=== PATIENT | male | born 1950 | race Caucasian/White ===

== ENCOUNTER 2016-11-20 18:33 | Inpatient (IN) ==
[2016-11-20] MEDS ORDERED: MORPHINE 2 MG/ML SYRINGE IVP STA (18:47)
[2016-11-20] MEDS ORDERED: SOLU-MEDROL 125 MG IVP STA (18:47)
[2016-11-20] MEDS ORDERED: ZOFRAN 4 MG/2 ML IVP STA (18:47)
[2016-11-20] MEDS ORDERED: DUONEB NEB STA (18:47)
[2016-11-20 19:01] LABS: BASOPHILS # (AUTO) 0.1 K/uL (0-0.2); BASOPHILS % (AUTO) 0.8 % (0.0-3.0); EOSINOPHILS # (AUTO) 0.1 K/ul (0.0-0.7); HEMATOCRIT 39.7 % (42.0-52.0); IMMATURE GRANULOCYTE % (AUTO) 0.4 % (0.0-5.0); LYMPHOCYTES # (AUTO) 0.8 K/uL (0.60-3.4); LYMPHOCYTES % (AUTO) 11.3 (10.0-50.0); MEAN CORPUSCULAR HEMOGLOBIN 29.2 pg (27.0-31.0); MEAN CORPUSCULAR HGB CONC 35.3 (31.8-35.4); MEAN CORPUSCULAR VOLUME 82.9 fl (80.0-94.0); MONOCYTES # (AUTO) 0.7 K/uL (0.4-2.0); NEUTROPHILS # (AUTO) 5.7 K/ul (2.0-6.9); NEUTROPHILS % (AUTO) 77.5; PLATELET COUNT 236 10^3/uL (140-440); RED BLOOD COUNT 4.79 10^6/ul (4.70-6.10); WHITE BLOOD COUNT 7.35 K/ul (4.2-10.2)
--- NOTE | 2016-11-20 19:22 | CT ---
Exam: CT of the chest without contrast History: Shortness of breath Technique: [address] of the chest without intravascular contrast FINDINGS: The lung windows show mild emphysematous change. No infiltrative opacities, suspicious no dules or masses. No pleural fluid or pneumothorax. Atherosclerotic calcification of the aorta with out aneurysm. No pathologic lymph node enlargement mediastinum. Prior median sternotomy. No acute abnormalities of the bony thorax or chest wall soft tissues. No acute findings of the upper abdome n. Impression: 1. Mild emphysematous change 2. No acute findings of the chest
[2016-11-20 19:28] LABS: ALANINE AMINOTRANSFERASE 21 U/L (12-78); ALBUMIN 3.3 g/dL (3.4-5.0); ALBUMIN/GLOBULIN RATIO 0.94; ALKALINE PHOSPHATASE 71 U/L (56-119); ANION GAP 15.9; ASPARTATE AMINO TRANSFERASE 25 U/L (15-37); BILIRUBIN,TOTAL 0.55 mg/dL (0.00-1.20); BLOOD UREA NITROGEN 12 mg/dL (7-18); BUN/CREATININE RATIO 11.11; CALCIUM 9.4 mg/dL (8.2-10.2); CARBON DIOXIDE 24 mmol/L (23-31); CHLORIDE 99 mmol/L (98-107); CREATINE KINASE 113 U/L; CREATININE 1.08 mg/dL (0.60-1.10); GLUCOSE 106 mg/dL (82-115); POTASSIUM 3.9 mmol/L (3.5-5.1); SODIUM 135 mmol/L (136-145); TOTAL PROTEIN 6.8 g/dL (5.8-8.1)
[2016-11-20 19:49] LABS: ABG PH 7.415 (7.35-7.45)
[2016-11-20 19:50] LABS: ABG BASE EXCESS 1 (-2.0-2.0); ABG HCO3 25.4 (22.0-26.0); ABG PCO2 39.6 mmHg (35-45); ABG TCO2 27 (22.0-28.0)
--- NOTE | 2016-11-20 19:57 | ED.PDOC ---
General ED Provider: Dr. MADAY DONG-ER Chief Complaint: Shortness of Air Stated Complaint: im coughing and congested and wheezing--i went back to smoking Time Seen by Physician: 19:00 Mode of Arrival: Walk-In Information Source: Patient Exam Limitations: No limitations Primary Care Provider: ANAHI BALLESTEROS Nursing and Triage Documentation Reviewed and Agree: Yes Respiratory Complaint Exam - Respiratory Complaint/Exam Onset/Duration: 3 days Symptoms Are: Still present Timing: Intermittent Initial Severity: Mild Current Severity: Moderate Location: Chest Character: Reports: Productive cough Aggravating: Reports: URI Alleviating: Reports: Bronchodilators Associated Signs and Symptoms: Reports: Dyspnea, Wheezing, URI. Denies: Rapid breathing, Fever, Chills, Chest pain, Pleuritic chest pain, Hemoptysis, Dizziness, Calf pain, Calf swelling, Edema, Nasal congestion, Hoarseness, Sinus discomfort, Vomiting, Sore throat, Weight loss, Decreased oral intake, Increased thirst, Increased appetite, Increased urination Related History: Reports: Similar episode History of Healthcare-Acquired Pneumonia: No Pulmonary Embolism Risk Factors: Smoking Cardiac Risk Factors: Reports: Smoking Pseudomonas Risk Factors: Reports: Chronic Lung Disease Tuberculosis Risk Factors: Reports: Smoking Status Asthmaticus Risk Factors: Reports: None Home Oxygen Use: No Recent Stress Test: No Recent Echo/LV Function: No Current Antibiotic Use: No Current Asthma Medication Use: No Respiratory Distress: None Inadequate Respiratory Effort: No Dysphagia Present: No Stridor Present: No JVD Present: No Accessory Muscle Use: Yes Retractions: Intercostal Diminished Breath Sounds: No Prolonged Respiration: Expiratory phase Sinus Tenderness: None Grunting Respirations: No Kussmaul Respirations: No Differential Diagnoses: COPD Exacerbation Non-Traumatic Chest Pain Syncope: EKG Performed Review of Systems - Review Of Systems Constitutional: Reports: No symptoms Eyes: Reports: No symptoms Ears, Nose, Mouth, Throat: Reports: No symptoms Respiratory: Reports: Cough, Short of air, Wheezing Cardiac: Reports: No symptoms GI: Reports: No symptoms : Reports: No symptoms Musculoskeletal: Reports: No symptoms Skin: Reports: No symptoms Neurological: Reports: No symptoms Endocrine: Reports: No symptoms Hematologic/Lymphatic: Reports: No symptoms All Other Systems: Reviewed and Negative Past Medical History - Past Medical History Previously Healthy: No Endocrine: Reports: None, Dyslipidemia Cardiovascular: Reports: CAD, Hypertension, A-Fib Respiratory: Reports: COPD Hematological: Reports: None Gastrointestinal: Reports: None, GI Bleed (DR oHu NOTES PATINET RECENTLY DISCHARGED FRO M RASTAFARI POST SHRAVAN BARKER TEAR) Genitourinary: Reports: None Neuro/Psych: Reports: None, Anxiety, Depression Musculoskeletal: Reports: Back Pain Cancer: Reports: None Other Pertinent Past Medical History: ABDOMEN SURGERY as an infanth - Surgical History General Surgical History: Reports: Appendectomy, Cholecystectomy, CABG (TWICE), Orthopedic (CABG X 2, BACK SURGERY, SHOULDER, NECK DISC REPLACEMENT, ), Back Surgery ( SPINE SURGERY), Hernia Repair (WITH MESH- CURRENTLY HAS TENDER AREA LEFT EPIGASTRIUM WHICH INTERMITTENTLY HAS LARGE PAINFUL LUMP) - Family History Family History: Reports: Unknown - Social History Smoking Status: Current every day smoker, Former smoker, Light tobacco smoker Hx Substance Use: No Alcohol Screening: Occasionally Lives: With family - Immunizations Tetanus Shot up to Date: Yes Physical Exam - Physical Exam Appearance: Well-appearing, No pain distress, Well-nourished Eyes: INDER, EOMI, Conjunctiva clear ENT: Ears normal, Nose normal, Oropharynx normal Neck: Supple Respiratory: Rhonchi, Wheezes Cardiovascular: RRR GI/: Soft Musculoskeletal: Normal strength, ROM intact, No edema, No calf tenderness Skin: Warm, Dry, Normal color Neurological: Sensation intact, Motor intact, Reflexes intact, Cranial nerves intact, Alert, Oriented Psychiatric: Affect appropriate, Mood appropriate Interpretation - Radiology Interpretation Radiology Interpretation By: Radiologist Radiology Results: Negative Exam Interpreted: CT Scan - EKG Interpretation Time of EKG #1: 19:57 Rate: Normal Rhythm: Sinus Ectopy: None [place]: NL ST Segment: Normal Interpretation: 0 Re-Evaluation - Re-Evaluation Time of Re-Evaluation: 19:57 Status: Improved Vital Signs Stable: Yes Pain Level: 1 Appearance: NAD Lungs: Clear Skin: Warm and Dry Neuro: Alert and Oriented X3 CV: RRR Physician Notification - Case Discussed Physician Notified: dr [email or web address] Time of Notification: 19:57 Critical Care Note - Critical Care Note Total Time (mins): 0 Course - Course Hematology/Chemistry: 11/20/16 18:55 11/20/16 18:55 Orders, Labs, Meds: Lab Review 11/20/16 11/20/16 18:47 18:55 WBC 7.35 RBC 4.79 Hgb 14.0 Hct 39.7 L MCV 82.9 MCH 29.2 MCHC 35.3 RDW Coeff of Tobin 12.8 Plt Count 236 Immature Gran % (Auto) 0.4 Neut % (Auto) 77.5 Lymph % (Auto) 11.3 [place] % (Auto) 9.0 Eos % (Auto) 1.0 Baso % (Auto) 0.8 Immature Gran # (Auto) 0.0 Neut # 5.7 Lymph # 0.8 [place] # 0.7 Eos # 0.1 Baso # 0.1 D-Dimer (Manual) 878.21 Puncture Site Rb O2 Saturation 91.0 L ABG pH 7.415 ABG pCO2 39.6 ABG pO2 59.0 L* ABG HCO3 25.4 ABG Total CO2 27 ABG Base Excess 1 Dariel Test + FiO2 % 21.0 Sodium 135 L Potassium 3.9 Chloride 99 Carbon Dioxide 24 Anion Gap 15.9 BUN 12 Creatinine 1.08 Estimated GFR (MDRD) 69.00 BUN/Creatinine Ratio 11.11 Glucose 106 Calcium 9.4 Total Bilirubin 0.55 AST 25 ALT 21 Alkaline Phosphatase 71 Total Creatine Kinase 113 Troponin I < 0.0100 B-Natriuretic Peptide 62 Total Protein 6.8 Albumin 3.3 L Globulin 3.5 Albumin/Globulin Ratio 0.94 Orders Category Date Time Status ABG DRAW REQUEST Stat CARDIO 11/20/16 18:49 Completed EKG-(ED ONLY) Stat CARDIO 11/20/16 18:50 Completed NEBULIZER TREATMENT Stat CARDIO 11/20/16 18:49 Completed ED IV/MEDIPORT/POWERPORT .ONCE EMERGENCY 11/20/16 18:47 Active ABG Stat LAB 11/20/16 18:47 Completed B-TYPE NATRIURETIC PEPTIDE Stat LAB 11/20/16 18:55 Completed CBC W/ AUTO DIFF Stat LAB 11/20/16 18:55 Completed COMPREHENSIVE METABOLIC PANEL Stat LAB 11/20/16 18:55 Completed CREATINE KINASE Stat LAB 11/20/16 18:55 Completed D-DIMER Stat LAB 11/20/16 18:55 Completed TROPONIN I Stat LAB 11/20/16 18:55 Completed 0.9 % Sodium Chloride [Saline Flush] MEDS 11/20/16 18:47 Ordered 1 syr IVF PRN PRN Ipratropium/Albuterol Neb [Duoneb] MEDS 11/20/16 18:47 Discontinued 1 vial NEB ONCE STA Methylprednisolone Sod Succ/Pf [Solu-Medrol 125 mg] MEDS 11/20/16 18:47 Discontinued 80 mg IVP ONCE STA Morphine Sulfate [Morphine 2 mg/ml Syringe] MEDS 11/20/16 18:47 Discontinued 2 mg IVP ONCE STA Ondansetron HCl/Pf [Zofran 4 mg/2 ml] MEDS 11/20/16 18:47 Discontinued 4 mg IVP ONCE STA CT CHEST W/O CONTRAST Stat RADS 11/20/16 18:47 Completed Medications Generic Name Dose Route Start Last Admin Trade Name Freq PRN Reason Stop Dose Admin Sodium Chloride 1 syr 11/20/16 18:47 Saline Flush IVF PRN PRN To flush IV Discontinued Medications Generic Name Dose Route Start Last Admin Trade Name Freq PRN Reason Stop Dose Admin Albuterol/Ipratropium 1 vial 11/20/16 18:47 Duoneb NEB 11/20/16 18:48 ONCE STA Methylprednisolone Sodium Succinate 80 mg 11/20/16 18:47 11/20/16 19:22 Solu-Medrol 125 Mg IVP 11/20/16 18:48 80 mg ONCE STA Administration Morphine Sulfate 2 mg 11/20/16 18:47 11/20/16 19:22 Morphine 2 Mg/Ml Syringe IVP 11/20/16 18:48 2 mg ONCE STA Administration Ondansetron HCl 4 mg 11/20/16 18:47 11/20/16 19:22 Zofran 4 Mg/2 Ml IVP 11/20/16 18:48 4 mg ONCE STA Administration Vital Signs: Temp Pulse Resp BP Pulse Ox 11/20/16 18:33 97.5 F L 117 H 22 153/90 H 94 L Departure - Departure Time of Disposition: 19:58 Disposition: ADMITTED INPATIENT Discharge Problem: COPD exacerbation Acute respiratory failure Qualifiers: Respiratory failure complication: hypoxia Qualifier Code: (J96.01) Acute respiratory failure with hypoxia Instructions: COPD (Chronic Obstructive Pulmonary Disease) (ED) Condition: Good Pt referred to PMD for follow-up: Yes Allergies/Adverse Reactions: Allergies buspirone HCl [From BuSpar] Adverse Reaction (Verified 11/20/16 18:39) codeine Adverse Reaction (Verified 11/20/16 18:39) lorazepam [From Ativan] Adverse Reaction (Verified 11/20/16 18:39) meperidine HCl [From Demerol] Adverse Reaction (Verified 11/20/16 18:39) promethazine HCl [From Phenergan] Adverse Reaction (Verified 11/20/16 18:39) tiotropium bromide [From Spiriva with HandiHaler] Adverse Reaction (Verified 10/07 18:39) Home Medications: Ambulatory Orders Atorvastatin Calcium [Lipitor] 40 mg PO BEDTIME 01/20/13 Isosorbide Mononitrate [Imdur] 30 mg PO DAILY 01/20/13 Aspirin [Aspirin Chewable] 81 mg PO 2100 01/28/13 Duloxetine HCl [Cymbalta] 30 mg PO DAILY 01/28/13 Metoprolol Succinate [Toprol Xl] 50 mg PO DAILY 01/28/13 Pantoprazole Sodium [Protonix] 40 mg PO QDAC 01/28/13 Alprazolam [Xanax] 1 mg PO BEDTIME 09/22/14 Clopidogrel Bisulfate [Plavix] 75 mg PO DAILY 09/22/14 Diltiazem HCl [Cardizem] 60 mg PO Q12HR #60 tablet 09/23/14 Oxycodone HCl/Acetaminophen [Percocet 7.5-325 mg Tablet] 1 each PO QID PRN 30 Days 03/18/15 Albuterol Sulfate [Proair Hfa] 2 puff IH Q6H PRN #1 inh 06/30/15 Cephalexin [Keflex] 500 mg PO Q12HR 5 Days 05/08/16 Prednisone 10 mg PO BIDWM 5 Days 05/08/16 Disposition Discussed With: Patient
[2016-11-20] MEDS ORDERED: ZOFRAN 4 MG/2 ML IVP PRN (20:03)
[2016-11-20] MEDS ORDERED: PERCOCET 7.5-325 PO PRN (20:04)
[2016-11-20] MEDS: SODIUM CHLORIDE 1,000 ML IV SCH (20:38)
[2016-11-20] MEDS ORDERED: CARDIZEM ONE (21:21)
[2016-11-20] MEDS: LIPITOR PO SCH (21:26)
[2016-11-20] MEDS: ASPIRIN CHEWABLE PO SCH (21:26)
[2016-11-20] MEDS: XANAX PO SCH (21:26)
[2016-11-20] MEDS: CARDIZEM PO SCH (21:27)
[2016-11-20] MEDS: MORPHINE 2 MG/ML SYRINGE IVP PRN (21:28)
[2016-11-20] MEDS: ALBUTEROL 0.083% NEB NEB SCH (22:02)
[2016-11-21] MEDS: SOLU-MEDROL 40 MG IVP SCH ×5 (00:20→23:23)
[2016-11-21] MEDS: ALBUTEROL 0.083% NEB NEB SCH ×6 (01:40→21:38)
[2016-11-21] MEDS: MORPHINE 2 MG/ML SYRINGE IVP PRN ×2 (03:31→09:19)
[2016-11-21] MEDS: PROTONIX PO SCH (05:47)
[2016-11-21 05:51] LABS: HEMATOCRIT 40.4 % (42.0-52.0); HEMOGLOBIN 14.1 g/dl (14.0-18.0); IMMATURE GRANULOCYTE % (AUTO) 0.5 % (0.0-5.0); LYMPHOCYTES # (AUTO) 0.4 K/uL (0.60-3.4); LYMPHOCYTES % (AUTO) 9.7 (10.0-50.0); MEAN CORPUSCULAR HEMOGLOBIN 29.1 pg (27.0-31.0); MEAN CORPUSCULAR HGB CONC 34.9 (31.8-35.4); MEAN CORPUSCULAR VOLUME 83.3 fl (80.0-94.0); MONOCYTES % (AUTO) 0.8 (0-10); NEUTROPHILS # (AUTO) 3.5 K/ul (2.0-6.9); PLATELET COUNT 236 10^3/uL (140-440); RED BLOOD COUNT 4.85 10^6/ul (4.70-6.10); WHITE BLOOD COUNT 3.93 K/ul (4.2-10.2)
[2016-11-21 06:09] LABS: ALBUMIN 3.1 g/dL (3.4-5.0); ALBUMIN/GLOBULIN RATIO 0.91; ANION GAP 13.6; BILIRUBIN,TOTAL 0.55 mg/dL (0.00-1.20); BUN/CREATININE RATIO 13.33; CALCIUM 9.2 mg/dL (8.2-10.2); CREATININE 1.05 mg/dL (0.60-1.10); POTASSIUM 4.6 mmol/L (3.5-5.1); TOTAL PROTEIN 6.5 g/dL (5.8-8.1)
[2016-11-21] MEDS: ROCEPHIN 1 GM in SODIUM CHLORIDE 50 ML IV SCH (08:01)
[2016-11-21] MEDS: TOPROL XL PO SCH (08:01)
[2016-11-21] MEDS: PERCOCET 7.5-325 PO PRN ×4 (08:02→23:23)
[2016-11-21] MEDS: CYMBALTA PO SCH (08:02)
[2016-11-21] MEDS: IMDUR PO SCH (08:02)
[2016-11-21] MEDS: PLAVIX PO SCH (08:02)
[2016-11-21] MEDS: CARDIZEM PO SCH ×2 (08:02→20:22)
[2016-11-21] MEDS: LOVENOX SUBCUT SCH (08:03)
[2016-11-21] MEDS ORDERED: TOPROL XL PO SCH (09:00)
[2016-11-21] MEDS: ZITHROMAX 500 MG in SODIUM CHLORIDE 250 ML IV SCH (09:20)
[2016-11-21] MEDS: TESSALON PERLES PO SCH ×3 (09:20→20:21)
--- NOTE | 2016-11-21 10:15 | PCM.PROG ---
Attending Provider: ATTENDING PROVIDER: Dr. ANAHI CHUNG - SEEN BY DR. PARSONS DATE OF SERVICE: 11/21/16 SUBJECTIVE: This 66 year old WHITE/ M was hospitalized 11/20/16. The patient states he is feeling better. He continues to have a cough that is productive, thick yellow sputum. He states his chest, both sides hurts when he coughs. REVIEW OF SYSTEMS: CONSTITUTIONAL: No fever, no chills. ENDOCRINE: No weight loss or weight gain. HEENT: No sinus drainage, no sore throat. CVS: No angina symptoms. No CHF symptoms. No palpitations. No atypical chest pain for CAD. No shortness of breath. No PND, no orthopnea. RESPIRATORY: Cough and congestion. No hemoptysis. GI: No melena. No abdominal pain. No nausea, no vomiting. : No hematuria. No polyuria. SKIN: No rash. No wounds. MUSCULOSKELETAL: Complains of pain across his chest when coughing. GORE CUTTER: No blackout, no dizziness. No headache. No double vision. PSYCHIATRIC: Not anxious; no depression. No suicidal thoughts. No homicidal thoughts. PHYSICAL EXAMINATION: GENERAL: Lying in bed in no distress. VITAL SIGNS: Temperature 97.9 F, Pulse 79, Respiratory Rate 18, BP 123/66, Pulse Ox 98% HEENT: Normocephalic, atraumatic. Mucosa is dry, pallor positive. NECK: No JVP, no carotid bruit. No lymphadenopathy. CARDIAC: S1, S2, no S3. No murmur, gallop or regurgitation. LUNGS: Clear to auscultation. ABDOMEN: Soft, non-tender. Bowel sounds active. No rigidity, guarding or CVA tenderness. EXTREMITIES: No clubbing, cyanosis or edema. NEUROLOGIC: Awake, alert and oriented x3. LYMPHATIC: No palpable lymph nodes SKIN: Not dry. Intact. MUSCULOSKELETAL: No joint swelling. LAB REVIEW: 11/21/16 05:15 11/21/16 05:15 11/21/16 05:15: WBC 3.93 L, RBC 4.85, Hgb 14.1, Hct 40.4 L, MCV 83.3, MCH 29.1, MCHC 34.9, RDW Coeff of Tobin 13.1, Plt Count 236, Immature Gran % (Auto) 0.5, Neut % (Auto) 89.0, Lymph % (Auto) 9.7 L, [place] % (Auto) 0.8, Eos % (Auto) 0.0, Baso % (Auto) 0.0, Immature Gran # (Auto) 0.0, Neut # 3.5, Lymph # 0.4 L, [place] # 0.0 L, Eos # 0.0, Baso # 0.0, Sodium 136, Potassium 4.6, Chloride 102, Carbon Dioxide 25, Anion Gap 13.6, BUN 14, Creatinine 1.05, Estimated GFR (MDRD) 71.00 , BUN/Creatinine Ratio 13.33, Glucose 166 H D, Calcium 9.2, Total Bilirubin 0.55 , AST 20, ALT 19, Alkaline Phosphatase 69, Total Protein 6.5, Albumin 3.1 L, Globulin 3.4, Albumin/Globulin Ratio 0.91 ASSESSMENT: 1. COPD exacerbation secondary to bronchitis 2. Coronary artery disease 3. CABG 4. Hypertension 5. Dyslipidemia 6. History of prostate cancer 7. Continued nicotine use PLAN: 1. Continue Rocephin and Azithromycin 2. Continue Albuterol nebs 3. Out of bed to chair 4. Activity as tolerated 5. Counseling for smoking done Plan and coordination of the patient's care discussed in the presence of Retaining Room Cutter and nurse. CONDITION: Stable SCRIBED BY: Che WILBURNist scribed while in presence of service performed by Dr. Parsons on 11/21/16 ([id number])
--- NOTE | 2016-11-21 10:20 | PN ---
DATE OF SERVICE: 11/20/16 ADMIT NOTE SUBJECTIVE: Tyree Soler was in the emergency room with cough, congestion, pleuritic type of pain with shortness of breath with 7 days duration. The patient was seen and examined the in the emergency room by ER attending Dr. Johns and called me for patient to be hospitalized as patient has pO2 of less than 60 with normal pCO2 and normal pH. The patient has history fo smoking and severe chronic lung disease. The patient also has history of coronary artery disease with coronary bypass surgery, hypertension and dyslipidemia. The patient's cardiovascular status is stable. REVIEW OF SYSTEMS: CONSTITUTIONAL: No night sweats. No fatigue, malaise, lethargy. No fever or chills. HEENT: Eyes: No visual changes. No eye pain. No eye discharge. ENT: No runny nose. No epistaxis. No sinus pain. No sore throat. No odynophagia. No congestion. RESPIRATORY: No cough, no congestion. No hemoptysis. CARDIOVASCULAR: No angina symptoms. No CHF symptoms. No atypical chest pain for CAD. No palpitations. No shortness of breath. GASTROINTESTINAL: No abdominal pain. No nausea or vomiting. No diarrhea or constipation. No hematemesis. No hematochezia. GENITOURINARY: No urgency. No frequency. No dysuria. No hematuria. No obstructive symptoms. No discharge. No pain. No significant abnormal bleeding. MUSCULOSKELETAL: No musculoskeletal pain; no joint swelling. NEUROLOGICAL: No headache. No neck pain. No syncope. No seizures. No dizziness. PSYCHIATRIC: Not anxious. No depression. No suicidal thoughts. No homicidal thoughts. SKIN: No rash. No lesions. No wounds. ENDOCRINE: No unexplained weight loss. No weight gain. HEMATOLOGIC/LYMPHATIC: No anemia. No purpura. No petechiae. No prolonged or excessive bleeding. No palpable lymph nodes. PHYSICAL EXAMINATION: GENERAL: The patient is oriented to time, place and person. VITAL SIGNS: Blood pressure 153/90, temperature 97.5, pulse 117, respiratory rate 22 and pulse ox 94%. HEENT: Head normocephalic, atraumatic. Eyes: Extraocular muscles are intact. Pupils are equal, round and reactive to light and accommodation. Ears: No lesions. Nose appeared normal. Throat: No exudate or erythema. NECK: Supple. No JVD, no carotid bruit. No lymphadenopathy or thyromegaly. LUNGS: Decreased breath sounds bilaterally. Clear to auscultation. Percussion note normal. Chest symmetrical. HEART: S1, S2, no S3. No murmurs. No cyanosis or clubbing. No ascites. Pulses: Dorsalis pedis and posterior tibial pulses +1 to +2 both sides. ABDOMEN: Soft. Nontender. Bowel sounds active. No CVA tenderness. No mass felt. EXTREMITIES: No edema. Full range of motion of all extremities, equal. NEUROLOGIC: No focal deficit. Cranial nerves II through XII are grossly intact. No headache, no double vision or headache. SKIN: Not dry. Intact. Turgor - normal. LYMPHATIC: No palpable lymph nodes/no lymphedema. MUSCULOSKELETAL: Normal joints with no swelling. Muscle tone is normal. ASSESSMENT: 1. Acute bronchitis/Pneumonitis 2. Severe chronic lung disease PLAN: 1. Hospitalize with IV antibiotics Rocephin and Zithromax 2. IV Steroids 3. NEBS treatment 4. Oxygen supplements 5. Telemetry 6. Cardiac Markers CONDITION: Stable. TIME SPENT: More than 30 minutes. Plan and coordination of the patient's care discussed in the presence of nurse. VERN
[2016-11-21] MEDS ORDERED: TORADOL IVP PRN (14:47)
[2016-11-21] MEDS ORDERED: TORADOL ONE (14:53)
[2016-11-21] MEDS: XANAX PO SCH (20:21)
[2016-11-21] MEDS: ASPIRIN CHEWABLE PO SCH (20:21)
[2016-11-21] MEDS: LIPITOR PO SCH (20:22)
[2016-11-21] MEDS: SODIUM CHLORIDE 1,000 ML IV SCH (21:49)
[2016-11-22] MEDS: ALBUTEROL 0.083% NEB NEB SCH ×6 (01:16→21:03)
[2016-11-22 04:33] LABS: BASOPHILS % (AUTO) 0.1 % (0.0-3.0); HEMATOCRIT 37.5 % (42.0-52.0); IMMATURE GRANULOCYTE % (AUTO) 0.5 % (0.0-5.0); LYMPHOCYTES # (AUTO) 0.5 K/uL (0.60-3.4); LYMPHOCYTES % (AUTO) 3.4 (10.0-50.0); MEAN CORPUSCULAR HEMOGLOBIN 29.5 pg (27.0-31.0); MEAN CORPUSCULAR HGB CONC 34.7 (31.8-35.4); MEAN CORPUSCULAR VOLUME 85.2 fl (80.0-94.0); MONOCYTES # (AUTO) 0.4 K/uL (0.4-2.0); MONOCYTES % (AUTO) 3.1 (0-10); NEUTROPHILS # (AUTO) 12.9 K/ul (2.0-6.9); NEUTROPHILS % (AUTO) 92.9; PLATELET COUNT 211 10^3/uL (140-440); WHITE BLOOD COUNT 13.86 K/ul (4.2-10.2)
[2016-11-22 04:56] LABS: ALBUMIN 2.9 g/dL (3.4-5.0); ALBUMIN/GLOBULIN RATIO 0.97; ANION GAP 12.7; BILIRUBIN,TOTAL 0.28 mg/dL (0.00-1.20); CALCIUM 8.9 mg/dL (8.2-10.2); CREATININE 1.12 mg/dL (0.60-1.10); POTASSIUM 4.7 mmol/L (3.5-5.1); TOTAL PROTEIN 5.9 g/dL (5.8-8.1)
[2016-11-22] MEDS: SOLU-MEDROL 40 MG IVP SCH ×4 (05:49→23:33)
[2016-11-22] MEDS: PROTONIX PO SCH (05:50)
[2016-11-22] MEDS: PERCOCET 7.5-325 PO PRN ×4 (05:50→23:33)
[2016-11-22] MEDS: CYMBALTA PO SCH (09:05)
[2016-11-22] MEDS: TESSALON PERLES PO SCH ×3 (09:05→20:39)
[2016-11-22] MEDS: IMDUR PO SCH (09:05)
[2016-11-22] MEDS: TOPROL XL PO SCH (09:05)
[2016-11-22] MEDS: LOVENOX SUBCUT SCH (09:05)
[2016-11-22] MEDS: ROCEPHIN 1 GM in SODIUM CHLORIDE 50 ML IV SCH (09:06)
[2016-11-22] MEDS: CARDIZEM PO SCH ×2 (09:06→20:39)
[2016-11-22] MEDS: PLAVIX PO SCH (09:06)
[2016-11-22 09:31] LABS: ABG BASE EXCESS -4 (-2.0-2.0); ABG HCO3 22.3 (22.0-26.0); ABG PCO2 41.9 mmHg (35-45); ABG PH 7.334 (7.35-7.45); ABG TCO2 24 (22.0-28.0)
--- NOTE | 2016-11-22 09:32 | PCM.PROG ---
Attending Provider: ATTENDING PROVIDER: Dr. ANAHI CHUNG - Seen by Dr. Parsons DATE OF SERVICE: 11/22/16 SUBJECTIVE: This 66 year old WHITE/ M was hospitalized 11/20/16. The patient complains this morning of left-sided abdominal pain, which he states he has had for some time, approximately 2 months. He states when he bends over "it pops out " and he has to put it back. He is concerned that he has a hernia. The patient has had multiple surgeries on the belly. Chest pain/soreness is not as bad today. REVIEW OF SYSTEMS: CONSTITUTIONAL: No fever, no chills. ENDOCRINE: No weight loss or weight gain. HEENT: No sinus drainage, no sore throat. CVS: No angina symptoms. No CHF symptoms. No palpitations. No atypical chest pain for CAD. No shortness of breath. RESPIRATORY: No cough, no hemoptysis. GI: No melena. Abdominal pain. No nausea, no vomiting. : No hematuria. No polyuria. SKIN: No rash. No wounds. MUSCULOSKELETAL: No pain. POWER PLANT INSTALLER: No blackout, no dizziness. No headache. No double vision. PSYCHIATRIC: Not anxious; no depression. No suicidal thoughts. No homicidal thoughts. PHYSICAL EXAMINATION: GENERAL: Lying in bed in no distress. VITAL SIGNS: Temperature 97.2 F, Pulse 74, Respiratory Rate 18, BP 151/84, Pulse Ox 95% HEENT: Normocephalic, atraumatic. Mucosa is dry, pallor positive. NECK: No JVP, no carotid bruit. No lymphadenopathy. CARDIAC: S1, S2, no S3. No murmur, gallop or regurgitation. LUNGS: Clear to auscultation. ABDOMEN: Soft, abdominal pain with left upper quadrant tenderness. No rigidity or guarding. I feel no palpable hernia or weakness in the anterior abdominal wall. The patient complans of tenderness there. Bowel sounds active. No rigidity, guarding or CVA tenderness. EXTREMITIES: No clubbing, cyanosis or edema. NEUROLOGIC: Awake, alert and oriented x3. LYMPHATIC: No palpable lymph nodes SKIN: Not dry. Intact. MUSCULOSKELETAL: No joint swelling. LAB REVIEW: 11/22/16 04:31 11/22/16 04:31 11/22/16 04:31: WBC 13.86 H D, RBC 4.40 L, Hgb 13.0 L, Hct 37.5 L, MCV 85.2, MCH 29.5, MCHC 34.7, RDW Coeff of Tobin 13.2, Plt Count 211, Immature Gran % (Auto ) 0.5, Neut % (Auto) 92.9, Lymph % (Auto) 3.4 L, [place] % (Auto) 3.1, Eos % (Auto ) 0.0, Baso % (Auto) 0.1, Immature Gran # (Auto) 0.1, Neut # 12.9 H, Lymph # 0.5 L, [place] # 0.4, Eos # 0.0, Baso # 0.0, Sodium 135 L, Potassium 4.7, Chloride 104, Carbon Dioxide 23, Anion Gap 12.7, BUN 28 H, Creatinine 1.12 H, Estimated GFR (MDRD) 66.00, BUN/Creatinine Ratio 25.00, Glucose 136 H, Calcium 8.9, Total Bilirubin 0.28, AST 14 L, ALT 17, Alkaline Phosphatase 61, Total Protein 5.9, Albumin 2.9 L, Globulin 3.0, Albumin/Globulin Ratio 0.97 ASSESSMENT: 1. Abdominal pain rule out ventral hernia 2. COPD exacerbation secondary to bronchitis 3. Coronary artery disease 4. CABG 5. Hypertension 6. Dyslipidemia 7. History of prostate cancer 8. Continued nicotine use PLAN: 1. CT scan of the abdomen and pelvis w/o contrast 2. Continue Rocephin 3. Continue Solu-Medrol 4. Out of bed to chair, activity as tolerated 5. ABG on room air Plan and coordination of the patient's care discussed in the presence of Raker Buffing Wheel and nurse. CONDITION: Stable SCRIBED BY: ROSI PLASENCIA Excel Specialist scribed while in presence of service performed by Dr. Parsons on 11/22/16 ([id number])
--- NOTE | 2016-11-22 09:38 | CT ---
EXAM: CT ABDOMEN AND PELVIS HISTORY: Upper abdominal pain, left side mainly TECHNIQUE: CT abdomen and pelvis without intravenous contrast. Images were reconstructed using 3 m m section thickness. Reformations were prepared. COMPARISON: 02/26/2016 FINDINGS: Diagnostic limitations exist without including contrast enhanced images. No obvious focal hepatic or splenic lesions. Gallbladder is absent. Pancreas and adrenal glands are within normal limits. Ki dneys and ureters are unremarkable. Moderate aortic atherosclerosis with no aneurysmal caliber. The stomach is mildly distended with food product. Bowel gas pattern is unremarkable. The patient is post appendectomy. Mild prostate enlargement. Urinary bladder is unremarkable. There is no asc ites or inflammatory infiltration of the abdominal fat. Mildly prominent fatty left inguinal canal. There is a small focus of sclerosis of the upper right femoral head which may represent early avascular necrosis or general arthritic change. Mild linear scarring in the posterior right lung base. No pneumoperitoneum. IMPRESSION: 1. Stomach is mildly distended with food product. Consider gastroparesis, ileus, gastritis or conc eivably one of the causes of partial outlet obstruction. General bowel gas pattern is normal. Ther e is no ascites, free air or inflammatory infiltration of the abdominal fat. 2. Moderate atherosclerotic disease. 3. Mild prostate enlargement. 4. There is a small focus of sclerosis of the upper right femoral head which may represent early av ascular necrosis or general arthritic change.
[2016-11-22] MEDS: ZITHROMAX 500 MG in SODIUM CHLORIDE 250 ML IV SCH (10:42)
--- NOTE | 2016-11-22 11:13 | HP ---
DATE OF SERVICE: 11/20/[address] Toscano REASON FOR HOSPITALIZATION: Shortness of breath HISTORY OF PRESENT ILLNESS: The patient is a 66 year old male with the multiple medical problems came to the emergency room with cough, congestion, getting yellow/green phlegm and gradually getting shortness of breath and hurting on the both sides of the ribs. As he was feeling more worse came to the emergency room and was seen by Dr. Johns in the emergency room. Initially evaluation showed the D-dimer 878, ABG showed the pH 7.41, pCO2 39.6 and pO2 59. First set of cardiac enzymes are negative. BNP is negative. CT of the chest was done which showed mild emphysematous changes and no acute findings. Just after giving the breathing treatments and the steroids that patient was still short of breath. At that time the patient was admitted to the hospital with COPD exacerbation, hypoxemia and shortness of breath. REVIEW OF SYSTEMS: CONSTITUTIONAL: No night sweats. Weakness and tiredness. No fever or chills. HEENT: Eyes: No visual changes. No eye pain. No eye discharge. ENT: No runny nose. No epistaxis. No sinus pain. No sore throat. No odynophagia. No ear pain. No congestion. RESPIRATORY: Cough and congestion. No hemoptysis. CARDIOVASCULAR: No angina symptoms. No CHF symptoms. No atypical chest pain for CAD. No palpitations. Shortness of breath. GASTROINTESTINAL: No abdominal pain. No nausea or vomiting. No diarrhea or constipation. No hematemesis. No hematochezia. GENITOURINARY: No urgency. No frequency. No dysuria. No hematuria. No obstructive symptoms. No discharge. No pain. No significant abnormal bleeding. MUSCULOSKELETAL: No musculoskeletal pain. No joint swelling. No arthritis. NEUROLOGICAL: No headache. No neck pain. No syncope. No seizures. No dizziness. PSYCHIATRIC: Not anxious. No depression. No suicidal thoughts. No homicidal thoughts. SKIN: No rash. No lesions. No wounds. ENDOCRINE: No unexplained weight loss. No weight gain. HEMATOLOGIC/LYMPHATIC: No anemia. No purpura. No petechiae. No prolonged or excessive bleeding. No palpable lymph nodes. PERSONAL/FAMILY/SOCIAL HISTORY: Smoking, quit three months ago. Independent of ADL's. The family history is significant for the Lung cancer and thyroid problems. PAST MEDICAL/SURGICAL PROBLEMS: CAD, status post bypass surgery x2 2004 and 2014 COPD Hiatal hernia Appendectomy Cholecystectomy Bladder Cancer Osteoarthritis Depression Anxiety Nicotine Use Bypass surgery two times Back surgery x2 Rotator cuff surgery Carpal tunnel surgery Distant bowel surgery Hernia repair MEDICATIONS: Lipitor Imdur Aspirin Cymbalta Toprol Protonix Plavix Xanax Cardizem Percocet ProAir Keflex Prednisone ALLERGIES: Buspirone Codeine Lorazepam Meperidine PHYSICAL EXAMINATION: VITAL SIGNS: Blood pressure 153/90, respiratory rate 22, heart rate 117 and temperature 97.5 and saturation is 94%. HEENT: Head normocephalic, atraumatic. Eyes: Extraocular muscles are intact. Pupils are equal, round and reactive to light and accommodation. Ears: No lesions. Nose appeared normal. Throat: No exudate or erythema. Mucosa dry. NECK: Supple. No JVD, no carotid bruit. No lymphadenopathy or thyromegaly. LUNGS: Decreased with basilar crackles and expiratory wheeze present. Percussion note normal. Chest symmetrical. HEART: S1, S2, no S3. No murmurs. No cyanosis or clubbing. No ascites. Pulses: Dorsalis pedis and posterior tibial pulses +1 to +2 both sides. Sinus tachycardia ABDOMEN: Soft. Nontender. Bowel sounds active. No CVA tenderness. No mass felt. EXTREMITIES: No edema. Full range of motion of all extremities, equal. NEUROLOGIC: No focal deficit. Cranial nerves II through XII are grossly intact. No headache, no double vision or headache. SKIN: Not dry. Intact. Turgor - normal. LYMPHATIC: No palpable lymph nodes/no lymphedema. MUSCULOSKELETAL: Normal joints with no swelling. Muscle tone is normal. LABS: Sodium 135, potassium 3.9, chloride 99, bicarb 24, BUN 12, creatinine 1.08, WBC 7.35, hgb 14.0, hct 39.7, plt count 236, d-dimer 878. ABG pH 7.415, pCO2 39.6 and pO2 59.0. ASSESSMENT: 1. COPD exacerbation secondary to the bronchitis 2. Hypoxemia secondary to the COPD exacerbation and bronchitis 3. History of coronary artery disease 4. Bypass surgery 5. Hypertension 6. Dyslipidemia 7. Bladder Cancer 8. Anxiety 9. Depression PLAN: 1. Admit patient to the regular floor 2. CBC and CMP today and daily 3. Cardiac enzymes and troponin 4. Solu-Medrol 5. Antibiotic Rocephin 6. Lovenox for the DVT prophylaxis 7. Albuterol breathing treatments 8. Daily I&O's 9. Morphine PRN for the pain Will follow the patient in daily rounds. TIME SPENT: More than 55 minutes. MTDD
[2016-11-22] MEDS: ASPIRIN CHEWABLE PO SCH (20:39)
[2016-11-22] MEDS: XANAX PO SCH (20:39)
[2016-11-22] MEDS: LIPITOR PO SCH (20:39)
[2016-11-23] MEDS: ALBUTEROL 0.083% NEB NEB SCH ×4 (01:25→14:08)
[2016-11-23] MEDS: SODIUM CHLORIDE 1,000 ML IV SCH (02:40)
[2016-11-23 04:19] LABS: BASOPHILS % (AUTO) 0.1 % (0.0-3.0); HEMOGLOBIN 12.3 g/dl (14.0-18.0); IMMATURE GRANULOCYTE % (AUTO) 0.9 % (0.0-5.0); LYMPHOCYTES # (AUTO) 0.3 K/uL (0.60-3.4); LYMPHOCYTES % (AUTO) 2.7 (10.0-50.0); MEAN CORPUSCULAR HEMOGLOBIN 29.6 pg (27.0-31.0); MEAN CORPUSCULAR HGB CONC 34.2 (31.8-35.4); MEAN CORPUSCULAR VOLUME 86.5 fl (80.0-94.0); MONOCYTES # (AUTO) 0.4 K/uL (0.4-2.0); NEUTROPHILS # (AUTO) 11.7 K/ul (2.0-6.9); NEUTROPHILS % (AUTO) 93.3; PLATELET COUNT 193 10^3/uL (140-440); RED BLOOD COUNT 4.16 10^6/ul (4.70-6.10); WHITE BLOOD COUNT 12.49 K/ul (4.2-10.2)
[2016-11-23 04:40] LABS: ALBUMIN 2.8 g/dL (3.4-5.0); ALBUMIN/GLOBULIN RATIO 0.88; ANION GAP 10.2; BILIRUBIN,TOTAL 0.2 mg/dL (0.00-1.20); BUN/CREATININE RATIO 29.21; CALCIUM 8.4 mg/dL (8.2-10.2); CREATININE 0.89 mg/dL (0.60-1.10); POTASSIUM 4.2 mmol/L (3.5-5.1)
[2016-11-23] MEDS: PROTONIX PO SCH (05:43)
[2016-11-23] MEDS: SOLU-MEDROL 40 MG IVP SCH ×2 (05:43→12:09)
[2016-11-23] MEDS: PERCOCET 7.5-325 PO PRN ×2 (05:43→11:43)
[2016-11-23] MEDS: CYMBALTA PO SCH (08:54)
[2016-11-23] MEDS: TOPROL XL PO SCH (08:54)
[2016-11-23] MEDS: PLAVIX PO SCH (08:55)
[2016-11-23] MEDS: CARDIZEM PO SCH (08:55)
[2016-11-23] MEDS: LOVENOX SUBCUT SCH (08:56)
[2016-11-23] MEDS ORDERED: ROCEPHIN 1 GM in SODIUM CHLORIDE 100 ML IV SCH (09:00)
[2016-11-23] MEDS: TESSALON PERLES PO SCH (09:06)
[2016-11-23] MEDS: IMDUR PO SCH (09:12)
--- NOTE | 2016-11-23 09:35 | PCM.PROG ---
Attending Provider: ATTENDING PROVIDER: Dr. ANAHI CHUNG - seen by Dr. Parsons DATE OF SERVICE: 11/23/16 SUBJECTIVE: This 66 year old WHITE/ M was hospitalized 11/20/16. The patient states he feels better. He states he walked 5 to 6 times yesterday without any problems. He continues to complain of left-sided upper abdominal pain. CT scan of the abdomen and pelvis done yesterday revealed some gastritis. Breathing is better; sats 95% without oxygen. Advised endoscopy as an outpatient. Diet discussed. REVIEW OF SYSTEMS: CONSTITUTIONAL: No fever, no chills. ENDOCRINE: No weight loss or weight gain. HEENT: No sinus drainage, no sore throat. CVS: No angina symptoms. No CHF symptoms. No palpitations. No atypical chest pain for CAD. No shortness of breath. RESPIRATORY: No cough, no hemoptysis. GI: No melena. Left upper abdominal pain. No nausea, no vomiting. : No hematuria. No polyuria. SKIN: No rash. No wounds. MUSCULOSKELETAL: No pain. MORPHOLOGY TEACHER: No blackout, no dizziness. No headache. No double vision. PSYCHIATRIC: Not anxious; no depression. No suicidal thoughts. No homicidal thoughts. PHYSICAL EXAMINATION: GENERAL: Lying in bed in no distress. VITAL SIGNS: Temperature 97.2 F, Pulse 76, Respiratory Rate 18, BP 158/83, Pulse Ox 94% HEENT: Normocephalic, atraumatic. Mucosa is dry, pallor positive. NECK: No JVP, no carotid bruit. No lymphadenopathy. CARDIAC: S1, S2, no S3. No murmur, gallop or regurgitation. LUNGS: Decreased breath sounds. Clear to auscultation. ABDOMEN: Mild tenderness of the abdomen, left upper side. No rigidity, guarding or CVA tenderness. EXTREMITIES: No clubbing, cyanosis or edema. NEUROLOGIC: Awake, alert and oriented x3. LYMPHATIC: No palpable lymph nodes SKIN: Not dry. Intact. MUSCULOSKELETAL: No joint swelling. LAB REVIEW: 11/23/16 04:00 11/23/16 04:00 11/23/16 04:00: WBC 12.49 H, RBC 4.16 L, Hgb 12.3 L, Hct 36.0 L, MCV 86.5, MCH 29.6, MCHC 34.2, RDW Coeff of Tobin 13.4, Plt Count 193, Immature Gran % (Auto) 0.9, Neut % (Auto) 93.3, Lymph % (Auto) 2.7 L, [place] % (Auto) 3.0, Eos % (Auto) 0.0, Baso % (Auto) 0.1, Immature Gran # (Auto) 0.1, Neut # 11.7 H, Lymph # 0.3 L , [place] # 0.4, Eos # 0.0, Baso # 0.0, Sodium 139, Potassium 4.2, Chloride 107, Carbon Dioxide 26, Anion Gap 10.2, BUN 26 H, Creatinine 0.89, Estimated GFR ( MDRD) 86.00, BUN/Creatinine Ratio 29.21, Glucose 145 H, Calcium 8.4, Total Bilirubin 0.20, AST 14 L, ALT 17, Alkaline Phosphatase 55 L, Total Protein 6.0, Albumin 2.8 L, Globulin 3.2, Albumin/Globulin Ratio 0.88 11/22/16 09:25: Puncture Site R rad, O2 Saturation 92.0 L, ABG pH 7.334 L, ABG pCO2 41.9, ABG pO2 68.0 L, ABG HCO3 22.3, ABG Total CO2 24, ABG Base Excess -4 L , Dariel Test +, FiO2 % 21.0 ASSESSMENT: 1. Abdominal pain, possible gastritis per CT scan 2. COPD exacerbation secondary to bronchitis 3. Coronary artery disease 4. CABG 5. Hypertension 6. Dyslipidemia 7. History of prostate cancer 8. Continued nicotine use PLAN: 1. Possible discharge this afternoon 2. Advised soft diet for a couple of days with small frequent meals. Advised no greasy or fried foods. 3. Increase Protonix to 40 mg twice a day 4. Add Carafate one a.c. and h.s. 5 Endoscopy as an outpatient 6. Prescriptions for Prednisone and Keflex Plan and coordination of the patient's care discussed in the presence of Python Engineer and nurse. CONDITION: Stable SCRIBED BY: ROSI PLASENCIA Surfboard Designer scribed while in presence of service performed by Dr. Parsons on 11/23/16 ([id number])
[2016-11-23] MEDS: ZITHROMAX 500 MG in SODIUM CHLORIDE 250 ML IV SCH (09:58)
[2016-11-23 11:05] VITALS: BP 158/80; TEMP 97
--- NOTE | 2016-11-25 08:59 | CM.DICTOOL ---
ADMISSION: 11/20/16 19:57 DISCHARGE: November 23, 2016 DATE OF SERVICE: 11/23/16 FINAL DIAGNOSIS Acute respiratory failure COPD Exacerbation Hypertension Dyslipidemia CAD Bladder Cancer Anxiety Depression Osteoarthritis CABG, 2004, 2013 Bladder Stent Appendectomy Cholecystectomy LAST VITALS Temp Pulse Resp BP Pulse Ox 97 F L 82 20 158/80 H 94 L 11/23/16 10:00 11/23/16 10:00 11/23/16 10:00 11/23/16 10:00 11/23/16 05:41 ACTIVE HOME MEDICATIONS Albuterol Sulfate (Albuterol 0.083% Neb) 1 vial NEB RTQ4H [facility] Last Admin: 11/23/16 10:04 Dose: 1 vial Alprazolam (Xanax) 1 mg PO BEDTIME [facility] Last Admin: 11/22/16 20:39 Dose: 1 mg Aspirin (Aspirin Chewable) 81 mg PO 2100 [facility] Last Admin: 11/22/16 20:39 Dose: 81 mg Atorvastatin Calcium (Lipitor) 40 mg PO BEDTIME [facility] Last Admin: 11/22/16 20:39 Dose: 40 mg Clopidogrel Bisulfate (Plavix) 75 mg PO DAILY [facility] Last Admin: 11/23/16 08:55 Dose: 75 mg Diltiazem HCl (Cardizem) 60 mg PO Q12HR [facility] Last Admin: 11/23/16 08:55 Dose: 60 mg Duloxetine HCl (Cymbalta) 30 mg PO DAILY [facility] Last Admin: 11/23/16 08:54 Dose: 30 mg Isosorbide Mononitrate (Imdur) 30 mg PO DAILY [facility] Last Admin: 11/23/16 09:12 Dose: 30 mg Metoprolol Succinate (Toprol Xl) 50 mg PO DAILY [facility] Last Admin: 11/23/16 08:54 Dose: 50 mg Oxycodone/Acetaminophen (Percocet 7.5-325) 1 tab PO Q6H PRN PRN Reason: MODERATE PAIN Last Admin: 11/23/16 11:43 Dose: 1 tab Pantoprazole Sodium (Protonix) 40 mg PO QDAC [facility] Last Admin: 11/23/16 05:43 Dose: 40 mg ( increase BID) ALLERGIES buspirone HCl [From BuSpar] Adverse Reaction (Verified 11/20/16 18:39) codeine Adverse Reaction (Verified 11/20/16 18:39) lorazepam [From Ativan] Adverse Reaction (Verified 11/20/16 18:39) meperidine HCl [From Demerol] Adverse Reaction (Verified 11/20/16 18:39) promethazine HCl [From Phenergan] Adverse Reaction (Verified 11/20/16 18:39) tiotropium bromide [From Spiriva with HandiHaler] Adverse Reaction (Verified 10/07 18:39) NEW PRESCRIPTIONS: Carafate 1 gram AC and HS Keflex 500 mg BID for 5 days Prednisone 10 mg BID for 7 days Protonix 40 mg BID SMOKING: Advised to Stop Smoking (resume approx. 2 weeks ago) DISEASE SPECIFIC EDUCATION: Smoking COPD Diet Prescriptions Appointments Steroid use LAB REVIEW: 11/23/16 04:00 11/23/16 04:00 11/23/16 04:00: WBC 12.49 H, RBC 4.16 L, Hgb 12.3 L, Hct 36.0 L, MCV 86.5, MCH 29.6, MCHC 34.2, RDW Coeff of Tobin 13.4, Plt Count 193, Immature Gran % (Auto) 0.9, Neut % (Auto) 93.3, Lymph % (Auto) 2.7 L, [place] % (Auto) 3.0, Eos % (Auto) 0.0, Baso % (Auto) 0.1, Immature Gran # (Auto) 0.1, Neut # 11.7 H, Lymph # 0.3 L , [place] # 0.4, Eos # 0.0, Baso # 0.0, Sodium 139, Potassium 4.2, Chloride 107, Carbon Dioxide 26, Anion Gap 10.2, BUN 26 H, Creatinine 0.89, Estimated GFR ( MDRD) 86.00, BUN/Creatinine Ratio 29.21, Glucose 145 H, Calcium 8.4, Total Bilirubin 0.20, AST 14 L, ALT 17, Alkaline Phosphatase 55 L, Total Protein 6.0, Albumin 2.8 L, Globulin 3.2, Albumin/Globulin Ratio 0.88 PLAN: Discharge home Diet: Soft diet, 6 small meals recommended. Avoid spicy foods Activity: Gradually resume as tolerated No medication changes Keep scheduled appointment with Dr. Keller, urology Appointments: Dr. Toscano on November 29 at 10:[address] Soler, GI on December 15 at 2 pm Mr. Soler is alert and oriented x 3. He is self care and ambulatory without use of assistive device or oxygen. He is tolerating regular foods without complaints of nausea, abdominal pain or diarrhea. Meal intakes 75-100%. The skin is in good condition and free of open areas or rashes. Vishal Parsons MD
--- NOTE | 2016-11-29 14:36 | DS ---
DATE OF SERVICE: 11/23/16 - DISCHARGED BY DR. VILLAFANA FINAL DIAGNOSIS: 1. ACUTE RESPIRATORY FAILURE 2. COPD EXACERBATION 3. HYPERTENSION 4. DYSLIPIDEMIA 5. CAD 6. BLADDER CANCER 7. ANXIETY 8. DEPRESSION 9. OSTEOARTHRITIS 10. CABG, 2004, 2013 11. BLADDER STENT 12. APPENDECTOMY 13. CHOLECYSTECTOMY DISCHARGE INSTRUCTIONS: Followup appointment: Keep scheduled appointment with Dr. Keller, Urology. Appointments with Dr. Toscano on 11/29/16 at 10:45 a.m.; Dr. Soler, GI 12/15/16 at 2 p.m. MEDICATIONS AT DISCHARGE: Atorvastatin 40 mg p.o. bedtime Imdur 30 mg p.o. daily Aspirin 81 mg p.o. Cymbalta 30 mg p.o. daily Toprol XL 50 mg p.o. daily Plavix 75 mg p.o. daily Xanax 1 mg p.o. bedtime Cardizem 60 mg p.o. q.12hr Oxycodone/Acetaminophen (Percocet 7.5-325 mg) one tablet each p.o. q.i.d. p.r.n. ProAir HFA two puff IH q.6h p.r.n. NEW PRESCRIPTIONS: Carafate 1 gm a.c. and h.s. Keflex 500 mg b.i.d. for 5 days Prednisone 10 mg b.i.d. for 7 days Protonix 40 mg b.i.d. DIET INSTRUCTIONS: Soft diet, 6 small meals recommended. Avoid spicy foods. ACTIVITY: Gradually resume as tolerated SMOKING: Advised to stop smoking (resume approximately 2 weeks ago) DISEASE SPECIFIC EDUCATION: Smoking Anemia COPD Diet Prescriptions Appointments Steroid use HOSPITAL COURSE: This is a 66-year-old male with multiple medical problems came to the emergency room with shortness of breath, cough and congestion. D. dimer was 878. White count was normal. Blood gases showed pH 7.415, pc02 39.6, p02 59. CT of the chest done in the emergency room showed mild emphysematous changes. No acute findings. At that time, the patient was admitted with COPD exacerbation, bronchitis and hypoxemia. He was started on Rocephin, Duonebs and breathing treatments. Gradually he started feeling better. He then started complaining of abdominal pain and says that he feels like his anterior part of the belly is weaker, which did show acute gastroparesis, ileus or gastritis type of picture. At that time, GI consultation with Dr. Soler was made. Protonix was given. Gradually the patient was up and about walking. At that time, the patient was discharged home. He was able to tolerate diet and able to eat well. He did not have any complications during the hospital stay. TIME SPENT: More than 45 minutes. VERN
== END 2016-11-23 16:00 | disposition home or self-care (01) | DRG 189 ==
LOC: ED 18:33 → MEDSURG B 19:57
PROVIDERS: ADMIT Emergency Medicine; ATTEND Emergency Medicine
DX: J96.01 Acute respiratory failure with hypoxia (principal); J44.0 Chronic obstructive pulmonary disease with (acute) lower respiratory infection; J44.1 Chronic obstructive pulmonary disease with (acute) exacerbation; R06.02 Shortness of breath; J20.9 Acute bronchitis, unspecified; I10 Essential (primary) hypertension; I25.10 Atherosclerotic heart disease of native coronary artery without angina pectoris; E78.5 Hyperlipidemia, unspecified; F41.8 Other specified anxiety disorders; M19.90 Unspecified osteoarthritis, unspecified site; K29.70 Gastritis, unspecified, without bleeding; R10.12 Left upper quadrant pain; F17.200 Nicotine dependence, unspecified, uncomplicated; Z79.01 Long term (current) use of anticoagulants; Z79.899 Other long term (current) drug therapy; Z95.1 Presence of aortocoronary bypass graft
CPT/HCPCS: 36415; 80053; 82550; 82803; 83880; 84484; 85025; 85379; 93005; 93010; 94640; 96374; 96375; 97802; 99284

== ENCOUNTER 2016-12-14 13:13 | Emergency (ER) ==
[2016-12-14 13:21] VITALS: BP 145/97; TEMP 98.9; BMI 21.2
--- NOTE | 2016-12-14 13:55 | DI ---
EXAM: Two views of the chest. History: Short of breath Comparison: Chest radiograph 05/05/2016, chest CT 11/20/2016 Findings: Heart size is normal. Sternotomy wires. Atherosclerotic vascular calcifications. No de finite acute infiltrates. No appreciable pleural fluid and no pneumothorax. No acute osseous abnor malities. Emphysema. Stable prominent contour of the ascending aorta. Impression: No acute cardiopulmonary process. No change compared the prior study.
--- NOTE | 2016-12-14 14:08 | CT ---
EXAM: CT of the abdomen pelvis without contrast History: Abdominal pain. Comparison: CT abdomen pelvis 11/22/2016 Technique: Multiplanar CT images through the abdomen pelvis were obtained without the administratio n of IV contrast Findings: Lung bases are free of consolidation. No acute osseous abnormalities. Stable small focus of sclerosis within the right femoral head. Cholecystectomy clips. Prominent gastric folds. Nondilated fluid filled loops of small bowel. No specific evidence for bowel obstruction. The appendix is not seen. Atherosclerotic vascular calcif ications. No peripancreatic inflammation. Adrenal glands are unremarkable. No free air. No ascit es. No renal stones and no hydronephrosis. Mild diffuse bladder wall thickening. Prominent prostate. No perirectal inflammation. Impression: 1. Probable mild gastroenteritis. No evidence for bowel obstruction. 2. Mild diffuse bladder wall thickening could be due to cystitis or bladder outlet obstruction from a prominent prostate.
[2016-12-14 14:40] LABS: ABG BASE EXCESS 1 (-2.0-2.0); ABG HCO3 24.1 (22.0-26.0); ABG PCO2 32.2 mmHg (35-45); ABG PH 7.482 (7.35-7.45); ABG TCO2 25 (22.0-28.0)
--- NOTE | 2016-12-14 15:02 | ED.PDOC ---
General ED Provider: Dr. UNRULY RIVERA Chief Complaint: Shortness of Air Stated Complaint: ABDOMINAL PAIN / SHORT OF AIR Time Seen by Physician: 13:20 (SEEN WITH NURSING STAFF ) Mode of Arrival: Walk-In Information Source: Patient Exam Limitations: No limitations Primary Care Provider: ANAHI CHUNG Nursing and Triage Documentation Reviewed and Agree: Yes GI Complaint Exam - Abdominal Pain Complaint/Exam Onset: Gradual Duration: 1 DAY Symptoms Are: Resolved Timing: Intermittent Initial Severity: Moderate Current Severity: Mild Location of Pain: LUQ Character: Reports: Aching Aggravating: Reports: None Alleviating: Reports: None Associated Signs and Symptoms: Reports: Cough. Denies: Diaphoresis, Fever, Chest pain, Dizziness, Back pain, Constipation, Blood in stool, Dysuria, Urinary frequency, Decreased urine output, Decreased appetite, Discharge, Nausea , Vomiting, Diarrhea, Decreased activity Cardiac Risk Factors: Reports: Hypertension Testicular Torsion Risk Factors: Reports: None Surgical Obstruction Risk Factors: Reports: None Related Surgical History: Reports: None Abdominal Findings: Present: None Differential Diagnoses: Appendicitis, Bowel Obstruction, Constipation, Diverticulitis, Gastroenteritis, Irritable Bowel Syndrome, Pneumonia, Ureteral Stone, PUD Quality Indicators for AMI: EKG in 10min. Quality Indicators for Cardiac Chest Pain: EKG in 10min. Quality Indicator For Non-Traumatic Chest Pain/Syncope: EKG Performed Review of Systems - Review Of Systems Constitutional: Reports: No symptoms Eyes: Reports: No symptoms Ears, Nose, Mouth, Throat: Reports: No symptoms Respiratory: Reports: Cough, Short of air Cardiac: Reports: No symptoms GI: Reports: Abdominal pain : Reports: No symptoms Musculoskeletal: Reports: No symptoms Skin: Reports: No symptoms Neurological: Reports: No symptoms Endocrine: Reports: No symptoms Hematologic/Lymphatic: Reports: No symptoms All Other Systems: Reviewed and Negative Past Medical History - Past Medical History Previously Healthy: No Endocrine: Reports: None, Dyslipidemia Cardiovascular: Reports: CAD, Hypertension, A-Fib Respiratory: Reports: COPD Hematological: Reports: None Gastrointestinal: Reports: None, GI Bleed (DR Hou NOTES PATINET RECENTLY DISCHARGED [facility] TEAR) Genitourinary: Reports: None Neuro/Psych: Reports: None, Anxiety, Depression Musculoskeletal: Reports: Back Pain Cancer: Reports: None Other Pertinent Past Medical History: ABDOMEN SURGERY as an infanth - Surgical History General Surgical History: Reports: Appendectomy, Cholecystectomy, CABG (TWICE), Orthopedic (CABG X 2, BACK SURGERY, SHOULDER, NECK DISC REPLACEMENT, ), Back Surgery ( SPINE SURGERY), Hernia Repair (WITH MESH- CURRENTLY HAS TENDER AREA LEFT EPIGASTRIUM WHICH INTERMITTENTLY HAS LARGE PAINFUL LUMP) - Family History Family History: Reports: Unknown - Social History Smoking Status: Current every day smoker, Light tobacco smoker Hx Substance Use: Yes (Marijuana.cocaine in 80's) Alcohol Screening: Occasionally Physical Exam - Physical Exam Appearance: Well-appearing, No pain distress, Well-nourished Eyes: INDER, EOMI, Conjunctiva clear ENT: Ears normal, Nose normal, Oropharynx normal Respiratory: Airway patent, Breath sounds clear, Breath sounds equal, Respirations nonlabored Cardiovascular: RRR, Pulses normal, No rub, No murmur GI/: Soft, Nontender, No masses, Bowel sounds normal, No Organomegaly Musculoskeletal: Normal strength, ROM intact, No edema, No calf tenderness Skin: Warm, Dry, Normal color Neurological: Sensation intact, Motor intact, Reflexes intact, Cranial nerves intact, Alert, Oriented Psychiatric: Affect appropriate, Mood appropriate Interpretation - Radiology Interpretation Radiology Interpretation By: Radiologist Radiology Results: No acute changes Exam Interpreted: CXR, CT Scan - [place] Remover Rate: Tachy Rhythm: Sinus - EKG Interpretation Rate: Tachy Rhythm: Sinus Ectopy: None [place]: [place] ST Segment: Normal Critical Care Note - Critical Care Note Total Time (mins): 0 Course - Course Orders, Labs, Meds: Lab Review 12/14/16 14:35 Puncture Site R rad O2 Saturation 96.0 ABG pH 7.482 H ABG pCO2 32.2 L ABG pO2 72.0 L ABG HCO3 24.1 ABG Total CO2 25 ABG Base Excess 1 Dariel Test + FiO2 % 21.0 Orders Category Date Time Status ABG DRAW REQUEST Stat CARDIO 12/14/16 14:14 Completed EKG-(ED ONLY) Stat CARDIO 12/14/16 14:14 Completed ABG Stat LAB 12/14/16 14:35 Completed B-TYPE NATRIURETIC PEPTIDE Stat LAB 12/14/16 13:35 Ordered CBC W/ AUTO DIFF Stat LAB 12/14/16 13:34 Ordered COMPREHENSIVE METABOLIC PANEL Stat LAB 12/14/16 13:34 Ordered CREATINE KINASE Stat LAB 12/14/16 13:34 Ordered TROPONIN I Stat LAB 12/14/16 13:34 Ordered CHEST, 2 VIEWS PA & LAT Stat RADS 12/14/16 13:[address] ABDOMEN/PELVIS WO CONTRAST Stat RADS 12/14/16 13:35 Completed Vital Signs: Temp Pulse Resp BP Pulse Ox 12/14/16 13:13 98.9 F 118 H 20 145/97 H 93 L Departure - Departure Time of Disposition: 15:02 (ROBONEYDA AT BEDSIDE ) Disposition: AMA Discharge Problem: Abdominal pain Qualifiers: Abdominal location: left upper quadrant Qualifier Code: (R10.12) Left upper quadrant pain Instructions: Abdominal Pain (ED) Condition: Good Pt referred to PMD for follow-up: No Additional Instructions: Please call your Family Physician as soon as possible to schedule a follow-up appointment. Allergies/Adverse Reactions: Allergies buspirone HCl [From BuSpar] Adverse Reaction (Verified 12/14/16 13:23) codeine Adverse Reaction (Verified 12/14/16 13:23) lorazepam [From Ativan] Adverse Reaction (Verified 12/14/16 13:23) meperidine HCl [From Demerol] Adverse Reaction (Verified 12/14/16 13:23) promethazine HCl [From Phenergan] Adverse Reaction (Verified 12/14/16 13:23) tiotropium bromide [From Spiriva with HandiHaler] Adverse Reaction (Verified 13:23) Home Medications: Ambulatory Orders Atorvastatin Calcium [Lipitor] 40 mg PO BEDTIME 01/20/13 Isosorbide Mononitrate [Imdur] 30 mg PO DAILY 01/20/13 Aspirin [Aspirin Chewable] 81 mg PO 2100 01/28/13 Duloxetine HCl [Cymbalta] 30 mg PO DAILY 01/28/13 Metoprolol Succinate [Toprol Xl] 50 mg PO DAILY 01/28/13 Alprazolam [Xanax] 1 mg PO BEDTIME 09/22/14 Clopidogrel Bisulfate [Plavix] 75 mg PO DAILY 09/22/14 Diltiazem HCl [Cardizem] 60 mg PO Q12HR #60 tablet 09/23/14 Oxycodone HCl/Acetaminophen [Percocet 7.5-325 mg Tablet] 1 each PO QID PRN 30 Days 03/18/15 Albuterol Sulfate [Proair Hfa] 2 puff IH Q6H PRN #1 inh 06/30/15 Cephalexin [Keflex] 500 mg PO Q12HR #10 capsule 11/23/16 Pantoprazole Sodium [Protonix] 40 mg PO BID #60 tablet. 11/23/16 Prednisone 10 mg PO BIDWM #14 tablet 11/23/16 Sucralfate [Carafate] 1 gm PO ACHS #120 tablet 11/23/16 Disposition Discussed With: Patient
== END 2016-12-14 15:00 | disposition left against medical advice (07) ==
LOC: ED 13:13
DX: R10.12 Left upper quadrant pain (principal); R06.02 Shortness of breath; R05 Cough; I10 Essential (primary) hypertension; E78.5 Hyperlipidemia, unspecified; I25.810 Atherosclerosis of coronary artery bypass graft(s) without angina pectoris; J44.9 Chronic obstructive pulmonary disease, unspecified; F17.210 Nicotine dependence, cigarettes, uncomplicated; Z79.899 Other long term (current) drug therapy
CPT/HCPCS: 82803; 93005; 93010; 99284

== ENCOUNTER 2017-05-23 15:36 | Inpatient (IN) ==
--- NOTE | 2017-05-23 18:08 | ED.PDOC ---
General Stated Complaint: Severe cough productive of foul-tasting yellow sputum x 4 days. Pain in left upper abdomen and especially in left lower anterior chest. Chest hurts worse with deep breath, cough, or palpation. Moderately SOB, diaphoretic at times, nauseated, vomited x4, no fever or chills, mild weakness. Time Seen by Physician: 18:08 Mode of Arrival: Walk-In Information Source: Patient Exam Limitations: No limitations Nursing and Triage Documentation Reviewed and Agree: Yes <YELENA TRUJILLO - Last Filed: 05/23/17 19:03> <MADAY RANGEL - Last Filed: 05/23/17 20:09> ED Provider: Dr. MADAY RANGEL Chief Complaint: Shortness of Air Primary Care Provider: ANAHI BALLESTEROS Respiratory Complaint Exam - Respiratory Complaint/Exam Onset/Duration: 4 days Symptoms Are: Still present Timing: Constant Initial Severity: Mild Current Severity: Moderate Location: Chest Character: Reports: Productive cough Aggravating: Reports: Exertion Alleviating: Reports: Bronchodilators (briefly eases cough and SOB) Associated Signs and Symptoms: Reports: Dyspnea, Wheezing, Vomiting Related History: Reports: Similar episode (COPD exacerbations) History of Healthcare-Acquired Pneumonia: No Related Surgical History: Reports: None Pulmonary Embolism Risk Factors: Smoking Cardiac Risk Factors: Reports: CAD, Smoking, Elevated lipids, Hypertension Pseudomonas Risk Factors: Reports: Chronic Lung Disease Tuberculosis Risk Factors: Reports: Smoking Status Asthmaticus Risk Factors: Reports: Smoke exposure Home Oxygen Use: No Recent Stress Test: No Recent Echo/LV Function: No Current Antibiotic Use: No Current Asthma Medication Use: Yes (MDIs and nebulized meds) Respiratory Distress: Mild Inadequate Respiratory Effort: No Dysphagia Present: No Stridor Present: No JVD Present: No Accessory Muscle Use: No Retractions: Not Present Diminished Breath Sounds: No Sinus Tenderness: None Grunting Respirations: No Kussmaul Respirations: No Differential Diagnoses: Chest Wall Pain (rib fracture), COPD Exacerbation, Pneumonia, Pneumothorax, Bronchitis, Lower Resp. Infection Quality Indicators For Pneumonia: SpO2 assessed, Vital signs, Mental status assessed Non-Traumatic Chest Pain Syncope: EKG Performed <YELENA TRUJILLO - Last Filed: 05/23/17 19:03> Review of Systems - Review Of Systems Constitutional: Reports: Malaise, Weakness Eyes: Reports: No symptoms Ears, Nose, Mouth, Throat: Reports: No symptoms Respiratory: Reports: Cough, Short of air Cardiac: Reports: Chest pain (left lower chest wall pain, exac'd by palpation, deep breath or cough) GI: Reports: Abdominal pain : Reports: No symptoms Musculoskeletal: Reports: Muscle pain (left lower chest wall pain) Skin: Reports: No symptoms Neurological: Reports: No symptoms All Other Systems: Reviewed and Negative <YELENA TRUJILLO - Last Filed: 05/23/17 19:03> Past Medical History - Past Medical History Previously Healthy: No Endocrine: Reports: None, Dyslipidemia Cardiovascular: Reports: CAD, Hypertension, A-Fib Respiratory: Reports: COPD Hematological: Reports: None Gastrointestinal: Reports: None, GI Bleed (DR Hou NOTES PATINET RECENTLY DISCHARGED FRO M TEM[facility] POST SHRAVAN BARKER TEAR) Genitourinary: Reports: None Neuro/Psych: Reports: None, Anxiety, Depression Musculoskeletal: Reports: Back Pain Cancer: Reports: None Other Pertinent Past Medical History: ABDOMEN SURGERY as an infant - Surgical History General Surgical History: Reports: Appendectomy, Cholecystectomy, CABG (TWICE), Orthopedic (CABG X 2, BACK SURGERY, SHOULDER, NECK DISC REPLACEMENT, ), Back Surgery ( SPINE SURGERY), Hernia Repair (WITH MESH- CURRENTLY HAS TENDER AREA LEFT EPIGASTRIUM WHICH INTERMITTENTLY HAS LARGE PAINFUL LUMP) - Family History Family History: Reports: Unknown - Social History Smoking Status: Current some day smoker Hx Substance Use: Yes (Marijuana.cocaine in 80's) Alcohol Screening: Occasionally Lives: Alone - Immunizations Tetanus Shot up to Date: No Influenza Vaccine within 12 Months: No Pneumococcal Vaccine up to Date: No <YELENA TRUJILLO - Last Filed: 05/23/17 19:03> Physical Exam - Physical Exam Appearance: Ill-appearing, Well-nourished Ill-appearing: Moderate Pain Distress: Moderate Eyes: INDER, EOMI, Conjunctiva clear ENT: Nose normal, Oropharynx normal, TMs Occluded (TMs wood and dull) Respiratory: Airway patent, Breath sounds equal, Rhonchi (scattered in AF) Cardiovascular: RRR, Pulses normal, No rub, No murmur GI/: Soft, No masses, Bowel sounds normal, No Organomegaly, Tender ( epigastric tenderness LUQ and LLQ tenderness) Musculoskeletal: Normal strength, ROM intact, No edema, No calf tenderness Skin: Warm Neurological: Sensation intact, Motor intact, Reflexes intact, Cranial nerves intact, Alert, Oriented Psychiatric: Affect appropriate, Mood appropriate <YELENA TRUJILLO - Last Filed: 05/23/17 19:03> Interpretation - Radiology Interpretation Radiology Interpretation By: ED Physician Radiology Results: Negative Exam Interpreted: Other Xray Comments: left ribs: no fracture evident Radiology Interpretation By: ED Physician Radiology Results: No acute changes Exam Interpreted: CXR Xray Comments: Emphysema, nothing acute - EKG Interpretation Time of EKG #1: 18:33 Rate: Normal Rhythm: Sinus Ectopy: None Galliano: NL ST Segment: Normal Interpretation: WNL <YELENA TRUJILLO - Last Filed: 05/23/17 19:03> Physician Notification - Case Discussed Endorsed To/Discussed With: Dr. Johns Time of Discussion: 18:57 <YELENA TRUJILLO - Last Filed: 05/23/17 19:03> - Case Discussed Physician Notified: dr [email or web address] Time of Notification: 20:08 <MADAY RANGEL - Last Filed: 05/23/17 20:09> Critical Care Note - Critical Care Note Total Time (mins): 0 <YELENA TRUJILLO - Last Filed: 05/23/17 19:03> Course - Course Hematology/Chemistry: 05/23/17 18:30 <YELENA TRUJILLO - Last Filed: 05/23/17 19:03> - Course Hematology/Chemistry: 05/23/17 18:30 05/23/17 18:30 <MADAY RANGEL - Last Filed: 05/23/17 20:09> - Course Orders, Labs, Meds: Lab Review 05/23/17 05/23/17 05/23/17 18:30 18:30 18:51 WBC 9.50 RBC 5.11 Hgb 15.5 Hct 43.2 MCV 84.5 MCH 30.3 MCHC 35.9 H RDW Coeff of Tobin 12.0 Plt Count 248 Immature Gran % (Auto) 0.3 Neut % (Auto) 63.4 Lymph % (Auto) 17.2 [place] % (Auto) 10.3 H Eos % (Auto) 7.7 H Baso % (Auto) 1.1 Immature Gran # (Auto) 0.0 Neut # 6.0 Lymph # 1.6 [place] # 1.0 Eos # 0.7 Baso # 0.1 Puncture Site Lb O2 Saturation 92.0 L ABG pH 7.347 L ABG pCO2 50.0 H ABG pO2 68.0 L ABG HCO3 27.4 H ABG Total CO2 29 H ABG Base Excess 2 Dariel Test + FiO2 % 21.0 Sodium 134 L Potassium 4.1 Chloride 96 L Carbon Dioxide 25 Anion Gap 17.1 BUN 9 Creatinine 0.98 Estimated GFR (MDRD) 77.00 BUN/Creatinine Ratio 9.18 Glucose 82 Calcium 9.9 Total Bilirubin 0.85 AST 34 ALT 28 Alkaline Phosphatase 81 Total Creatine Kinase 125 CK-MB (CK-2) 4.0 H CK-MB (CK-2) % 3.14177 Troponin I 0.0110 Total Protein 7.7 Albumin 3.5 Globulin 4.2 Albumin/Globulin Ratio 0.83 Orders Category Date Time Status ABG DRAW REQUEST Stat CARDIO 05/23/17 18:51 Ordered EKG-(ED ONLY) Stat CARDIO 05/23/17 18:21 Completed NEBULIZER TREATMENT Stat CARDIO 05/23/17 18:59 Ordered ED APPLY O2 .ONCE EMERGENCY 05/23/17 18:21 Active ED SVP [employer] APPLIED .ONCE EMERGENCY 05/23/17 18:21 Active ABG Stat LAB 05/23/17 18:51 Completed CBC W/ AUTO DIFF Stat LAB 05/23/17 18:30 Completed COMPREHENSIVE METABOLIC PANEL Stat LAB 05/23/17 18:30 Completed CREATINE KINASE Stat LAB 05/23/17 18:30 Completed TROPONIN I Stat LAB 05/23/17 18:30 Completed Ipratropium/Albuterol Neb [Duoneb] MEDS 05/23/17 18:59 Discontinued 1 vial NEB ONCE STA Morphine Sulfate [Morphine 2 mg/ml Syringe] MEDS 05/23/17 18:28 Discontinued 2 mg IVP ONCE STA Ondansetron HCl/Pf [Zofran 4 mg/2 ml] MEDS 05/23/17 18:29 Discontinued 4 mg IVP ONCE STA CHEST, 2 VIEWS PA & LAT Stat RADS 05/23/17 18:23 Taken RIBS, UNILATERAL LEFT Stat RADS 05/23/17 18:22 Taken Medications Discontinued Medications Generic Name Dose Route Start Last Admin Trade Name Freq PRN Reason Stop Dose Admin Albuterol/Ipratropium 1 vial 05/23/17 18:59 Duoneb NEB 05/23/17 19:00 ONCE STA Morphine Sulfate 2 mg 05/23/17 18:28 05/23/17 18:50 Morphine 2 Mg/Ml Syringe IVP 05/23/17 18:29 2 mg ONCE STA Administration Ondansetron HCl 4 mg 05/23/17 18:29 05/23/17 18:50 Zofran 4 Mg/2 Ml IVP 05/23/17 18:30 4 mg ONCE STA Administration Vital Signs: Temp Pulse Resp BP Pulse Ox 05/23/17 15:37 96.5 F L 92 H 20 88/51 L 95 Departure <YELENA TRUJILLO - Last Filed: 05/23/17 19:03> - Departure Time of Disposition: 20:08 Pt referred to PMD for follow-up: Yes Transfer Form Completed: No Disposition Discussed With: Patient <FRANCISCAGEOVANNYMADAY - Last Filed: 05/23/17 20:09> - Departure Disposition: ADMITTED INPATIENT Discharge Problem: COPD exacerbation Condition: Stable Allergies/Adverse Reactions: Allergies buspirone HCl [From BuSpar] Adverse Reaction (Verified 05/23/17 15:41) codeine Adverse Reaction (Verified 05/23/17 15:41) lorazepam [From Ativan] Adverse Reaction (Verified 05/23/17 15:41) meperidine HCl [From Demerol] Adverse Reaction (Verified 05/23/17 15:41) promethazine HCl [From Phenergan] Adverse Reaction (Verified 05/23/17 15:41) tiotropium bromide [From Spiriva with HandiHaler] Adverse Reaction (Verified 11/04 15:41) Home Medications: Ambulatory Orders Atorvastatin Calcium [Lipitor] 40 mg PO BEDTIME 01/20/13 Isosorbide Mononitrate [Imdur] 30 mg PO DAILY 01/20/13 Aspirin [Aspirin Chewable] 81 mg PO 2100 01/28/13 Duloxetine HCl [Cymbalta] 30 mg PO DAILY 01/28/13 Metoprolol Succinate [Toprol Xl] 50 mg PO DAILY 01/28/13 Alprazolam [Xanax] 1 mg PO BEDTIME 09/22/14 Clopidogrel Bisulfate [Plavix] 75 mg PO DAILY 09/22/14 Diltiazem HCl [Cardizem] 60 mg PO Q12HR #60 tablet 09/23/14 Oxycodone HCl/Acetaminophen [Percocet 7.5-325 mg Tablet] 1 each PO QID PRN 30 Days tablet 03/18/15 Albuterol Sulfate [Proair Hfa] 2 puff IH Q6H PRN #1 inh 06/30/15 Pantoprazole Sodium [Protonix] 40 mg PO BID #60 tablet. 11/23/16 Sucralfate [Carafate] 1 gm PO ACHS #120 tablet 11/23/16
[2017-05-23] MEDS ORDERED: MORPHINE 2 MG/ML SYRINGE IVP STA (18:28)
[2017-05-23] MEDS ORDERED: ZOFRAN 4 MG/2 ML IVP STA (18:29)
[2017-05-23 18:40] LABS: BASOPHILS # (AUTO) 0.1 K/uL (0-0.2); BASOPHILS % (AUTO) 1.1 % (0.0-3.0); EOSINOPHILS # (AUTO) 0.7 K/ul (0.0-0.7); EOSINOPHILS % (AUTO) 7.7 % (0.0-7.0); HEMATOCRIT 43.2 % (42.0-52.0); HEMOGLOBIN 15.5 g/dl (14.0-18.0); IMMATURE GRANULOCYTE % (AUTO) 0.3 % (0.0-5.0); LYMPHOCYTES # (AUTO) 1.6 K/uL (0.60-3.4); LYMPHOCYTES % (AUTO) 17.2 (10.0-50.0); MEAN CORPUSCULAR HEMOGLOBIN 30.3 pg (27.0-31.0); MEAN CORPUSCULAR HGB CONC 35.9 (31.8-35.4); MEAN CORPUSCULAR VOLUME 84.5 fl (80.0-94.0); MONOCYTES % (AUTO) 10.3 (0-10); NEUTROPHILS % (AUTO) 63.4; PLATELET COUNT 248 10^3/uL (140-440); RED BLOOD COUNT 5.11 10^6/ul (4.70-6.10)
[2017-05-23] MEDS ORDERED: DUONEB NEB STA (18:59)
[2017-05-23 19:15] LABS: ALBUMIN 3.5 g/dL (3.4-5.0); ALBUMIN/GLOBULIN RATIO 0.83; ANION GAP 17.1; BILIRUBIN,TOTAL 0.85 mg/dL (0.00-1.20); BUN/CREATININE RATIO 9.18; CALCIUM 9.9 mg/dL (8.2-10.2); CREATININE 0.98 mg/dL (0.60-1.10); POTASSIUM 4.1 mmol/L (3.5-5.1); TOTAL PROTEIN 7.7 g/dL (5.8-8.1); TROPONIN I 0.011 ng/ml (0.0000-0.4000)
[2017-05-23 19:52] LABS: ABG BASE EXCESS 2 (-2.0-2.0); ABG HCO3 27.4 (22.0-26.0); ABG PH 7.347 (7.35-7.45); ABG TCO2 29 (22.0-28.0)
[2017-05-23] MEDS ORDERED: PERCOCET 7.5-325 PO PRN (20:13)
[2017-05-23] MEDS ORDERED: DILAUDID 1 MG/ML SYRINGE IVP PRN (20:15)
[2017-05-23] MEDS ORDERED: ZOFRAN 4 MG/2 ML IVP PRN (20:15)
[2017-05-23] MEDS ORDERED: CARAFATE PO SCH (21:00)
[2017-05-23] MEDS ORDERED: PROTONIX PO SCH (21:00)
[2017-05-23] MEDS ORDERED: ASPIRIN CHEWABLE PO SCH (21:00)
[2017-05-23 21:57] VITALS: BMI 22.0
[2017-05-23] MEDS: SODIUM CHLORIDE 1,000 ML IV SCH (22:00)
[2017-05-23] MEDS ORDERED: ASPIRIN EC ONE (22:20)
[2017-05-23] MEDS ORDERED: CARDIZEM ONE (22:21)
[2017-05-23] MEDS: LIPITOR PO SCH (22:43)
[2017-05-23] MEDS: PYRIDIUM PO SCH (22:43)
[2017-05-23] MEDS: XANAX PO SCH (22:43)
[2017-05-23] MEDS: PERCOCET 7.5-325 PO PRN (22:44)
[2017-05-23] MEDS: CARDIZEM PO SCH (22:46)
[2017-05-23] MEDS: ALBUTEROL 0.042% NEB NEB SCH (22:55)
[2017-05-24] MEDS ORDERED: DILAUDID 2 MG/ML SYRINGE ONE ×2 (01:30→05:00)
[2017-05-24] MEDS: SOLU-MEDROL 40 MG IVP SCH ×4 (02:57→21:17)
[2017-05-24] MEDS ORDERED: CARAFATE ONE (04:12)
[2017-05-24] MEDS: ALBUTEROL 0.042% NEB NEB SCH ×4 (05:06→23:19)
[2017-05-24 05:12] LABS: BASOPHILS # (AUTO) 0.1 K/uL (0-0.2); BASOPHILS % (AUTO) 1.7 % (0.0-3.0); EOSINOPHILS # (AUTO) 0.6 K/ul (0.0-0.7); EOSINOPHILS % (AUTO) 10.1 % (0.0-7.0); HEMATOCRIT 39.9 % (42.0-52.0); HEMOGLOBIN 14.3 g/dl (14.0-18.0); IMMATURE GRANULOCYTE % (AUTO) 0.3 % (0.0-5.0); LYMPHOCYTES # (AUTO) 1.5 K/uL (0.60-3.4); LYMPHOCYTES % (AUTO) 24.8 (10.0-50.0); MEAN CORPUSCULAR HEMOGLOBIN 30.2 pg (27.0-31.0); MEAN CORPUSCULAR HGB CONC 35.8 (31.8-35.4); MEAN CORPUSCULAR VOLUME 84.4 fl (80.0-94.0); MONOCYTES # (AUTO) 0.8 K/uL (0.4-2.0); MONOCYTES % (AUTO) 13.6 (0-10); NEUTROPHILS % (AUTO) 49.5; PLATELET COUNT 240 10^3/uL (140-440); RED BLOOD COUNT 4.73 10^6/ul (4.70-6.10); WHITE BLOOD COUNT 6.04 K/ul (4.2-10.2)
[2017-05-24 05:37] LABS: ALBUMIN/GLOBULIN RATIO 0.83; BILIRUBIN,TOTAL 0.75 mg/dL (0.00-1.20); BUN/CREATININE RATIO 9.9; CALCIUM 9.3 mg/dL (8.2-10.2); CREATININE 1.01 mg/dL (0.60-1.10); TOTAL PROTEIN 6.6 g/dL (5.8-8.1)
--- NOTE | 2017-05-24 07:32 | DI ---
EXAM: LEFT RIBS HISTORY: Chest wall pain, cough FINDINGS: Left ribs three-view. No displaced rib fracture is identified. No bony destruction, pneum othorax or soft tissue finding. IMPRESSION: No displaced rib fracture seen.
--- NOTE | 2017-05-24 07:32 | DI ---
EXAM: CHEST FRONTAL AND LATERAL VIEWS HISTORY: Shortness of breath, left chest wall pain, cough. COMPARISON: 01/03/2017 FINDINGS: Heart size is normal. Sternotomy wires are present. There is mild to moderate aortic ath erosclerosis. Lungs are hyperinflated. No acute infiltrates are seen. No vascular congestion. Ther e is no consolidation, visible pleural fluid or pneumothorax. Bones reveal no acute fracture. IMPRESSION: A component chronic obstructive pulmonary disease may be present, correlate clinically. No acute cardiopulmonary process.
[2017-05-24] MEDS: TOPROL XL PO SCH (09:34)
[2017-05-24] MEDS: CARDIZEM PO SCH ×2 (09:34→21:06)
[2017-05-24] MEDS: PYRIDIUM PO SCH ×3 (09:35→21:06)
[2017-05-24] MEDS: PROTONIX PO SCH ×2 (09:35→17:46)
[2017-05-24] MEDS: ASPIRIN CHEWABLE PO SCH (09:35)
[2017-05-24] MEDS: IMDUR PO SCH (09:35)
[2017-05-24] MEDS: TUSSIONEX PO SCH ×2 (09:35→21:07)
[2017-05-24] MEDS: PLAVIX PO SCH (09:35)
[2017-05-24] MEDS: CYMBALTA PO SCH (09:35)
[2017-05-24] MEDS: ROCEPHIN 1 GM in SODIUM CHLORIDE 50 ML IV SCH (09:36)
[2017-05-24] MEDS: LOVENOX SUBCUT SCH (09:36)
[2017-05-24] MEDS: TORADOL IVP SCH ×3 (09:37→21:32)
--- NOTE | 2017-05-24 10:04 | HP ---
DATE OF SERVICE: 05/24/17 HISTORY OF PRESENT ILLNESS: This 67 year old WHITE/ M was hospitalized 05/23/17. The patient was hospitalized with respiratory distress and COPD. The patient has cough and congestion with pleuritic type of pain of 2 to 3 days duration. The patient's cough is productive of yellowish-brownish phlegm. PAST MEDICAL/SURGICAL HISTORY: 1. Hypertension 2. Dyslipidemia 3. Hyperglycemia 4. Bladder cancer, follows with Dr. Keller 5. COPD 6. Osteoarthritis 7. Colon polyps - [facility] 03/22/16 - Dr. Becker 8. Back surgery 9. Hernia surgery 10. Rotator cuff 11. Carpal tunnel 12. Prostate 13. Urinary stent placed one week ago 14. CABG REVIEW OF SYSTEMS: CONSTITUTIONAL: No night sweats. No fatigue, malaise, lethargy. No fever or chills. HEENT: Eyes: No visual changes. No eye pain. No eye discharge. ENT: No runny nose. No epistaxis. No sinus pain. No sore throat. No odynophagia. No ear pain. No congestion. RESPIRATORY: Cough and congestion. No hemoptysis. No shortness of breath. CARDIOVASCULAR: No angina symptoms. No CHF symptoms. Pleuritic chest pain. No atypical chest pain for CAD. No palpitations. No orthopnea. GASTROINTESTINAL: Poor appetite. No abdominal pain. No nausea or vomiting. No diarrhea or constipation. No hematemesis. No hematochezia. GENITOURINARY: No urgency. No frequency. No dysuria. No hematuria. No obstructive symptoms. No discharge. No pain. No significant abnormal bleeding. MUSCULOSKELETAL: No musculoskeletal pain. No joint swelling. No arthritis. NEUROLOGICAL: No headache. No neck pain. No syncope. No seizures. No dizziness. PSYCHIATRIC: Not anxious. No depression. No suicidal thoughts. No homicidal thoughts. SKIN: No rash. No lesions. No wounds. ENDOCRINE: No unexplained weight loss. No weight gain. HEMATOLOGIC/LYMPHATIC: No anemia. No purpura. No petechiae. No prolonged or excessive bleeding. No palpable lymph nodes. PERSONAL/FAMILY/SOCIAL HISTORY: The patient is . He is a smoker. No substance abuse. Occasional alcohol use. The patient is disabled from back problems. Family History: Heart problems. MEDICATIONS: (HOME) 1. Atorvastatin (Lipitor) 40 mg p.o. bedtime 2. Isosorbide Mononitrate (Imdur) 30 mg p.o. daily 3. Aspirin 81 mg p.o. 2100 4. Duloxetine (Cymbalta) 30 mg p.o. daily 5. Metoprolol Succinate (Toprol XL) 50 mg p.o. daily 6. Clopidogrel (Plavix) 75 mg p.o. daily 7. Alprazolam (Xanax) 1 mg p.o. bedtime 8. Diltiazem (Cardizem) 60 mg p.o. q.12hr 9. Oxycodone HCI/Acetaminophen (Percocet 7.5-325 mg) one each p.o. q.i.d. p.r.n. 10. Albuterol (ProAir Hfa) 200 puff/8.5 gm INH, 2 puff IH q.6h p.r.n. 11. Pantoprazole (Protonix) 40 mg p.o. b.i.d. 12. Ipratropium/Albuterol 20-100 mcg IH q.6hr p.r.n. 13. Phenazopyridine 100 mg p.o. t.i.d. ALLERGIES: BUSPIRONE, PROMETHAZINE, MEPERIDINE, TIOTROPIUM BROMIDE, LORAZEPAM, CODEINE PHYSICAL EXAMINATION: GENERAL: The patient is sitting in bed in no distress. VITAL SIGNS: Temperature 98.0 F, Pulse 60, respiratory Rate 20, BP 134/73, Pulse ox 94%. HEENT: Head normocephalic, atraumatic. Eyes: Extraocular muscles are intact. Pupils are equal, round and reactive to light and accommodation. Ears: No lesions. Nose appeared normal. Throat: No exudate or erythema. NECK: Supple. No JVD, no carotid bruit. No lymphadenopathy or thyromegaly. LUNGS: Decreased breath sounds with wheeze. Percussion note normal. Chest symmetrical. HEART: S1, S2, no S3. No murmurs. No cyanosis or clubbing. Pulses: Dorsalis pedis and posterior tibial pulses +1 to +2 both sides. ABDOMEN: Soft. Nontender. Bowel sounds active. No CVA tenderness. No mass felt. No ascites. EXTREMITIES: No edema. Full range of motion of all extremities, equal. NEUROLOGIC: No focal deficit. Cranial nerves II through XII are grossly intact. No headache, no double vision or headache. SKIN: Not dry. Intact. Turgor - normal. LYMPHATIC: No palpable lymph nodes/no lymphedema. MUSCULOSKELETAL: Normal joints with no swelling. Muscle tone is normal. LABS: 05/24/17 05:09: Sodium 137, Potassium 4.0, Chloride 100, Carbon Dioxide 27, Anion Gap 14.0, BUN 10, Creatinine 1.01, Estimated GFR (MDRD) 74.00, BUN/ Creatinine Ratio 9.90, Glucose 86, Calcium 9.3, Total Bilirubin 0.75, AST 25, ALT 24, Alkaline Phosphatase 71, Total Protein 6.6, Albumin 3.0 L, Globulin 3.6 , Albumin/Globulin Ratio 0.83 05/24/17 05:09: WBC 6.04, RBC 4.73, Hgb 14.3, Hct 39.9 L, MCV 84.4, MCH 30.2, MCHC 35.8 H, RDW Coeff of Tobin 11.9, Plt Count 240, Immature Gran % (Auto) 0.3, Neut % (Auto) 49.5, Lymph % (Auto) 24.8, [place] % (Auto) 13.6 H, Eos % (Auto) 10.1 H, Baso % (Auto) 1.7, Immature Gran # (Auto) 0.0, Neut # 3.0, Lymph # 1.5, [place] # 0.8, Eos # 0.6, Baso # 0.1 ASSESSMENT: 1. ACUTE PNEUMONITIS/BRONCHITIS 2. GASTRITIS WITH VOMITING 3. SEVERE CHRONIC LUNG DISEASE 4. BYPASS SURGERY 5. DYSLIPIDEMIA 6. HYPERTENSION 7. DEHYDRATION PLAN: 1. Continue Protonix 40 mg b.i.d. 2. IV antibiotics 3. IV steroids 4. Nebs treatment 5. Tussionex one teaspoon b.i.d. 6. Routine telemetry orders 7. Toradol 30 mg IV q.8hr blanca CONDITION: STABLE TIME SPENT: More than 70 minutes. SCRIBED BY: ROSI PLASENCIA, Organ Tuner Electronic scribed while in presence of service performed by Dr. ANAHI CHUNG on 05/24/17 ([id number]) [facility]
[2017-05-24] MEDS: DILAUDID 2 MG/ML SYRINGE IVP PRN ×3 (10:36→20:28)
[2017-05-24] MEDS: PERCOCET 7.5-325 PO PRN (17:47)
[2017-05-24] MEDS: SODIUM CHLORIDE 1,000 ML IV SCH (21:05)
[2017-05-24] MEDS: LIPITOR PO SCH (21:06)
[2017-05-24] MEDS: XANAX PO SCH (21:07)
[2017-05-25] MEDS: DILAUDID 2 MG/ML SYRINGE IVP PRN ×3 (02:14→14:12)
[2017-05-25 05:14] LABS: BASOPHILS % (AUTO) 0.1 % (0.0-3.0); HEMATOCRIT 37.3 % (42.0-52.0); HEMOGLOBIN 13.3 g/dl (14.0-18.0); IMMATURE GRANULOCYTE % (AUTO) 0.5 % (0.0-5.0); LYMPHOCYTES # (AUTO) 0.5 K/uL (0.60-3.4); LYMPHOCYTES % (AUTO) 5.2 (10.0-50.0); MEAN CORPUSCULAR HGB CONC 35.7 (31.8-35.4); MEAN CORPUSCULAR VOLUME 84.2 fl (80.0-94.0); MONOCYTES # (AUTO) 0.4 K/uL (0.4-2.0); MONOCYTES % (AUTO) 4.1 (0-10); NEUTROPHILS # (AUTO) 8.3 K/ul (2.0-6.9); NEUTROPHILS % (AUTO) 90.1; PLATELET COUNT 215 10^3/uL (140-440); RED BLOOD COUNT 4.43 10^6/ul (4.70-6.10); WHITE BLOOD COUNT 9.18 K/ul (4.2-10.2)
[2017-05-25] MEDS: ALBUTEROL 0.042% NEB NEB SCH ×2 (05:41→11:01)
[2017-05-25 05:45] LABS: ALBUMIN 2.8 g/dL (3.4-5.0); ALBUMIN/GLOBULIN RATIO 0.88; ANION GAP 10.3; BILIRUBIN,TOTAL 0.44 mg/dL (0.00-1.20); BUN/CREATININE RATIO 20.61; CALCIUM 9.1 mg/dL (8.2-10.2); CREATININE 0.97 mg/dL (0.60-1.10); POTASSIUM 4.3 mmol/L (3.5-5.1)
[2017-05-25] MEDS: PROTONIX PO SCH (05:49)
[2017-05-25] MEDS: SOLU-MEDROL 40 MG IVP SCH ×2 (05:49→14:18)
[2017-05-25] MEDS: TORADOL IVP SCH ×2 (05:49→14:18)
[2017-05-25] MEDS: TUSSIONEX PO SCH (08:28)
[2017-05-25] MEDS: ROCEPHIN 1 GM in SODIUM CHLORIDE 50 ML IV SCH (08:28)
[2017-05-25] MEDS: LOVENOX SUBCUT SCH (08:29)
[2017-05-25] MEDS: PYRIDIUM PO SCH ×2 (08:29→15:30)
[2017-05-25] MEDS: ASPIRIN CHEWABLE PO SCH (08:29)
[2017-05-25] MEDS: IMDUR PO SCH (08:29)
[2017-05-25] MEDS: PLAVIX PO SCH (08:30)
[2017-05-25] MEDS: CARDIZEM PO SCH (08:30)
[2017-05-25] MEDS: CYMBALTA PO SCH (08:30)
[2017-05-25] MEDS: TOPROL XL PO SCH (08:30)
[2017-05-25] MEDS: PERCOCET 7.5-325 PO PRN (10:53)
[2017-05-25 15:02] VITALS: BP 152/77; TEMP 97.5
--- NOTE | 2017-06-01 13:58 | PN ---
DATE OF SERVICE: 05/24/17 SUBJECTIVE: 67 year old white male hospitalized with COPD and acute bronchitis. The patient' s condition has improved. The patient has been steroids, antibiotics and NEBS treatment. The patient smokes at times and was strongly advised to quit smoking. Counseling for smoking done. REVIEW OF SYSTEMS: CONSTITUTIONAL: No night sweats. No fatigue, malaise, lethargy. No fever or chills. HEENT: Eyes: No visual changes. No eye pain. No eye discharge. ENT: No runny nose. No epistaxis. No sinus pain. No sore throat. No odynophagia. No congestion. RESPIRATORY: No cough, no congestion. No hemoptysis. No shortness of breath. CARDIOVASCULAR: No angina symptoms. No CHF symptoms. No atypical chest pain for CAD. No palpitations. No orthopnea. GASTROINTESTINAL: No abdominal pain. No nausea or vomiting. No diarrhea or constipation. No hematemesis. No hematochezia. GENITOURINARY: No urgency. No frequency. No dysuria. No hematuria. No obstructive symptoms. No discharge. No pain. No significant abnormal bleeding. MUSCULOSKELETAL: No musculoskeletal pain; no joint swelling. NEUROLOGICAL: No headache. No neck pain. No syncope. No seizures. No dizziness. PSYCHIATRIC: Not anxious. No depression. No suicidal thoughts. No homicidal thoughts. SKIN: No rash. No lesions. No wounds. ENDOCRINE: No unexplained weight loss. No weight gain. HEMATOLOGIC/LYMPHATIC: No anemia. No purpura. No petechiae. No prolonged or excessive bleeding. No palpable lymph nodes. PHYSICAL EXAMINATION: GENERAL: The patient is oriented to time, place and person. HEENT: Head normocephalic, atraumatic. Eyes: Extraocular muscles are intact. Pupils are equal, round and reactive to light and accommodation. Ears: No lesions. Nose appeared normal. Throat: No exudate or erythema. NECK: Supple. No JVD, no carotid bruit. No lymphadenopathy or thyromegaly. LUNGS: Decreased breath sounds but clear to auscultation. Percussion note normal. Chest symmetrical. HEART: S1, S2, no S3. No murmurs. No cyanosis or clubbing. No ascites. Pulses: Dorsalis pedis and posterior tibial pulses +1 to +2 both sides. ABDOMEN: Soft. Nontender. Bowel sounds active. No CVA tenderness. No mass felt. EXTREMITIES: No edema. Full range of motion of all extremities, equal. NEUROLOGIC: No focal deficit. Cranial nerves II through XII are grossly intact. No headache, no double vision or headache. SKIN: Not dry. Intact. Turgor - normal. LYMPHATIC: No palpable lymph nodes/no lymphedema. MUSCULOSKELETAL: Normal joints with no swelling. Muscle tone is normal. ASSESSMENT: 1. Acute bronchitis seems to be resolving 2. Coronary artery disease with coronary bypass surgery, stable PLAN: 1. Counseling for smoking done 2. Continue steroids, NEBS treatments and Antibiotics CONDITION: Stable TIME SPENT: More than 30 minutes. Plan and coordination of the patient's care discussed in the presence of nurse. VERN
--- NOTE | 2017-06-01 14:01 | PN ---
DATE OF SERVICE: 05/25/17 SUBJECTIVE: 67 year old white male hospitalized with acute bronchitis and pneumonitis. His condition seems to be improving. He still cough with congestion with mild wheeze. PHYSICAL EXAMINATION: HEENT: Head normocephalic, atraumatic. Eyes: Extraocular muscles are intact. Pupils are equal, round and reactive to light and accommodation. Ears: No lesions. Nose appeared normal. Throat: No exudate or erythema. NECK: Supple. No JVP, no carotid bruit. No lymphadenopathy or thyromegaly. LUNGS: Decreased breath sounds but clear with mild wheeze expiratory. Percussion note normal. Chest symmetrical. HEART: S1, S2, no S3. No murmurs. No cyanosis or clubbing. No ascites. Pulses: Dorsalis pedis and posterior tibial pulses +1 to +2 both sides. ABDOMEN: Soft. Nontender. Bowel sounds active. No CVA tenderness. No mass felt. EXTREMITIES: No edema. Full range of motion of all extremities, equal. NEUROLOGIC: No focal deficit. Cranial nerves II through XII are grossly intact. No headache, no double vision or headache. SKIN: Not dry. Intact. Turgor - normal. LYMPHATIC: No palpable lymph nodes/no lymphedema. MUSCULOSKELETAL: Normal joints with no swelling. Muscle tone is normal. LABS: Hgb 13.3, hct 37, WBC 9,100 normal differential, creatinine 0.9, BUN 20, potassium 4.3 ASSESSMENT: 1. Acute bronchitis/pneumonitis, resolving The patient's brother is in the hospital and he is worried about it and he wants to go home. Strongly advised the patient to stay in the hospital. CONDITION: Stable and improving. TIME SPENT: More than 30 minutes. Plan and coordination of the patient's care discussed in the presence of nurse. VERN
--- NOTE | 2017-06-01 14:24 | AMA ---
DATE OF SERVICE: 05/25/17 FINAL DIAGNOSIS: 1. Acute bronchitis 2. Sever chronic lung disease 3. Smoking 4. Coronary bypass surgery 5. Hypertension 6. Dyslipidemia DISCHARGE INSTRUCTIONS: The patient will be called in prescription for antibiotics steroids. Strongly advised to continue NEBS treatments. The sign out AMA because his brother is sick and he is in the hospital in critical condition according to him. HOSPITAL COURSE: 67 year old white male hospitalized with acute bronchitis/pneumonitis. The patient was treated in the hospital with Rocephin and Azithromycin. His condition improved. NEBS treatment were given along with Solu-Medrol. The patient was strongly advised to stay in the hospital but he signed out Against Medical Advise. VERN
--- NOTE | 2017-06-01 14:25 | PN ---
05/23/17: Level 5 05/24/17: Intermediate 05/25/17: D as in discharge extensive MTDD
== END 2017-05-25 15:47 | disposition left against medical advice (07) | DRG 202 ==
LOC: ED 15:36 → MEDSURG A 20:51
PROVIDERS: ADMIT Internal Medicine; ATTEND Internal Medicine
DX: J20.9 Acute bronchitis, unspecified (principal); J44.1 Chronic obstructive pulmonary disease with (acute) exacerbation; J44.0 Chronic obstructive pulmonary disease with (acute) lower respiratory infection; I25.10 Atherosclerotic heart disease of native coronary artery without angina pectoris; R10.12 Left upper quadrant pain; R07.89 Other chest pain; R10.816 Epigastric abdominal tenderness; R06.02 Shortness of breath; I48.91 Unspecified atrial fibrillation; I10 Essential (primary) hypertension; E78.5 Hyperlipidemia, unspecified; F17.200 Nicotine dependence, unspecified, uncomplicated; R61 Generalized hyperhidrosis; R11.2 Nausea with vomiting, unspecified; Z79.02 Long term (current) use of antithrombotics/antiplatelets; Z79.899 Other long term (current) drug therapy; Z95.1 Presence of aortocoronary bypass graft
CPT/HCPCS: 36415; 80053; 82550; 82553; 82803; 84484; 85025; 93005; 93010; 94640; 96374; 96375; 99284

== ENCOUNTER 2017-07-10 16:45 | Inpatient (IN) ==
[2017-07-10 16:45] VITALS: BMI 22.0
--- NOTE | 2017-07-10 17:27 | ED.PDOC ---
General ED Provider: Dr. STEVE KHAN Chief Complaint: Shortness of Air Stated Complaint: Cough, congestion, short of air Time Seen by Physician: 17:24 Mode of Arrival: Walk-In Information Source: Patient Exam Limitations: No limitations Primary Care Provider: ANAHI CHUNG Nursing and Triage Documentation Reviewed and Agree: Yes Respiratory Complaint Exam - Respiratory Complaint/Exam Onset/Duration: 2 weeks; worsening; SOA with minimal exertion Symptoms Are: Worse (Last several days) Timing: Constant Initial Severity: Moderate Current Severity: Severe Location: Chest Character: Reports: Non-productive cough Aggravating: Reports: Deep breaths, Recumbent position Alleviating: Reports: None Associated Signs and Symptoms: Reports: Rapid breathing, Dyspnea, Chills, Chest pain (Left lower ribs with cough), Wheezing (COPD history) Related History: Reports: Similar episode (COPD; occ exaceerbations) History of Healthcare-Acquired Pneumonia: Admit w/in last 30 days (per patient hx) Related Surgical History: Reports: None Cardiac Risk Factors: Reports: CAD, Smoking, CHF Review of Systems - Review Of Systems Constitutional: Reports: Malaise Respiratory: Reports: Cough, Orthopnea, Short of air, Wheezing Cardiac: Reports: Chest pain (Lower left rib cage) GI: Reports: No symptoms Skin: Reports: No symptoms All Other Systems: Reviewed and Negative Past Medical History - Past Medical History Previously Healthy: No Endocrine: Reports: None, Dyslipidemia Cardiovascular: Reports: CAD, Hypertension, A-Fib Respiratory: Reports: COPD Hematological: Reports: None Gastrointestinal: Reports: None, GI Bleed (DR Hou NOTES PATINET 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 BARKER TEAR) Genitourinary: Reports: None Neuro/Psych: Reports: None, Anxiety, Depression Musculoskeletal: Reports: Back Pain Cancer: Reports: None Other Pertinent Past Medical History: ABDOMEN SURGERY as an - Surgical History General Surgical History: Reports: Appendectomy, Cholecystectomy, CABG (TWICE), Orthopedic (CABG X 2, BACK SURGERY, SHOULDER, NECK DISC REPLACEMENT, ), Back Surgery ( SPINE SURGERY), Hernia Repair (WITH MESH- CURRENTLY HAS TENDER AREA LEFT EPIGASTRIUM WHICH INTERMITTENTLY HAS LARGE PAINFUL LUMP) - Family History Family History: Reports: Unknown - Social History Smoking Status: Former smoker Hx Substance Use: Yes (Marijuana.cocaine in 80's) Alcohol Screening: Occasionally - Immunizations Influenza Vaccine within 12 Months: No Pneumococcal Vaccine up to Date: No Physical Exam - Physical Exam Appearance: Ill-appearing Ill-appearing: Moderate Pain Distress: Moderate (With paroxysmal coughing) Eyes: INDER, EOMI, Conjunctiva clear ENT: Ears normal, Oropharynx normal Neck: Supple Respiratory: Rhonchi, Wheezes Cardiovascular: Tachycardia GI/: Soft, Nontender Musculoskeletal: Normal strength, ROM intact, No edema Skin: Warm, Dry, Pale Neurological: Sensation intact, Motor intact, Reflexes intact, Alert, Oriented Psychiatric: Affect appropriate, Mood appropriate, Anxious Interpretation - Radiology Interpretation Radiology Interpretation By: ED Physician Exam Interpreted: Portable CXR Xray Comments: Possible patchy infiltrate R ML - EKG Interpretation Time of EKG #1: 17:56 Rate: Tachy Rhythm: Sinus Ectopy: None Form[place]: NL ST Segment: Normal Interpretation: No acute changes Critical Care Note - Critical Care Note Total Time (mins): 40 Course - Course Hematology/Chemistry: 07/10/17 17:45 07/10/17 17:45 Orders, Labs, Meds: Lab Review 07/10/17 07/10/17 07/10/17 17:33 17:45 17:45 WBC 9.10 RBC 4.67 L Hgb 14.0 Hct 39.0 L MCV 83.5 MCH 30.0 MCHC 35.9 H RDW Coeff of Tobin 13.7 Plt Count 239 Immature Gran % (Auto) 0.4 Neut % (Auto) 69.8 Lymph % (Auto) 15.9 [place] % (Auto) 9.3 Eos % (Auto) 3.6 Baso % (Auto) 1.0 Immature Gran # (Auto) 0.0 Neut # 6.3 Lymph # 1.5 [place] # 0.9 Eos # 0.3 Baso # 0.1 Puncture Site Rbrach O2 Saturation 93.0 L ABG pH 7.388 ABG pCO2 41.3 ABG pO2 69.0 L ABG HCO3 24.9 ABG Total CO2 26 ABG Base Excess 0 FiO2 % 21.0 Sodium 137 Potassium 3.9 Chloride 97 L Carbon Dioxide 25 Anion Gap 18.9 BUN 14 Creatinine 1.65 H Estimated GFR (MDRD) 42.00 BUN/Creatinine Ratio 8.48 Glucose 81 L Lactic Acid Calcium 9.7 Total Bilirubin 0.33 AST 26 ALT 19 Alkaline Phosphatase 73 Troponin I B-Natriuretic Peptide Total Protein 6.7 Albumin 3.1 L Globulin 3.6 Albumin/Globulin Ratio 0.86 07/10/17 07/10/17 07/10/17 17:45 17:45 17:45 WBC RBC Hgb Hct MCV MCH MCHC RDW Coeff of Tobin Plt Count Immature Gran % (Auto) Neut % (Auto) Lymph % (Auto) [place] % (Auto) Eos % (Auto) Baso % (Auto) Immature Gran # (Auto) Neut # Lymph # [place] # Eos # Baso # Puncture Site O2 Saturation ABG pH ABG pCO2 ABG pO2 ABG HCO3 ABG Total CO2 ABG Base Excess FiO2 % Sodium Potassium Chloride Carbon Dioxide Anion Gap BUN Creatinine Estimated GFR (MDRD) BUN/Creatinine Ratio Glucose Lactic Acid 41.6 H Calcium Total Bilirubin AST ALT Alkaline Phosphatase Troponin I < 0.0100 B-Natriuretic Peptide 47 Total Protein Albumin Globulin Albumin/Globulin Ratio Orders Category Date Time Status ADMIT PATIENT INPATIENT .TO [facility] (MONITORED BED) ADMISSION 07/10/17 18: 38 Active ABG DRAW REQUEST Stat CARDIO 07/10/17 17:33 Completed EKG-(ED ONLY) Stat CARDIO 07/10/17 17:32 Completed EKG-(IP & OP ONLY) DAILY CARDIO 07/11/17 06:00 Ordered EKG-(IP & OP ONLY) DAILY CARDIO 07/12/17 06:00 Ordered NEBULIZER TREATMENT Routine CARDIO 07/10/17 18:45 Active NEBULIZER TREATMENT Stat CARDIO 07/10/17 17:34 Completed OXYGEN Routine CARDIO 07/10/17 18:40 Active ACTIVITY .Complete BR CARE 07/10/17 18:38 Active INTAKE & OUTPUT Q8HR CARE 07/10/17 18:38 Active IV ACCESS ONCE CARE 07/10/17 17:28 Active TELEMETRY MONITORING TELE CARE 07/10/17 18:39 Active VITAL SIGNS Q8HR CARE 07/10/17 18:38 Active REGULAR DIET DIETARY 07/10/17 Breakfast Ordered ED APPLY O2 .ONCE EMERGENCY 07/10/17 17:28 Active ED AUTOMOTIVE CONSULTANT APPLIED .ONCE EMERGENCY 07/10/17 17:28 Active ED VITAL SIGNS Q1HR EMERGENCY 07/10/17 17:28 Active ABG Stat LAB 07/10/17 17:33 Completed BLOOD CULTURE Stat LAB 07/10/17 17:28 Received BNP [B-TYPE NATRIURETIC PEPTIDE] Stat LAB 07/10/17 17:45 Completed CBC W/ AUTO DIFF DAILY@0600 LAB 07/11/17 06:00 Ordered CBC W/ AUTO DIFF DAILY@0600 LAB 07/12/17 06:00 Ordered CBC W/ AUTO DIFF Stat LAB 07/10/17 17:45 Completed COMPREHENSIVE METABOLIC PANEL DAILY@0600 LAB 07/11/17 06:00 Ordered COMPREHENSIVE METABOLIC PANEL DAILY@0600 LAB 07/12/17 06:00 Ordered COMPREHENSIVE METABOLIC PANEL Stat LAB 07/10/17 17:45 Completed LACTIC ACID Stat LAB 07/10/17 17:45 Completed PROCALCITONIN Stat LAB 07/10/17 17:45 Received TROPONIN I Q8H LAB 07/11/17 00:45 Ordered TROPONIN I Q8H LAB 07/11/17 08:45 Ordered TROPONIN I Stat LAB 07/10/17 17:45 Completed Alprazolam [Xanax] MEDS 07/10/17 19:00 Ordered 1 mg PO BEDTIME Aspirin [Aspirin Chewable] MEDS 07/10/17 21:00 Ordered 81 mg PO 2100 Atorvastatin Calcium [Lipitor] MEDS 07/10/17 21:00 Ordered 40 mg PO BEDTIME Azithromycin Inj [Zithromax] 500 mg MEDS 07/10/17 19:00 Ordered 0.9 % Sodium Chloride [Sodium Chloride] 250 ml IV DAILY Ceftriaxone Sodium [Rocephin] 1 gm MEDS 07/10/17 19:00 Ordered 0.9 % Sodium Chloride [Sodium Chloride] 50 ml IV DAILY Clopidogrel Bisulfate [Plavix] MEDS 07/11/17 09:00 Ordered 75 mg PO DAILY Dexamethasone 4 mg/ml Inj [Decadron 4 mg/ml Sdv] MEDS 07/10/17 17:43 Discontinued 12 mg .ROUTE .STK-MED ONE Dexamethasone 4 mg/ml Inj [Decadron 4 mg/ml Sdv] 10 mg MEDS 07/10/17 17:34 Discontinued 0.9 % Sodium Chloride [Sodium Chloride] 50 ml IV ONCE Diltiazem HCl [Cardizem] MEDS 07/10/17 21:00 Ordered 60 mg PO Q12HR Duloxetine HCl [Cymbalta] MEDS 07/11/17 09:00 Ordered 30 mg PO DAILY Ipratropium/Albuterol Neb [Duoneb] MEDS 07/10/17 17:33 Discontinued 1 vial NEB ONCE STA Ipratropium/Albuterol Neb [Duoneb] MEDS 07/11/17 00:00 Ordered 1 vial NEB RTQ6H Isosorbide Mononitrate [Imdur] MEDS 07/11/17 09:00 Ordered 30 mg PO DAILY Metoprolol Succinate [Toprol Xl] MEDS 07/11/17 09:00 Ordered 50 mg PO DAILY Oxycodone-Acetaminophe 7.5-325 [Percocet 7.5-325] MEDS 07/10/17 18:46 Ordered DOSE tab PO QID PRN Pantoprazole Sodium [Protonix] MEDS 07/10/17 21:00 Ordered 40 mg PO BID Sodium Chloride 0.9% [Sodium Chloride] 1,000 ml MEDS 07/10/17 17:30 Active IV 75 mls/hr RESUSCITATION STATUS Routine OTHERS 07/10/17 18:38 Ordered CHEST, 1V AP ONLY Stat RADS 07/10/17 17:28 Taken Medications Generic Name Dose Route Start Last Admin Trade Name Freq PRN Reason Stop Dose Admin Albuterol/Ipratropium 1 vial 07/11/17 00:00 Duoneb NEB RTQ6H JONATAN Alprazolam 1 mg 07/10/17 19:00 Xanax PO BEDTIME [facility] Aspirin 81 mg 07/10/17 21:00 Aspirin Chewable PO 2100 [facility] Atorvastatin Calcium 40 mg 07/10/17 21:00 Lipitor PO BEDTIME [facility] Clopidogrel Bisulfate 75 mg 07/11/17 09:00 Plavix PO DAILY [facility] Diltiazem HCl 60 mg 07/10/17 21:00 Cardizem PO Q12HR [facility] Duloxetine HCl 30 mg 07/11/17 09:00 Cymbalta PO DAILY [facility] Sodium Chloride 1,000 mls @ 75 mls/hr 07/10/17 17:30 07/10/17 18:00 Sodium Chloride IV 07/11/17 06:49 75 mls/hr .[id number] STA Administration Azithromycin 500 mg/ Sodium 250 mls @ 125 mls/hr 07/10/17 19:00 Chloride IV DAILY [facility] Ceftriaxone Sodium 1 gm/ 50 mls @ 75 mls/hr 07/10/17 19:00 Sodium Chloride IV DAILY [facility] Isosorbide Mononitrate 30 mg 07/11/17 09:00 Imdur PO DAILY [facility] Metoprolol Succinate 50 mg 07/11/17 09:00 Toprol Xl PO DAILY JONATAN Oxycodone/Acetaminophen tab 07/10/17 18:46 Percocet 7.5-325 PO QID PRN MODERATE PAIN Pantoprazole Sodium 40 mg 07/10/17 21:00 Protonix PO BID JONATAN Discontinued Medications Generic Name Dose Route Start Last Admin Trade Name Freq PRN Reason Stop Dose Admin Albuterol/Ipratropium 1 vial 07/10/17 17:33 07/10/17 17:52 Duoneb NEB 07/10/17 17:34 1 vial ONCE STA Administration Dexamethasone Sodium Phosphate 52.5 mls @ 75 mls/hr 07/10/17 17:34 07/10/17 18:00 10 mg/ Sodium Chloride IV 07/10/17 18:15 75 mls/hr ONCE STA Administration Vital Signs: Temp Pulse Resp BP Pulse Ox 07/10/17 16:45 96.5 F L 128 H 24 122/74 95 Departure - Departure Time of Disposition: 18:54 Disposition: ADMITTED INPATIENT Discharge Problem: COPD exacerbation Condition: Stable Pt referred to PMD for follow-up: Yes Allergies/Adverse Reactions: Allergies buspirone HCl [From BuSpar] Adverse Reaction (Verified 07/10/17 16:49) codeine Adverse Reaction (Verified 07/10/17 16:49) lorazepam [From Ativan] Adverse Reaction (Verified 07/10/17 16:49) meperidine HCl [From Demerol] Adverse Reaction (Verified 07/10/17 16:49) promethazine HCl [From Phenergan] Adverse Reaction (Verified 07/10/17 16:49) tiotropium bromide [From Spiriva with HandiHaler] Adverse Reaction (Verified 16:49) Home Medications: Ambulatory Orders Atorvastatin Calcium [Lipitor] 40 mg PO BEDTIME 01/20/13 Isosorbide Mononitrate [Imdur] 30 mg PO DAILY 01/20/13 Aspirin [Aspirin Chewable] 81 mg PO 2100 01/28/13 Duloxetine HCl [Cymbalta] 30 mg PO DAILY 01/28/13 Metoprolol Succinate [Toprol Xl] 50 mg PO DAILY 01/28/13 Alprazolam [Xanax] 1 mg PO BEDTIME 02/02/15 Clopidogrel Bisulfate [Plavix] 75 mg PO DAILY 09/22/14 Diltiazem HCl [Cardizem] 60 mg PO Q12HR #60 tablet 09/23/14 Oxycodone HCl/Acetaminophen [Percocet 7.5-325 mg Tablet] 1 each PO QID PRN 30 Days tablet 03/18/15 Albuterol Sulfate [Proair Hfa] 2 puff IH Q6H PRN #1 inh 06/30/15 Pantoprazole Sodium [Protonix] 40 mg PO BID #60 tablet. 11/23/16 Ipratropium/Albuterol Sulfate [Combivent Respimat Inhal [place]] 20 - 100 mcg IH Q6HR PRN 05/23/17
[2017-07-10] MEDS ORDERED: SODIUM CHLORIDE 1,000 ML IV STA (17:30)
[2017-07-10] MEDS ORDERED: DUONEB NEB STA (17:33)
[2017-07-10] MEDS ORDERED: DECADRON 4 MG/ML SDV 10 MG in SODIUM CHLORIDE 50 ML IV STA (17:34)
[2017-07-10] MEDS ORDERED: DECADRON 4 MG/ML SDV ONE (17:43)
[2017-07-10 17:51] LABS: BASOPHILS # (AUTO) 0.1 K/uL (0-0.2); EOSINOPHILS # (AUTO) 0.3 K/ul (0.0-0.7); EOSINOPHILS % (AUTO) 3.6 % (0.0-7.0); IMMATURE GRANULOCYTE % (AUTO) 0.4 % (0.0-5.0); LYMPHOCYTES # (AUTO) 1.5 K/uL (0.60-3.4); LYMPHOCYTES % (AUTO) 15.9 (10.0-50.0); MEAN CORPUSCULAR HGB CONC 35.9 (31.8-35.4); MEAN CORPUSCULAR VOLUME 83.5 fl (80.0-94.0); MONOCYTES # (AUTO) 0.9 K/uL (0.4-2.0); MONOCYTES % (AUTO) 9.3 (0-10); NEUTROPHILS # (AUTO) 6.3 K/ul (2.0-6.9); NEUTROPHILS % (AUTO) 69.8; PLATELET COUNT 239 10^3/uL (140-440); RED BLOOD COUNT 4.67 10^6/ul (4.70-6.10)
[2017-07-10 17:55] LABS: ABG BASE EXCESS 0 (-2.0-2.0); ABG HCO3 24.9 (22.0-26.0); ABG PCO2 41.3 mmHg (35-45); ABG PH 7.388 (7.35-7.45); ABG TCO2 26 (22.0-28.0)
[2017-07-10 18:10] LABS: ALBUMIN 3.1 g/dL (3.4-5.0); ALBUMIN/GLOBULIN RATIO 0.86; ANION GAP 18.9; BILIRUBIN,TOTAL 0.33 mg/dL (0.00-1.20); BUN/CREATININE RATIO 8.48; CALCIUM 9.7 mg/dL (8.2-10.2); CREATININE 1.65 mg/dL (0.60-1.10); POTASSIUM 3.9 mmol/L (3.5-5.1); TOTAL PROTEIN 6.7 g/dL (5.8-8.1)
[2017-07-10] MEDS ORDERED: PERCOCET 7.5-325 PO PRN (18:46)
[2017-07-10] MEDS ORDERED: ROCEPHIN 1 GM in SODIUM CHLORIDE 50 ML IV SCH (19:00)
[2017-07-10] MEDS ORDERED: ZITHROMAX 500 MG in SODIUM CHLORIDE 250 ML IV SCH (19:00)
[2017-07-10] MEDS ORDERED: SOLU-MEDROL 125 MG IVP STA (20:20)
[2017-07-10] MEDS ORDERED: ROCEPHIN ONE (20:53)
[2017-07-10] MEDS ORDERED: CARDIZEM ONE (20:54)
[2017-07-10] MEDS ORDERED: SOLU-MEDROL 125 MG IVP SCH (21:00)
[2017-07-10] MEDS ORDERED: PROTONIX PO SCH (21:00)
[2017-07-10] MEDS: LIPITOR PO SCH (21:09)
[2017-07-10] MEDS ORDERED: SODIUM CHLORIDE 50 ML IV ONE (21:09)
[2017-07-10] MEDS: XANAX PO SCH ×2 (21:09→21:11)
[2017-07-10] MEDS: ASPIRIN CHEWABLE PO SCH (21:09)
[2017-07-10] MEDS: CARDIZEM PO SCH (21:11)
[2017-07-10] MEDS: SOLU-CORTEF 250 MG IVP SCH (21:12)
[2017-07-10] MEDS: TORADOL IVP PRN (21:13)
[2017-07-10] MEDS: XOPENEX 1.25 MG NEB SCH (23:25)
[2017-07-10] MEDS ORDERED: XOPENEX 1.25 MG NEB ONE (23:25)
[2017-07-11] MEDS ORDERED: DUONEB NEB SCH
[2017-07-11] MEDS ORDERED: PERCOCET 7.5-325 ONE (01:19)
[2017-07-11 01:37] LABS: BASOPHILS # (AUTO) 0.1 K/uL (0-0.2); BASOPHILS % (AUTO) 1.6 % (0.0-3.0); EOSINOPHILS % (AUTO) 0.2 % (0.0-7.0); HEMATOCRIT 37.7 % (42.0-52.0); HEMOGLOBIN 13.3 g/dl (14.0-18.0); IMMATURE GRANULOCYTE % (AUTO) 1.2 % (0.0-5.0); LYMPHOCYTES # (AUTO) 0.3 K/uL (0.60-3.4); LYMPHOCYTES % (AUTO) 6.1 (10.0-50.0); MEAN CORPUSCULAR HEMOGLOBIN 30.1 pg (27.0-31.0); MEAN CORPUSCULAR HGB CONC 35.3 (31.8-35.4); MEAN CORPUSCULAR VOLUME 85.3 fl (80.0-94.0); MONOCYTES # (AUTO) 0.1 K/uL (0.4-2.0); MONOCYTES % (AUTO) 1.2 (0-10); NEUTROPHILS # (AUTO) 4.5 K/ul (2.0-6.9); NEUTROPHILS % (AUTO) 89.7; PLATELET COUNT 212 10^3/uL (140-440); RED BLOOD COUNT 4.42 10^6/ul (4.70-6.10); WHITE BLOOD COUNT 5.05 K/ul (4.2-10.2)
[2017-07-11 01:40] LABS: ALBUMIN 2.8 g/dL (3.4-5.0); ALBUMIN/GLOBULIN RATIO 0.88; ANION GAP 12.7; BILIRUBIN,TOTAL 0.43 mg/dL (0.00-1.20); BUN/CREATININE RATIO 14.18; CALCIUM 8.9 mg/dL (8.2-10.2); CREATININE 1.48 mg/dL (0.60-1.10); POTASSIUM 4.7 mmol/L (3.5-5.1)
[2017-07-11] MEDS: PULMICORT 0.5 MG/2 ML NEB SCH ×2 (05:20→16:50)
[2017-07-11] MEDS: XOPENEX 1.25 MG NEB SCH ×4 (05:20→23:10)
[2017-07-11] MEDS: SOLU-CORTEF 250 MG IVP SCH ×3 (05:39→21:29)
[2017-07-11] MEDS: TORADOL IVP PRN ×2 (06:05→20:24)
--- NOTE | 2017-07-11 07:37 | DI ---
EXAM: Chest one view, frontal view only. HISTORY: Cough. COMPARISON: 05/23/2017. FINDINGS: Post CABG changes noted. Aortic atherosclerotic calcifications are present. The heart si ze is normal. There is no pulmonary vascular congestion. The lungs are clear. No pleural effusion or pneumothorax is seen. No acute osseous abnormality is identified. Since the prior study, there h as been no significant interval change. IMPRESSION: No acute cardiopulmonary process.
[2017-07-11] MEDS: TOPROL XL PO SCH (09:05)
[2017-07-11] MEDS: CARDIZEM PO SCH ×2 (09:05→21:29)
[2017-07-11] MEDS: CYMBALTA PO SCH (09:06)
[2017-07-11] MEDS: PLAVIX PO SCH (09:06)
[2017-07-11] MEDS: IMDUR PO SCH (09:06)
[2017-07-11] MEDS: PERCOCET 7.5-325 PO PRN ×2 (09:18→17:19)
[2017-07-11] MEDS: TUSSIONEX PO SCH ×2 (10:24→21:29)
[2017-07-11] MEDS: ZITHROMAX PO SCH (10:24)
[2017-07-11] MEDS: PROTONIX PO SCH (17:17)
[2017-07-11] MEDS ORDERED: ZITHROMAX 500 MG in SODIUM CHLORIDE 250 ML IV SCH (21:00)
[2017-07-11] MEDS: ROCEPHIN 1 GM in SODIUM CHLORIDE 50 ML IV SCH (21:28)
[2017-07-11] MEDS: ASPIRIN CHEWABLE PO SCH (21:29)
[2017-07-11] MEDS: LIPITOR PO SCH (21:29)
[2017-07-11] MEDS: XANAX PO SCH (21:29)
[2017-07-12] MEDS: PERCOCET 7.5-325 PO PRN ×3 (04:02→20:46)
[2017-07-12 05:15] LABS: BASOPHILS % (AUTO) 0.1 % (0.0-3.0); HEMATOCRIT 36.7 % (42.0-52.0); HEMOGLOBIN 12.8 g/dl (14.0-18.0); IMMATURE GRANULOCYTE % (AUTO) 0.5 % (0.0-5.0); LYMPHOCYTES # (AUTO) 0.7 K/uL (0.60-3.4); LYMPHOCYTES % (AUTO) 4.3 (10.0-50.0); MEAN CORPUSCULAR HEMOGLOBIN 29.9 pg (27.0-31.0); MEAN CORPUSCULAR HGB CONC 34.9 (31.8-35.4); MEAN CORPUSCULAR VOLUME 85.7 fl (80.0-94.0); MONOCYTES % (AUTO) 6.7 (0-10); NEUTROPHILS # (AUTO) 13.5 K/ul (2.0-6.9); NEUTROPHILS % (AUTO) 88.4; PLATELET COUNT 219 10^3/uL (140-440); RED BLOOD COUNT 4.28 10^6/ul (4.70-6.10); WHITE BLOOD COUNT 15.26 K/ul (4.2-10.2)
[2017-07-12] MEDS: PULMICORT 0.5 MG/2 ML NEB SCH ×2 (05:31→17:23)
[2017-07-12] MEDS: XOPENEX 1.25 MG NEB SCH ×4 (05:31→22:45)
[2017-07-12] MEDS: SOLU-CORTEF 250 MG IVP SCH ×3 (05:39→21:09)
[2017-07-12] MEDS: PROTONIX PO SCH ×2 (05:40→16:52)
[2017-07-12 05:42] LABS: ALBUMIN 2.7 g/dL (3.4-5.0); ALBUMIN/GLOBULIN RATIO 0.93; ANION GAP 11.7; BILIRUBIN,TOTAL 0.21 mg/dL (0.00-1.20); BUN/CREATININE RATIO 22.03; CALCIUM 8.8 mg/dL (8.2-10.2); CREATININE 1.18 mg/dL (0.60-1.10); POTASSIUM 4.7 mmol/L (3.5-5.1); TOTAL PROTEIN 5.6 g/dL (5.8-8.1)
[2017-07-12] MEDS: TOPROL XL PO SCH (08:53)
[2017-07-12] MEDS: IMDUR PO SCH (08:53)
[2017-07-12] MEDS: CYMBALTA PO SCH (08:53)
[2017-07-12] MEDS: PLAVIX PO SCH (08:53)
[2017-07-12] MEDS: CARDIZEM PO SCH ×2 (08:53→20:50)
[2017-07-12] MEDS: ZITHROMAX PO SCH (08:53)
[2017-07-12] MEDS: TORADOL IVP PRN ×2 (08:54→16:54)
[2017-07-12] MEDS: TUSSIONEX PO SCH ×2 (08:54→20:47)
--- NOTE | 2017-07-12 10:38 | PN ---
DATE OF SERVICE: 07/11/17 SUBJECTIVE: 67 year old white male hospitalized with acute bronchitis/pneumonitis. The patient was short of breath on minimal exertion. This morning Mr. Soler is feeling a lot better but still has cough and congestion and he gets short of breath going to the bathroom. He is doing on his own. His cardiovascular status is stable wit no symptoms of CHF or CAD. REVIEW OF SYSTEMS: CONSTITUTIONAL: No night sweats. No fatigue, malaise, lethargy. No fever or chills. Weakness. HEENT: Eyes: No visual changes. No eye pain. No eye discharge. ENT: No runny nose. No epistaxis. No sinus pain. No sore throat. No odynophagia. No congestion. RESPIRATORY: Cough and congestion. No hemoptysis. No shortness of breath. CARDIOVASCULAR: No angina symptoms. No CHF symptoms. No atypical chest pain for CAD. No palpitations. No orthopnea. No PND. GASTROINTESTINAL: No abdominal pain. No nausea or vomiting. No diarrhea or constipation. No hematemesis. No hematochezia. GENITOURINARY: No urgency. No frequency. No dysuria. No hematuria. No obstructive symptoms. No discharge. No pain. No significant abnormal bleeding. MUSCULOSKELETAL: No musculoskeletal pain; no joint swelling. NEUROLOGICAL: No headache. No neck pain. No syncope. No seizures. No dizziness. PSYCHIATRIC: Not anxious. No depression. No suicidal thoughts. No homicidal thoughts. SKIN: No rash. No lesions. No wounds. ENDOCRINE: No unexplained weight loss. No weight gain. HEMATOLOGIC/LYMPHATIC: No anemia. No purpura. No petechiae. No prolonged or excessive bleeding. No palpable lymph nodes. PHYSICAL EXAMINATION: GENERAL: The patient is oriented to time, place and person. VITAL SIGNS: Temperature 98, pulse 80, respiratory rate 15, blood pressure 130/ 70. HEENT: Head normocephalic, atraumatic. Eyes: Extraocular muscles are intact. Pupils are equal, round and reactive to light and accommodation. Ears: No lesions. Nose appeared normal. Throat: No exudate or erythema. NECK: Supple. No JVD, no carotid bruit. No lymphadenopathy or thyromegaly. LUNGS: Decreased breath sounds with mild wheeze. Clear to auscultation. Percussion note normal. Chest symmetrical. HEART: S1, S2, no S3. No murmurs. No cyanosis or clubbing. No ascites. Pulses: Dorsalis pedis and posterior tibial pulses +1 to +2 both sides. ABDOMEN: Soft. Nontender. Bowel sounds active. No CVA tenderness. No mass felt. EXTREMITIES: No edema. Full range of motion of all extremities, equal. NEUROLOGIC: No focal deficit. Cranial nerves II through XII are grossly intact. No headache, no double vision or headache. SKIN: Not dry. Intact. Turgor - normal. LYMPHATIC: No palpable lymph nodes/no lymphedema. MUSCULOSKELETAL: Normal joints with no swelling. Muscle tone is normal. ASSESSMENT: 1. Acute bronchitis/pneumonitis, seems to be resolving with steroids, antibiotics and NEBS treatment. 2. Cardiovascular status is stable with no evidence of CHF or Coronary insufficiency. PLAN: 1. Breathing exercises discussed 2. Telemetry shows sinus rhythm, no arrhythmias 3. EKG sinus rhythm with no acute changes. 4. Advised to walk in the hallway. 5. Will be put on Tussionex twice a day for cough which is nonproductive. CONDITION: Stable TIME SPENT: More than 30 minutes. Plan and coordination of the patient's care discussed in the presence of nurse. VERN
--- NOTE | 2017-07-12 10:58 | PCM.PROG ---
Attending Provider: ATTENDING PROVIDER: Dr. ANAHI CHUNG DATE OF SERVICE: 07/12/17 SUBJECTIVE: This 67 year old WHITE/ M was hospitalized 07/10/17. The patient is up and about doing well, coughing less. He has less wheezing but still complains of pleuritic type of pain. The patient wants more pain medicine. Toradol will be given along with Percocet. Pleuritic pain still exists. REVIEW OF SYSTEMS: CONSTITUTIONAL: No night sweats. No fatigue, malaise, lethargy. No fever or chills. HEENT: Eyes: No visual changes. No eye pain. No eye discharge. ENT: No runny nose. No epistaxis. No sinus pain. No odynophagia. No congestion. RESPIRATORY: No cough, no congestion. No hemoptysis. No shortness of breath. CARDIOVASCULAR: No angina symptoms. No CHF symptoms. No atypical chest pain for CAD. Pleuritic type chest pain. No palpitations. No orthopnea.. GASTROINTESTINAL: No abdominal pain. No nausea or vomiting. No diarrhea or constipation. No hematemesis. No hematochezia. GENITOURINARY: No urgency. No frequency. No dysuria. No hematuria. No obstructive symptoms. No discharge. No pain. No significant abnormal bleeding. MUSCULOSKELETAL: No musculoskeletal pain; no joint swelling. NEUROLOGICAL: Awake, alert, oriented to time, place and person. No headache. No neck pain. No syncope. No seizures. No dizziness. PSYCHIATRIC: Not anxious. No depression. No suicidal thoughts. No homicidal thoughts. SKIN: No rash. No lesions. No wounds. ENDOCRINE: No unexplained weight loss. No weight gain. HEMATOLOGIC/LYMPHATIC: No anemia. No purpura. No petechiae. No prolonged or excessive bleeding. No palpable lymph nodes. PHYSICAL EXAMINATION: GENERAL: The patient is awake, alert and oriented, lying in bed in no distress. VITAL SIGNS: Temperature 98.0 F, Pulse 78, Respiratory Rate 20, BP 129/77, Pulse Ox 98% HEENT: Head normocephalic, atraumatic. Eyes: Extraocular muscles are intact. Pupils are equal, round and reactive to light and accommodation. Ears: No lesions. Nose appeared normal. Throat: No exudate or erythema. NECK: Supple. No JVD, no carotid bruit. No lymphadenopathy or thyromegaly. LUNGS: Clear to auscultation. Percussion note normal. Chest symmetrical. HEART: S1, S2, no S3. No murmurs. No cyanosis or clubbing. No ascites. Pulses: Dorsalis pedis and posterior tibial pulses +1 to +2 both sides. ABDOMEN: Soft. Non-tender. Bowel sounds active. No CVA tenderness. No mass felt. EXTREMITIES: No edema. Full range of motion of all extremities, equal. NEUROLOGIC: No focal deficit. Cranial nerves II through XII are grossly intact. No headache, no double vision or headache. SKIN: Not dry. Intact. Turgor-normal. LYMPHATIC: No palpable lymph nodes/no lymphedema. MUSCULOSKELETAL: Normal joints with no swelling. Muscle tone is normal. LAB REVIEW: 07/12/17 04:40 07/12/17 04:40 07/12/17 04:40: Sodium 138, Potassium 4.7, Chloride 108 H, Carbon Dioxide 23, Anion Gap 11.7, BUN 26 H, Creatinine 1.18 H, Estimated GFR (MDRD) 62.00, BUN/ Creatinine Ratio 22.03, Glucose 127 H, Calcium 8.8, Total Bilirubin 0.21, AST 13 L, ALT 13, Alkaline Phosphatase 52 L, Total Protein 5.6 L, Albumin 2.7 L, Globulin 2.9, Albumin/Globulin Ratio 0.93 07/12/17 04:40: WBC 15.26 H D, RBC 4.28 L, Hgb 12.8 L, Hct 36.7 L, MCV 85.7, MCH 29.9, MCHC 34.9, RDW Coeff of Tobin 13.8, Plt Count 219, Immature Gran % (Auto ) 0.5, Neut % (Auto) 88.4, Lymph % (Auto) 4.3 L, [place] % (Auto) 6.7, Eos % (Auto ) 0.0, Baso % (Auto) 0.1, Immature Gran # (Auto) 0.1, Neut # 13.5 H, Lymph # 0.7 , [place] # 1.0, Eos # 0.0, Baso # 0.0 07/11/17 08:20: Troponin I < 0.0100 ASSESSMENT: 1. ACUTE BRONCHITIS/PNEUMONITIS SEEMS TO BE RESOLVING WITH STEROIDS, ANTIBIOTICS AND NEBS TREATMENT. 2. CARDIOVASCULAR STATUS IS STABLE WITH NO EVIDENCE OF CHF OR CORONARY INSUFFICIENCY. PLAN: 1. The patient wants to walk and be up and about. 2. Continue nebs, steroids and antibiotics. Plan and coordination of the patient's care discussed in the presence of Photographer Motion Picture and nurse. CONDITION: STABLE SCRIBED BY: ROSI PLASENCIA Lead Web Application Developer scribed while in presence of service performed by Dr. ANAHI CHUNG on 07/12/17 ([id number])
[2017-07-12] MEDS ORDERED: ZOFRAN 4 MG/2 ML IVP PRN (13:41)
--- NOTE | 2017-07-12 14:17 | HP ---
DATE OF SERVICE: 07/11/17 HISTORY OF PRESENT ILLNESS: This is a 67-year-old white male who presented to the emergency room complaining of increasing shortness of breath, cough and congestion. He has a long history of severe COPD. He is a smoker. He was examined in the ER and then subsequently admitted. PAST MEDICAL HISTORY: Hypertension Dyslipidemia Hyperglycemia History of bladder cancer - he sees Dr. Keller COPD, severe Osteoarthritis Colon polyps - sees Dr. Becker in [place] Back surgery Hernia surgery Rotator cuff Carpal tunnel Prostate Urinary stent CABG PAST SURGICAL HISTORY: Back surgery Hernia repair with mesh Polypectomy 03/2016 CABG times two Status post cholecystectomy Status post appendectomy REVIEW OF SYSTEMS: CONSTITUTIONAL: No night sweats. Positive for fatigue. No fever or chills. HEENT: Eyes: No visual changes. No eye pain. No eye drainage or redness. ENT: No nasal congestion. No epistaxis. No sinus pain. No sore throat. No odynophagia. No ear pain. No congestion. RESPIRATORY: Positive for cough, shortness of breath and wheezing. No hemoptysis. No shortness of breath. CARDIOVASCULAR: No angina symptoms. No CHF symptoms. No atypical chest pain for CAD. No palpitations. No orthopnea. GASTROINTESTINAL: No abdominal pain. No nausea or vomiting. No diarrhea or constipation. No hematemesis. No hematochezia. GENITOURINARY: No urgency. No frequency. No dysuria. No hematuria. No obstructive symptoms. No discharge. No pain. No significant abnormal bleeding. MUSCULOSKELETAL: No joint swelling or redness. Positive for osteoarthritis. NEUROLOGICAL: No headache. No neck pain. No syncope. No seizures. No dizziness. PSYCHIATRIC: The patient is anxious; however not confused or dizzy. No depression. No suicidal thoughts. No homicidal thoughts. SKIN: No rash. Intact. ENDOCRINE: No unexplained weight loss. No weight gain. HEMATOLOGIC/LYMPHATIC: No anemia. No purpura. No petechiae. No prolonged or excessive bleeding. No palpable lymph nodes. PERSONAL/FAMILY/SOCIAL HISTORY: The patient is a smoker. He admits to occasional alcohol use. He lives at home alone. He does not work. MEDICATIONS: Lipitor 40 mg p.o. bedtime Imdur 30 mg p.o. daily Aspirin 81 mg p.o. 2100 Cymbalta 30 mg p.o. daily Toprol XL 50 mg p.o. daily Plavix 75 mg p.o. daily Xanax 1 mg p.o. bedtime Cardizem 60 mg p.o. q.12hr Oxycodone HCI/Acetaminophen (Percocet 7.5-325 mg tablet) one each p.o. q.i.d. p.r.n. 30 days Albuterol (ProAir Hfa) two puff IH q.6h p.r.n.) Protonix 40 mg p.o. b.i.d. Ipratropium/Albuterol (Combivent Respimat Inhal [place]) one spray Aero 20-100 mcg IH q.6h p.r.n. ALLERGIES: BUSPIRONE, PROMETHAZINE, MEPERIDINE, TIOTROPIUM BROMIDE, CODEINE PHYSICAL EXAMINATION: HEENT: Head normocephalic, atraumatic. Eyes: Extraocular muscles are intact. Pupils are equal, round and reactive to light and accommodation. Ears: No lesions. Nose appeared normal. Throat: No exudate or erythema. NECK: Supple. No JVD, no carotid bruit. No lymphadenopathy or thyromegaly. LUNGS: Severely diminished breath sounds bilaterally with bilateral expiratory wheezes. Percussion note normal. Chest symmetrical. HEART: Regular rate and rhythm. Mild tachyardia. No murmurs, clicks or rubs. S1 , S2, no S3. No cyanosis or clubbing. No ascites. Pulses: Dorsalis pedis and posterior tibial pulses +1 to +2 both sides. ABDOMEN: Soft. Nontender. Bowel sounds active times four quadrants. No CVA tenderness. No mass felt. EXTREMITIES: No clubbing, no cyanosis. No redness, no edema. No calf tenderness. Full range of motion of all extremities, equal. NEUROLOGIC: The patient is alert and oriented times three. No focal deficit. Cranial nerves II through XII are grossly intact. No headache, no double vision or headache. SKIN: [place], warm and dry. Intact. Turgor - normal. LYMPHATIC: No palpable lymph nodes/no lymphedema. MUSCULOSKELETAL: Normal joints with no swelling. Muscle tone is normal. LABS: Hemoglobin 14.0, hematocrit 30.9, platelets 239, white count 9.1. Sodium 137, potassium 3.9, chloride 97. BUN 14, creatinine 1.65, glucose 81. ABGs 02 sat 93 % on room air, pH 7.388, pc02 41.3, p02 69, bicarb 24.9, total c02 26, base excess of 0. Total bili 0.33, AST 26, ALT 19, alkaline phosphatase 73. BNP 47. Chest x-ray showed questionable infiltrate. ASSESSMENT: 1. ACUTE COPD EXACERBATION 2. PNEUMONITIS 3. SHORTNESS OF BREATH 4. CORONARY ARTERY DISEASE 5. SEVERE COPD PLAN: 1. Admit to the floor. 2. CBC, CMP daily. 3. Solu-Cortef 125 mg q.8hr. 4. Rocephin 1 gm IV daily. 5. Zithromax 500 mg IV daily for the next three days. 6. Duonebs q.6hr scheduled. 7. Blood cultures times two. 8. Routine telemetry orders. 9. Will follow with Mr. Soler closely. TIME SPENT: More than 70 minutes. [facility]
--- NOTE | 2017-07-12 15:37 | PN ---
DATE OF SERVICE: 07/10/17 SUBJECTIVE: The patient was hospitalized through the emergency room as he complains of cough and congestion of nearly 3-4 days duration. The patient is coughing up yellow sputum. The chest x-ray in the emergency room showed possible infiltrate. The patient's blood gasses were practically normal with oxygen saturation more than 90%. The patient was extremely short of breath walking from waiting area to the emergency room. PHYSICAL EXAMINATION: HEENT: Head normocephalic, atraumatic. Eyes: Extraocular muscles are intact. Pupils are equal, round and reactive to light and accommodation. Ears: No lesions. Nose appeared normal. Throat: No exudate or erythema. NECK: Supple. No JVD, no carotid bruit. No lymphadenopathy or thyromegaly. LUNGS: Decreased breath sounds with mild wheeze. Clear to auscultation. Percussion note normal. Chest symmetrical. HEART: S1, S2, no S3. No murmurs. No cyanosis or clubbing. No ascites. Pulses: Dorsalis pedis and posterior tibial pulses +1 to +2 both sides. ABDOMEN: Soft. Nontender. Bowel sounds active. No CVA tenderness. No mass felt. EXTREMITIES: No edema. Full range of motion of all extremities, equal. NEUROLOGIC: No focal deficit. Cranial nerves II through XII are grossly intact. No headache, no double vision or headache. SKIN: Not dry. Intact. Turgor - normal. LYMPHATIC: No palpable lymph nodes/no lymphedema. MUSCULOSKELETAL: Normal joints with no swelling. Muscle tone is normal. ASSESSMENT: 1. Acute bronchitis with severe chronic lung disease 2. Coronary artery bypass surgery 3. History of congestive heart failure PLAN: 1. IV Rocephin and Zithromax 2. IV Decadron given in the Emergency Room 3. NEBS treatment four times a day 4. Xopenex 5. IV fluids 6. Watch for fluid overload CONDITION: Stable TIME SPENT: More than 30 minutes. Plan and coordination of the patient's care discussed in the presence of nurse. VERN
[2017-07-12] MEDS: ROCEPHIN 1 GM in SODIUM CHLORIDE 50 ML IV SCH (20:03)
[2017-07-12] MEDS: ASPIRIN CHEWABLE PO SCH (20:45)
[2017-07-12] MEDS: XANAX PO SCH (20:45)
[2017-07-12] MEDS: LIPITOR PO SCH (20:46)
[2017-07-13] MEDS: TORADOL IVP PRN ×3 (01:39→17:33)
[2017-07-13] MEDS: PERCOCET 7.5-325 PO PRN ×3 (04:00→20:09)
[2017-07-13] MEDS: XOPENEX 1.25 MG NEB SCH ×4 (05:18→23:15)
[2017-07-13] MEDS: PULMICORT 0.5 MG/2 ML NEB SCH ×2 (05:18→17:40)
[2017-07-13] MEDS: SOLU-CORTEF 250 MG IVP SCH ×3 (05:40→20:09)
[2017-07-13] MEDS: PROTONIX PO SCH ×2 (05:41→16:38)
[2017-07-13] MEDS: CARDIZEM PO SCH ×2 (09:56→20:09)
[2017-07-13] MEDS: PLAVIX PO SCH (09:56)
[2017-07-13] MEDS: IMDUR PO SCH (09:56)
[2017-07-13] MEDS: CYMBALTA PO SCH (09:56)
[2017-07-13] MEDS: TOPROL XL PO SCH (09:57)
[2017-07-13] MEDS: TUSSIONEX PO SCH ×2 (10:09→20:09)
[2017-07-13 11:10] LABS: BASOPHILS % (AUTO) 0.1 % (0.0-3.0); HEMATOCRIT 34.5 % (42.0-52.0); HEMOGLOBIN 12.1 g/dl (14.0-18.0); IMMATURE GRANULOCYTE % (AUTO) 0.7 % (0.0-5.0); LYMPHOCYTES # (AUTO) 0.5 K/uL (0.60-3.4); LYMPHOCYTES % (AUTO) 3.6 (10.0-50.0); MEAN CORPUSCULAR HEMOGLOBIN 30.1 pg (27.0-31.0); MEAN CORPUSCULAR HGB CONC 35.1 (31.8-35.4); MEAN CORPUSCULAR VOLUME 85.8 fl (80.0-94.0); MONOCYTES # (AUTO) 0.9 K/uL (0.4-2.0); MONOCYTES % (AUTO) 6.8 (0-10); NEUTROPHILS # (AUTO) 11.9 K/ul (2.0-6.9); NEUTROPHILS % (AUTO) 88.8; PLATELET COUNT 201 10^3/uL (140-440); RED BLOOD COUNT 4.02 10^6/ul (4.70-6.10); WHITE BLOOD COUNT 13.38 K/ul (4.2-10.2)
[2017-07-13 11:29] LABS: ALBUMIN 2.6 g/dL (3.4-5.0); ALBUMIN/GLOBULIN RATIO 0.9; ANION GAP 11.2; BILIRUBIN,TOTAL 0.27 mg/dL (0.00-1.20); BUN/CREATININE RATIO 24.03; CALCIUM 8.6 mg/dL (8.2-10.2); CREATININE 1.04 mg/dL (0.60-1.10); POTASSIUM 4.2 mmol/L (3.5-5.1); TOTAL PROTEIN 5.5 g/dL (5.8-8.1)
[2017-07-13] MEDS: ROCEPHIN 1 GM in SODIUM CHLORIDE 50 ML IV SCH (20:09)
[2017-07-13] MEDS: LIPITOR PO SCH (20:10)
[2017-07-13] MEDS: XANAX PO SCH (20:10)
[2017-07-13] MEDS: ASPIRIN CHEWABLE PO SCH (20:10)
[2017-07-14] MEDS: TORADOL IVP PRN ×3 (01:05→21:03)
[2017-07-14] MEDS: PERCOCET 7.5-325 PO PRN ×3 (04:21→16:49)
[2017-07-14] MEDS: XOPENEX 1.25 MG NEB SCH ×4 (05:12→23:19)
[2017-07-14] MEDS: PULMICORT 0.5 MG/2 ML NEB SCH ×2 (05:12→16:50)
[2017-07-14] MEDS: PROTONIX PO SCH ×2 (05:32→16:49)
[2017-07-14] MEDS: SOLU-CORTEF 250 MG IVP SCH ×3 (06:30→21:04)
[2017-07-14] MEDS: TOPROL XL PO SCH (08:37)
[2017-07-14] MEDS: IMDUR PO SCH (08:37)
[2017-07-14] MEDS: CYMBALTA PO SCH (08:37)
[2017-07-14] MEDS: PLAVIX PO SCH (08:37)
[2017-07-14] MEDS: CARDIZEM PO SCH ×2 (08:37→21:03)
[2017-07-14] MEDS: TUSSIONEX PO SCH ×2 (08:37→21:02)
[2017-07-14] MEDS: XANAX PO SCH (21:02)
[2017-07-14] MEDS: ASPIRIN CHEWABLE PO SCH (21:03)
[2017-07-14] MEDS: ROCEPHIN 1 GM in SODIUM CHLORIDE 50 ML IV SCH (21:03)
[2017-07-14] MEDS: LIPITOR PO SCH (21:03)
[2017-07-15] MEDS: PERCOCET 7.5-325 PO PRN ×3 (00:28→15:21)
[2017-07-15 05:07] LABS: BASOPHILS % (AUTO) 0.2 % (0.0-3.0); HEMATOCRIT 35.5 % (42.0-52.0); HEMOGLOBIN 12.5 g/dl (14.0-18.0); LYMPHOCYTES # (AUTO) 0.6 K/uL (0.60-3.4); LYMPHOCYTES % (AUTO) 5.3 (10.0-50.0); MEAN CORPUSCULAR HEMOGLOBIN 29.7 pg (27.0-31.0); MEAN CORPUSCULAR HGB CONC 35.2 (31.8-35.4); MEAN CORPUSCULAR VOLUME 84.3 fl (80.0-94.0); MONOCYTES # (AUTO) 0.5 K/uL (0.4-2.0); MONOCYTES % (AUTO) 4.5 (0-10); NEUTROPHILS # (AUTO) 9.3 K/ul (2.0-6.9); PLATELET COUNT 224 10^3/uL (140-440); RED BLOOD COUNT 4.21 10^6/ul (4.70-6.10); WHITE BLOOD COUNT 10.39 K/ul (4.2-10.2)
[2017-07-15 05:32] LABS: ALBUMIN 2.6 g/dL (3.4-5.0); ALBUMIN/GLOBULIN RATIO 0.9; ANION GAP 14.2; BILIRUBIN,TOTAL 0.28 mg/dL (0.00-1.20); BUN/CREATININE RATIO 19.23; CALCIUM 8.3 mg/dL (8.2-10.2); CREATININE 1.04 mg/dL (0.60-1.10); POTASSIUM 3.2 mmol/L (3.5-5.1); TOTAL PROTEIN 5.5 g/dL (5.8-8.1)
[2017-07-15] MEDS: PULMICORT 0.5 MG/2 ML NEB SCH ×2 (05:33→16:45)
[2017-07-15] MEDS: XOPENEX 1.25 MG NEB SCH ×4 (05:33→23:06)
[2017-07-15] MEDS: SOLU-CORTEF 250 MG IVP SCH ×3 (05:59→20:42)
[2017-07-15] MEDS: PROTONIX PO SCH ×2 (05:59→16:15)
[2017-07-15] MEDS: TORADOL IVP PRN ×3 (05:59→22:14)
[2017-07-15] MEDS: TOPROL XL PO SCH (08:06)
[2017-07-15] MEDS: TUSSIONEX PO SCH ×2 (08:06→20:43)
[2017-07-15] MEDS: CARDIZEM PO SCH ×2 (08:06→20:43)
[2017-07-15] MEDS: PLAVIX PO SCH (08:06)
[2017-07-15] MEDS: IMDUR PO SCH (08:06)
[2017-07-15] MEDS: CYMBALTA PO SCH (08:06)
[2017-07-15] MEDS: COZAAR PO SCH (08:08)
[2017-07-15] MEDS: OMNICEF PO SCH (20:42)
[2017-07-15] MEDS: ASPIRIN CHEWABLE PO SCH (20:42)
[2017-07-15] MEDS: XANAX PO SCH (20:43)
[2017-07-15] MEDS: LIPITOR PO SCH (20:43)
[2017-07-16] MEDS: PERCOCET 7.5-325 PO PRN ×3 (01:52→17:40)
[2017-07-16] MEDS: PULMICORT 0.5 MG/2 ML NEB SCH ×2 (05:35→20:59)
[2017-07-16] MEDS: XOPENEX 1.25 MG NEB SCH ×3 (05:35→20:59)
[2017-07-16] MEDS: PROTONIX PO SCH ×2 (05:56→17:40)
[2017-07-16] MEDS: TORADOL IVP PRN ×3 (05:56→22:20)
[2017-07-16] MEDS: SOLU-CORTEF 250 MG IVP SCH ×3 (05:57→21:28)
[2017-07-16 06:19] LABS: BASOPHILS % (AUTO) 0.2 % (0.0-3.0); HEMATOCRIT 37.9 % (42.0-52.0); HEMOGLOBIN 13.7 g/dl (14.0-18.0); IMMATURE GRANULOCYTE % (AUTO) 0.9 % (0.0-5.0); LYMPHOCYTES % (AUTO) 7.7 (10.0-50.0); MEAN CORPUSCULAR HEMOGLOBIN 29.9 pg (27.0-31.0); MEAN CORPUSCULAR HGB CONC 36.1 (31.8-35.4); MEAN CORPUSCULAR VOLUME 82.8 fl (80.0-94.0); MONOCYTES # (AUTO) 1.1 K/uL (0.4-2.0); MONOCYTES % (AUTO) 8.5 (0-10); NEUTROPHILS # (AUTO) 10.8 K/ul (2.0-6.9); NEUTROPHILS % (AUTO) 82.7; PLATELET COUNT 253 10^3/uL (140-440); RED BLOOD COUNT 4.58 10^6/ul (4.70-6.10); WHITE BLOOD COUNT 13.07 K/ul (4.2-10.2)
[2017-07-16 06:39] LABS: ALBUMIN 2.6 g/dL (3.4-5.0); ALBUMIN/GLOBULIN RATIO 0.9; ANION GAP 14.7; BILIRUBIN,TOTAL 0.41 mg/dL (0.00-1.20); CALCIUM 8.9 mg/dL (8.2-10.2); CREATININE 0.88 mg/dL (0.60-1.10); TOTAL PROTEIN 5.5 g/dL (5.8-8.1)
[2017-07-16 06:43] LABS: POTASSIUM 2.7 mmol/L (3.5-5.1)
[2017-07-16] MEDS ORDERED: K-DUR PO STA (07:04)
[2017-07-16] MEDS ORDERED: K-DUR PO SCH (08:00)
[2017-07-16] MEDS: OMNICEF PO SCH ×2 (08:47→20:46)
[2017-07-16] MEDS: TOPROL XL PO SCH (08:48)
[2017-07-16] MEDS: CARDIZEM PO SCH ×2 (08:49→20:47)
[2017-07-16] MEDS: PLAVIX PO SCH (08:49)
[2017-07-16] MEDS: CYMBALTA PO SCH (08:49)
[2017-07-16] MEDS: TUSSIONEX PO SCH ×2 (08:49→20:48)
[2017-07-16] MEDS: IMDUR PO SCH (08:49)
[2017-07-16] MEDS: COZAAR PO SCH (08:49)
[2017-07-16] MEDS: K-DUR PO SCH ×3 (10:55→17:40)
[2017-07-16] MEDS: ASPIRIN CHEWABLE PO SCH (20:47)
[2017-07-16] MEDS: XANAX PO SCH (20:47)
[2017-07-16] MEDS: LIPITOR PO SCH (20:47)
[2017-07-17] MEDS: PERCOCET 7.5-325 PO PRN ×2 (02:41→10:18)
[2017-07-17] MEDS: SOLU-CORTEF 250 MG IVP SCH (04:51)
[2017-07-17] MEDS: PULMICORT 0.5 MG/2 ML NEB SCH (05:25)
[2017-07-17] MEDS: XOPENEX 1.25 MG NEB SCH (05:25)
[2017-07-17] MEDS: TORADOL IVP PRN (05:52)
[2017-07-17] MEDS: PROTONIX PO SCH (05:53)
[2017-07-17 05:56] VITALS: BP 176/87; TEMP 97.8
[2017-07-17 06:32] LABS: ALBUMIN 2.6 g/dL (3.4-5.0); ALBUMIN/GLOBULIN RATIO 0.84; ANION GAP 13.6; BILIRUBIN,TOTAL 0.45 mg/dL (0.00-1.20); BUN/CREATININE RATIO 24.71; CALCIUM 8.6 mg/dL (8.2-10.2); CREATININE 0.89 mg/dL (0.60-1.10); POTASSIUM 3.6 mmol/L (3.5-5.1); TOTAL PROTEIN 5.7 g/dL (5.8-8.1)
[2017-07-17 06:37] LABS: BASOPHILS % (AUTO) 0.1 % (0.0-3.0); HEMATOCRIT 41.9 % (42.0-52.0); HEMOGLOBIN 15.1 g/dl (14.0-18.0); LYMPHOCYTES # (AUTO) 0.9 K/uL (0.60-3.4); MEAN CORPUSCULAR HEMOGLOBIN 30.1 pg (27.0-31.0); MEAN CORPUSCULAR VOLUME 83.6 fl (80.0-94.0); MONOCYTES # (AUTO) 1.5 K/uL (0.4-2.0); NEUTROPHILS % (AUTO) 85.9; PLATELET COUNT 299 10^3/uL (140-440); RED BLOOD COUNT 5.01 10^6/ul (4.70-6.10); WHITE BLOOD COUNT 18.64 K/ul (4.2-10.2)
[2017-07-17] MEDS ORDERED: K-DUR PO SCH (08:00)
[2017-07-17] MEDS: CARDIZEM PO SCH (08:20)
[2017-07-17] MEDS: COZAAR PO SCH (08:20)
[2017-07-17] MEDS: IMDUR PO SCH (08:20)
[2017-07-17] MEDS: OMNICEF PO SCH (08:20)
[2017-07-17] MEDS: TUSSIONEX PO SCH (08:20)
[2017-07-17] MEDS: CYMBALTA PO SCH (08:20)
[2017-07-17] MEDS: TOPROL XL PO SCH (08:20)
[2017-07-17] MEDS: PLAVIX PO SCH (08:20)
--- NOTE | 2017-07-17 09:46 | CM.DICTOOL ---
ADMISSION: 07/10/17 18:51 DISCHARGE: July 17, 2017 DATE OF SERVICE: 07/17/17 FINAL DIAGNOSIS COPD exacerbation Pneumonitis Hypertension Severe COPD Hypokalemia, resolved Dyslipidemia Osteoarthritis CAD CABG, 2004 and 2013 Hyperglycemia Bladder Cancer, Dr. Keller Colon Polyps Urinary Stent Cholecystectomy Appendectomy Hernia Repair Lumbar Surgery LAST VITALS Temp Pulse Resp BP Pulse Ox 97.8 F 64 16 176/87 H 98 07/17/17 05:54 07/17/17 05:54 07/17/17 05:54 07/17/17 05:54 07/17/17 05:54 ACTIVE HOME MEDICATIONS Alprazolam (Xanax) 1 mg PO BEDTIME [facility] Last Admin: 07/16/17 20:47 Dose: 1 mg Aspirin (Aspirin Chewable) 81 mg PO 2100 [facility] Last Admin: 07/16/17 20:47 Dose: 81 mg Atorvastatin Calcium (Lipitor) 40 mg PO BEDTIME [facility] Last Admin: 07/16/17 20:47 Dose: 40 mg Clopidogrel Bisulfate (Plavix) 75 mg PO DAILY [facility] Last Admin: 07/17/17 08:20 Dose: 75 mg Diltiazem HCl (Cardizem) 60 mg PO Q12HR [facility] Last Admin: 07/17/17 08:20 Dose: 60 mg Duloxetine HCl (Cymbalta) 30 mg PO DAILY [facility] Last Admin: 07/17/17 08:20 Dose: 30 mg Isosorbide Mononitrate (Imdur) 30 mg PO DAILY [facility] Last Admin: 07/17/17 08:20 Dose: 30 mg Metoprolol Succinate (Toprol Xl) 50 mg PO DAILYWM [facility] Last Admin: 07/17/17 08:20 Dose: 50 mg Oxycodone/Acetaminophen (Percocet 7.5-325) 1 tab PO QID PRN PRN Reason: MODERATE PAIN Last Admin: 07/17/17 02:41 Dose: 1 tab Pantoprazole Sodium (Protonix) 40 mg PO BIDAC [facility] Last Admin: 07/17/17 05:53 Dose: 40 mg Albuterol Sulfate (ProAir Hfa) 2 puff IH q 6 H prn shortness of air Last Admin: Ipratropium/Albuterol Sufate (Combivent Respimat Inhal) every 6 hours prn shortness of air/wheezing Last Admin: Albuterol Nebs three times a day: Last Admin: ALLERGIES buspirone HCl [From BuSpar] Adverse Reaction (Verified 07/10/17 16:49) codeine Adverse Reaction (Verified 07/10/17 16:49) lorazepam [From Ativan] Adverse Reaction (Verified 07/10/17 16:49) meperidine HCl [From Demerol] Adverse Reaction (Verified 07/10/17 16:49) promethazine HCl [From Phenergan] Adverse Reaction (Verified 07/10/17 16:49) tiotropium bromide [From Spiriva with HandiHaler] Adverse Reaction (Verified 16:49) NEW PRESCRIPTIONS: K-Tab 20 meq Daily for 10 days Cozaar 100 mg Daily Omnicef 300 mg BID for 5 days Prednisone 10 mg Daily for 7 days SMOKING: No Smoking (stopped per patient) DISEASE SPECIFIC EDUCATION: COPD Medications Steroids with side effects of GI upset, bone demineralization Outpatient testing LAB REVIEW: 07/17/17 06:00 07/17/17 06:00 07/17/17 06:00: Sodium 141, Potassium 3.6, Chloride 102, Carbon Dioxide 29, Anion Gap 13.6, BUN 22 H, Creatinine 0.89, Estimated GFR (MDRD) 86.00, BUN/ Creatinine Ratio 24.71, Glucose 114, Calcium 8.6, Total Bilirubin 0.45, AST 40 H , ALT 65, Alkaline Phosphatase 57, Total Protein 5.7 L, Albumin 2.6 L, Globulin 3.1, Albumin/Globulin Ratio 0.84 07/17/17 06:00: WBC 18.64 H D, RBC 5.01, Hgb 15.1, Hct 41.9 L, MCV 83.6, MCH 30.1, MCHC 36.0 H, RDW Coeff of Tobin 13.2, Plt Count 299, Immature Gran % (Auto) 1.0, Neut % (Auto) 85.9, Lymph % (Auto) 5.0 L, Walsh % (Auto) 8.0, Eos % (Auto) 0.0, Baso % (Auto) 0.1, Immature Gran # (Auto) 0.2, Neut # 16.0 H, Lymph # 0.9, Walsh # 1.5, Eos # 0.0, Baso # 0.0 PLAN: Discharge home Diet: Heart Healthy Activity: Gradually resume as tolerated Continue all home medications as listed on nursing discharge information sheet Continue Nebulizer treatments at home three times daily Outpatient testing is scheduled for July 18 at 6:30 am at [facility]. You are scheduled for a Pulmonary Function Test and an Echocardiogram An appointment is scheduled with Dr. Toscano/Stefani Wood APRN on July 28 at 11:15 am. Mr. Soler is alert and oriented x 3. He is ambulatory without use of an assistive device and is independent with Activities of Daily Living. He denies shortness of breath or cough today. No abdominal pain, nausea or loose stools are reported by the patient. Appetite is good with 100% meal intakes noted. He has been afebrile during his hospital stay. Skin is intact and free of decubitus ulcers, rashes or irritation. Joni Toscano MD Stefani Wood APRN
--- NOTE | 2017-07-18 15:08 | PN ---
DATE OF SERVICE: 07/13/17 SUBJECTIVE: The patient examined while lying in bed. States shortness of breath has improved. He still has a productive cough. He has been walking around eating 50 to 75% of his meals, has been afebrile. REVIEW OF SYSTEMS: CONSTITUTIONAL: No night sweats. No fatigue, malaise, lethargy. No fever or chills. HEENT: Eyes: No visual changes. No eye pain. No eye discharge. ENT: No runny nose. No epistaxis. No sinus pain. No sore throat. No odynophagia. No congestion. RESPIRATORY: Positive for cough and congestion. No hemoptysis. Positive for shortness of breath - improving. CARDIOVASCULAR: No angina symptoms. No CHF symptoms. No atypical chest pain for CAD. No palpitations. No orthopnea. GASTROINTESTINAL: No abdominal pain. No nausea or vomiting. No diarrhea or constipation. No hematemesis. No hematochezia. GENITOURINARY: No urgency. No frequency. No dysuria. No hematuria. No obstructive symptoms. No discharge. No pain. No significant abnormal bleeding. MUSCULOSKELETAL: Osteoarthritis pain. NEUROLOGICAL: No headache. No neck pain. No syncope. No seizures. No dizziness. PSYCHIATRIC: Not anxious. No depression. No suicidal thoughts. No homicidal thoughts. SKIN: No rash. No lesions. No wounds. ENDOCRINE: No unexplained weight loss. No weight gain. HEMATOLOGIC/LYMPHATIC: No anemia. No purpura. No petechiae. No prolonged or excessive bleeding. No palpable lymph nodes. PHYSICAL EXAMINATION: HEENT: Head normocephalic, atraumatic. Eyes: Extraocular muscles are intact. Pupils are equal, round and reactive to light and accommodation. Ears: No lesions. Nose appeared normal. Throat: No exudate or erythema. NECK: Supple. No JVD, no carotid bruit. No lymphadenopathy or thyromegaly. LUNGS: Severely diminished breath sounds bilaterally with bilateral rhonchi. Percussion note normal. Chest symmetrical. HEART: S1, S2, no S3. No murmurs. No cyanosis or clubbing. No ascites. Pulses: Dorsalis pedis and posterior tibial pulses +1 to +2 both sides. ABDOMEN: Soft. Nontender. Bowel sounds active. No CVA tenderness. No mass felt. EXTREMITIES: No edema. Full range of motion of all extremities, equal. NEUROLOGIC: No focal deficit. Cranial nerves II through XII are grossly intact. No headache, no double vision or headache. SKIN: Not dry. Intact. Turgor - normal. LYMPHATIC: No palpable lymph nodes/no lymphedema. MUSCULOSKELETAL: Normal joints with no swelling. Muscle tone is normal. ASSESSMENT: 1. ACUTE COPD EXACERBATION 2. ACUTE BRONCHITIS/SHORTNESS OF BREATH IMPROVING 3. CHRONIC KIDNEY DISEASE 4. GENERALIZED OSTEOARTHRITIS 5. DEGENERATIVE JOINT DISEASE OF THE SPINE PLAN: 1. The patient will continue with IV steroids and antibiotics. He is receiving Toradol and Percocet for pain control. 2. He has stopped smoking two weeks ago per patient. 3. Continue with neb treatments q.6hr along with Rocephin daily. TIME SPENT: More than 30 minutes. Plan and coordination of the patient's care discussed in the presence of nurse. VERN
--- NOTE | 2017-07-19 10:52 | PN ---
DATE OF SERVICE: 07/15/17 SUBJECTIVE: 67 year old white male hospitalized with acute bronchitis and COPD. The patient' s condition has improved. He is up and about short of breath on minimal exertion. Pleuritic pain in under control. He is feeling better and hypokalemic today. Blood pressure is still high. REVIEW OF SYSTEMS: CONSTITUTIONAL: No night sweats. No fatigue, malaise, lethargy. No fever or chills. HEENT: Eyes: No visual changes. No eye pain. No eye discharge. ENT: No runny nose. No epistaxis. No sinus pain. No sore throat. No odynophagia. No congestion. RESPIRATORY: No cough, no congestion. No hemoptysis. No shortness of breath. CARDIOVASCULAR: No angina symptoms. No CHF symptoms. No atypical chest pain for CAD. No palpitations. No orthopnea. GASTROINTESTINAL: No abdominal pain. No nausea or vomiting. No diarrhea or constipation. No hematemesis. No hematochezia. GENITOURINARY: No urgency. No frequency. No dysuria. No hematuria. No obstructive symptoms. No discharge. No pain. No significant abnormal bleeding. MUSCULOSKELETAL: No musculoskeletal pain; no joint swelling. NEUROLOGICAL: No headache. No neck pain. No syncope. No seizures. No dizziness. PSYCHIATRIC: Not anxious. No depression. No suicidal thoughts. No homicidal thoughts. SKIN: No rash. No lesions. No wounds. ENDOCRINE: No unexplained weight loss. No weight gain. HEMATOLOGIC/LYMPHATIC: No anemia. No purpura. No petechiae. No prolonged or excessive bleeding. No palpable lymph nodes. PHYSICAL EXAMINATION: GENERAL: The patient is oriented to time, place and person. VITAL SIGNS: Temperature 98, pulse 68, respiratory rate 18, blood pressure 175/ 92 and pulse ox 94%. HEENT: Head normocephalic, atraumatic. Eyes: Extraocular muscles are intact. Pupils are equal, round and reactive to light and accommodation. Ears: No lesions. Nose appeared normal. Throat: No exudate or erythema. NECK: Supple. No JVD, no carotid bruit. No lymphadenopathy or thyromegaly. LUNGS: Decreased breath sounds but clear to auscultation. Percussion note normal. Chest symmetrical. HEART: S1, S2, no S3. No murmurs. No cyanosis or clubbing. No ascites. Pulses: Dorsalis pedis and posterior tibial pulses +1 to +2 both sides. ABDOMEN: Soft. Nontender. Bowel sounds active. No CVA tenderness. No mass felt. EXTREMITIES: No edema. Full range of motion of all extremities, equal. NEUROLOGIC: No focal deficit. Cranial nerves II through XII are grossly intact. No headache, no double vision or headache. SKIN: Not dry. Intact. Turgor - normal. LYMPHATIC: No palpable lymph nodes/no lymphedema. MUSCULOSKELETAL: Normal joints with no swelling. Muscle tone is normal. PLAN: 1. The patient was given Cozaar 100mg PO daily yesterday and this morning on top of his Metoprolol and Diltazem 2. Advised pulmonary rehab CONDITION: Stable TIME SPENT: More than 30 minutes. ADDENDUM: The patient had potassium of 3.2 and he was given K-Tab 20meq twice a day. The patient is feeling a lot better. He is up and about mildly short of breath not like what he was, no wheezing noted without stethoscope. With stethoscope the wheezing is practically gone. Condition is stable. Explained about steroids and side effects like avascular necrosis of the femur, cataract, osteoporosis all discussed. Bone density test advised which he declined. He says that is for the women. Plan and coordination of the patient's care discussed in the presence of nurse. VERN
--- NOTE | 2017-07-19 13:50 | PN ---
DATE OF SERVICE: 07/16/17 SUBJECTIVE: 67 year old white male hospitalized with severe COPD, acute bronchitis. He was extremely short of breath on minimal exertion which has subsided. Bronchitis has resolved and he is feeling better. His new problem is severe hypokalemia, 2.7 yesterday. He was given a couple of doses of Potassium and still the Potassium went down. The patient will be given 20meq Potassium four times a day today and tomorrow. Monitor CBC and CMP. REVIEW OF SYSTEMS: CONSTITUTIONAL: No night sweats. No fatigue, malaise, lethargy. No fever or chills. HEENT: Eyes: No visual changes. No eye pain. No eye discharge. ENT: No runny nose. No epistaxis. No sinus pain. No sore throat. No odynophagia. No congestion. RESPIRATORY: Mild cough, Congestion. No hemoptysis. Mild shortness of breath. CARDIOVASCULAR: No angina symptoms. No CHF symptoms. No atypical chest pain for CAD. No palpitations. No orthopnea. GASTROINTESTINAL: No abdominal pain. No nausea or vomiting. No diarrhea or constipation. No hematemesis. No hematochezia. GENITOURINARY: No urgency. No frequency. No dysuria. No hematuria. No obstructive symptoms. No discharge. No pain. No significant abnormal bleeding. MUSCULOSKELETAL: No musculoskeletal pain; no joint swelling. NEUROLOGICAL: No headache. No neck pain. No syncope. No seizures. No dizziness. PSYCHIATRIC: Not anxious. No depression. No suicidal thoughts. No homicidal thoughts. SKIN: No rash. No lesions. No wounds. ENDOCRINE: No unexplained weight loss. No weight gain. HEMATOLOGIC/LYMPHATIC: No anemia. No purpura. No petechiae. No prolonged or excessive bleeding. No palpable lymph nodes. PHYSICAL EXAMINATION: VITAL SIGNS: Temperature 98, pulse 57, respiratory rate 18, blood pressure 150/ 74 and pulse ox 96%. HEENT: Head normocephalic, atraumatic. Eyes: Extraocular muscles are intact. Pupils are equal, round and reactive to light and accommodation. Ears: No lesions. Nose appeared normal. Throat: No exudate or erythema. NECK: Supple. No JVP, no carotid bruit. No lymphadenopathy or thyromegaly. LUNGS: Decreased breath sounds but clear to auscultation. Percussion note normal. Chest symmetrical. HEART: S1, S2, no S3. No murmurs. No cyanosis or clubbing. No ascites. Pulses: Dorsalis pedis and posterior tibial pulses +1 to +2 both sides. ABDOMEN: Soft. Nontender. Bowel sounds active. No CVA tenderness. No mass felt. EXTREMITIES: No edema. Full range of motion of all extremities, equal. NEUROLOGIC: No focal deficit. Cranial nerves II through XII are grossly intact. No headache, no double vision or headache. SKIN: Not dry. Intact. Turgor - normal. LYMPHATIC: No palpable lymph nodes/no lymphedema. MUSCULOSKELETAL: Normal joints with no swelling. Muscle tone is normal. ASSESSMENT: 1. Acute bronchitis/pneumonitis resolved 2. Chronic lung disease 3. Coronary bypass surgery 4. Hypertension 5. Hypokalemia PLAN: 1. The patient has been given Cozaar to bring his blood pressure down. 2. Give Potassium supplements 80meq daily 3. Recheck CBC and CMP tomorrow TIME SPENT: More than 30 minutes. Plan and coordination of the patient's care discussed in the presence of nurse. VERN
--- NOTE | 2017-07-19 14:28 | DS ---
DATE OF SERVICE: 07/17/17 FINAL DIAGNOSIS: 1. COPD exacerbation 2. Pneumonitis 3. Hypertension 4. Severe COPD 5. Hypokalemia, resolved 6. Dyslipidemia 7. Osteoarthritis 8. CAD 9. CABG, 2004 and 2013 10.Hyperglycemia 11.Bladder Cancer, Dr. Keller 12.Colon Polyps 13.Urinary stent 14.Cholecystectomy 15.Appendectomy 16.Hernia repair 17.Lumbar surgery LAST VITALS: Temperature 97.8, pulse 64, respiratory rate 16, blood pressure 176/87 and pulse ox 98%. DISCHARGE INSTRUCTIONS: Discharge home. Continue all medications as listed on nursing discharge information sheet. Continue Nebulizer treatments at home three times daily. Outpatient testing is scheduled for July 18 at 6:30am at [facility] scheduled for Pulmonary Function Test and an echocardiogram. An appointment is scheduled with Dr. Toscano/Stefani Wood APRN on July 28 at 11:15am. MEDICATIONS AT DISCHARGE: Xanax 1mg PO bedtime Aspirin 81mg PO 2100 Lipitor 40mg PO bedtime Plavix 75mg PO daily Cardizem 60mg PO Q 12 hours Cymbalta 30mg PO daily Imdur 30mg Po daily Toprol XL 50mg Po daily Percocet 7.5-325 PO four times a day PRN Protonix 40mg PO twice a day ProAir two puff IH Q 6 hours PRN Combivent Respimat every 6 hours PRN shortness of air/wheezing Albuterol NEBS three times a day ALLERGIES: Buspirone Codeine Lorazepam Meperidine Promethazine Tiotropium NEW PRESCRIPTIONS: K-Tab 20meq daily for 10 day Cozaar 100mg PO daily Omnicef 300mg twice a day for 5 days Prednisone 10mg PO for 7 days DIET INSTRUCTIONS: Heart Healthy ACTIVITY: Gradually resume as tolerated SMOKING: N/A DISEASE SPECIFIC EDUCATION: COPD Medications Steroids with side effects of GI upset, bone demineralization Outpatient testing HOSPITAL COURSE: The patient was hospitalized with acute bronchitis. He was treated with Rocephin , steroids and NEBS treatment. It took the patient 4-5 days before getting stabilized. He was extremely short of breath on minimal exertion with wheezing but that practically subsided. At the time of discharge he was up and about with lungs practically clear. Cardiovascular status is stable. The patient has hypokalemia with potassium of 2.7 which was corrected with potassium supplement. Condition at the time of discharge is stable. The patient is advised to join pulmonary rehab which he is going to think about it. He is also to undergo echo and PFT as an outpatient. TIME SPENT: More than 60 minutes. VERN
--- NOTE | 2017-07-19 14:29 | PN ---
07/10/17: Level 07/11/17: Intermediate 07/12/17: Intermediate 07/13/17: Intermediate 07/14/17: Intermediate 07/15/17: Intermediate 07/16/17: Intermediate 07/17/17: D as in discharge MTDD
--- NOTE | 2017-07-20 11:21 | PN ---
DATE OF SERVICE: 07/14/17 SUBJECTIVE: 67 year old white male hospitalized with acute bronchitis and COPD. The patient' s condition has improved. He is up and about still short of breath. REVIEW OF SYSTEMS: CONSTITUTIONAL: No night sweats. Fatigue. No fever or chills. HEENT: Eyes: No visual changes. No eye pain. No eye discharge. ENT: No runny nose. No epistaxis. No sinus pain. No sore throat. No odynophagia. No congestion. RESPIRATORY: Cough and congestion. No hemoptysis. Shortness of breath. CARDIOVASCULAR: No angina symptoms. No CHF symptoms. No atypical chest pain for CAD. No palpitations. No orthopnea. Pleuritic pain, requires pain medications. GASTROINTESTINAL: No abdominal pain. No nausea or vomiting. No diarrhea or constipation. No hematemesis. No hematochezia. GENITOURINARY: No urgency. No frequency. No dysuria. No hematuria. No obstructive symptoms. No discharge. No pain. No significant abnormal bleeding. MUSCULOSKELETAL: No musculoskeletal pain; no joint swelling. Severe back muscle spasm requiring also pain medicine NEUROLOGICAL: No headache. No neck pain. No syncope. No seizures. No dizziness. PSYCHIATRIC: Not anxious. No depression. No suicidal thoughts. No homicidal thoughts. SKIN: No rash. No lesions. No wounds. ENDOCRINE: No unexplained weight loss. No weight gain. HEMATOLOGIC/LYMPHATIC: No anemia. No purpura. No petechiae. No prolonged or excessive bleeding. No palpable lymph nodes. PHYSICAL EXAMINATION: GENERAL: The patient is oriented to time, place and person. VITAL SIGNS: Temperature 97.8, pulse 63, respiratory rate 18, blood pressure 190/90 and pulse ox 94%. HEENT: Head normocephalic, atraumatic. Eyes: Extraocular muscles are intact. Pupils are equal, round and reactive to light and accommodation. Ears: No lesions. Nose appeared normal. Throat: No exudate or erythema. NECK: Supple. No JVD, no carotid bruit. No lymphadenopathy or thyromegaly. LUNGS: Decreased breath sounds but clear to auscultation. Percussion note normal. Chest symmetrical. HEART: S1, S2, no S3. No murmurs. No cyanosis or clubbing. No ascites. Pulses: Dorsalis pedis and posterior tibial pulses +1 to +2 both sides. ABDOMEN: Soft. Nontender. Bowel sounds active. No CVA tenderness. No mass felt. EXTREMITIES: No edema. Full range of motion of all extremities, equal. NEUROLOGIC: No focal deficit. Cranial nerves II through XII are grossly intact. No headache, no double vision or headache. SKIN: Not dry. Intact. Turgor - normal. LYMPHATIC: No palpable lymph nodes/no lymphedema. MUSCULOSKELETAL: Normal joints with no swelling. Muscle tone is normal. ASSESSMENT: 1. Acute bronchitis/pneumonitis 2. COPD 3. Coronary artery bypass surgery PLAN: 1. Continue NEBS, steroids and antibiotics 2. Encouraged to be up and about 3. Pulmonary rehab discussed with him . TIME SPENT: More than 30 minutes. Plan and coordination of the patient's care discussed in the presence of nurse. VERN
== END 2017-07-17 10:22 | disposition home or self-care (01) | DRG 190 ==
LOC: ED 16:45 → MEDSURG A 18:51
PROVIDERS: ADMIT Internal Medicine; ATTEND Internal Medicine
DX: J44.1 Chronic obstructive pulmonary disease with (acute) exacerbation (principal); J18.9 Pneumonia, unspecified organism; J20.9 Acute bronchitis, unspecified; J44.0 Chronic obstructive pulmonary disease with (acute) lower respiratory infection; R06.02 Shortness of breath; R07.89 Other chest pain; I10 Essential (primary) hypertension; I12.9 Hypertensive chronic kidney disease with stage 1 through stage 4 chronic kidney disease, or unspecified chronic kidney disease; N18.9 Chronic kidney disease, unspecified; I25.10 Atherosclerotic heart disease of native coronary artery without angina pectoris; R73.9 Hyperglycemia, unspecified; E87.6 Hypokalemia; E78.5 Hyperlipidemia, unspecified; M19.90 Unspecified osteoarthritis, unspecified site; M47.9 Spondylosis, unspecified; R05 Cough; Z95.1 Presence of aortocoronary bypass graft; F17.200 Nicotine dependence, unspecified, uncomplicated; Z79.02 Long term (current) use of antithrombotics/antiplatelets; Z79.899 Other long term (current) drug therapy
CPT/HCPCS: 36415; 80053; 82803; 83605; 83880; 84145; 84484; 85025; 87040; 93005; 93010; 94640; 96365; 99284

== ENCOUNTER 2017-07-18 06:32 | Outpatient (CLI) ==
[2013-01-31 11:57] VITALS: TEMP 98.8
--- NOTE | 2017-07-19 12:57 | ECHO2D ---
Date of Exam: 07/18/17 Ordering Physician: ANAHI CHUNG Room #: OP Reason for Echo: HYPERTENSION, CHEST PAIN, CABG X2 M-Mode Normal Adult Results LV Dimensions Normal Adult Results AoV Opening excursions >1.6 >1.6 LVEDD-base- 3.5-5.8 3.5 Ao root dimensions 2.0-3.7 3.5 LVESD-base- 3.1-4.6 L. Atrium dimensions 1.9-3.8 3.9 Post. Wall thickness 0.8-1.1 1.2 IV septum (thickness) 0.7-1.2 1.2 Post. Wall excursion 0.72-1.3 NORMAL Septal motion 0.4 Systolic motion R. Ventricular cavity 1.5-2.0 NORMAL LVEF 60% 52% Paradoxical septal wall motion NORMAL 2-D : HYPOKINETIC SEPTUM--NORMAL VALVES--NO EFFUSION, NO THROMBUS, NORMAL LEFT VENTRICLE SIZE AND LEFT ATRIAL SIZE (SUB COSTAL APPROACH/ COPD SEVERE) M-MODE: MV: NORMAL AV: NORMAL TV: NORMAL PV: CHAMBER SIZE: NORMAL WALL MOTION: HYPOKINETIC SEPTUM PERICARDIUM: NORMAL INTERPRETATION: 1. BORDERLINE LEFT VENTRICULAR HYPERTROPHY 2. HYPOKINETIC SEPTUM 3. LEFT VENTRICULAR EJECTION FRACTION 52% 4. NORMAL VALVES MTDD
== END 2017-07-18 06:33 | disposition home or self-care (01) ==
LOC: CAR 06:32
PROVIDERS: ATTEND Internal Medicine
DX: R06.02 Shortness of breath (principal); I10 Essential (primary) hypertension; Z95.1 Presence of aortocoronary bypass graft

== ENCOUNTER 2017-07-26 22:35 | Emergency (ER) ==
[2017-07-26 22:36] VITALS: BMI 22.0
[2017-07-26] MEDS ORDERED: ZOFRAN 4 MG/2 ML IM STA (22:48)
[2017-07-26] MEDS ORDERED: DILAUDID 2 MG/ML SYRINGE IM STA (22:48)
--- NOTE | 2017-07-26 23:36 | ED.PDOC ---
General ED Provider: Dr. VIKTORIA VILLAFANA Chief Complaint: Bite Stated Complaint: Patient dog bite his Index finger, Laceration to finger, able to bend the finger. Time Seen by Physician: 23:34 Mode of Arrival: Walk-In Information Source: Patient Primary Care Provider: ANAHI CHUNG Nursing and Triage Documentation Reviewed and Agree: Yes Skin Complaint Exam - Laceration/Upper Ext. Complaint/Exam Location of Injury: Right (Index finger) Mechanism of Injury: Laceration Symptoms Are: Still present Initial Severity: Moderate Current Severity: Moderate Aggravating: Movement Alleviating: Compression Associated Signs and Symptoms: Reports: Numbness (tip of the finger/) Differential Diagnoses: Bite Injury, Laceration Review of Systems - Review Of Systems Constitutional: Reports: No symptoms Eyes: Reports: No symptoms Ears, Nose, Mouth, Throat: Reports: No symptoms Respiratory: Reports: No symptoms Cardiac: Reports: No symptoms GI: Reports: No symptoms : Reports: No symptoms Musculoskeletal: Reports: No symptoms Skin: Reports: No symptoms Neurological: Reports: No symptoms Endocrine: Reports: No symptoms Hematologic/Lymphatic: Reports: No symptoms All Other Systems: Reviewed and Negative Past Medical History - Past Medical History Previously Healthy: No Endocrine: Reports: None, Dyslipidemia Cardiovascular: Reports: CAD, Hypertension, A-Fib Respiratory: Reports: COPD Hematological: Reports: None Gastrointestinal: Reports: None, GI Bleed (DR Villafana NOTES PATINET RECENTLY DISCHARGED FRO M JAIN POST SHRAVAN BARKER TEAR) Genitourinary: Reports: None Neuro/Psych: Reports: None, Anxiety, Depression Musculoskeletal: Reports: Back Pain Cancer: Reports: None, Other Other Pertinent Past Medical History: ABDOMEN SURGERY as an - Surgical History General Surgical History: Reports: Appendectomy, Cholecystectomy, CABG (TWICE), Orthopedic (CABG X 2, BACK SURGERY, SHOULDER, NECK DISC REPLACEMENT, ), Back Surgery ( SPINE SURGERY), Hernia Repair (WITH MESH- CURRENTLY HAS TENDER AREA LEFT EPIGASTRIUM WHICH INTERMITTENTLY HAS LARGE PAINFUL LUMP) - Family History Family History: Reports: Unknown - Social History Smoking Status: Former smoker Hx Substance Use: Yes (Marijuana.cocaine in 80's) Alcohol Screening: Occasionally - Immunizations Tetanus Shot up to Date: No Influenza Vaccine within 12 Months: No Pneumococcal Vaccine up to Date: No Physical Exam - Physical Exam Appearance: Ill-appearing Eyes: INDER, EOMI, Conjunctiva clear ENT: Ears normal, Nose normal, Oropharynx normal Respiratory: Airway patent, Breath sounds clear, Breath sounds equal, Respirations nonlabored Cardiovascular: RRR, Pulses normal, No rub, No murmur GI/: Soft, Nontender, No masses, Bowel sounds normal, No Organomegaly Musculoskeletal: Normal strength, ROM intact, No edema, No calf tenderness Skin: Warm (rt Index finger 1.5 cm laceration,gushing blood, can flex finger. numbeness at the tip), Dry, Normal color Neurological: Sensation intact, Motor intact, Reflexes intact, Cranial nerves intact, Alert, Oriented Psychiatric: Affect appropriate, Mood appropriate Critical Care Note - Critical Care Note Total Time (mins): 30 Course - Course Orders, Labs, Meds: Orders Category Date Time Status Hydromorphone HCl/Pf [Dilaudid 2 mg/ml Syringe] MEDS 07/26/17 22:48 Discontinued 2 mg IM ONCE STA Ondansetron HCl/Pf [Zofran 4 mg/2 ml] MEDS 07/26/17 22:48 Discontinued 4 mg IM ONCE STA FINGER(S) RIGHT MIN 2V Stat RADS 07/26/17 22:48 Taken Medications Discontinued Medications Generic Name Dose Route Start Last Admin Trade Name Freq PRN Reason Stop Dose Admin Hydromorphone HCl 2 mg 07/26/17 22:48 07/26/17 23:00 Dilaudid 2 Mg/Ml Syringe IM 07/26/17 22:49 2 mg ONCE STA Administration Ondansetron HCl 4 mg 07/26/17 22:48 07/26/17 23:13 Zofran 4 Mg/2 Ml IM 07/26/17 22:49 4 mg ONCE STA Administration Vital Signs: Temp Pulse Resp BP Pulse Ox 07/26/17 22:36 96.8 F L 68 20 114/72 94 L Departure - Departure Time of Disposition: 00:14 Disposition: TSF OTHER Discharge Problem: Finger laceration Qualifiers: Encounter type: initial encounter Finger: index finger Damage to nail status: without damage Foreign body presence: without foreign body Laterality: right Qualified Code(s): S61.210A - Laceration without foreign body of right index finger without damage to nail, initial encounter Instructions: Finger Laceration (ED) Condition: Good Pt referred to PMD for follow-up: Yes Additional Instructions: Talked to Dr Daugherty, agreed to see patient now for the Repair. Allergies/Adverse Reactions: Allergies buspirone HCl [From BuSpar] Adverse Reaction (Verified 07/26/17 22:43) codeine Adverse Reaction (Verified 07/26/17 22:43) lorazepam [From Ativan] Adverse Reaction (Verified 07/26/17 22:43) meperidine HCl [From Demerol] Adverse Reaction (Verified 07/26/17 22:43) promethazine HCl [From Phenergan] Adverse Reaction (Verified 07/26/17 22:43) tiotropium bromide [From Spiriva with HandiHaler] Adverse Reaction (Verified 02/04 22:43) Home Medications: Ambulatory Orders Atorvastatin Calcium [Lipitor] 40 mg PO BEDTIME 01/20/13 Isosorbide Mononitrate [Imdur] 30 mg PO DAILY 01/20/13 Aspirin [Aspirin Chewable] 81 mg PO 2100 01/28/13 Duloxetine HCl [Cymbalta] 30 mg PO DAILY 01/28/13 Metoprolol Succinate [Toprol Xl] 50 mg PO DAILY 01/28/13 Alprazolam [Xanax] 1 mg PO BEDTIME 09/22/14 Clopidogrel Bisulfate [Plavix] 75 mg PO DAILY 09/22/14 Diltiazem HCl [Cardizem] 60 mg PO Q12HR #60 tablet 09/23/14 Oxycodone HCl/Acetaminophen [Percocet 7.5-325 mg Tablet] 1 each PO QID PRN 30 Days tablet 03/18/15 Albuterol Sulfate [Proair Hfa] 2 puff IH Q6H PRN #1 inh 06/30/15 Pantoprazole Sodium [Protonix] 40 mg PO BID #60 tablet. 11/23/16 Ipratropium/Albuterol Sulfate [Combivent Respimat Inhal [place]] 20 - 100 mcg IH Q6HR PRN 05/23/17 Cefdinir [Omnicef] 300 mg PO Q12HR #10 capsule 07/17/17 Losartan Potassium 100 mg PO DAILY #30 tablet 07/17/17 Potassium Chloride [K-Tab ER] 20 meq PO DAILY #10 tablet.er 07/17/17 Prednisone 10 mg PO DAILYWM #7 tablet 07/17/17 Transfer Form Completed: Yes Disposition Discussed With: Patient
--- NOTE | 2017-07-27 00:44 | DI ---
EXAM: Right finger, three views, 07/26/2017 HISTORY: Dog bite. Laceration COMPARISON: None. FINDINGS / IMPRESSION: The visualized osseous structures appear intact. Anatomic alignment appears within normal limits. There is no evidence of fracture or dislocation. Superficial soft tissue injury. No acute osseous abnormality.
[2017-07-27 01:52] VITALS: BP 112/74; TEMP 96.9
== END 2017-07-27 00:30 | disposition short-term general hospital (02) ==
LOC: ED 22:35
DX: S61.210A Laceration without foreign body of right index finger without damage to nail, initial encounter (principal); W54.0XXA Bitten by dog, initial encounter
CPT/HCPCS: 96372; 99285

== ENCOUNTER 2017-11-29 20:25 | Inpatient (IN) ==
[2017-11-29] MEDS ORDERED: ALBUTEROL 0.083% NEB NEB STA (20:28)
[2017-11-29] MEDS ORDERED: SOLU-MEDROL 125 MG IVP STA (20:29)
[2017-11-29] MEDS ORDERED: XOPENEX 1.25 MG NEB STA (20:29)
--- NOTE | 2017-11-29 20:41 | ED.PDOC ---
General ED Provider: Dr. MADAY DONG-ER Chief Complaint: Shortness of Air Stated Complaint: im coughing and sob(found the patient leaning on blding outside the ed) Time Seen by Physician: 20:30 Mode of Arrival: Wheelchair Information Source: Patient Exam Limitations: No limitations Primary Care Provider: ANAHI BALLESTEROS Nursing and Triage Documentation Reviewed and Agree: Yes Reviewed sepsis parameters & appropriate labs ordered?: Yes System Inflammatory Response Syndrome: Not Applicable Sepsis Protocol: For patient's 13 years and over: Temp is 96.8 and below OR 101 and greater Pulse >90 BPM Resp >20/minute Acutely Altered Mental Status Are patient's symptoms suggestive of a new infection, such as: -Pneumonia -Skin, Soft Tissue -Endocarditis -UTI -Bone, Joint Infection -Implantable Device -Acute Abdominal Infection -Wound Infection -Meningitis -Blood Stream Catheter Infection -Unknown Respiratory Complaint Exam - Respiratory Complaint/Exam Onset/Duration: 24hrs Symptoms Are: Still present Timing: Constant Initial Severity: Mild Current Severity: Mild Character: Reports: Non-productive cough Aggravating: Reports: URI Alleviating: Reports: Bronchodilators Associated Signs and Symptoms: Reports: Dyspnea, Pleuritic chest pain, Wheezing , URI. Denies: Rapid breathing, Fever, Chills, Chest pain, Hemoptysis, Dizziness, Calf pain, Calf swelling, Edema, Hoarseness, Sinus discomfort, Vomiting, Weight loss, Increased thirst, Increased appetite Related History: Reports: Similar episode History of Healthcare-Acquired Pneumonia: No Cardiac Risk Factors: Reports: CAD, Elevated lipids, Diabetes, Hypertension Pseudomonas Risk Factors: Reports: Chronic Lung Disease Status Asthmaticus Risk Factors: Reports: None Home Oxygen Use: No Recent Stress Test: No Recent Echo/LV Function: No Current Antibiotic Use: No Current Asthma Medication Use: Yes Respiratory Distress: Mild Inadequate Respiratory Effort: No Dysphagia Present: No Stridor Present: No JVD Present: No Accessory Muscle Use: No Retractions: Not Present Diminished Breath Sounds: No Prolonged Respiration: Expiratory phase Sinus Tenderness: None Grunting Respirations: No Kussmaul Respirations: No Differential Diagnoses: CHF, Pulmonary Edema, COPD Exacerbation, Unstable Angina , Pneumonia Non-Traumatic Chest Pain Syncope: EKG Performed Review of Systems - Review Of Systems Constitutional: Reports: No symptoms Eyes: Reports: No symptoms Ears, Nose, Mouth, Throat: Reports: No symptoms Respiratory: Reports: Cough, Short of air, Wheezing Cardiac: Reports: Chest pain GI: Reports: No symptoms : Reports: No symptoms Musculoskeletal: Reports: No symptoms Skin: Reports: No symptoms Neurological: Reports: No symptoms Endocrine: Reports: No symptoms Hematologic/Lymphatic: Reports: No symptoms All Other Systems: Reviewed and Negative Past Medical History - Past Medical History Previously Healthy: No Endocrine: Reports: None, Dyslipidemia Cardiovascular: Reports: CAD, Hypertension, A-Fib Respiratory: Reports: COPD Hematological: Reports: None Gastrointestinal: Reports: None, GI Bleed (DR Hou NOTES PATINET RECENTLY DISCHARGED FRO M UATSDIN POST SHRAVAN BARKER TEAR) Genitourinary: Reports: None Neuro/Psych: Reports: None, Anxiety, Depression Musculoskeletal: Reports: Back Pain Cancer: Reports: None, Other Other Pertinent Past Medical History: ABDOMEN SURGERY as an - Surgical History General Surgical History: Reports: Appendectomy, Cholecystectomy, CABG (TWICE), Orthopedic (CABG X 2, BACK SURGERY, SHOULDER, NECK DISC REPLACEMENT, ), Back Surgery ( SPINE SURGERY), Hernia Repair (WITH MESH- CURRENTLY HAS TENDER AREA LEFT EPIGASTRIUM WHICH INTERMITTENTLY HAS LARGE PAINFUL LUMP) - Family History Family History: Reports: Unknown - Social History Smoking Status: Former smoker Hx Substance Use: No Alcohol Screening: None Lives: With family - Immunizations Tetanus Shot up to Date: Yes Influenza Vaccine within 12 Months: No Pneumococcal Vaccine up to Date: No Physical Exam - Physical Exam Appearance: Well-appearing, No pain distress, Well-nourished Pain Distress: Moderate Eyes: INDER, EOMI, Conjunctiva clear ENT: Ears normal, Nose normal, Oropharynx normal Neck: Supple Respiratory: Airway patent, Breath sounds diminished, Wheezes Cardiovascular: Tachycardia GI/: Soft, Nontender, No masses, Bowel sounds normal, No Organomegaly Musculoskeletal: Normal strength, ROM intact, No edema, No calf tenderness Skin: Warm, Dry, Normal color Neurological: Sensation intact, Motor intact, Reflexes intact, Cranial nerves intact, Alert, Oriented Psychiatric: Affect appropriate, Mood appropriate, Anxious Interpretation - Radiology Interpretation Radiology Interpretation By: ED Physician Radiology Results: Negative Exam Interpreted: Portable CXR - EKG Interpretation Time of EKG #1: 20:42 Rate: Tachy Rhythm: Sinus Ectopy: None [place]: NL ST Segment: Normal Interpretation: nsr Re-Evaluation - Re-Evaluation Time of Re-Evaluation: 21:56 Status: Improved Vital Signs Stable: Yes Pain Level: 2 Appearance: NAD Lungs: Clear Skin: Warm and Dry Neuro: Alert and Oriented X3 CV: RRR Physician Notification - Case Discussed Physician Notified: dr [email or web address] Time of Notification: 21:57 Critical Care Note - Critical Care Note Total Time (mins): 0 Course - Course Hematology/Chemistry: 11/29/17 20:30 11/29/17 20:30 Orders, Labs, Meds: Lab Review 11/29/17 11/29/17 11/29/17 20:26 20:30 20:30 WBC 7.76 RBC 4.05 L Hgb 11.6 L Hct 33.3 L MCV 82.2 MCH 28.6 MCHC 34.8 RDW Coeff of Tobin 14.0 Plt Count 218 Immature Gran % (Auto) 0.3 Neut % (Auto) 47.0 Lymph % (Auto) 33.1 Mercer % (Auto) 11.3 H Eos % (Auto) 7.1 H Baso % (Auto) 1.2 Immature Gran # (Auto) 0.0 Neut # (Auto) 3.7 Lymph # (Auto) 2.6 Mercer # (Auto) 0.9 Eos # (Auto) 0.6 Baso # (Auto) 0.1 Puncture Site Lrad O2 Saturation 96.0 ABG pH 7.394 ABG pCO2 35.6 ABG pO2 84.0 L ABG HCO3 21.7 L ABG Total CO2 23 ABG Base Excess -3 L Dariel Test + FiO2 % 21.0 Sodium 133 L Potassium 4.1 Chloride 96 L Carbon Dioxide 23 Anion Gap 18.1 BUN 13 Creatinine 1.17 H Estimated GFR (MDRD) 63.00 BUN/Creatinine Ratio 11.11 Glucose 74 L Lactic Acid Calcium 8.7 Total Bilirubin 0.4 AST 28 ALT 23 Alkaline Phosphatase 67 Total Creatine Kinase CK-MB (CK-2) CK-MB (CK-2) % Troponin I B-Natriuretic Peptide Total Protein 6.7 Albumin 3.0 L Globulin 3.7 Albumin/Globulin Ratio 0.81 Procalcitonin 11/29/17 11/29/17 11/29/17 20:30 20:30 20:30 WBC RBC Hgb Hct MCV MCH MCHC RDW Coeff of Tobin Plt Count Immature Gran % (Auto) Neut % (Auto) Lymph % (Auto) Mercer % (Auto) Eos % (Auto) Baso % (Auto) Immature Gran # (Auto) Neut # (Auto) Lymph # (Auto) Mercer # (Auto) Eos # (Auto) Baso # (Auto) Puncture Site O2 Saturation ABG pH ABG pCO2 ABG pO2 ABG HCO3 ABG Total CO2 ABG Base Excess Dariel Test FiO2 % Sodium Potassium Chloride Carbon Dioxide Anion Gap BUN Creatinine Estimated GFR (MDRD) BUN/Creatinine Ratio Glucose Lactic Acid 26.7 H Calcium Total Bilirubin AST ALT Alkaline Phosphatase Total Creatine Kinase 131 CK-MB (CK-2) 5.9 H* CK-MB (CK-2) % 4.15157 Troponin I 0.0180 B-Natriuretic Peptide 51 Total Protein Albumin Globulin Albumin/Globulin Ratio Procalcitonin 11/29/17 20:30 WBC RBC Hgb Hct MCV MCH MCHC RDW Coeff of Tobin Plt Count Immature Gran % (Auto) Neut % (Auto) Lymph % (Auto) Mercer % (Auto) Eos % (Auto) Baso % (Auto) Immature Gran # (Auto) Neut # (Auto) Lymph # (Auto) Mercer # (Auto) Eos # (Auto) Baso # (Auto) Puncture Site O2 Saturation ABG pH ABG pCO2 ABG pO2 ABG HCO3 ABG Total CO2 ABG Base Excess Dariel Test FiO2 % Sodium Potassium Chloride Carbon Dioxide Anion Gap BUN Creatinine Estimated GFR (MDRD) BUN/Creatinine Ratio Glucose Lactic Acid Calcium Total Bilirubin AST ALT Alkaline Phosphatase Total Creatine Kinase CK-MB (CK-2) CK-MB (CK-2) % Troponin I B-Natriuretic Peptide Total Protein Albumin Globulin Albumin/Globulin Ratio Procalcitonin < 0.05 Orders Category Date Time Status ABG DRAW REQUEST Stat CARDIO 11/29/17 20:26 Completed EKG-(ED ONLY) Stat CARDIO 11/29/17 20:26 Completed NEBULIZER TREATMENT Stat CARDIO 11/29/17 20:29 Completed Ornamental Ironworking Supervisor [ED SUPERVISOR MOLD YARD APPLIED] .ONCE EMERGENCY 11/29/17 20:27 Active IV [ED IV/MEDIPORT/POWERPORT] .ONCE EMERGENCY 11/29/17 20:27 Active ABG Stat LAB 11/29/17 20:26 Completed BLOOD CULTURE (ED ONLY) Stat LAB 11/29/17 20:30 Received BNP [B-TYPE NATRIURETIC PEPTIDE] Stat LAB 11/29/17 20:30 Completed CBC W/ AUTO DIFF Stat LAB 11/29/17 20:30 Completed COMPREHENSIVE METABOLIC PANEL Stat LAB 11/29/17 20:30 Completed CREATINE KINASE Stat LAB 11/29/17 20:30 Completed LACTIC ACID Stat LAB 11/29/17 20:30 Completed PROCALCITONIN Stat LAB 11/29/17 20:30 Completed TROPONIN I Stat LAB 11/29/17 20:30 Completed 0.9 % Sodium Chloride [Saline Flush] MEDS 11/29/17 20:27 Ordered 1 syr IVF PRN PRN Albuterol Sulfate 0.083% Neb [Albuterol 0.083% Neb] MEDS 11/29/17 20:28 Discontinued 1 vial NEB ONCE STA Aspirin [Aspirin EC] MEDS 11/29/17 20:44 Discontinued 325 mg PO ONCE STA Hydromorphone HCl [Dilaudid 1 mg/ml Syringe] MEDS 11/29/17 21:54 Discontinued 0.5 mg IVP ONCE STA Levalbuterol HCl [Xopenex 1.25 mg] MEDS 11/29/17 20:29 Discontinued 1 vial NEB ONCE STA Methylprednisolone Sod Succ/Pf [Solu-Medrol 125 mg] MEDS 11/29/17 20:29 Discontinued 125 mg IVP ONCE STA Morphine Sulfate [Morphine 2 mg/ml Syringe] MEDS 11/29/17 20:43 Discontinued 2 mg IVP Q4H PRN Ondansetron HCl/Pf [Zofran 4 mg/2 ml] MEDS 11/29/17 20:43 Discontinued 4 mg IVP ONCE STA CXR [CHEST, 1V AP ONLY] Stat RADS 11/29/17 20:27 Completed Medications Generic Name Dose Route Start Last Admin Trade Name Freq PRN Reason Stop Dose Admin Sodium Chloride 1 syr 11/29/17 20:27 11/29/17 20:37 Saline Flush IVF 1 syr PRN PRN Administration To flush IV Discontinued Medications Generic Name Dose Route Start Last Admin Trade Name Freq PRN Reason Stop Dose Admin Albuterol Sulfate 1 vial 11/29/17 20:28 11/29/17 21:04 Albuterol 0.083% Neb NEB 11/29/17 20:29 1 vial ONCE STA Administration Aspirin 325 mg 11/29/17 20:44 11/29/17 20:50 Aspirin Ec PO 11/29/17 20:45 325 mg ONCE STA Administration Hydromorphone HCl 0.5 mg 11/29/17 21:54 Dilaudid 1 Mg/Ml Syringe IVP 11/29/17 21:55 ONCE STA Levalbuterol HCl 1 vial 11/29/17 20:29 11/29/17 20:45 Xopenex 1.25 Mg NEB 11/29/17 20:30 1 vial ONCE STA Administration Methylprednisolone Sodium Succinate 125 mg 11/29/17 20:29 11/29/17 20:37 Solu-Medrol 125 Mg IVP 11/29/17 20:30 125 mg ONCE STA Administration Morphine Sulfate 2 mg 11/29/17 20:43 11/29/17 20:49 Morphine 2 Mg/Ml Syringe IVP 2 mg Q4H PRN Administration Chest Pain Ondansetron HCl 4 mg 11/29/17 20:43 11/29/17 20:50 Zofran 4 Mg/2 Ml IVP 11/29/17 20:44 4 mg ONCE STA Administration Vital Signs: Temp Pulse Resp BP Pulse Ox 11/29/17 21:41 94 L 11/29/17 21:38 97.1 F L 84 22 125/70 90 L 11/29/17 20:50 84 27 H 121/76 100 11/29/17 20:26 97 F L 100 H 26 H 123/72 97 Departure - Departure Time of Disposition: 21:57 Disposition: HOME SELF-CARE Discharge Problem: COPD exacerbation Instructions: COPD (Chronic Obstructive Pulmonary Disease) (ED) Condition: Fair Pt referred to PMD for follow-up: Yes IPMP verified?: No Allergies/Adverse Reactions: Allergies buspirone HCl [From BuSpar] Adverse Reaction (Verified 11/29/17 20:41) codeine Adverse Reaction (Verified 11/29/17 20:41) lorazepam [From Ativan] Adverse Reaction (Verified 11/29/17 20:41) meperidine HCl [From Demerol] Adverse Reaction (Verified 11/29/17 20:41) promethazine HCl [From Phenergan] Adverse Reaction (Verified 11/29/17 20:41) tiotropium bromide [From Spiriva with HandiHaler] Adverse Reaction (Verified 07/08 20:41) Home Medications: Ambulatory Orders Atorvastatin Calcium [Lipitor] 40 mg PO BEDTIME 01/20/13 Isosorbide Mononitrate [Imdur] 30 mg PO DAILY 01/20/13 Aspirin [Aspirin Chewable] 81 mg PO BEDTIME 01/28/13 Duloxetine HCl [Cymbalta] 30 mg PO DAILY 01/28/13 Metoprolol Succinate [Toprol Xl] 50 mg PO DAILY 01/28/13 Alprazolam [Xanax] 1 mg PO BEDTIME 09/22/14 Clopidogrel Bisulfate [Plavix] 75 mg PO DAILY 09/22/14 Diltiazem HCl [Cardizem] 60 mg PO Q12HR #60 tablet 09/23/14 Oxycodone HCl/Acetaminophen [Percocet 7.5-325 mg Tablet] 1 each PO QID PRN 30 Days tablet 03/18/15 Albuterol Sulfate [Proair Hfa] 2 puff IH Q6H PRN #1 inh 06/30/15 Pantoprazole Sodium [Protonix] 40 mg PO BID #60 tablet. 11/23/16 Ipratropium/Albuterol Sulfate [Combivent Respimat Inhal [place]] 20 - 100 mcg IH Q6HR PRN 05/23/17 Losartan Potassium 100 mg PO DAILY #30 tablet 07/17/17 Potassium Chloride [K-Tab ER] 20 meq PO DAILY #10 tablet.er 07/17/17 Prednisone 10 mg PO DAILYWM #7 tablet 07/17/17 Disposition Discussed With: Patient
[2017-11-29] MEDS ORDERED: MORPHINE 2 MG/ML SYRINGE IVP PRN (20:43)
[2017-11-29] MEDS ORDERED: ZOFRAN 4 MG/2 ML IVP STA (20:43)
[2017-11-29] MEDS ORDERED: ASPIRIN EC PO STA (20:44)
[2017-11-29] MEDS ORDERED: MORPHINE 2 MG/ML SYRINGE ONE (20:47)
--- NOTE | 2017-11-29 20:49 | DI ---
EXAM: Single chest. HISTORY: Dyspnea. Cough. COMPARISON: 07/10/2017 FINDINGS: A single portable AP view of the chest. The patient's chin is over the lung apices bilaterally. The re are postoperative changes from prior CABG. LUNGS: The lung volumes are normal. There is no lobar consolidation or effusion. The pulmonary inte rstitium is normal. There are no suspicious nodules. MEDIASTINUM: The heart size and pulmonary vasculature are within normal limits. The aorta is tortu ous and calcified. OSSEOUS STRUCTURES: The osseous structures show mild degenerative changes consistent with age. The so ft tissues are unremarkable. IMPRESSION: No acute pulmonary disease.
[2017-11-29] MEDS ORDERED: DILAUDID 1 MG/ML SYRINGE IVP STA (21:54)
[2017-11-29] MEDS ORDERED: ZOFRAN 4 MG/2 ML IVP PRN (22:05)
[2017-11-29] MEDS ORDERED: COMBIVENT RESPIMAT INHAL SPRAY IH PRN (22:06)
[2017-11-29] MEDS ORDERED: NITROSTAT SL PRN (22:06)
[2017-11-29] MEDS ORDERED: ROCEPHIN ONE (22:20)
[2017-11-29] MEDS: XOPENEX 1.25 MG NEB SCH (22:39)
[2017-11-29] MEDS ORDERED: SODIUM CHLORIDE 50 ML IV ONE (22:49)
[2017-11-29] MEDS ORDERED: PROTONIX PO SCH (22:55)
[2017-11-29] MEDS ORDERED: CARDIZEM ONE (22:57)
[2017-11-29] MEDS: XANAX PO SCH (22:59)
[2017-11-29] MEDS ORDERED: ROCEPHIN 1 GM in SODIUM CHLORIDE 50 ML IV SCH (23:00)
[2017-11-29] MEDS: CARDIZEM PO SCH (23:00)
[2017-11-29] MEDS: LIPITOR PO SCH (23:00)
[2017-11-30] MEDS: DILAUDID 1 MG/ML SYRINGE IVP PRN ×2 (00:14→04:15)
[2017-11-30] MEDS: XOPENEX 1.25 MG NEB SCH ×3 (04:40→17:02)
[2017-11-30] MEDS ORDERED: SOLU-MEDROL 40 MG IVP SCH (05:00)
[2017-11-30] MEDS ORDERED: DILAUDID 2 MG/ML SYRINGE IVP PRN (07:30)
[2017-11-30] MEDS: DILAUDID 2 MG/ML SYRINGE IVP PRN ×5 (08:38→23:59)
[2017-11-30] MEDS ORDERED: TUSSIONEX PO PRN (09:00)
[2017-11-30] MEDS ORDERED: POTASSIUM CHLORIDE 20 MEQ PO SCH (09:00)
[2017-11-30] MEDS ORDERED: PROTONIX PO SCH (09:00)
[2017-11-30] MEDS ORDERED: CARDIZEM PO SCH (09:00)
[2017-11-30] MEDS ORDERED: ALBUTEROL 0.042% NEB NEB SCH (09:00)
[2017-11-30] MEDS: LOVENOX SUBCUT SCH (10:00)
[2017-11-30] MEDS: TOPROL XL PO SCH (10:01)
[2017-11-30] MEDS: PLAVIX PO SCH (10:01)
[2017-11-30] MEDS: CYMBALTA PO SCH (10:02)
[2017-11-30] MEDS: COZAAR PO SCH (10:02)
[2017-11-30] MEDS: IMDUR PO SCH (10:02)
[2017-11-30] MEDS: PROTONIX PO SCH ×2 (10:02→16:37)
[2017-11-30] MEDS: CARDIZEM PO SCH ×2 (10:03→21:53)
[2017-11-30] MEDS: K-DUR PO SCH (10:03)
[2017-11-30] MEDS: SOLU-MEDROL 125 MG IVP SCH ×3 (10:07→22:25)
--- NOTE | 2017-11-30 15:39 | HP ---
DATE OF SERVICE: 11/30/17 REASON FOR HOSPITALIZATION/HISTORY OF PRESENT ILLNESS: This is a 67 year old white male who presented to the emergency room with coughing and shortness of breath. He was found to be leaning on the building outside the emergency room. He has a long history of COPD and smoking. PAST MEDICAL HISTORY: Dyslipidemia Coronary artery disease Hypertension Atrial fibrillation COPD History of GI bleed Anxiety Depression Back pain PAST SURGICAL HISTORY: Appendectomy Cholecystectomy CABG x2 Back surgery Shoulder surgery Hernia repair REVIEW OF SYSTEMS: CONSTITUTIONAL: No night sweats. No fatigue, malaise, lethargy. No fever or chills. HEENT: Eyes: No visual changes. No eye pain. No eye discharge. ENT: No runny nose. No epistaxis. No sinus pain. No sore throat. No odynophagia. No ear pain. No congestion. RESPIRATORY: Cough, no congestion. No hemoptysis. Shortness of breath. Pain with coughing. CARDIOVASCULAR: No angina symptoms. No CHF symptoms. No atypical chest pain for CAD. No palpitations. No orthopnea. GASTROINTESTINAL: No abdominal pain. No nausea or vomiting. No diarrhea or constipation. No hematemesis. No hematochezia. GENITOURINARY: No urgency. No frequency. No dysuria. No hematuria. No obstructive symptoms. No discharge. No pain. No significant abnormal bleeding. MUSCULOSKELETAL: No musculoskeletal pain. No joint swelling. No arthritis. NEUROLOGICAL: No headache. No neck pain. No syncope. No seizures. No dizziness. PSYCHIATRIC: Not anxious. No depression. No suicidal thoughts. No homicidal thoughts. SKIN: No rash. No lesions. No wounds. ENDOCRINE: No unexplained weight loss. No weight gain. HEMATOLOGIC/LYMPHATIC: No anemia. No purpura. No petechiae. No prolonged or excessive bleeding. No palpable lymph nodes. PERSONAL/FAMILY/SOCIAL HISTORY: The patient reports that he has quit smoking. He is a former smoker and he lives with family. No alcohol or illicit drug use. MEDICATIONS: Lipitor 20mg PO bedtime Imdur 30mg Po daily Cymbalta 30mg Po daily Toprol XL 50mg PO daily Plavix 75mg Po daily Xanax 1mg PO bedtime Cardizem 60mg PO Q 12 hours Percocet 7.5-325 PO four times a day PRN ProAir two puff IG Q 6 hours PRN Protonix 40mg PO twice a day Combivent 20-100mcg IH Q 6 hours PRN Losartan 100mg PO daily K-Tab 20meq PO daily Prednisone 10mg PO daily Nitroglycerin 0.4mg SL as directed PRN ALLERGIES: Buspirone Codeine Lorazepam Meperidine Promethazine Tiotropium PHYSICAL EXAMINATION: GENERAL: The patient is alert and oriented times three. VITAL SIGNS: Temperature 97.7, heart rate 86, respiratory 14, blood pressure 139/72 and pulse ox 97%. HEENT: Head normocephalic, atraumatic. Eyes: Extraocular muscles are intact. Pupils are equal, round and reactive to light and accommodation. Ears: No lesions. Nose appeared normal. Throat: No exudate or erythema. NECK: Supple. No JVD, no carotid bruit. No lymphadenopathy or thyromegaly. Palpable epigastric tenderness. LUNGS: Severe diminished breath sounds bilaterally with bilateral rhonchi and faint expiratory wheeze. Percussion note normal. Chest symmetrical. HEART: S1, S2, no S3. No murmurs. No cyanosis or clubbing. No ascites. Pulses: Dorsalis pedis and posterior tibial pulses +1 to +2 both sides. ABDOMEN: Soft. Nontender. Bowel sounds active. No CVA tenderness. No mass felt. EXTREMITIES: No edema. Full range of motion of all extremities, equal. NEUROLOGIC: No focal deficit. Cranial nerves II through XII are grossly intact. No headache, no double vision or headache. SKIN: Not dry. Intact. Turgor - normal. LYMPHATIC: No palpable lymph nodes/no lymphedema. MUSCULOSKELETAL: Normal joints with no swelling. Muscle tone is normal. LABS: ABG's on room air pH 7.394, pCo2 35.6, pO2 84, base excess of -3, bicarb 21.7, TCO2 23, O2 96%. sodium 133, potassium 4.1, BUN 13, creatinine 1.17, glucose 74 , GFR 63, AST 28, ALT 23,. total protein 6.7, Albumin 3.0. BNP 51, WBC 7.76, hgb 11.6, hct 33.3, plt count 218. Chest x-ray reveals changes associated with COPD, no pneumonia. ASSESSMENT: 1. Acute bronchitis 2. COPD Exacerbation 3. Pleuritic type chest pain PLAN: 1. This patient is admitted to special care 2. CBC and CMP daily 3. Routine telemetry orders 4. Increase Solu-Medrol to 125mg Q 8 hours 5. Xopenex NEBS treatment Q 6 hours scheduled 6. Pulmicort NEBS treatment twice a day 7. Rocephin1 gram IV daily 8. Continue home medication 9. Oxygen at 1-2 liters PRN as needed 10.Regular diet 11.Start on Protonix 40mg twice a day Will follow closely. TIME SPENT: More than 70 minutes. MTDD
[2017-11-30] MEDS: PULMICORT 0.5 MG/2 ML NEB SCH (17:02)
[2017-11-30] MEDS: PERCOCET 7.5-325 PO PRN (19:35)
[2017-11-30] MEDS ORDERED: LIPITOR PO SCH (21:00)
[2017-11-30] MEDS ORDERED: XANAX PO SCH (21:00)
[2017-11-30] MEDS: LIPITOR PO SCH (21:52)
[2017-11-30] MEDS: ROCEPHIN 1 GM in SODIUM CHLORIDE 50 ML IV SCH (21:52)
[2017-11-30] MEDS: XANAX PO SCH (21:53)
[2017-11-30] MEDS: ASPIRIN CHEWABLE PO SCH (21:53)
[2017-12-01] MEDS: XOPENEX 1.25 MG NEB SCH ×4 (00:38→16:55)
[2017-12-01] MEDS: DILAUDID 2 MG/ML SYRINGE IVP PRN ×2 (03:01→08:45)
[2017-12-01] MEDS: PULMICORT 0.5 MG/2 ML NEB SCH ×2 (04:35→16:55)
[2017-12-01] MEDS: PROTONIX PO SCH ×2 (05:31→17:23)
[2017-12-01] MEDS: SOLU-MEDROL 125 MG IVP SCH ×3 (05:31→21:52)
[2017-12-01] MEDS: PERCOCET 7.5-325 PO PRN ×4 (05:42→21:51)
--- NOTE | 2017-12-01 09:15 | PN ---
DATE OF SERVICE: 11/30/17 SUBJECTIVE: The patient was hospitalized with acute bronchitis, exacerbation of COPD, chest pain. The patient's chest pain seems to be noncardiac. Cardiac markers negative. EKG sinus rhythm unchanged. Acute bronchitis symptoms are much better. Wheezing audible without stethoscope has subsided. The patient was seen and examined with the nurse practitioner. The patient will be treated with steroids, antibiotics, nebs. Condition is stable. TIME SPENT: More than 30 minutes. Plan and coordination of the patient's care discussed in the presence of nurse. VERN
[2017-12-01] MEDS: CYMBALTA PO SCH (09:56)
[2017-12-01] MEDS: IMDUR PO SCH (09:56)
[2017-12-01] MEDS: CARDIZEM PO SCH ×2 (09:56→21:52)
[2017-12-01] MEDS: PLAVIX PO SCH (09:56)
[2017-12-01] MEDS: COZAAR PO SCH (09:56)
[2017-12-01] MEDS: K-DUR PO SCH (09:57)
[2017-12-01] MEDS: TOPROL XL PO SCH (09:57)
[2017-12-01] MEDS: LOVENOX SUBCUT SCH (09:58)
--- NOTE | 2017-12-01 10:39 | CT ---
EXAM: CT abdomen pelvis without contrast HISTORY: Abdominal pain with left upper quadrant pain when coughing. Patient with previous hernia [facility] Report, NG tube, cholecystectomy and a appendectomy. COMPARISON: CT abdomen pelvis 12/14/2016 and multiple priors TECHNIQUE: Serial axial images of the abdomen pelvis were performed from the lung bases through the inferior pelvis without contrast. These were viewed in multiple planes. FINDINGS: Lung bases demonstrate mild airway thickening. Evaluation is limited due to lack of contrast. The liver is unremarkable. Gallbladder has been rese cted. The adrenal glands are unremarkable. The kidneys are unremarkable. The spleen is unremarkabl e. The pancreas is unremarkable. The stomach is distended. There is a small fat-containing ventral hernia on axial image 35 with defect measuring 0.4 cm. The s mall bowel in the abdomen pelvis is unremarkable. The colon is unremarkable. There has been a append ectomy. Urinary bladder is distended. The prostate is unremarkable. There is no free air, free flui d or lymphadenopathy. There is mild atherosclerotic disease. The osseous structures demonstrate deg enerative disease of the spine. IMPRESSION: 1. No acute intra-abdominal or pelvic process to account for patient's symptoms. 2. Small fat-containing ventral abdominal hernia. 3. Prior cholecystectomy and appendectomy.
--- NOTE | 2017-12-01 12:35 | PN ---
DATE OF SERVICE: 12/01/17 SUBJECTIVE: The patient was seen with the Nurse Practitioner. The 67 year old was hospitalized with chest pain noncardiac type localized with acute exacerbation of COPD with phasing. PHYSICAL EXAMINATION: GENERAL: The patient is oriented to time, place and person. VITALS: Blood pressure 127/69, pulse ox 98% with 2 liters, pulse 74. HEENT: Head normocephalic, atraumatic. Eyes: Extraocular muscles are intact. Pupils are equal, round and reactive to light and accommodation. Ears: No lesions. Nose appeared normal. Throat: No exudate or erythema. NECK: Supple. No JVD, no carotid bruit. No lymphadenopathy or thyromegaly. LUNGS: Decreased breath sounds but no wheezing. Clear to auscultation. Percussion note normal. Chest symmetrical. HEART: S1, S2, no S3. No murmurs. No cyanosis or clubbing. No ascites. Pulses: Dorsalis pedis and posterior tibial pulses +1 to +2 both sides. Localized chest pain seems to be a lot better. Cardiovascular status stable with no evidence of CHF or WI. ABDOMEN: Soft. Nontender. Bowel sounds active. No CVA tenderness. No mass felt. EXTREMITIES: No edema. Full range of motion of all extremities, equal. NEUROLOGIC: No focal deficit. Cranial nerves II through XII are grossly intact. No headache, no double vision or headache. SKIN: Not dry. Intact. Turgor - normal. LYMPHATIC: No palpable lymph nodes/no lymphedema. MUSCULOSKELETAL: Normal joints with no swelling. Muscle tone is normal. PLAN: 1. Dilaudid will be discontinued 2. He will be put on Toradol CONDITION: Stable The patient was seen and examined with the Nurse Practitioner. TIME SPENT: More than 30 minutes. Plan and coordination of the patient's care discussed in the presence of nurse. VERN
--- NOTE | 2017-12-01 13:24 | PCM.PROG ---
Attending Provider: ATTENDING PROVIDER: Dr. ANAHI CHUNG This patient is seen with Stefani Wood, Nurse Practitioner. DATE OF SERVICE: 11/30/17 SUBJECTIVE: This 67 year old WHITE/ M was hospitalized 11/29/17. The patient is lying in bed, alert. He is complaining of atypical type chest pain, worsening pain associated with coughing, movement and deep breathing. He is a jail smoker. REVIEW OF SYSTEMS: CONSTITUTIONAL: No night sweats. No fatigue, malaise, lethargy. No fever or chills. HEENT: Eyes: No visual changes. No eye pain. No eye discharge. ENT: No runny nose. No epistaxis. No sinus pain. No odynophagia. No congestion. RESPIRATORY: Cough. No congestion. No hemoptysis. Mild shortness of breath. CARDIOVASCULAR: No angina symptoms. No CHF symptoms. Pleuritic pain. No atypical chest pain for CAD. No palpitations. No orthopnea.. GASTROINTESTINAL: No abdominal pain. No nausea or vomiting. No diarrhea or constipation. No hematemesis. No hematochezia. GENITOURINARY: No urgency. No frequency. No dysuria. No hematuria. No obstructive symptoms. No discharge. No pain. No significant abnormal bleeding. MUSCULOSKELETAL: No musculoskeletal pain; no joint swelling. NEUROLOGICAL: Awake, alert, oriented to time, place and person. No headache. No neck pain. No syncope. No seizures. No dizziness. PSYCHIATRIC: Anxiety. No depression. No suicidal thoughts. No homicidal thoughts. SKIN: No rash. No lesions. No wounds. ENDOCRINE: No unexplained weight loss. No weight gain. HEMATOLOGIC/LYMPHATIC: No anemia. No purpura. No petechiae. No prolonged or excessive bleeding. No palpable lymph nodes. PHYSICAL EXAMINATION: GENERAL: The patient is awake, alert and oriented, lying in bed in no distress. VITAL SIGNS: Temperature 97.7 F, Pulse 87, Respiratory Rate 14, BP 139/72, Pulse Ox 97% HEENT: Head normocephalic, atraumatic. Eyes: Extraocular muscles are intact. Pupils are equal, round and reactive to light and accommodation. Ears: No lesions. Nose appeared normal. Throat: No exudate or erythema. NECK: Supple. No JVD, no carotid bruit. No lymphadenopathy or thyromegaly. LUNGS: Diminished breath sounds bilaterally with bilateral rhonchi. Clear to auscultation. Percussion note normal. Chest symmetrical. HEART: S1, S2, no S3. No murmurs. No cyanosis or clubbing. No ascites. Pulses: Dorsalis pedis and posterior tibial pulses +1 to +2 both sides. ABDOMEN: Soft. Non-tender. Bowel sounds active. No CVA tenderness. No mass felt. EXTREMITIES: No edema. Full range of motion of all extremities, equal. NEUROLOGIC: No focal deficit. Cranial nerves II through XII are grossly intact. No headache, no double vision or headache. SKIN: Not dry. Intact. Turgor-normal. LYMPHATIC: No palpable lymph nodes/no lymphedema. MUSCULOSKELETAL: Normal joints with no swelling. Muscle tone is normal. LAB REVIEW: 11/30/17 04:30 11/30/17 04:30 11/30/17 04:30: Sodium 136, Potassium 4.8, Chloride 100, Carbon Dioxide 24, Anion Gap 16.8, BUN 20 H, Creatinine 1.19 H, Estimated GFR (MDRD) 61.00, BUN/ Creatinine Ratio 16.80, Glucose 150 H D, Calcium 9.1, Troponin I 0.0310 11/30/17 04:30: WBC 3.24 L, RBC 4.08 L, Hgb 11.5 L, Hct 33.2 L, MCV 81.4, MCH 28.2, MCHC 34.6, RDW Coeff of Tobin 13.8, Plt Count 204, Immature Gran % (Auto) 0.0, Neut % (Auto) 91.1, Lymph % (Auto) 8.0 L, [place] % (Auto) 0.6, Eos % (Auto) 0.0, Baso % (Auto) 0.3, Immature Gran # (Auto) 0.0, Neut # (Auto) 3.0, Lymph # ( Auto) 0.3 L, [place] # (Auto) 0.0 L, Eos # (Auto) 0.0, Baso # (Auto) 0.0 ASSESSMENT: 1. ACUTE BRONCHITIS 2. COPD EXACERBATION 3. PLEURITIC CHEST PAIN PLAN: 1. Hold Combivent 2. D/C Albuterol nebs 3. Pulmicort nebs b.i.d. 4. Solu-Medrol 125 mg q.8 5. Tussionex one teaspoon b.i.d. p.rlety Plan and coordination of the patient's care discussed in the presence of Pbx Installer and nurse. CONDITION: Stable SCRIBED BY: ROSI PLASENCIA Director Of Student Services scribed while in presence of service performed by Dr. Chung/Stefani Wood APRN on 11/30/17 ([id number])
--- NOTE | 2017-12-01 13:28 | PCM.PROG ---
Attending Provider: ATTENDING PROVIDER: Dr. ANAHI CHUNG This patient is seen with Stefani Wood, Nurse Practitioner. DATE OF SERVICE: 12/01/17 SUBJECTIVE: This 67 year old WHITE/ M was hospitalized 11/29/17. The patient is lying in bed, alert. Complaining of abdominal pain in epigastric area as usual. He has been eating 100% of his meals. Cough improved through the night. REVIEW OF SYSTEMS: CONSTITUTIONAL: No night sweats. No fatigue, malaise, lethargy. No fever or chills. HEENT: Eyes: No visual changes. No eye pain. No eye discharge. ENT: No runny nose. No epistaxis. No sinus pain. No odynophagia. No congestion. RESPIRATORY: Cough. No congestion. No hemoptysis. No shortness of breath. CARDIOVASCULAR: No angina symptoms. No CHF symptoms. No atypical chest pain for CAD. No palpitations. No orthopnea.. GASTROINTESTINAL: Abdominal pain in the epigastric area. No nausea or vomiting. No diarrhea or constipation. No hematemesis. No hematochezia. GENITOURINARY: No urgency. No frequency. No dysuria. No hematuria. No obstructive symptoms. No discharge. No pain. No significant abnormal bleeding. MUSCULOSKELETAL: No musculoskeletal pain; no joint swelling. NEUROLOGICAL: Awake, alert, oriented to time, place and person. No headache. No neck pain. No syncope. No seizures. No dizziness. PSYCHIATRIC: Not anxious. No depression. No suicidal thoughts. No homicidal thoughts. SKIN: No rash. No lesions. No wounds. ENDOCRINE: No unexplained weight loss. No weight gain. HEMATOLOGIC/LYMPHATIC: No anemia. No purpura. No petechiae. No prolonged or excessive bleeding. No palpable lymph nodes. PHYSICAL EXAMINATION: GENERAL: The patient is awake, alert and oriented, lying in bed in no distress. VITAL SIGNS: Temperature 98.7 F, Pulse 74, Respiratory Rate 24, BP 127/69, Pulse Ox 98% HEENT: Head normocephalic, atraumatic. Eyes: Extraocular muscles are intact. Pupils are equal, round and reactive to light and accommodation. Ears: No lesions. Nose appeared normal. Throat: No exudate or erythema. NECK: Supple. No JVD, no carotid bruit. No lymphadenopathy or thyromegaly. LUNGS: Diminished breath sounds bilaterally. Clear to auscultation. Percussion note normal. Chest symmetrical. HEART: S1, S2, no S3. No murmurs. No cyanosis or clubbing. No ascites. Pulses: Dorsalis pedis and posterior tibial pulses +1 to +2 both sides. ABDOMEN: Soft. Epigastric tenderness. Bowel sounds active. No CVA tenderness. No mass felt. EXTREMITIES: No edema. Full range of motion of all extremities, equal. NEUROLOGIC: No focal deficit. Cranial nerves II through XII are grossly intact. No headache, no double vision or headache. SKIN: Not dry. Intact. Turgor-normal. LYMPHATIC: No palpable lymph nodes/no lymphedema. MUSCULOSKELETAL: Normal joints with no swelling. Muscle tone is normal. LAB REVIEW: 11/30/17 04:30 11/30/17 04:30 12/01/17 05:30: Troponin I 0.0190 ASSESSMENT: 1. ACUTE BRONCHITIS 2. COPD EXACERBATION 3. PLEURITIC CHEST PAIN, IMPROVING 4. EPIGASTRIC PAIN AND POSSIBLE DISTENTION PLAN: 1. CT abdomen and pelvis without contrast. 2. D/C Dilaudid. 3. Toradol 30 mg IV q.8hr Plan and coordination of the patient's care discussed in the presence of Superintendent Meters and nurse. CONDITION: Stable SCRIBED BY: Rosita WILBURN scribed while in presence of service performed by Dr. Chung/Stefani Wood APRN on 12/01/17 ([id number])
[2017-12-01] MEDS: TORADOL IVP SCH ×2 (14:27→21:52)
[2017-12-01] MEDS ORDERED: MYLANTA SUSP PO SCH (21:00)
[2017-12-01] MEDS: ASPIRIN CHEWABLE PO SCH (21:51)
[2017-12-01] MEDS: XANAX PO SCH (21:51)
[2017-12-01] MEDS: ROCEPHIN 1 GM in SODIUM CHLORIDE 50 ML IV SCH (21:51)
[2017-12-01] MEDS: LIPITOR PO SCH (21:52)
[2017-12-01] MEDS ORDERED: MYLANTA SUSP PO PRN (22:02)
[2017-12-02] MEDS: XOPENEX 1.25 MG NEB SCH ×5 (00:01→23:27)
[2017-12-02] MEDS: PERCOCET 7.5-325 PO PRN ×3 (05:04→23:45)
[2017-12-02] MEDS: SOLU-MEDROL 125 MG IVP SCH ×3 (05:04→20:09)
[2017-12-02] MEDS: TORADOL IVP SCH ×3 (05:05→20:10)
[2017-12-02] MEDS: PULMICORT 0.5 MG/2 ML NEB SCH ×2 (05:35→16:56)
[2017-12-02] MEDS: PROTONIX PO SCH ×2 (05:49→16:46)
[2017-12-02] MEDS: TOPROL XL PO SCH (08:42)
[2017-12-02] MEDS: PLAVIX PO SCH (08:43)
[2017-12-02] MEDS: CYMBALTA PO SCH (08:43)
[2017-12-02] MEDS: CARDIZEM PO SCH ×2 (08:43→20:12)
[2017-12-02] MEDS: K-DUR PO SCH (08:43)
[2017-12-02] MEDS: LOVENOX SUBCUT SCH (08:43)
[2017-12-02] MEDS: COZAAR PO SCH (08:43)
[2017-12-02] MEDS: IMDUR PO SCH (08:43)
[2017-12-02] MEDS ORDERED: DILAUDID 2 MG/ML SYRINGE ONE (13:44)
[2017-12-02] MEDS: KEFLEX PO SCH ×2 (13:47→20:11)
[2017-12-02] MEDS: LIPITOR PO SCH (20:11)
[2017-12-02] MEDS: XANAX PO SCH (20:11)
[2017-12-02] MEDS: ASPIRIN CHEWABLE PO SCH (20:12)
[2017-12-03] MEDS: KEFLEX PO SCH (04:23)
[2017-12-03] MEDS: TORADOL IVP SCH (04:23)
[2017-12-03] MEDS: SOLU-MEDROL 125 MG IVP SCH (04:23)
[2017-12-03] MEDS: XOPENEX 1.25 MG NEB SCH ×2 (05:17→11:10)
[2017-12-03] MEDS: PULMICORT 0.5 MG/2 ML NEB SCH (05:17)
[2017-12-03] MEDS: PROTONIX PO SCH (06:08)
[2017-12-03] MEDS: PERCOCET 7.5-325 PO PRN (08:59)
[2017-12-03] MEDS: COZAAR PO SCH (09:00)
[2017-12-03] MEDS: IMDUR PO SCH (09:00)
[2017-12-03] MEDS: TOPROL XL PO SCH (09:00)
[2017-12-03] MEDS: PLAVIX PO SCH (09:00)
[2017-12-03] MEDS: CARDIZEM PO SCH (09:00)
[2017-12-03] MEDS: K-DUR PO SCH (09:01)
[2017-12-03] MEDS: LOVENOX SUBCUT SCH (09:01)
[2017-12-03] MEDS: CYMBALTA PO SCH (09:01)
[2017-12-03] MEDS ORDERED: DILAUDID 1 MG/ML SYRINGE IVP STA (09:25)
[2017-12-03 09:34] VITALS: BP 154/81; TEMP 97.5
[2017-12-03] MEDS ORDERED: DILAUDID 2 MG/ML SDV IVP STA (10:01)
[2017-12-03] MEDS ORDERED: DILAUDID 2 MG/ML SYRINGE ONE (10:04)
[2017-12-03] MEDS: DILAUDID 2 MG/ML SYRINGE IVP STA ×2 (10:22→10:43)
[2017-12-03] MEDS: DILAUDID 2 MG/ML SYRINGE IM STA ×2 (10:39→10:42)
--- NOTE | 2017-12-04 09:43 | ECHO2D ---
Date of Exam: 12/03/17 Ordering Physician: DR. ANAHI CHUNG Room #: SCU 1 Reason for Echo: COPD, CABG M-Mode Normal Adult Results LV Dimensions Normal Adult Results AoV Opening excursions >1.6 >1.6 LVEDD-base- 3.5-5.8 4.5 Ao root dimensions 2.0-3.7 3.3 LVESD-base- 3.1-4.6 L. Atrium dimensions 1.9-3.8 3.8 Post. Wall thickness 0.8-1.1 1.2 IV septum (thickness) 0.7-1.2 1.2 Post. Wall excursion 0.72-1.3 NORMAL Septal motion 0.6 Systolic motion R. Ventricular cavity 1.5-2.0 NORMAL LVEF 60% 47% Paradoxical septal wall motion NORMAL 2-D : 2-D M Mode Echocardiogram was performed using apical four chamber and left parasternal long and short axis views. Mitral, tricuspid and aortic valves appear to be normal. Contractility of the left ventricle seems to be normal, so is the cavity size. Left atrial cavity size and aortic root appear to be normal. There is no pericardial effusion. There is no thrombus noted in the left ventricular or left aortic cavity. No mitral valve prolapse noted. Hypokinetic septum. M-MODE: MV: NORMAL AV: NORMAL TV: NORMAL PV: CHAMBER SIZE: NORMAL WALL MOTION: HYPOKINETIC SEPTUM PERICARDIUM: NORMAL INTERPRETATION: 1. BORDERLINE LEFT VENTRICULAR HYPERTROPHY 2. HYPOKINETIC SEPTUM (MILD) WITH LEFT VENTRICULAR EJECTION FRACTION 47% 3. NORMAL VALVES MTDD
--- NOTE | 2017-12-04 13:38 | PN ---
DATE OF SERVICE: 12/02/17 SUBJECTIVE: 67 year white male hospitalized with acute bronchitis and acute respiratory distress. The patient is doing much better. His precordial pain and left upper quadrant is much better. He wants Dilaudid all the time for this pain. REVIEW OF SYSTEMS: CONSTITUTIONAL: No night sweats. No fatigue, malaise, lethargy. No fever or chills. HEENT: Eyes: No visual changes. No eye pain. No eye discharge. ENT: No runny nose. No epistaxis. No sinus pain. No sore throat. No odynophagia. No congestion. RESPIRATORY: No cough, no congestion. No hemoptysis. No shortness of breath. CARDIOVASCULAR: No angina symptoms. No CHF symptoms. No atypical chest pain for CAD. No palpitations. No orthopnea. GASTROINTESTINAL: No abdominal pain. No nausea or vomiting. No diarrhea or constipation. No hematemesis. No hematochezia. GENITOURINARY: No urgency. No frequency. No dysuria. No hematuria. No obstructive symptoms. No discharge. No pain. No significant abnormal bleeding. MUSCULOSKELETAL: No musculoskeletal pain; no joint swelling. NEUROLOGICAL: No headache. No neck pain. No syncope. No seizures. No dizziness. PSYCHIATRIC: Not anxious. No depression. No suicidal thoughts. No homicidal thoughts. SKIN: No rash. No lesions. No wounds. ENDOCRINE: No unexplained weight loss. No weight gain. HEMATOLOGIC/LYMPHATIC: No anemia. No purpura. No petechiae. No prolonged or excessive bleeding. No palpable lymph nodes. PHYSICAL EXAMINATION: GENERAL: The patient is oriented to time, place and person. VITAL SIGNS: Temperature 98, pulse 70, respiratory rate 15, blood pressure 130/ 70. HEENT: Head normocephalic, atraumatic. Eyes: Extraocular muscles are intact. Pupils are equal, round and reactive to light and accommodation. Ears: No lesions. Nose appeared normal. Throat: No exudate or erythema. NECK: Supple. No JVD, no carotid bruit. No lymphadenopathy or thyromegaly. LUNGS: Clear to auscultation. Percussion note normal. Chest symmetrical. HEART: S1, S2, no S3. No murmurs. No cyanosis or clubbing. No ascites. Pulses: Dorsalis pedis and posterior tibial pulses +1 to +2 both sides. ABDOMEN: Soft. Nontender. Bowel sounds active. No CVA tenderness. No mass felt. EXTREMITIES: No edema. Full range of motion of all extremities, equal. NEUROLOGIC: No focal deficit. Cranial nerves II through XII are grossly intact. No headache, no double vision or headache. SKIN: Not dry. Intact. Turgor - normal. LYMPHATIC: No palpable lymph nodes/no lymphedema. MUSCULOSKELETAL: Normal joints with no swelling. Muscle tone is normal. ASSESSMENT: 1. Acute exacerbation of COPD under control with good air entry on both lungs 2. Cardiovascular status is stable with no evidence of acute PA or ischemia. The patient's telemetry shows sinus rhythm. PLAN: 1. Continue Toradol IV 30mg Q 8 hours 2. Will Dilaudid will be given one shot 3. Continue the rest of the medication with antibiotics and steroids. CONDITION: Improving. TIME SPENT: More than 30 minutes. Plan and coordination of the patient's care discussed in the presence of nurse. VERN
--- NOTE | 2017-12-04 13:50 | PN ---
DATE OF SERVICE: 12/03/17 SUBJECTIVE: 67 year old white male hospitalized with acute bronchitis, COPD exacerbation and chest pain which was more like a pleuritic pain chest wall surface pain more like musculoskeletal. The patient's condition improved. He says that Dilaudid helps the pain quite a lot. The patient is on Toradol, steroids and Narcotics. Narcotic side effects and addiction discussed with the patient and not to mix with alcohol or any over the counter medication, he knows that. The patient says that his quality of life is much better with Narcotic and it helps him a lot to carry out daily function. No history of auto accident. The patient' s condition otherwise is stable. he is going to be discharged home. REVIEW OF SYSTEMS: CONSTITUTIONAL: No night sweats. No fatigue, malaise, lethargy. No fever or chills. HEENT: Eyes: No visual changes. No eye pain. No eye discharge. ENT: No runny nose. No epistaxis. No sinus pain. No sore throat. No odynophagia. No congestion. RESPIRATORY: No cough, no congestion. No hemoptysis. No shortness of breath. CARDIOVASCULAR: No angina symptoms. No CHF symptoms. No atypical chest pain for CAD. No palpitations. No orthopnea. GASTROINTESTINAL: No abdominal pain. No nausea or vomiting. No diarrhea or constipation. No hematemesis. No hematochezia. GENITOURINARY: No urgency. No frequency. No dysuria. No hematuria. No obstructive symptoms. No discharge. No pain. No significant abnormal bleeding. MUSCULOSKELETAL: No musculoskeletal pain; no joint swelling. NEUROLOGICAL: No headache. No neck pain. No syncope. No seizures. No dizziness. PSYCHIATRIC: Not anxious. No depression. No suicidal thoughts. No homicidal thoughts. SKIN: No rash. No lesions. No wounds. ENDOCRINE: No unexplained weight loss. No weight gain. HEMATOLOGIC/LYMPHATIC: No anemia. No purpura. No petechiae. No prolonged or excessive bleeding. No palpable lymph nodes. PHYSICAL EXAMINATION: HEENT: Head normocephalic, atraumatic. Eyes: Extraocular muscles are intact. Pupils are equal, round and reactive to light and accommodation. Ears: No lesions. Nose appeared normal. Throat: No exudate or erythema. NECK: Supple. No JVD, no carotid bruit. No lymphadenopathy or thyromegaly. LUNGS: Clear to auscultation. Percussion note normal. Chest symmetrical. HEART: S1, S2, no S3. No murmurs. No cyanosis or clubbing. No ascites. Pulses: Dorsalis pedis and posterior tibial pulses +1 to +2 both sides. ABDOMEN: Soft. Nontender. Bowel sounds active. No CVA tenderness. No mass felt. EXTREMITIES: No edema. Full range of motion of all extremities, equal. NEUROLOGIC: No focal deficit. Cranial nerves II through XII are grossly intact. No headache, no double vision or headache. SKIN: Not dry. Intact. Turgor - normal. LYMPHATIC: No palpable lymph nodes/no lymphedema. MUSCULOSKELETAL: Normal joints with no swelling. Muscle tone is normal. LABS: Hgb 11, hct 32, WBC 23,000 the patient's WBC count is high because of steroids. He always has this leukocytosis with steroids, creatinine 1.2, BUN 46. ASSESSMENT: 1. Acute bronchitis 2. COPD exacerbation 3. Chest pain PLAN: 1. He will be discharged on Keflex and Prednisone. 2. He will be followed as an outpatient on Monday Morning and followup 3. Advised to rest otherwise CONDITION: Stable. TIME SPENT: More than 30 minutes. Plan and coordination of the patient's care discussed in the presence of nurse. VERN
--- NOTE | 2017-12-04 14:03 | DS ---
DATE OF SERVICE: 12/03/17 FINAL DIAGNOSIS: 1. Acute bronchitis 2. COPD severe 3. History of smoking, still smoking 4. History of CHF 5. Coronary artery bypass surgery 6. Anemia 7. Chronic kidney disease 8. Hyperglycemia with steroids 9. Leukocytosis with steroids. 10.Dyslipidemia 11.Hypertension DISCHARGE INSTRUCTIONS: Discharge home. Continue the same medications as he has. Followup Monday otherwise advised to rest. MEDICATIONS AT DISCHARGE: Lipitor 40mg PO bedtime Imdur 30mg PO daily Aspirin 81mg PO bedtime Cymbalta 30mg PO daily Toprol XL 50mg Po daily Plavix 75mg PO daily Xanax 1mg PO bedtime Cardizem 60mg PO Q 12 hours Percocet 7.5-325 PO four times a day PRN ProAir two pudds IG Q 6 hours PRN Protonix 40mg PO twice a day Combivent 20-100mcg IH Q 6 hours PRN Losartan 100mg PO daily Potassium Chloride 20meq PO daily Nitroglycerin 0.4mg SL as directed PRN NEW PRESCRIPTIONS: Keflex 500mg three times a day for 5 days Prednisone 10mg twice a day for 5 days DIET INSTRUCTIONS: Cardiac diet ACTIVITY: Plenty of rest SMOKING: No smoking DISEASE SPECIFIC EDUCATION: Advised to not use Narcotic with alcohol or over the counter. Side effects discussed Addiction discussed. HOSPITAL COURSE: 67 year old white male hospitalized with acute bronchitis, COPD exacerbation. The patient was treated with NEBS, steroids and antibiotics. The patient's condition improved remarkably as far as COPD exacerbation was concerned. His chest pain was noncardiac. Cardiac markers and EKG was unchanged. His echocardiogram done on the final day showed hypokinetic septum with borderline LVH. The patient's valvular structures are normal. He was advised to join pulmonary rehab or cardiac rehab. Breathing exercises discussed with the patient and he was advised to continue NEBS treatment at home as usual. CONDITION: Stable TIME SPENT: More than 60 minutes. MTDD
--- NOTE | 2017-12-04 14:04 | PN ---
11/29/17: Level 5 11/30/17: Intermediate 12/01/17: Intermediate 12/02/17: Intermediate 12/03/17: D as in discharge MTDD
== END 2017-12-03 12:36 | disposition home or self-care (01) | DRG 202 ==
LOC: ED 20:25 → SCU 22:01
PROVIDERS: ADMIT Internal Medicine; ATTEND Internal Medicine
DX: J20.9 Acute bronchitis, unspecified (principal); J44.1 Chronic obstructive pulmonary disease with (acute) exacerbation; J44.0 Chronic obstructive pulmonary disease with (acute) lower respiratory infection; R06.02 Shortness of breath; R07.81 Pleurodynia; I10 Essential (primary) hypertension; I50.9 Heart failure, unspecified; I12.9 Hypertensive chronic kidney disease with stage 1 through stage 4 chronic kidney disease, or unspecified chronic kidney disease; N18.9 Chronic kidney disease, unspecified; R10.13 Epigastric pain; R10.12 Left upper quadrant pain; I51.89 Other ill-defined heart diseases; R00.0 Tachycardia, unspecified; D64.9 Anemia, unspecified; E78.5 Hyperlipidemia, unspecified; F17.210 Nicotine dependence, cigarettes, uncomplicated; Z95.1 Presence of aortocoronary bypass graft; Z79.899 Other long term (current) drug therapy
CPT/HCPCS: 36415; 80048; 80053; 82550; 82553; 82803; 83605; 83880; 84145; 84484; 85025; 87040; 93005; 93010; 94640; 96374; 96375; 99285

== ENCOUNTER 2017-12-07 14:15 | Inpatient (IN) ==
[2017-12-07] MEDS ORDERED: SODIUM CHLORIDE 1,000 ML IV STA (14:44)
--- NOTE | 2017-12-07 14:44 | ED.PDOC ---
General ED Provider: Dr. MADAY MANE Chief Complaint: Dizziness Stated Complaint: Has been experiencing progressively worsening weakness for past several days. Has had copious diarrhea this week afte discharge from hospital last weekend. Became so weak and dizzy called for assitance/ Paramedics found the patient hypotensive at 88/ and IV Fluid bolus administered. Upon arrival her BP 120/ Time Seen by Physician: 14:40 Mode of Arrival: Walk-In Information Source: Patient Exam Limitations: No limitations Primary Care Provider: ANAHI TOSCANO Nursing and Triage Documentation Reviewed and Agree: Yes Reviewed sepsis parameters & appropriate labs ordered?: Yes System Inflammatory Response Syndrome: Not Applicable Sepsis Protocol: For patient's 13 years and over: Temp is 96.8 and below OR 101 and greater Pulse >90 BPM Resp >20/minute Acutely Altered Mental Status Are patient's symptoms suggestive of a new infection, such as: -Pneumonia -Skin, Soft Tissue -Endocarditis -UTI -Bone, Joint Infection -Implantable Device -Acute Abdominal Infection -Wound Infection -Meningitis -Blood Stream Catheter Infection -Unknown System Inflammatory Response Syndrome: Not Applicable GI Complaint Exam - Vomiting/Diarrhea Complaint/Exam Onset/Duration: 4 days Symptoms Are: Still present Episodes of Diarrhea Over Last 24 Hours: 6 Initial Severity: Severe Current Severity: Moderate Character of Diarrhea: Reports: Watery, Malodorous Aggravating: Reports: Food, Liquids Alleviating: Reports: None Associated Signs and Symptoms: Reports: Dizziness, Light-headedness Related History: Reports: Recent antibiotics Surgical Obstruction Risk Factors: Reports: None, Colicky abdominal pain Related Surgical History: Reports: None Abdominal Findings: Present: Abdominal distention, Rebound tenderness, Peritoneal signs Kussmaul Respirations Present: No Differential Diagnoses: Bowel Obstruction, Viral Gastroenteritis, Bacterial Gastroenteritis Review of Systems - Review Of Systems Constitutional: Reports: No symptoms, Loss of appetite Eyes: Reports: No symptoms Ears, Nose, Mouth, Throat: Reports: No symptoms Respiratory: Reports: No symptoms, Orthopnea, Short of air Cardiac: Reports: No symptoms GI: Reports: No symptoms, Abdomen distended, Abdominal pain, Diarrhea, Poor appetite, Poor fluid intake : Reports: No symptoms Musculoskeletal: Reports: No symptoms Skin: Reports: No symptoms Neurological: Reports: No symptoms Endocrine: Reports: No symptoms Hematologic/Lymphatic: Reports: No symptoms All Other Systems: Reviewed and Negative Past Medical History - Past Medical History Previously Healthy: No Endocrine: Reports: None, Dyslipidemia Cardiovascular: Reports: CAD, Hypertension, A-Fib Respiratory: Reports: COPD Hematological: Reports: None Gastrointestinal: Reports: None, GI Bleed (DR Hou NOTES PATINET RECENTLY DISCHARGED FRO M HOLINESS POST SHRAVAN BARKER TEAR) Genitourinary: Reports: None Neuro/Psych: Reports: None, Anxiety, Depression Musculoskeletal: Reports: Back Pain Cancer: Reports: None, Other Other Pertinent Past Medical History: ABDOMEN SURGERY as an infant - Surgical History General Surgical History: Reports: Appendectomy, Cholecystectomy, CABG (TWICE), Orthopedic (CABG X 2, BACK SURGERY, SHOULDER, NECK DISC REPLACEMENT, ), Back Surgery ( SPINE SURGERY), Hernia Repair (WITH MESH- CURRENTLY HAS TENDER AREA LEFT EPIGASTRIUM WHICH INTERMITTENTLY HAS LARGE PAINFUL LUMP) - Family History Family History: Reports: Unknown - Social History Smoking Status: Former smoker Hx Substance Use: No Alcohol Screening: None - Immunizations Tetanus Shot up to Date: No Influenza Vaccine within 12 Months: No Pneumococcal Vaccine up to Date: No Physical Exam - Physical Exam Appearance: Ill-appearing, No pain distress, Well-nourished, Thin Ill-appearing: Moderate Pain Distress: Moderate Eyes: INDER, EOMI, Conjunctiva clear ENT: Ears normal, Nose normal, Oropharynx normal Respiratory: Airway patent, Breath sounds clear, Breath sounds equal, Respirations nonlabored Cardiovascular: RRR, Pulses normal, No rub, No murmur GI/: Soft, No masses, Bowel sounds normal, No Organomegaly, Tender, Bowel sounds hyperactive Musculoskeletal: Normal strength, ROM intact, No edema, No calf tenderness Skin: Warm, Dry, Normal color Neurological: Sensation intact, Motor intact, Reflexes intact, Cranial nerves intact, Alert, Oriented Psychiatric: Affect appropriate, Mood appropriate Interpretation - Radiology Interpretation Radiology Interpretation By: Radiologist Radiology Results: Positive Exam Interpreted: CT Scan (abdomen) Re-Evaluation - Re-Evaluation Time of Re-Evaluation: 19:10 Status: Improved Vital Signs Stable: Yes Pain Level: 10 Appearance: NAD Lungs: Clear Skin: Warm and Dry Neuro: Alert and Oriented X3 CV: RRR Critical Care Note - Critical Care Note Total Time (mins): 2 Course - Course Hematology/Chemistry: 12/07/17 14:55 12/07/17 14:55 Orders, Labs, Meds: Lab Review 12/07/17 12/07/17 12/07/17 14:55 14:55 14:55 WBC 13.99 H D RBC 3.96 L Hgb 11.3 L Hct 33.3 L MCV 84.1 MCH 28.5 MCHC 33.9 RDW Coeff of Tobin 14.0 Plt Count 206 Immature Gran % (Auto) 1.4 Neut % (Auto) 76.5 Lymph % (Auto) 9.1 L [place] % (Auto) 9.9 Eos % (Auto) 3.0 Baso % (Auto) 0.1 Immature Gran # (Auto) 0.2 Neut # (Auto) 10.7 H Lymph # (Auto) 1.3 [place] # (Auto) 1.4 Eos # (Auto) 0.4 Baso # (Auto) 0.0 Sodium 137 Potassium 4.1 Chloride 104 Carbon Dioxide 25 Anion Gap 12.1 BUN 17 Creatinine 1.02 Estimated GFR (MDRD) 73.00 BUN/Creatinine Ratio 16.66 Glucose 128 H Calcium 8.2 Magnesium 1.4 L Total Bilirubin 0.6 AST 40 H ALT 67 Alkaline Phosphatase 54 L Total Protein 5.3 L Albumin 2.4 L Globulin 2.9 Albumin/Globulin Ratio 0.83 Lipase 12/07/17 14:55 WBC RBC Hgb Hct MCV MCH MCHC RDW Coeff of Tobin Plt Count Immature Gran % (Auto) Neut % (Auto) Lymph % (Auto) [place] % (Auto) Eos % (Auto) Baso % (Auto) Immature Gran # (Auto) Neut # (Auto) Lymph # (Auto) [place] # (Auto) Eos # (Auto) Baso # (Auto) Sodium Potassium Chloride Carbon Dioxide Anion Gap BUN Creatinine Estimated GFR (MDRD) BUN/Creatinine Ratio Glucose Calcium Magnesium Total Bilirubin AST ALT Alkaline Phosphatase Total Protein Albumin Globulin Albumin/Globulin Ratio Lipase 12 Orders Category Date Time Status NEBULIZER TREATMENT Routine CARDIO 12/07/17 19:24 Ordered OXYGEN Routine CARDIO 12/07/17 19:18 Ordered ACTIVITY .BR with BRP CARE 12/07/17 19:18 Ordered BLOOD GLUCOSE MONITORING 0630,1100,1700,2100 CARE 12/07/17 19:20 Ordered C-DIFF MONITORING (NURSING) BID CARE 12/07/17 15:23 Active GIVE HS SNACK 2100 CARE 12/07/17 19:19 Ordered INTAKE & OUTPUT Q8HR CARE 12/07/17 19:18 Ordered INTAKE & OUTPUT Q8HR CARE 12/07/17 19:18 Ordered IV ACCESS ONCE CARE 12/07/17 14:44 Active NPO REMINDER: IMAGING ONCE CARE 12/07/17 16:13 Active CLEAR LIQUID DIET DIETARY 12/07/17 Dinner Ordered HS SNACK DIETARY 12/07/17 Dinner Ordered CBC W/ AUTO DIFF DAILY@0600 LAB 12/08/17 06:00 Ordered CBC W/ AUTO DIFF DAILY@0600 LAB 12/09/17 06:00 Ordered CBC W/ AUTO DIFF Stat LAB 12/07/17 14:55 Completed CMP [COMPREHENSIVE METABOLIC PANEL] Stat LAB 12/07/17 14:55 Completed COMPREHENSIVE METABOLIC PANEL DAILY@0600 LAB 12/08/17 06:00 Ordered COMPREHENSIVE METABOLIC PANEL DAILY@0600 LAB 12/09/17 06:00 Ordered LIPASE Stat LAB 12/07/17 14:55 Completed MAGNESIUM Stat LAB 12/07/17 14:55 Completed STOOL CULTURE Stat LAB 12/07/17 Ordered UA [URINALYSIS C & S IF INDICATED] Stat LAB 12/07/17 14:44 Uncollected cdiff [C. DIFFICILE] Routine LAB 12/07/17 15:23 Uncollected Enoxaparin Sodium [Lovenox] MEDS 12/07/17 19:30 Ordered 40 mg SUBCUT DAILY Ipratropium/Albuterol Neb [Duoneb] MEDS 12/07/17 20:00 Ordered 1 vial NEB RTQID Magnesium Sulfate Bag [Magnesium Sulfate] 1 gm MEDS 12/07/17 16:14 Discontinued Premix 100 ml D5w 1 bag IV ONCE Magnesium Sulfate Bag [Magnesium Sulfate] 100 ml MEDS 12/07/17 16:34 Discontinued IV .STK-MED Ondansetron HCl/Pf [Zofran 4 mg/2 ml] MEDS 12/07/17 15:24 Discontinued 4 mg IVP ONCE STA Oxycodone-Acetaminophen 10-325 [Percocet 10-325] MEDS 12/07/17 18:36 Discontinued 1 tab PO ONCE STA Pantoprazole Sodium [Protonix IV] MEDS 12/07/17 15:24 Discontinued 40 mg IVP ONCE STA Promethazine HCl [Phenergan 25 mg/ml Vial] 25 mg MEDS 12/07/17 19:18 Ordered 0.9 % Sodium Chloride [Sodium Chloride] 100 ml IV Q6H Sodium Chloride 0.9% [Sodium Chloride] 500 ml MEDS 12/07/17 14:50 Discontinued IV BOLUS Vancomycin HCl [Vancocin] MEDS 12/07/17 19:30 Ordered 125 mg PO Q6HR RESUSCITATION STATUS Routine OTHERS 12/07/17 19:17 Completed RESUSCITATION STATUS Routine OTHERS 12/07/17 19:[address] ABDOMEN/PELVIS W/WO CONTRAS Stat RADS 12/07/17 16:12 Completed Medications Generic Name Dose Route Start Last Admin Trade Name Freq PRN Reason Stop Dose Admin Albuterol/Ipratropium 1 vial 12/07/17 20:00 Duoneb NEB RTQID JONATAN Enoxaparin Sodium 40 mg 12/07/17 19:30 Lovenox SUBCUT DAILY JONATAN Promethazine HCl 25 mg/ Sodium 101 mls @ 200 mls/hr 12/07/17 19:18 Chloride IV Q6H PRN Nausea / Vomiting Vancomycin HCl 125 mg 12/07/17 19:30 Vancocin PO Q6HR JONATAN Discontinued Medications Generic Name Dose Route Start Last Admin Trade Name Freq PRN Reason Stop Dose Admin Sodium Chloride 500 mls @ 500 mls/hr 12/07/17 14:50 12/07/17 16:12 Sodium Chloride IV 12/07/17 15:49 125 mls/hr BOLUS STA Administration Magnesium Sulfate/Dextrose 1 100 mls @ 100 mls/hr 12/07/17 16:14 12/07/17 16: 50 gm/ Dextrose IV 12/07/17 17:13 100 mls/hr ONCE STA Administration Ondansetron HCl 4 mg 12/07/17 15:24 12/07/17 16:17 Zofran 4 Mg/2 Ml IVP 12/07/17 15:25 4 mg ONCE STA Administration Oxycodone/Acetaminophen 1 tab 12/07/17 18:36 12/07/17 18:57 Percocet 10-325 PO 12/07/17 18:37 1 tab ONCE STA Administration Pantoprazole Sodium 40 mg 12/07/17 15:24 12/07/17 16:21 Protonix Iv IVP 12/07/17 15:25 40 mg ONCE STA Administration Vital Signs: Temp Pulse Resp BP Pulse Ox 12/07/17 18:12 75 22 128/77 12/07/17 14:16 97.3 F L 87 20 121/64 99 Departure - Departure Time of Disposition: 19:30 Disposition: ADMITTED INPATIENT Discharge Problem: Diarrhea, Small bowel obstruction, COPD (chronic obstructive pulmonary disease) , Chronic pain Condition: Fair Pt referred to PMD for follow-up: Yes IPMP verified?: No Allergies/Adverse Reactions: Allergies buspirone HCl [From BuSpar] Adverse Reaction (Verified 12/07/17 14:20) codeine Adverse Reaction (Verified 12/07/17 14:20) lorazepam [From Ativan] Adverse Reaction (Verified 12/07/17 14:20) meperidine HCl [From Demerol] Adverse Reaction (Verified 12/07/17 14:20) promethazine HCl [From Phenergan] Adverse Reaction (Verified 12/07/17 14:20) tiotropium bromide [From Spiriva with HandiHaler] Adverse Reaction (Verified 14:20) Home Medications: Ambulatory Orders Atorvastatin Calcium [Lipitor] 40 mg PO BEDTIME 01/20/13 Isosorbide Mononitrate [Imdur] 30 mg PO DAILY 01/20/13 Aspirin [Aspirin Chewable] 81 mg PO BEDTIME 01/28/13 Alprazolam [Xanax] 1 mg PO BEDTIME 09/22/14 Clopidogrel Bisulfate [Plavix] 75 mg PO DAILY 09/22/14 Diltiazem HCl [Cardizem] 60 mg PO Q12HR #60 tablet 09/23/14 Oxycodone HCl/Acetaminophen [Percocet 7.5-325 mg Tablet] 1 each PO QID PRN 30 Days tablet 03/18/15 Albuterol Sulfate [Proair Hfa] 2 puff IH Q6H PRN #1 inh 06/30/15 Pantoprazole Sodium [Protonix] 40 mg PO BID #60 tablet. 11/23/16 Ipratropium/Albuterol Sulfate [Combivent Respimat Inhal Sylvester] 20 - 100 mcg IH Q6HR PRN 05/23/17 Losartan Potassium 100 mg PO DAILY #30 tablet 07/17/17 Nitroglycerin 0.4 mg SL DIRECTED PRN 11/29/17 Disposition Discussed With: Patient, Family (Discussed with Dr Toscano -agrees for admission )
[2017-12-07] MEDS ORDERED: SODIUM CHLORIDE 500 ML IV STA (14:50)
[2017-12-07] MEDS ORDERED: PROTONIX IV IVP STA (15:24)
[2017-12-07] MEDS ORDERED: ZOFRAN 4 MG/2 ML IVP STA (15:24)
[2017-12-07] MEDS ORDERED: D5W IV STA (16:14)
[2017-12-07] MEDS ORDERED: MAGNESIUM SULFATE IV STA (16:14)
[2017-12-07] MEDS ORDERED: MAGNESIUM SULFATE 100 ML IV ONE (16:34)
[2017-12-07] MEDS ORDERED: PERCOCET 10-325 PO STA (18:36)
--- NOTE | 2017-12-07 19:02 | CT ---
EXAM: CT of the abdomen pelvis with and without contrast History: Abdominal pain, diarrhea, left upper abdominal pain. Comparison: CT abdomen pelvis 12/01/2017 Technique: Multiplanar CT images through the abdomen pelvis were obtained with and without the admin istration of IV contrast Findings: Subsegmental atelectasis again seen within the lingula. Diffuse bronchial wall thickening. No acute osseous abnormalities. No renal stones and no hydronephrosis. Status post cholecystectomy. Atherosclerotic vascular calcif ications. No focal liver or splenic lesions. No renal masses. Prominent gastric folds. Borderline dilated fluid-filled loops of small bowel. Mild colonic distension with mucosal prominence. No free air. No ascites. Mild circumferential bladder wall thickening. Prostate is not enlarged. No thiago rectal inflammation. No peripancreatic inflammation or pancreatic lesions. Adrenal glands are unrem arkable. No lymphadenopathy. Impression: 1. Probable mild gastroenteritis. Partial small bowel obstruction is considered less likely but not excluded. 2. Mild diffuse bladder wall thickening. Correlate with urinalysis for possible cystitis.
[2017-12-07] MEDS ORDERED: PHENERGAN 25 MG/ML VIAL 25 MG in SODIUM CHLORIDE 100 ML IV PRN (19:18)
[2017-12-07] MEDS ORDERED: DILAUDID 1 MG/ML SYRINGE IVP PRN (19:30)
[2017-12-07] MEDS ORDERED: LOVENOX SUBCUT SCH (19:30)
[2017-12-07] MEDS ORDERED: NITROSTAT SL PRN (19:33)
[2017-12-07] MEDS ORDERED: PROAIR HFA IH PRN (19:33)
[2017-12-07] MEDS: DUONEB NEB SCH (19:39)
[2017-12-07 20:47] VITALS: BMI 19.3
[2017-12-07] MEDS ORDERED: PROTONIX PO SCH (21:00)
[2017-12-07] MEDS ORDERED: DILAUDID 2 MG/ML SYRINGE IVP PRN (21:14)
[2017-12-07] MEDS ORDERED: COMBIVENT RESPIMAT INHAL SPRAY IH PRN (21:25)
[2017-12-07] MEDS: LIPITOR PO SCH (22:35)
[2017-12-07] MEDS: ASPIRIN CHEWABLE PO SCH (22:35)
[2017-12-07] MEDS: TORADOL IVP SCH (22:36)
[2017-12-07] MEDS: VANCOCIN PO SCH (22:36)
[2017-12-07] MEDS: XANAX PO SCH (22:36)
[2017-12-08] MEDS: VANCOCIN PO SCH ×5 (00:58→23:02)
[2017-12-08] MEDS ORDERED: DILAUDID 2 MG/ML SYRINGE ONE (01:43)
[2017-12-08] MEDS: DUONEB NEB SCH ×4 (04:50→20:55)
[2017-12-08] MEDS: TORADOL IVP SCH (05:28)
[2017-12-08] MEDS: IMDUR PO SCH (08:15)
[2017-12-08] MEDS: COZAAR PO SCH (08:15)
[2017-12-08] MEDS: CARDIZEM PO SCH ×2 (08:15→21:06)
[2017-12-08] MEDS: PLAVIX PO SCH (08:15)
[2017-12-08] MEDS: DILAUDID 2 MG/ML SYRINGE IVP PRN ×2 (11:49→18:39)
[2017-12-08] MEDS ORDERED: TORADOL IVP SCH (13:00)
--- NOTE | 2017-12-08 15:16 | PN ---
DATE OF SERVICE: 12/07/17 SUBJECTIVE: The patient was admitted through the emergency room with complaint of having diarrhea. The patient on further workup by ER attending was noted to have possibility of gastroenteritis with partial small bowel obstruction. The patient had some left upper quadrant pain relieved by Dilaudid and also helped by Percocet. The patient doesn't have any chest pain. Last hospitalization the patient had chest pain, epigastric pain. Serum amylase and lipase normal. PHYSICAL EXAMINATION: HEENT: Head normocephalic, atraumatic. Eyes: Extraocular muscles are intact. Pupils are equal, round and reactive to light and accommodation. Ears: No lesions. Nose appeared normal. Throat: No exudate or erythema. NECK: Supple. No JVD, no carotid bruit. No lymphadenopathy or thyromegaly. LUNGS: Clear to auscultation. Percussion note normal. Chest symmetrical. HEART: S1, S2, no S3. No murmurs. No cyanosis or clubbing. No ascites. Pulses: Dorsalis pedis and posterior tibial pulses +1 to +2 both sides. ABDOMEN: Soft. Tender on the left upper quadrant. Bowel sounds active. No CVA tenderness. No mass felt. No rebound tenderness. EXTREMITIES: No edema. Full range of motion of all extremities, equal. NEUROLOGIC: No focal deficit. Cranial nerves II through XII are grossly intact. No headache, no double vision or headache. SKIN: Not dry. Intact. Turgor - normal. LYMPHATIC: No palpable lymph nodes/no lymphedema. MUSCULOSKELETAL: Normal joints with no swelling. Muscle tone is normal. The patient was treated for bronchitis with wheezing during the last hospitalization with antibiotics. Possibility of C-Diff exists. PLAN: 1. Will be started on Vancomycin PO 2. C-Diff stool cultures have been given CONDITION: Stable CARDIOVASCULAR STATUS: Stable. TIME SPENT: More than 30 minutes. Plan and coordination of the patient's care discussed in the presence of nurse. VERN
[2017-12-08] MEDS: PROTONIX PO SCH (18:39)
[2017-12-08] MEDS: LIPITOR PO SCH (21:05)
[2017-12-08] MEDS: ASPIRIN CHEWABLE PO SCH (21:05)
[2017-12-08] MEDS: XANAX PO SCH (21:05)
[2017-12-08] MEDS: PERCOCET 7.5-325 PO PRN (21:06)
[2017-12-09] MEDS: DILAUDID 2 MG/ML SYRINGE IVP PRN ×4 (00:39→18:34)
[2017-12-09] MEDS: PERCOCET 7.5-325 PO PRN ×4 (04:38→21:48)
[2017-12-09] MEDS: DUONEB NEB SCH ×4 (04:43→20:30)
[2017-12-09] MEDS: VANCOCIN PO SCH ×3 (05:50→17:34)
[2017-12-09] MEDS: PROTONIX PO SCH ×2 (05:51→17:34)
[2017-12-09] MEDS ORDERED: MIRALAX PO ONE (09:27)
[2017-12-09] MEDS: CARDIZEM PO SCH ×2 (09:30→21:49)
[2017-12-09] MEDS: COZAAR PO SCH (09:30)
[2017-12-09] MEDS: PLAVIX PO SCH (09:30)
[2017-12-09] MEDS: IMDUR PO SCH (09:30)
[2017-12-09] MEDS: COLACE PO SCH ×2 (09:58→21:49)
[2017-12-09] MEDS: XANAX PO SCH (21:48)
[2017-12-09] MEDS: ASPIRIN CHEWABLE PO SCH (21:48)
[2017-12-09] MEDS: LIPITOR PO SCH (21:49)
[2017-12-10] MEDS: VANCOCIN PO SCH ×3 (00:03→12:35)
[2017-12-10] MEDS: DILAUDID 2 MG/ML SYRINGE IVP PRN ×2 (00:43→06:53)
[2017-12-10] MEDS: PERCOCET 7.5-325 PO PRN ×2 (03:28→10:07)
[2017-12-10] MEDS: DUONEB NEB SCH ×2 (04:54→10:08)
[2017-12-10] MEDS: PROTONIX PO SCH (05:55)
[2017-12-10] MEDS: PLAVIX PO SCH (08:54)
[2017-12-10] MEDS: CARDIZEM PO SCH (08:54)
[2017-12-10] MEDS: IMDUR PO SCH (08:54)
[2017-12-10] MEDS: COZAAR PO SCH (08:54)
[2017-12-10] MEDS: COLACE PO SCH (08:55)
[2017-12-10 10:19] VITALS: BP 145/82; TEMP 98
[2017-12-10] MEDS ORDERED: DILAUDID 1 MG/ML SYRINGE IVP STA (12:20)
[2017-12-10] MEDS ORDERED: DILAUDID 2 MG/ML SYRINGE IVP STA (12:34)
--- NOTE | 2017-12-11 14:23 | PN ---
DATE OF SERVICE: 12/10/17 SUBJECTIVE: 67-year-old white male hospitalized with diarrhea, small bowel obstruction type of symptoms. The patient's left upper quadrant pain has resolved. Chest pain has resolved. It is more superficial costochondritis. PHYSICAL EXAMINATION: VITALS: Stable with temperature 97.9, pulse 86, respiratory rate 18, BP 130/80, pulse ox 94%. HEENT: Head normocephalic, atraumatic. Eyes: Extraocular muscles are intact. Pupils are equal, round and reactive to light and accommodation. Ears: No lesions. Nose appeared normal. Throat: No exudate or erythema. NECK: Supple. No JVP, no carotid bruit. No lymphadenopathy or thyromegaly. LUNGS: Clear to auscultation. Percussion note normal. Chest symmetrical. HEART: S1, S2, no S3. No murmurs. No cyanosis or clubbing. No ascites. Pulses: Dorsalis pedis and posterior tibial pulses +1 to +2 both sides. ABDOMEN: Soft. Nontender. Bowel sounds active. No CVA tenderness. No mass felt. EXTREMITIES: No edema. Full range of motion of all extremities, equal. NEUROLOGIC: No focal deficit. Cranial nerves II through XII are grossly intact. No headache, no double vision or headache. SKIN: Not dry. Intact. Turgor - normal. LYMPHATIC: No palpable lymph nodes/no lymphedema. MUSCULOSKELETAL: Normal joints with no swelling. Muscle tone is normal. ASSESSMENT: 1. Abdominal pain, possibility of enteritis or small bowel obstruction, all resolved. The patient had a bowel movement today, yesterday and day before yesterday. C. diff negative. PLAN: The patient has an appointment with Dr. Rao this coming , four days from now. Strongly advised to keep this appointment. We will send all copies of reports to Dr. Rao, done during this hospitalization. CONDITION: Stable. TIME SPENT: More than 30 minutes. CC: DR. TIRADO Plan and coordination of the patient's care discussed in the presence of nurse. VERN
--- NOTE | 2017-12-11 14:53 | DS ---
DATE OF SERVICE: 12/10/17 FINAL DIAGNOSIS: 1. DIARRHEA/COLITIS/POSSIBILITY OF SMALL BOWEL OBSTRUCTION 2. CHRONIC LUNG DISEASE 3. COSTOCHONDRITIS 4. CORONARY ARTERY BYPASS SURGERY 5. GENERALIZED OSTEOARTHRITIS 6. DYSLIPIDEMIA 7. CHRONIC LUNG DISEASE WITH HISTORY OF SMOKING 8. HYPERTENSION DISCHARGE INSTRUCTIONS: Followup appointment on Monday a.m. to see me. Keep appointment with Dr. Rao on . MEDICATIONS AT DISCHARGE: Atorvastatin 40 mg p.o. daily Imdur 30 mg p.o. daily Aspirin 81 mg p.o. daily Xanax 1 mg q.h.s. Plavix 75 mg p.o. daily Cardizem 60 mg p.o. b.i.d. Percocet 7.5/325 q.i.d. p.r.n. Protonix 40 mg twice a day Combivent Respimat inhaler spray one puff daily Losartan 100 mg p.o. daily Nitroglycerin p.r.n. sublingual for chest pain NEW PRESCRIPTIONS: None DIET INSTRUCTIONS: Heart Healthy ACTIVITY: As patient tolerates. SMOKING: Former smoker DISEASE SPECIFIC EDUCATION: Appointments Medications HOSPITAL COURSE: 67-year-old white male hospitalized with left upper quadrant pain. The patient had a CT scan of the abdomen done, showed possibility of enteritis and/or partial small bowel obstruction. The patient's condition improved with IV fluids. He was put on full liquids initially and later on switched to soft diet. His bowel movements are regular. His abdominal pain was questionable. His bowel sounds were always active and abdomen flat and nontender. His cardiovascular status is stable with no evidence of any myocardial event. The patient does like to take Dilaudid. He asked for Dilaudid all the time during the stay in the hospital. He was on Percocet, narcotics for a number of years for his back problems. He has been thoroughly explained about enteric effect of Percocet. His said that his quality of life is better with Percocet otherwise he wouldn't be able to carry on his daily activity of living. He is advised not to mix alcohol or [id number] medicine with Percocet. He is advised not to mix alcohol or [id number] medicine with Percocet. LABS: Hemoglobin 10.8, hematocrit 31.7, WBC 10,000, normal differential. Creatinine 1 , BUN 16, potassium 4.2, GFR 70 cc/min. C. diff negative. CONDITION AT TIME OF DISCHARGE: Stable. TIME SPENT: More than 60 minutes. CC: DR. CELESTINO PORRAS
--- NOTE | 2017-12-12 09:18 | PN ---
CODING FOR BILLING 12/07/17 LEVEL 5 12/08/17 INTERMEDIATE 12/09/17 INTERMEDIATE 12/10/17 DISCHARGE MTDD
--- NOTE | 2017-12-12 09:24 | PN ---
DATE OF SERVICE: 12/09/17 SUBJECTIVE: The patient's condition has improved. His pain is under control. PHYSICAL EXAMINATION: HEENT: Head normocephalic, atraumatic. Eyes: Extraocular muscles are intact. Pupils are equal, round and reactive to light and accommodation. Ears: No lesions. Nose appeared normal. Throat: No exudate or erythema. NECK: Supple. No JVD, no carotid bruit. No lymphadenopathy or thyromegaly. LUNGS: Clear to auscultation. Percussion note normal. Chest symmetrical. HEART: S1, S2, no S3. No murmurs. No cyanosis or clubbing. No ascites. Pulses: Dorsalis pedis and posterior tibial pulses +1 to +2 both sides. ABDOMEN: Soft. Nontender. Bowel sounds active. The patient has right subcostal tenderness, superficial. No mass felt. EXTREMITIES: No edema. Full range of motion of all extremities, equal. NEUROLOGIC: No focal deficit. Cranial nerves II through XII are grossly intact. No headache, no double vision or headache. SKIN: Not dry. Intact. Turgor - normal. LYMPHATIC: No palpable lymph nodes/no lymphedema. MUSCULOSKELETAL: Normal joints with no swelling. Muscle tone is normal. ASSESSMENT/PLAN: 1. The patient has subcostal tenderness superficial, maybe costochondritis. He likes to take pain medications. Explained that he is on enough [place]. Addiction for [place] discussed. Advised not to mix [place] with [id number] medications. Also he says with [place] he is able to do his daily functions. The patient was seen and examined with the nurse practitioner. TIME SPENT: More than 30 minutes. Plan and coordination of the patient's care discussed in the presence of nurse. CC: DR. CELESTINO PORRAS
--- NOTE | 2017-12-12 09:34 | PN ---
DATE OF SERVICE: 12/08/17 SUBJECTIVE: 67-year-old white male hospitalized on 12/07/17 with abdominal pain, left upper quadrant, left subcostal area. His main problem was diarrhea. During the stay in the hospital, the patient doesn't have any diarrhea. CT scan showed acute gastroenteritis, less likely partial small bowel obstruction. PHYSICAL EXAMINATION: GENERAL: The patient is sitting up, hungry, wants to eat. The patient is on full liquids. HEENT: Head normocephalic, atraumatic. Eyes: Extraocular muscles are intact. Pupils are equal, round and reactive to light and accommodation. Ears: No lesions. Nose appeared normal. Throat: No exudate or erythema. NECK: Supple. No JVD, no carotid bruit. No lymphadenopathy or thyromegaly. LUNGS: Clear to auscultation. Percussion note normal. Chest symmetrical. HEART: S1, S2, no S3. No murmurs. No cyanosis or clubbing. No ascites. Pulses: Dorsalis pedis and posterior tibial pulses +1 to +2 both sides. ABDOMEN: Soft. Nontender. Bowel sounds active. Questionable tenderness on the subcostal area. No distention. No mass felt. EXTREMITIES: No edema. Full range of motion of all extremities, equal. NEUROLOGIC: No focal deficit. Cranial nerves II through XII are grossly intact. No headache, no double vision or headache. SKIN: Not dry. Intact. Turgor - normal. LYMPHATIC: No palpable lymph nodes/no lymphedema. MUSCULOSKELETAL: Normal joints with no swelling. Muscle tone is normal. ASSESSMENT: 1. COSTOCHONDRITIS WITH SPRAIN OF RIGHT SUBCOSTAL AREA MUSCULATURE. 2. POSSIBILITY OF C. DIFF WITH RECENT ANTIBIOTIC THERAPY; PATIENT IS UNABLE TO GIVE ANY STOOL SPECIMENS. HE IS ALREADY ON VANCOMYCIN. 3. PARTIAL SMALL BOWEL OBSTRUCTION, LESS LIKELY. THE PATIENT IS PASSING GAS. 4. GASTROENTERITIS IS ANOTHER LIKELIHOOD. PLAN: 1. The patient is explained about all the findings. The patient wants to have Dilaudid. He was the same way during the last hospitalization, a few days ago, that he liked to take Dilaudid. 2. Continue IV hydration; full liquids. CONDITION: Stable TIME SPENT: More than 30 minutes. CC: DR. TIRADO Plan and coordination of the patient's care discussed in the presence of nurse. VERN
--- NOTE | 2017-12-12 09:54 | HP ---
DATE OF SERVICE: 12/07/17 HISTORY OF PRESENT ILLNESS: This is a 67-year-old white male who was recently hospitalized with acute bronchitis/COPD presents to the emergency room complaining of dizziness, diarrhea, weakness. The paramedics found him to be hypotensive with a blood pressure of 88/50. PAST MEDICAL HISTORY: Dyslipidemia Coronary artery disease Hypertension Atrial fibrillation COPD History of GI bleed Anxiety Depression Back pain PAST SURGICAL HISTORY: Appendectomy Cholecystectomy CABG times two Back surgery Shoulder surgery Hernia repair REVIEW OF SYSTEMS: CONSTITUTIONAL: Weakness. No night sweats. No malaise, lethargy. No fever or chills. HEENT: Eyes: No visual changes. No eye pain. No eye discharge. ENT: No runny nose. No epistaxis. No sinus pain. No sore throat. No odynophagia. No ear pain. No congestion. RESPIRATORY: No cough, no congestion. No hemoptysis. No shortness of breath. CARDIOVASCULAR: No angina symptoms. No CHF symptoms. No atypical chest pain for CAD. No palpitations. No PND. No orthopnea. GASTROINTESTINAL: Abdominal discomfort. No nausea or vomiting. No diarrhea or constipation. No hematemesis. No hematochezia. GENITOURINARY: No urgency. No frequency. No dysuria. No hematuria. No obstructive symptoms. No discharge. No pain. No significant abnormal bleeding. MUSCULOSKELETAL: No musculoskeletal pain. No joint swelling. No arthritis. NEUROLOGICAL: No headache. No neck pain. No syncope. No seizures. Dizziness. PSYCHIATRIC: Not anxious. No depression. No suicidal thoughts. No homicidal thoughts. SKIN: No rash. No lesions. No wounds. ENDOCRINE: No unexplained weight loss. No weight gain. HEMATOLOGIC/LYMPHATIC: No anemia. No purpura. No petechiae. No prolonged or excessive bleeding. No palpable lymph nodes. PERSONAL/FAMILY/SOCIAL HISTORY: The patient is a smoker. Denies alcohol or illicit drug use. Single. MEDICATIONS: (HOME) Lipitor 40 mg p.o. bedtime Imdur 30 mg p.o. daily Aspirin 81 mg p.o. bedtime Plavix 75 mg p.o. daily Xanax 1 mg p.o. bedtime Cardizem 60 mg p.o. q.12hr Oxycodone HCI/Acetaminophen (Percocet 7.5-325 mg tablet) one each p.o. q.i.d. p.r.n. 30 days ProAir HFA 2 puff IH q.6h p.r.n. Protonix 40 mg p.o. b.i.d. Ipratropium/Albuterol Sulfate (Combivent Respimat) one spray 20-100 mcg IH q.6hr p.r.n. Losartan Potassium 100 mg p.o. daily Nitroglycerin 0.4 mg SL as directed p.r.n. ALLERGIES: BUSPIRONE HCI, CODEINE, LORAZEPAM, MEPERIDINE HCI, TIOTROPIUM (FROM SPIRIVA WITH HANDIHALER) PHYSICAL EXAMINATION: VITAL SIGNS: Temperature 97.3, heart rate 87, respirations 20, BP 121/64, pulse ox 99%. HEENT: Head normocephalic, atraumatic. Eyes: Extraocular muscles are intact. Pupils are equal, round and reactive to light and accommodation. Ears: No lesions. Nose appeared normal. Throat: No exudate or erythema. NECK: Supple. No JVD, no carotid bruit. No lymphadenopathy or thyromegaly. LUNGS: Diminished breath sounds bilaterally. Clear to auscultation. Percussion note normal. Chest symmetrical. HEART: S1, S2, no S3. No murmurs. No cyanosis or clubbing. No ascites. Pulses: Dorsalis pedis and posterior tibial pulses +1 to +2 bilaterally. ABDOMEN: Soft. Mild epigastric tenderness. Bowel sounds active. No CVA tenderness. No mass felt. EXTREMITIES: No edema. Full range of motion of all extremities, equal. NEUROLOGIC: No focal deficit. Cranial nerves II through XII are grossly intact. No headache, no double vision or headache. SKIN: Not dry. Intact. Turgor - normal. LYMPHATIC: No palpable lymph nodes/no lymphedema. MUSCULOSKELETAL: Normal joints with no swelling. Muscle tone is normal. CT of the abdomen shows mild gastroenteritis, partial small bowel obstruction is considered less likely but not excluded. Mild diffuse bladder wall thickening. Possible cystitis. LABS: White count 13.99, hemoglobin 11.3, hematocrit 33.3, platelets 206. Sodium 137, potassium 4.1, BUN 17, creatinine 1.02, glucose 128. AST 40, ALT 67 , alkaline phosphatase 54, total protein 5.3, albumin 2.4, lipase 12. ASSESSMENT: 1. ACUTE GASTROENTERITIS 2. POSSIBLE SMALL BOWEL OBSTRUCTION 3. COPD 4. EPIGASTRIC PAIN PLAN: 1. Will admit to the floor 2. Protonix 40 mg IV 3. CBC, CMP daily 4. Chest x-ray 5. Routine telemeetry orders 6. IV fluids at 75 cc/hr NS 7. Clear liquid diet 8. Zofran 4 mg IV q.hr as needed TIME SPENT: More than 70 minutes. CC: DR. CELESTINO PORRAS
--- NOTE | 2017-12-12 10:19 | PN ---
DATE OF SERVICE: 12/09/17 SUBJECTIVE: The patient is lying in bed, resting comfortably. He has been eating 75 to 100% of his meals; however, he states he has severe abdominal pain. He has had one small bowel movement, it has not been loose. This is his first bowel movement since admission. He has not been tested for C. diff yet. We will send this stool. He reports that the Dilaudid helps with pain control. He has had no vomiting. He did experience some belching this morning. REVIEW OF SYSTEMS: CONSTITUTIONAL: No night sweats. No fatigue, malaise, lethargy. No fever or chills. HEENT: Eyes: No visual changes. No eye pain. No eye discharge. ENT: No runny nose. No epistaxis. No sinus pain. No sore throat. No odynophagia. No congestion. RESPIRATORY: No cough, no congestion. No hemoptysis. No shortness of breath. CARDIOVASCULAR: No angina symptoms. No CHF symptoms. No atypical chest pain for CAD. No palpitations. No orthopnea. GASTROINTESTINAL: Positive for abdominal pain. No nausea or vomiting. No diarrhea or constipation. No hematemesis. No hematochezia. GENITOURINARY: No urgency. No frequency. No dysuria. No hematuria. No obstructive symptoms. No discharge. No pain. No significant abnormal bleeding. MUSCULOSKELETAL: No musculoskeletal pain; no joint swelling. NEUROLOGICAL: No headache. No neck pain. No syncope. No seizures. No dizziness. PSYCHIATRIC: Not anxious. No depression. No suicidal thoughts. No homicidal thoughts. SKIN: No rash. No lesions. No wounds. ENDOCRINE: No unexplained weight loss. No weight gain. HEMATOLOGIC/LYMPHATIC: No anemia. No purpura. No petechiae. No prolonged or excessive bleeding. No palpable lymph nodes. PHYSICAL EXAMINATION: VITAL SIGNS: Temperature 97.8, heart rate 94, respirations 16, BP 150/78, pulse ox 95% on room air. HEENT: Head normocephalic, atraumatic. Eyes: Extraocular muscles are intact. Pupils are equal, round and reactive to light and accommodation. Ears: No lesions. Nose appeared normal. Throat: No exudate or erythema. NECK: Supple. No JVD, no carotid bruit. No lymphadenopathy or thyromegaly. LUNGS: Diminished breath sounds bilaterally. Clear to auscultation. Percussion note normal. Chest symmetrical. HEART: S1, S2, no S3. No murmurs. No cyanosis or clubbing. No ascites. Pulses: Dorsalis pedis and posterior tibial pulses +1 to +2 both sides. ABDOMEN: Soft. Epigastric tenderness. Bowel sounds active. No CVA tenderness. No mass felt. EXTREMITIES: No edema. Full range of motion of all extremities, equal. NEUROLOGIC: No focal deficit. Cranial nerves II through XII are grossly intact. No headache, no double vision or headache. SKIN: Not dry. Intact. Turgor - normal. LYMPHATIC: No palpable lymph nodes/no lymphedema. MUSCULOSKELETAL: Normal joints with no swelling. Muscle tone is normal. LABS: Hemoglobin 11, white count 9.3, hematocrit 33, platelets 244. Sodium 139, potassium 4.0. ASSESSMENT: 1. ACUTE ABDOMINAL PAIN 2. ACUTE COLITIS 3. COPD PLAN: 1. Will give him Colace 100 mg b.i.d. to soften stools. 2. He will continue with BRAT low residual diet. 3. Will test the stool for C. diff today, which is unlikely to be positive. 4. Medications will continue. TIME SPENT: More than 30 minutes. Plan and coordination of the patient's care discussed in the presence of nurse. VERN
== END 2017-12-10 14:30 | disposition home or self-care (01) | DRG 392 ==
LOC: ED 14:15 → MEDSURG B 19:23
PROVIDERS: ADMIT Internal Medicine; ATTEND Internal Medicine
DX: K52.9 Noninfective gastroenteritis and colitis, unspecified (principal); K56.600 Partial intestinal obstruction, unspecified as to cause; R19.7 Diarrhea, unspecified; J44.9 Chronic obstructive pulmonary disease, unspecified; G89.29 Other chronic pain; M94.0 Chondrocostal junction syndrome [Tietze]; E78.5 Hyperlipidemia, unspecified; I10 Essential (primary) hypertension; M15.9 Polyosteoarthritis, unspecified; R10.12 Left upper quadrant pain; R42 Dizziness and giddiness; R23.1 Pallor; I95.9 Hypotension, unspecified; R00.0 Tachycardia, unspecified; R53.1 Weakness; Z79.02 Long term (current) use of antithrombotics/antiplatelets; Z79.899 Other long term (current) drug therapy; Z87.891 Personal history of nicotine dependence; Z95.1 Presence of aortocoronary bypass graft; Z98.890 Other specified postprocedural states
CPT/HCPCS: 36415; 80053; 81001; 82962; 83690; 83735; 85025; 87015; 87045; 87081; 87493; 87899; 94640; 96361; 96365; 96375; 99284; 99285

== ENCOUNTER 2018-01-11 13:13 | Emergency (ER) ==
[2018-01-11 13:15] VITALS: BP 133/57; TEMP 98.8; BMI 21.2
--- NOTE | 2018-01-11 13:41 | ED.PDOC ---
General ED Provider: Dr. MADAY MANE Chief Complaint: Respiratory Complaint Stated Complaint: COUGHING. ONSET PAST SEVERAL DAYS. HAS BECOME SEVERE WITH PAROSXYMAL EVENT AND NOW SOB WITH DEVELOPING CHEST WALL PAIN. SPUTUM PRODUCTION OF YELLOWISH TINGED TENACEOUS SECRETIONS. Time Seen by Physician: 13:40 Mode of Arrival: Walk-In Information Source: Patient Exam Limitations: No limitations Primary Care Provider: ANAHI CHUNG Nursing and Triage Documentation Reviewed and Agree: Yes Reviewed sepsis parameters & appropriate labs ordered?: Yes System Inflammatory Response Syndrome: Not Applicable Sepsis Protocol: For patient's 13 years and over: Temp is 96.8 and below OR 101 and greater Pulse >90 BPM Resp >20/minute Acutely Altered Mental Status Are patient's symptoms suggestive of a new infection, such as: -Pneumonia -Skin, Soft Tissue -Endocarditis -UTI -Bone, Joint Infection -Implantable Device -Acute Abdominal Infection -Wound Infection -Meningitis -Blood Stream Catheter Infection -Unknown System Inflammatory Response Syndrome: Not Applicable Respiratory Complaint Exam - Respiratory Complaint/Exam Symptoms Are: Still present Timing: Constant Initial Severity: Severe Current Severity: Severe Location: Throat, Chest Character: Reports: Productive cough, Bronchospastic cough Aggravating: Reports: Exertion, Deep breaths, Recumbent position Alleviating: Reports: None Associated Signs and Symptoms: Reports: Chest pain, Pleuritic chest pain, URI, Increased thirst. Denies: Hemoptysis, Dizziness, Calf pain, Edema, Decreased oral intake Related Surgical History: Reports: None Pulmonary Embolism Risk Factors: None Review of Systems - Review Of Systems Constitutional: Reports: No symptoms Eyes: Reports: No symptoms Ears, Nose, Mouth, Throat: Reports: No symptoms Respiratory: Reports: Cough, Short of air, Wheezing Cardiac: Reports: No symptoms GI: Reports: No symptoms : Reports: No symptoms, Frequency, Urgency Musculoskeletal: Reports: No symptoms Skin: Reports: No symptoms (small abrasion top lt ear/scratched at home ?cat) Neurological: Reports: No symptoms Endocrine: Reports: No symptoms Hematologic/Lymphatic: Reports: No symptoms All Other Systems: Reviewed and Negative Past Medical History - Past Medical History Previously Healthy: No Endocrine: Reports: None, Dyslipidemia Cardiovascular: Reports: CAD, Hypertension, A-Fib Respiratory: Reports: COPD Hematological: Reports: None Gastrointestinal: Reports: None, GI Bleed (DR Hou NOTES PATINET RECENTLY DISCHARGED FRO M ISLAM POST SHRAVAN BARKER TEAR) Genitourinary: Reports: None Neuro/Psych: Reports: None, Anxiety, Depression Musculoskeletal: Reports: Back Pain Cancer: Reports: None, Other Other Pertinent Past Medical History: ABDOMEN SURGERY as an infant - Surgical History General Surgical History: Reports: Appendectomy, Cholecystectomy, CABG (TWICE), Orthopedic (CABG X 2, BACK SURGERY, SHOULDER, NECK DISC REPLACEMENT, ), Back Surgery ( SPINE SURGERY), Hernia Repair (WITH MESH- CURRENTLY HAS TENDER AREA LEFT EPIGASTRIUM WHICH INTERMITTENTLY HAS LARGE PAINFUL LUMP) - Family History Family History: Reports: Unknown - Social History Smoking Status: Former smoker Hx Substance Use: No Alcohol Screening: None - Immunizations Influenza Vaccine within 12 Months: No Pneumococcal Vaccine up to Date: No Physical Exam - Physical Exam Appearance: Ill-appearing, Thin Ill-appearing: Moderate Pain Distress: Moderate Eyes: INDER, EOMI, Conjunctiva clear ENT: Ears normal, Nose normal, Oropharynx normal Neck: Supple Respiratory: Breath sounds diminished, Respirations nonlabored, Crackles, Rhonchi, Wheezes Cardiovascular: RRR GI/: Soft, Hepatomegaly Musculoskeletal: Normal strength, ROM intact, No edema, No calf tenderness Skin: Warm, Dry, Normal color Neurological: Sensation intact, Motor intact, Reflexes intact, Cranial nerves intact, Alert, Oriented Psychiatric: Affect appropriate, Mood appropriate Interpretation - Radiology Interpretation Radiology Results: No acute changes Exam Interpreted: Portable CXR Critical Care Note - Critical Care Note Total Time (mins): 60 (monitored response to treatment) Course - Course Hematology/Chemistry: 01/11/18 14:00 01/11/18 14:00 Orders, Labs, Meds: Lab Review 01/11/18 01/11/18 01/11/18 13:40 14:00 14:00 WBC 9.23 RBC 3.66 L Hgb 10.0 L Hct 28.9 L MCV 79.0 L MCH 27.3 MCHC 34.6 RDW Coeff of Tobin 14.4 Plt Count 269 Immature Gran % (Auto) 0.4 Neut % (Auto) 64.2 Lymph % (Auto) 18.5 [place] % (Auto) 10.9 H Eos % (Auto) 4.9 Baso % (Auto) 1.1 Immature Gran # (Auto) 0.0 Neut # (Auto) 5.9 Lymph # (Auto) 1.7 [place] # (Auto) 1.0 Eos # (Auto) 0.5 Baso # (Auto) 0.1 Puncture Site L rad O2 Saturation 95.0 ABG pH 7.419 ABG pCO2 38.0 ABG pO2 75.0 L ABG HCO3 24.6 ABG Total CO2 26 ABG Base Excess 0 Dariel Test + FiO2 % 21.0 Sodium 130 L Potassium 3.9 Chloride 93 L Carbon Dioxide 23 Anion Gap 17.9 BUN 15 Creatinine 1.27 H Estimated GFR (MDRD) 57.00 BUN/Creatinine Ratio 11.81 Glucose 81 L Calcium 9.2 Total Bilirubin 0.5 AST 31 ALT 24 Alkaline Phosphatase 64 Total Protein 6.7 Albumin 3.1 L Globulin 3.6 Albumin/Globulin Ratio 0.86 Orders Category Date Time Status ABG DRAW REQUEST Stat CARDIO 01/11/18 13:39 Completed NEBULIZER TREATMENT Stat CARDIO 01/11/18 13:46 Completed NEBULIZER TREATMENT Stat CARDIO 01/11/18 13:48 Completed NEBULIZER TREATMENT Stat CARDIO 01/11/18 13:53 Completed IV [ED IV/MEDIPORT/POWERPORT] .ONCE EMERGENCY 01/11/18 13:51 Active ABG Stat LAB 01/11/18 13:40 Completed BLOOD CULTURE (ED ONLY) Stat LAB 01/11/18 14:00 Received CBC W/ AUTO DIFF Stat LAB 01/11/18 14:00 Completed CMP [COMPREHENSIVE METABOLIC PANEL] Stat LAB 01/11/18 14:00 Completed SPUTUM CULTURE Stat LAB 01/11/18 15:11 Uncollected 0.9 % Sodium Chloride [Saline Flush] MEDS 01/11/18 13:51 Active 1 syr IVF PRN PRN Budesonide [Pulmicort 0.25 mg/2 ml] MEDS 01/11/18 13:52 Discontinued 1 vial NEB ONCE STA Guaifenesin/Dextromethorphan [Robitussin Dm Syrup] MEDS 01/11/18 15:12 Discontinued 10 ml PO ONCE STA Ipratropium/Albuterol Neb [Duoneb] MEDS 01/11/18 13:47 Discontinued 1 vial NEB ONCE STA Methylprednisolone Sod Succ/Pf [Solu-Medrol 125 mg] MEDS 01/11/18 13:52 Discontinued 125 mg IVP ONCE STA Tamsulosin HCl [Flomax] MEDS 01/11/18 16:39 Stat 0.4 mg PO ONCE STA CHEST, 1V AP ONLY Stat RADS 01/11/18 13:37 Completed Medications Generic Name Dose Route Start Last Admin Trade Name Freq PRN Reason Stop Dose Admin Sodium Chloride 1 syr 01/11/18 13:51 01/11/18 14:12 Saline Flush IVF 1 syr PRN PRN Administration To flush IV Discontinued Medications Generic Name Dose Route Start Last Admin Trade Name Freq PRN Reason Stop Dose Admin Albuterol/Ipratropium 1 vial 01/11/18 13:47 01/11/18 14:08 Duoneb NEB 01/11/18 13:48 1 vial ONCE STA Administration Budesonide 1 vial 01/11/18 13:52 01/11/18 14:08 Pulmicort 0.25 Mg/2 Ml NEB 01/11/18 13:53 1 vial ONCE STA Administration Guaifenesin/Dextromethorphan 10 ml 01/11/18 15:12 01/11/18 15:24 Robitussin Dm Syrup PO 01/11/18 15:13 10 ml ONCE STA Administration Methylprednisolone Sodium Succinate 125 mg 01/11/18 13:52 01/11/18 14:11 Solu-Medrol 125 Mg IVP 01/11/18 13:53 125 mg ONCE STA Administration Tamsulosin HCl 0.4 mg 01/11/18 16:39 Flomax PO 01/11/18 16:40 ONCE STA Vital Signs: Temp Pulse Resp BP Pulse Ox 01/11/18 13:14 98.8 F 108 H 16 133/57 L 93 L Departure - Departure Time of Disposition: 16:45 Disposition: HOME SELF-CARE Discharge Problem: COPD (chronic obstructive pulmonary disease) with chronic bronchitis, Chronic lung disease, Urinary urgency, Ear abrasion Instructions: COPD (Chronic Obstructive Pulmonary Disease) (ED), Abrasion (ED) , Urinary Urgency and Frequency (DC) Condition: Good Pt referred to PMD for follow-up: Yes IPMP verified?: No Additional Instructions: Cleanse ear wound with antiseptic and apply antibiotic ointment daily until healed Prescriptions: Azithromycin [Zithromax] 250 mg PO DAILY #6 tablet Prednisone 10 mg PO DIRECTED #18 tablet Allergies/Adverse Reactions: Allergies buspirone HCl [From BuSpar] Adverse Reaction (Verified 01/11/18 13:16) codeine Adverse Reaction (Verified 01/11/18 13:16) lorazepam [From Ativan] Adverse Reaction (Verified 01/11/18 13:16) meperidine HCl [From Demerol] Adverse Reaction (Verified 01/11/18 13:16) promethazine HCl [From Phenergan] Adverse Reaction (Verified 01/11/18 13:16) tiotropium bromide [From Spiriva with HandiHaler] Adverse Reaction (Verified 13:16) Home Medications: Ambulatory Orders Atorvastatin Calcium [Lipitor] 40 mg PO BEDTIME 01/20/13 Isosorbide Mononitrate [Imdur] 30 mg PO DAILY 01/20/13 Aspirin [Aspirin Chewable] 81 mg PO BEDTIME 01/28/13 Alprazolam [Xanax] 1 mg PO BEDTIME 09/22/14 Clopidogrel Bisulfate [Plavix] 75 mg PO DAILY 09/22/14 Diltiazem HCl [Cardizem] 60 mg PO Q12HR #60 tablet 09/23/14 Oxycodone HCl/Acetaminophen [Percocet 7.5-325 mg Tablet] 1 each PO QID PRN 30 Days tablet 03/18/15 Albuterol Sulfate [Proair Hfa] 2 puff IH Q6H PRN #1 inh 06/30/15 Pantoprazole Sodium [Protonix] 40 mg PO BID #60 tablet. 11/23/16 Ipratropium/Albuterol Sulfate [Combivent Respimat Inhal [place]] 20 - 100 mcg IH Q6HR PRN 05/23/17 Losartan Potassium 100 mg PO DAILY #30 tablet 07/17/17 Nitroglycerin 0.4 mg SL DIRECTED PRN 11/29/17 Azithromycin [Zithromax] 250 mg PO DAILY #6 tablet 01/11/18 Prednisone 10 mg PO DIRECTED #18 tablet 01/11/18 Disposition Discussed With: Patient
[2018-01-11] MEDS ORDERED: DUONEB NEB STA (13:47)
[2018-01-11] MEDS ORDERED: PULMICORT 0.25 MG/2 ML NEB STA (13:52)
[2018-01-11] MEDS ORDERED: SOLU-MEDROL 125 MG IVP STA (13:52)
--- NOTE | 2018-01-11 14:10 | DI ---
EXAM: Single view of the chest. History: Cough. Comparison: Chest radiograph 11/29/2017 Findings: Heart size is normal. Atherosclerotic vascular calcifications. No focal consolidation. No appreciable pleural fluid and no pneumothorax. Emphysema again noted. No acute osseous abnormali ties. Impression: No acute cardiopulmonary process. Emphysema.
[2018-01-11] MEDS ORDERED: ROBITUSSIN DM SYRUP PO STA (15:12)
[2018-01-11] MEDS ORDERED: FLOMAX PO STA (16:39)
== END 2018-01-11 16:59 | disposition home or self-care (01) ==
LOC: ED 13:13
DX: J44.9 Chronic obstructive pulmonary disease, unspecified (principal); R39.15 Urgency of urination; S00.412A Abrasion of left ear, initial encounter; W55.03XA Scratched by cat, initial encounter; R06.02 Shortness of breath; R07.89 Other chest pain; R35.0 Frequency of micturition; I25.810 Atherosclerosis of coronary artery bypass graft(s) without angina pectoris; I10 Essential (primary) hypertension; E78.5 Hyperlipidemia, unspecified; Z79.899 Other long term (current) drug therapy; Z87.19 Personal history of other diseases of the digestive system
CPT/HCPCS: 36415; 80053; 82803; 85025; 87040; 94640; 96374; 96375; 99284

== ENCOUNTER 2018-04-30 11:24 | Inpatient (IN) ==
--- NOTE | 2018-04-30 12:21 | DI ---
EXAM: Chest one view, frontal view only. HISTORY: Shortness of breath. COMPARISON: None available. FINDINGS: Post CABG changes noted. Atherosclerotic calcifications are seen. The heart size is norm al. There is no pulmonary vascular congestion. Mild bibasilar reticulonodular opacities present whi ch appear increased since the prior study. Otherwise, the lungs are clear. No pleural effusion or p neumothorax is seen. No acute osseous abnormality is identified. IMPRESSION: Mild bibasilar reticulonodular opacities suggesting airways inflammation.
[2018-04-30] MEDS ORDERED: SODIUM CHLORIDE 500 ML IV STA (12:34)
[2018-04-30] MEDS ORDERED: SOLU-MEDROL 125 MG IVP STA (12:34)
[2018-04-30] MEDS ORDERED: DUONEB NEB STA (12:34)
[2018-04-30] MEDS ORDERED: ZOFRAN 4 MG/2 ML IVP STA (12:35)
[2018-04-30] MEDS ORDERED: MORPHINE 2 MG/ML SYRINGE IVP STA (12:35)
--- NOTE | 2018-04-30 14:00 | CT ---
EXAM: CTA CHEST (PE PROTOCOL) HISTORY: Shortness of breath TECHNIQUE: CTA chest with intravenous contrast. Multiplanar images were provided with 3-D reconstru ctions. FINDINGS: Compared to 11/20/2016. No pulmonary arterial filling defect is identified. Moderately severe atherosclerotic disease. Norm al heart size without pericardial effusion. A few mediastinal and hilar lymph nodes appear grossly s table and are nonspecific. Trace right pleural effusion. Lungs are hyperinflated. Diffuse chronic-appearing interstitial change s. There is evidence of interstitial fibrosis with associated paraseptal emphysema. Bilateral bronc hiectasis is present. There are multiple nodular and patchy areas of opacity, many of which are pleu ral based most noted probably in the anterior left cardiophrenic angle. Most of these are new since the relatively dated exam and could represent a combination of fibrosis and pneumonia. Underlying ne oplasia is not excluded and follow-up CT should be considered after management and symptom resolution . There is no evidence of congestive heart failure or fluid overload. No pneumothorax. The bones reveal degenerative changes of the lower cervical spine and evidence of prior sternotomy. IMPRESSION: 1. No pulmonary arterial thromboembolism is identified. 2. Multiple new patchy areas of opacity as described which may represent a combination of fibrosis a nd pneumonia. Background of pulmonary emphysema is present. Trace right pleural effusion. Follow-u p CT is recommended. 3. Nonspecific mediastinal lymph nodes. 4. Moderately severe atherosclerotic disease.
[2018-04-30] MEDS ORDERED: NITROSTAT SL PRN (14:27)
--- NOTE | 2018-04-30 14:34 | ED.PDOC ---
General ED Provider: Dr. UNRULY RIVERA Chief Complaint: Shortness of Air Stated Complaint: SHORTNESS OF BREATH Time Seen by Physician: 11:30 (SEEN WITH MIREILLE ) Mode of Arrival: Walk-In Information Source: Patient Exam Limitations: No limitations Primary Care Provider: ANAHI CHUNG Nursing and Triage Documentation Reviewed and Agree: Yes Does patient meet sepsis criteria?: No If yes, has appropriate treatment been initiated?: No System Inflammatory Response Syndrome: Not Applicable Sepsis Protocol: For patient's 13 years and over: Temp is 96.8 and below OR 101 and greater Pulse >90 BPM Resp >20/minute Acutely Altered Mental Status Are patient's symptoms suggestive of a new infection, such as: -Pneumonia -Skin, Soft Tissue -Endocarditis -UTI -Bone, Joint Infection -Implantable Device -Acute Abdominal Infection -Wound Infection -Meningitis -Blood Stream Catheter Infection -Unknown Respiratory Complaint Exam - Shortness of Air Complaint/Exam Onset/Duration: S.O.BX 2 DAYS HE HAD 1 EPISODE OF SYNCOPE FOR A FEW SECONDS RAPID RECOVERY Symptoms Are: Still present (S.O.B BUT HAS NO CHEST PAIN ) Timing: Intermittent Initial Severity: Mild Current Severity: Mild Character: Reports: Dyspnea at rest, Dyspnea on exertion Aggravating: Reports: Movement Alleviating: Reports: Bronchodilators, Upright position, Spontaneous resolution Associated Signs and Symptoms: Reports: Cough, Wheezing. Denies: Chest pain with cough, Chest pain, Fever, Chills, Diaphoresis, Nasal congestion, Dizziness , Calf pain, Calf swelling, Edema, Rapid breathing, Labored breathing, Decreased intake Pulmonary Embolism Risk Factors: Reports: Bedrest Cardiac Risk Factors: Reports: CAD, Hypertension Pseudomonas Risk Factors: Reports: None Tuberculosis Risk Factors: Reports: None Home Oxygen Use: No Recent Stress Test: No Recent Echo/LV Function: No Respiratory Distress: None Stridor Present: No Tracheal Deviation: No Subcutaneous Emphysema: No Accessory Muscle Use: No Retractions: Not Present Diminished Breath Sounds: Yes Prolonged Expiratory Phase: No Unable to Speak Full Sentences: No Fatigue: No Leg Swelling: No Skyla's Sign Present: No Grunting Respirations: No Kussmaul Respirations: No Differential Diagnoses: COPD Exacerbation, Pneumonia, Pulmonary Embolism, Bronchitis Quality Indicators for AMI: EKG in 10min. Quality Indicators for Cardiac Chest Pain: EKG in 10min. Quality Indicator For Non-Traumatic Chest Pain/Syncope: EKG Performed Review of Systems - Review Of Systems Constitutional: Reports: Malaise, Weakness Eyes: Reports: No symptoms Ears, Nose, Mouth, Throat: Reports: No symptoms Respiratory: Reports: Cough, Short of air Cardiac: Reports: No symptoms GI: Reports: No symptoms : Reports: No symptoms Musculoskeletal: Reports: No symptoms Skin: Reports: No symptoms Neurological: Reports: No symptoms Endocrine: Reports: No symptoms Hematologic/Lymphatic: Reports: No symptoms All Other Systems: Reviewed and Negative Past Medical History - Past Medical History Previously Healthy: No Endocrine: Reports: None, Dyslipidemia Cardiovascular: Reports: CAD, Hypertension, A-Fib Respiratory: Reports: COPD Hematological: Reports: None Gastrointestinal: Reports: None, GI Bleed (DR Hou NOTES PATINET RECENTLY DISCHARGED [facility]) Genitourinary: Reports: None Neuro/Psych: Reports: None, Anxiety, Depression Musculoskeletal: Reports: Back Pain Cancer: Reports: None, Other Other Pertinent Past Medical History: ABDOMEN SURGERY as an - Surgical History General Surgical History: Reports: Appendectomy, Cholecystectomy, CABG (TWICE), Orthopedic (CABG X 2, BACK SURGERY, SHOULDER, NECK DISC REPLACEMENT, ), Back Surgery ( SPINE SURGERY), Hernia Repair (WITH MESH- CURRENTLY HAS TENDER AREA LEFT EPIGASTRIUM WHICH INTERMITTENTLY HAS LARGE PAINFUL LUMP) - Family History Family History: Reports: Unknown - Social History Smoking Status: Former smoker Hx Substance Use: No Alcohol Screening: None - Immunizations Tetanus Shot up to Date: Yes Influenza Vaccine within 12 Months: No Pneumococcal Vaccine up to Date: No Physical Exam - Physical Exam Appearance: Ill-appearing Ill-appearing: Mild Pain Distress: Mild Eyes: INDER, EOMI, Conjunctiva clear ENT: Ears normal, Nose normal, Oropharynx normal Respiratory: Breath sounds diminished, Rhonchi Cardiovascular: RRR, Pulses normal, No rub, No murmur GI/: Soft, Nontender, No masses, Bowel sounds normal, No Organomegaly Musculoskeletal: Normal strength, ROM intact, No edema, No calf tenderness Skin: Warm, Dry, Normal color Neurological: Sensation intact, Motor intact, Reflexes intact, Cranial nerves intact, Alert, Oriented Psychiatric: Affect appropriate, Mood appropriate Interpretation - Radiology Interpretation Radiology Interpretation By: Radiologist Radiology Results: No acute changes (INTERMS OF P.E. OR DISECTION) - Tableau Analyst Rate: Normal Rhythm: Sinus Ectopy: None - EKG Interpretation Rate: Normal Rhythm: Sinus Ectopy: None [place]: NL ST Segment: Normal (L.V.H) Re-Evaluation - Re-Evaluation Time of Re-Evaluation: 12:00 Status: Improved Vital Signs Stable: Yes Appearance: NAD Lungs: Clear Skin: Warm and Dry Neuro: Alert and Oriented X3 CV: RRR - Re-Evaluation Time of Re-Evaluation: 14:37 Status: Improved Vital Signs Stable: Yes Pain Level: 0 Appearance: NAD Skin: Warm and Dry Neuro: Alert and Oriented X3 CV: RRR Physician Notification - Case Discussed Physician Notified: PMD Time of Notification: 14:37 Critical Care Note - Critical Care Note Total Time (mins): 0 Course - Course Hematology/Chemistry: 04/30/18 11:35 04/30/18 11:35 Orders, Labs, Meds: Lab Review 04/30/18 04/30/18 04/30/18 11:35 11:35 11:35 WBC 12.28 H RBC 4.45 L Hgb 11.5 L Hct 34.0 L MCV 76.4 L MCH 25.8 L MCHC 33.8 RDW Coeff of Tobin 16.7 H Plt Count 257 Immature Gran % (Auto) 0.3 Neut % (Auto) 84.8 Lymph % (Auto) 5.5 L T[place] % (Auto) 9.0 Eos % (Auto) 0.2 Baso % (Auto) 0.2 Immature Gran # (Auto) 0.0 Neut # (Auto) 10.4 H Lymph # (Auto) 0.7 Tama # (Auto) 1.1 Eos # (Auto) 0.0 Baso # (Auto) 0.0 Puncture Site O2 Saturation ABG pH ABG pCO2 ABG pO2 ABG HCO3 ABG Total CO2 ABG Base Excess Dariel Test FiO2 % Sodium 134 L Potassium 3.8 Chloride 95 L Carbon Dioxide 29 Anion Gap 13.8 BUN 15 Creatinine 0.89 Estimated GFR (MDRD) 86.00 BUN/Creatinine Ratio 16.85 Glucose 149 H Lactic Acid Calcium 9.3 Total Bilirubin 0.4 AST 53 ALT 32 Alkaline Phosphatase 102 Total Creatine Kinase 70 Troponin I < 0.012 Total Protein 7.7 Albumin 3.6 Globulin 4.1 Albumin/Globulin Ratio 0.88 Procalcitonin 0.11 04/30/18 04/30/18 11:55 12:10 WBC RBC Hgb Hct MCV MCH MCHC RDW Coeff of Tobin Plt Count Immature Gran % (Auto) Neut % (Auto) Lymph % (Auto) Tama % (Auto) Eos % (Auto) Baso % (Auto) Immature Gran # (Auto) Neut # (Auto) Lymph # (Auto) [place] # (Auto) Eos # (Auto) Baso # (Auto) Puncture Site R rad O2 Saturation 94.0 L ABG pH 7.504 H* ABG pCO2 31.7 L ABG pO2 62.0 L ABG HCO3 24.9 ABG Total CO2 26 ABG Base Excess 2 Dariel Test + FiO2 % 21.0 Sodium Potassium Chloride Carbon Dioxide Anion Gap BUN Creatinine Estimated GFR (MDRD) BUN/Creatinine Ratio Glucose Lactic Acid 1.3 Calcium Total Bilirubin AST ALT Alkaline Phosphatase Total Creatine Kinase Troponin I Total Protein Albumin Globulin Albumin/Globulin Ratio Procalcitonin Orders Category Date Time Status ABG DRAW REQUEST Stat CARDIO 04/30/18 11:41 Completed EKG-(ED ONLY) Stat CARDIO 04/30/18 11:41 Completed EKG-(IP & OP ONLY) DAILY CARDIO 05/01/18 06:00 Ordered EKG-(IP & OP ONLY) DAILY CARDIO 05/02/18 06:00 Ordered EKG-(IP & OP ONLY) DAILY CARDIO 05/03/18 06:00 Ordered NEBULIZER TREATMENT Stat CARDIO 04/30/18 12:34 Completed NEBULIZER TREATMENT Stat CARDIO 04/30/18 14:29 Ordered ACTIVITY .Complete BR CARE 04/30/18 14:31 Ordered INTAKE & OUTPUT Q8HR CARE 04/30/18 14:29 Ordered NPO REMINDER: IMAGING ONCE CARE 04/30/18 12:34 Active VITAL SIGNS Q4HR CARE 04/30/18 14:31 Ordered REGULAR DIET DIETARY 04/30/18 Dinner Ordered ED IV/MEDIPORT/POWERPORT .ONCE EMERGENCY 04/30/18 11:41 Active ABG Stat LAB 04/30/18 11:55 Completed BLOOD CULTURE Stat LAB 04/30/18 12:10 Received CBC W/ AUTO DIFF DAILY@0600 LAB 05/01/18 06:00 Ordered CBC W/ AUTO DIFF DAILY@0600 LAB 05/02/18 06:00 Ordered CBC W/ AUTO DIFF Stat LAB 04/30/18 11:35 Completed COMPREHENSIVE METABOLIC PANEL DAILY@0600 LAB 05/01/18 06:00 Ordered COMPREHENSIVE METABOLIC PANEL DAILY@0600 LAB 05/02/18 06:00 Ordered COMPREHENSIVE METABOLIC PANEL Stat LAB 04/30/18 11:35 Completed CREATINE KINASE Q8H LAB 04/30/18 20:45 Ordered CREATINE KINASE Q8H LAB 05/01/18 04:45 Ordered CREATINE KINASE Stat LAB 04/30/18 11:35 Completed LACTIC ACID Stat LAB 04/30/18 12:10 Completed PROCALCITONIN Stat LAB 04/30/18 11:35 Completed TROPONIN I Q8H LAB 04/30/18 20:45 Ordered TROPONIN I Q8H LAB 05/01/18 04:45 Ordered TROPONIN I Stat LAB 04/30/18 11:35 Completed 0.9 % Sodium Chloride [Saline Flush] MEDS 04/30/18 11:41 Active 1 syr IVF PRN PRN Alprazolam [Xanax] MEDS 04/30/18 21:00 Ordered 1 mg PO BEDTIME Aspirin [Aspirin Chewable] MEDS 04/30/18 21:00 Ordered 81 mg PO BEDTIME Atorvastatin Calcium [Lipitor] MEDS 04/30/18 21:00 Ordered 40 mg PO BEDTIME Clopidogrel Bisulfate [Plavix] MEDS 05/01/18 09:00 Ordered 75 mg PO DAILY Diltiazem HCl [Cardizem] MEDS 04/30/18 21:00 Ordered 60 mg PO Q12HR Ipratropium/Albuterol Neb [Duoneb] MEDS 04/30/18 12:34 Discontinued 1 vial NEB ONCE STA Ipratropium/Albuterol Neb [Duoneb] MEDS 04/30/18 18:00 Ordered 1 vial NEB RTQ6H Isosorbide Mononitrate [Imdur] MEDS 05/01/18 09:00 Ordered 30 mg PO DAILY Losartan Potassium [Cozaar] MEDS 05/01/18 09:00 Ordered 100 mg PO DAILY Methylprednisolone Sod Succ/Pf [Solu-Medrol 125 mg] MEDS 04/30/18 12:34 Discontinued 125 mg IVP ONCE STA Methylprednisolone Sod Succ/Pf [Solu-Medrol 40 mg] MEDS 04/30/18 21:00 Ordered 40 mg IVP Q12HR Morphine Sulfate [Morphine 2 mg/ml Syringe] MEDS 04/30/18 12:35 Discontinued 2 mg IVP ONCE STA Nitroglycerin [Nitrostat] MEDS 04/30/18 14:27 Ordered 0.4 mg SL DIRECTED PRN Ondansetron HCl/Pf [Zofran 4 mg/2 ml] MEDS 04/30/18 12:35 Discontinued 4 mg IVP ONCE STA Oxycodone-Acetaminophe 7.5-325 [Percocet 7.5-325] MEDS 04/30/18 14:27 Ordered 1 each PO QID PRN Pantoprazole Sodium [Protonix] MEDS 04/30/18 21:00 Ordered 40 mg PO BID Sodium Chloride 0.9% [Sodium Chloride] 1,000 ml MEDS 04/30/18 15:00 Ordered IV 75 mls/hr Sodium Chloride 0.9% [Sodium Chloride] 500 ml MEDS 04/30/18 12:34 Active IV 100 mls/hr CHEST, 1V AP ONLY Stat RADS 04/30/18 11:[address] CHEST PE PROTOCOL Stat RADS 04/30/18 12:33 Completed Medications Generic Name Dose Route Start Last Admin Trade Name Freq PRN Reason Stop Dose Admin Albuterol/Ipratropium 1 vial 04/30/18 18:00 Duoneb NEB RTQ6H JONATAN Alprazolam 1 mg 04/30/18 21:00 Xanax PO BEDTIME [facility] Aspirin 81 mg 04/30/18 21:00 Aspirin Chewable PO BEDTIME [facility] Atorvastatin Calcium 40 mg 04/30/18 21:00 Lipitor PO BEDTIME [facility] Clopidogrel Bisulfate 75 mg 05/01/18 09:00 Plavix PO DAILY [facility] Diltiazem HCl 60 mg 04/30/18 21:00 Cardizem PO Q12HR JONATAN Sodium Chloride 500 mls @ 100 mls/hr 04/30/18 12:34 04/30/18 12:51 Sodium Chloride IV 04/30/18 17:33 100 mls/hr .Q5H STA Administration Sodium Chloride 1,000 mls @ 75 mls/hr 04/30/18 15:00 Sodium Chloride IV .[id number] [facility] Isosorbide Mononitrate 30 mg 05/01/18 09:00 Imdur PO DAILY [facility] Losartan Potassium 100 mg 05/01/18 09:00 Cozaar PO DAILY [facility] Methylprednisolone Sodium Succinate 40 mg 04/30/18 21:00 Solu-Medrol 40 Mg IVP Q12HR JONATAN Nitroglycerin 0.4 mg 04/30/18 14:27 Nitrostat SL DIRECTED PRN Angina Oxycodone/Acetaminophen tab 04/30/18 14:27 Percocet 7.5-325 PO QID PRN Analgesia Pantoprazole Sodium 40 mg 04/30/18 21:00 Protonix PO BID JONATAN Sodium Chloride 1 syr 04/30/18 11:41 Saline Flush IVF PRN PRN To flush IV Discontinued Medications Generic Name Dose Route Start Last Admin Trade Name Freq PRN Reason Stop Dose Admin Albuterol/Ipratropium 1 vial 04/30/18 12:34 04/30/18 12:44 Duoneb NEB 04/30/18 12:35 1 vial ONCE STA Administration Methylprednisolone Sodium Succinate 125 mg 04/30/18 12:34 04/30/18 12:49 Solu-Medrol 125 Mg IVP 04/30/18 12:35 125 mg ONCE STA Administration Morphine Sulfate 2 mg 04/30/18 12:35 04/30/18 12:51 Morphine 2 Mg/Ml Syringe IVP 04/30/18 12:36 2 mg ONCE STA Administration Ondansetron HCl 4 mg 04/30/18 12:35 04/30/18 12:43 Zofran 4 Mg/2 Ml IVP 04/30/18 12:36 4 mg ONCE STA Administration Vital Signs: Temp Pulse Resp BP Pulse Ox 04/30/18 11:25 98.1 F 94 H 28 H 143/96 H 100 Departure - Departure Time of Disposition: 14:37 Disposition: ADMITTED INPATIENT Discharge Problem: COPD exacerbation Instructions: COPD (Chronic Obstructive Pulmonary Disease) (ED) Condition: Good Pt referred to PMD for follow-up: Yes IPMP verified?: No Allergies/Adverse Reactions: Allergies buspirone HCl [From BuSpar] Adverse Reaction (Verified 04/30/18 11:28) codeine Adverse Reaction (Verified 04/30/18 11:28) lorazepam [From Ativan] Adverse Reaction (Verified 04/30/18 11:28) meperidine HCl [From Demerol] Adverse Reaction (Verified 04/30/18 11:28) promethazine HCl [From Phenergan] Adverse Reaction (Verified 04/30/18 11:28) tiotropium bromide [From Spiriva with HandiHaler] Adverse Reaction (Verified 06/07 11:28) Home Medications: Ambulatory Orders Atorvastatin Calcium [Lipitor] 40 mg PO BEDTIME 01/20/13 Isosorbide Mononitrate [Imdur] 30 mg PO DAILY 01/20/13 Aspirin [Aspirin Chewable] 81 mg PO BEDTIME 01/28/13 Alprazolam [Xanax] 1 mg PO BEDTIME 09/22/14 Clopidogrel Bisulfate [Plavix] 75 mg PO DAILY 09/22/14 Diltiazem HCl [Cardizem] 60 mg PO Q12HR #60 tablet 09/23/14 Oxycodone HCl/Acetaminophen [Percocet 7.5-325 mg Tablet] 1 each PO QID PRN 30 Days tablet 03/18/15 Albuterol Sulfate [Proair Hfa] 2 puff IH Q6H PRN #1 inh 06/30/15 Pantoprazole Sodium [Protonix] 40 mg PO BID #60 tablet. 11/23/16 Ipratropium/Albuterol Sulfate [Combivent Respimat Inhal [place]] 20 - 100 mcg IH Q6HR PRN 05/23/17 Losartan Potassium 100 mg PO DAILY #30 tablet 07/17/17 Nitroglycerin 0.4 mg SL DIRECTED PRN 11/29/17 Prednisone 10 mg PO DIRECTED #18 tablet 01/11/18 Disposition Discussed With: Patient
[2018-04-30 15:31] VITALS: BMI 18.6
[2018-04-30] MEDS: PROTONIX PO SCH (16:30)
[2018-04-30] MEDS: PERCOCET 7.5-325 PO PRN (16:30)
[2018-04-30] MEDS: DUONEB NEB SCH ×2 (17:01→23:30)
[2018-04-30] MEDS: SODIUM CHLORIDE 1,000 ML IV SCH (19:39)
[2018-04-30] MEDS ORDERED: MORPHINE 4 MG/ML SYRINGE IVP PRN (20:40)
[2018-04-30] MEDS ORDERED: ZOFRAN 4 MG/2 ML IVP PRN (20:41)
[2018-04-30] MEDS ORDERED: SOLU-MEDROL 40 MG IVP SCH (21:00)
[2018-04-30] MEDS ORDERED: MORPHINE 4 MG/ML VIAL ONE (22:07)
[2018-04-30] MEDS: MORPHINE 4 MG/ML VIAL IVP PRN (22:13)
[2018-04-30] MEDS: ASPIRIN CHEWABLE PO SCH (22:13)
[2018-04-30] MEDS: CARDIZEM PO SCH (22:14)
[2018-04-30] MEDS: XANAX PO SCH (22:14)
[2018-04-30] MEDS: LIPITOR PO SCH (22:14)
[2018-05-01] MEDS: MORPHINE 4 MG/ML VIAL IVP PRN ×3 (04:06→19:27)
[2018-05-01] MEDS: DUONEB NEB SCH ×4 (05:00→23:49)
[2018-05-01] MEDS: PROTONIX PO SCH ×2 (05:49→17:14)
[2018-05-01] MEDS: FLOMAX PO SCH (08:37)
[2018-05-01] MEDS: CYMBALTA PO SCH (08:37)
[2018-05-01] MEDS: CARDIZEM PO SCH ×2 (08:37→20:32)
[2018-05-01] MEDS: PLAVIX PO SCH (08:38)
[2018-05-01] MEDS: IMDUR PO SCH (08:38)
[2018-05-01] MEDS: TOPROL XL PO SCH (08:39)
[2018-05-01] MEDS: PERCOCET 7.5-325 PO PRN ×3 (08:39→23:05)
[2018-05-01] MEDS ORDERED: COZAAR PO SCH (09:00)
[2018-05-01] MEDS: SOLU-MEDROL 40 MG IVP SCH ×4 (09:32→23:05)
[2018-05-01] MEDS: KEFLEX PO SCH ×2 (09:32→20:32)
--- NOTE | 2018-05-01 10:34 | PCM.PROG ---
Attending Provider: ATTENDING PROVIDER: Dr. ANAHI CHUNG DATE OF SERVICE: 05/01/18 SUBJECTIVE: This 68 year old WHITE/ M was hospitalized 04/30/18 COPD exacerbation , treated with steroid and will be on antibiotic. The patient now has mild cough with pleuritic type pain on the left side, subcostal, on and off for the past couple of years. Overall condition is deteriorating. He has severe osteoarthritis, generalized and requires pain medication. REVIEW OF SYSTEMS: CONSTITUTIONAL: No night sweats. No fatigue, malaise, lethargy. No fever or chills. HEENT: Eyes: No visual changes. No eye pain. No eye discharge. ENT: No runny nose. No epistaxis. No sinus pain. No odynophagia. No congestion. RESPIRATORY: No cough, no congestion. No hemoptysis. No shortness of breath. CARDIOVASCULAR: No angina symptoms. No CHF symptoms. No atypical chest pain for CAD. No palpitations. No orthopnea.. GASTROINTESTINAL: No abdominal pain. No nausea or vomiting. No diarrhea or constipation. No hematemesis. No hematochezia. GENITOURINARY: No urgency. No frequency. No dysuria. No hematuria. No obstructive symptoms. No discharge. No pain. No significant abnormal bleeding. MUSCULOSKELETAL: No musculoskeletal pain; no joint swelling. NEUROLOGICAL: Awake, alert, oriented to time, place and person. No headache. No neck pain. No syncope. No seizures. No dizziness. PSYCHIATRIC: Not anxious. No depression. No suicidal thoughts. No homicidal thoughts. SKIN: No rash. No lesions. No wounds. ENDOCRINE: No unexplained weight loss. No weight gain. HEMATOLOGIC/LYMPHATIC: No anemia. No purpura. No petechiae. No prolonged or excessive bleeding. No palpable lymph nodes. PHYSICAL EXAMINATION: GENERAL: The patient is awake, alert and oriented, lying in bed in no distress. VITAL SIGNS: Temperature 97.5 F, Pulse 71, Respiratory Rate 18, BP 139/80, Pulse Ox 100% HEENT: Head normocephalic, atraumatic. Eyes: Extraocular muscles are intact. Pupils are equal, round and reactive to light and accommodation. Ears: No lesions. Nose appeared normal. Throat: No exudate or erythema. NECK: Supple. No JVD, no carotid bruit. No lymphadenopathy or thyromegaly. LUNGS: Decreased breath sounds with wheeze. Percussion note normal. Chest symmetrical. HEART: S1, S2, no S3. No murmurs. No cyanosis or clubbing. No ascites. Pulses: Dorsalis pedis and posterior tibial pulses +1 to +2 both sides. ABDOMEN: Soft. Non-tender. Bowel sounds active. No CVA tenderness. No mass felt. EXTREMITIES: No edema. Full range of motion of all extremities, equal. NEUROLOGIC: No focal deficit. Cranial nerves II through XII are grossly intact. No headache, no double vision or headache. SKIN: Warm and dry. Intact. Turgor-normal. LYMPHATIC: No palpable lymph nodes/no lymphedema. MUSCULOSKELETAL: Normal joints with no swelling. Muscle tone is normal. LAB REVIEW: 05/01/18 05:30 05/01/18 05:30 05/01/18 05:30: Sodium 133 L, Potassium 4.17, Chloride 99, Carbon Dioxide 26.5, Anion Gap 11.67, BUN 20, Creatinine 0.93, Estimated GFR (MDRD) 81.00, BUN/ Creatinine Ratio 21.50, Glucose 254.0 H D, Calcium 8.8, Total Bilirubin 0.2, AST 47, ALT 35, Alkaline Phosphatase 92, Total Protein 6.9, Albumin 3.2 L, Globulin 3.7, Albumin/Globulin Ratio 0.86 05/01/18 05:30: WBC 5.72 D, RBC 4.14 L, Hgb 10.4 L, Hct 31.5 L, MCV 76.1 L, MCH 25.1 L, MCHC 33.0, RDW Coeff of Tobin 16.5 H, Plt Count 219, Immature Gran % ( Auto) 0.3, Neut % (Auto) 91.3, Lymph % (Auto) 5.6 L, [place] % (Auto) 2.8, Eos % ( Auto) 0.0, Baso % (Auto) 0.0, Immature Gran # (Auto) 0.0, Neut # (Auto) 5.2, Lymph # (Auto) 0.3 L, [place] # (Auto) 0.2 L, Eos # (Auto) 0.0, Baso # (Auto) 0.0 05/01/18 05:30: Total Creatine Kinase 52 L, Troponin I < 0.012 04/30/18 22:00: Total Creatine Kinase 59, Troponin I < 0.012 04/30/18 12:10: Lactic Acid 1.3 04/30/18 11:55: Puncture Site R rad, O2 Saturation 94.0 L, ABG pH 7.504 H*, ABG pCO2 31.7 L, ABG pO2 62.0 L, ABG HCO3 24.9, ABG Total CO2 26, ABG Base Excess 2 , Dariel Test +, FiO2 % 21.0 04/30/18 11:35: Procalcitonin 0.11 04/30/18 11:35: Sodium 134 L, Potassium 3.8, Chloride 95 L, Carbon Dioxide 29, Anion Gap 13.8, BUN 15, Creatinine 0.89, Estimated GFR (MDRD) 86.00, BUN/ Creatinine Ratio 16.85, Glucose 149 H, Calcium 9.3, Total Bilirubin 0.4, AST 53 , ALT 32, Alkaline Phosphatase 102, Total Creatine Kinase 70, Troponin I < 0.012 , Total Protein 7.7, Albumin 3.6, Globulin 4.1, Albumin/Globulin Ratio 0.88 04/30/18 11:35: WBC 12.28 H, RBC 4.45 L, Hgb 11.5 L, Hct 34.0 L, MCV 76.4 L, MCH 25.8 L, MCHC 33.8, RDW Coeff of Tobin 16.7 H, Plt Count 257, Immature Gran % ( Auto) 0.3, Neut % (Auto) 84.8, Lymph % (Auto) 5.5 L, Rin[place] % (Auto) 9.0, Eos % ( Auto) 0.2, Baso % (Auto) 0.2, Immature Gran # (Auto) 0.0, Neut # (Auto) 10.4 H, Lymph # (Auto) 0.7, Rincon # (Auto) 1.1, Eos # (Auto) 0.0, Baso # (Auto) 0.0 ASSESSMENT: 1. PLEURITIC PAIN 2. BRONCHITIS 3. CHRONIC LUNG DISEASE 4. CAD PLAN: 1. Keflex 500 mg b.i.d. for 5 days 2. Continue steroids 3. Duonebs q.6 4. Solumedrol 40 q.6 Plan and coordination of the patient's care discussed in the presence of Manager Employment and nurse. CONDITION: Stable SCRIBED BY: ROSI PLASENCIA [employer] Animal Facility Supervisor scribed while in presence of service performed by Dr. ANAHI CHUNG on 05/01/18 ([id number])
[2018-05-01] MEDS: XANAX PO SCH (20:32)
[2018-05-01] MEDS: LIPITOR PO SCH (20:32)
[2018-05-01] MEDS: ASPIRIN CHEWABLE PO SCH (20:32)
[2018-05-02] MEDS: DUONEB NEB SCH ×4 (05:30→22:30)
[2018-05-02] MEDS: MORPHINE 4 MG/ML VIAL IVP PRN ×3 (05:34→17:44)
[2018-05-02] MEDS: PROTONIX PO SCH ×2 (05:35→17:10)
[2018-05-02] MEDS: SOLU-MEDROL 40 MG IVP SCH ×2 (05:35→11:26)
[2018-05-02] MEDS: CARDIZEM PO SCH ×2 (08:43→20:48)
[2018-05-02] MEDS: CYMBALTA PO SCH (08:43)
[2018-05-02] MEDS: FLOMAX PO SCH (08:43)
[2018-05-02] MEDS: KEFLEX PO SCH ×2 (08:44→20:48)
[2018-05-02] MEDS: PLAVIX PO SCH (08:44)
[2018-05-02] MEDS: IMDUR PO SCH (08:44)
[2018-05-02] MEDS: TOPROL XL PO SCH (08:44)
[2018-05-02] MEDS: PERCOCET 7.5-325 PO PRN ×2 (10:03→20:47)
[2018-05-02] MEDS ORDERED: SOLU-MEDROL 125 MG IVP STA (13:04)
--- NOTE | 2018-05-02 15:03 | PN ---
DATE OF SERVICE: 04/30/18 SUBJECTIVE: 68-year-old white male hospitalized with worsening of COPD, also has chest pain as he has had this for the past couple of years, left-sided, pleuritic type, localized, accentuated with cough. The patient will be treated with IV steroids , nebs treatment, antibiotics. PHYSICAL EXAMINATION: HEENT: Head normocephalic, atraumatic. Eyes: Extraocular muscles are intact. Pupils are equal, round and reactive to light and accommodation. Ears: No lesions. Nose appeared normal. Throat: No exudate or erythema. NECK: Supple. No JVD, no carotid bruit. No lymphadenopathy or thyromegaly. LUNGS: Decreased breath sounds but clear to auscultation. Percussion note normal. Chest symmetrical. HEART: S1, S2, no S3. No murmurs. No cyanosis or clubbing. No ascites. Pulses: Dorsalis pedis and posterior tibial pulses +1 to +2 both sides. ABDOMEN: Soft. Nontender. Bowel sounds active. No CVA tenderness. No mass felt. EXTREMITIES: No edema. Full range of motion of all extremities, equal. NEUROLOGIC: No focal deficit. Cranial nerves II through XII are grossly intact. No headache, no double vision or headache. SKIN: Not dry. Intact. Turgor - normal. LYMPHATIC: No palpable lymph nodes/no lymphedema. MUSCULOSKELETAL: Normal joints with no swelling. Muscle tone is normal. CONDITION: Stable TIME SPENT: More than 30 minutes. Plan and coordination of the patient's care discussed in the presence of nurse. VERN
--- NOTE | 2018-05-02 15:06 | PN ---
DATE OF SERVICE: 05/02/18 SUBJECTIVE: The patient was seen and examined with the nurse practitioner. The patient's condition is stable. The present problem is mild headache. He wants CT scan of the head. Will do MRI with contrast. Neurological status is stable. The patient is a hypochondriac. PHYSICAL EXAMINATION: HEENT: Head normocephalic, atraumatic. Eyes: Extraocular muscles are intact. Pupils are equal, round and reactive to light and accommodation. Ears: No lesions. Nose appeared normal. Throat: No exudate or erythema. NECK: Supple. No JVD, no carotid bruit. No lymphadenopathy or thyromegaly. LUNGS: Decreased breath sounds but clear to auscultation. Percussion note normal. Chest symmetrical. HEART: S1, S2, no S3. No murmurs. No cyanosis or clubbing. No ascites. Pulses: Dorsalis pedis and posterior tibial pulses +1 to +2 both sides. ABDOMEN: Soft. Nontender. Bowel sounds active. No CVA tenderness. No mass felt. EXTREMITIES: No edema. Full range of motion of all extremities, equal. NEUROLOGIC: No focal deficit. Cranial nerves II through XII are grossly intact. No headache, no double vision or headache. SKIN: Not dry. Intact. Turgor - normal. LYMPHATIC: No palpable lymph nodes/no lymphedema. MUSCULOSKELETAL: Normal joints with no swelling. Muscle tone is normal. ASSESSMENT: 1. ACUTE BRONCHITIS SEEMS TO BE RESOLVING 2. PLEURITIC PAIN UNDER CONTROL 3. HEADACHE, ETIOLOGY NONSPECIFIC PLAN: 1. Continue all the treatment with steroids, antibiotics 2. MRI of the brain ordered TIME SPENT: More than 30 minutes. Plan and coordination of the patient's care discussed in the presence of nurse. VERN
[2018-05-02] MEDS: ASPIRIN CHEWABLE PO SCH (20:47)
[2018-05-02] MEDS: LIPITOR PO SCH (20:48)
[2018-05-02] MEDS: XANAX PO SCH (20:48)
[2018-05-02] MEDS: SOLU-MEDROL 125 MG IVP SCH (21:52)
[2018-05-03] MEDS: MORPHINE 4 MG/ML VIAL IVP PRN (04:35)
[2018-05-03] MEDS: DUONEB NEB SCH ×2 (05:02→11:20)
[2018-05-03] MEDS: PROTONIX PO SCH (05:29)
[2018-05-03] MEDS: SOLU-MEDROL 125 MG IVP SCH ×2 (05:34→13:30)
[2018-05-03] MEDS: SODIUM CHLORIDE 1,000 ML IV SCH (08:55)
[2018-05-03] MEDS: PLAVIX PO SCH (09:07)
[2018-05-03] MEDS: CARDIZEM PO SCH (09:07)
[2018-05-03] MEDS: FLOMAX PO SCH (09:07)
[2018-05-03] MEDS: CYMBALTA PO SCH (09:07)
[2018-05-03] MEDS: TOPROL XL PO SCH (09:08)
[2018-05-03] MEDS: IMDUR PO SCH (09:08)
[2018-05-03] MEDS: KEFLEX PO SCH (09:08)
[2018-05-03] MEDS: PERCOCET 7.5-325 PO PRN (09:11)
--- NOTE | 2018-05-03 09:58 | PCM.PROG ---
Attending Provider: ATTENDING PROVIDER: Dr. ANAHI CHUNG This patient is seen with Stefani Wood, Nurse Practitioner. DATE OF SERVICE: 05/02/18 SUBJECTIVE: This 68 year old WHITE/ M was hospitalized 04/30/18. The patient is lying in bed resting comfortably. He has been up and about walking around hospital. Will do three step 02 before discharge. Labs stable. No complaints of pain this morning. REVIEW OF SYSTEMS: CONSTITUTIONAL: No night sweats. No fatigue, malaise, lethargy. No fever or chills. HEENT: Eyes: No visual changes. No eye pain. No eye discharge. ENT: No runny nose. No epistaxis. No sinus pain. No odynophagia. No congestion. RESPIRATORY: Cough. No congestion. No hemoptysis. No shortness of breath. CARDIOVASCULAR: No angina symptoms. No CHF symptoms. No atypical chest pain for CAD. No palpitations. No orthopnea.. GASTROINTESTINAL: No abdominal pain. No nausea or vomiting. No diarrhea or constipation. No hematemesis. No hematochezia. GENITOURINARY: No urgency. No frequency. No dysuria. No hematuria. No obstructive symptoms. No discharge. No pain. No significant abnormal bleeding. MUSCULOSKELETAL: Chronic pain. NEUROLOGICAL: Awake, alert, oriented to time, place and person. No headache. No neck pain. No syncope. No seizures. No dizziness. PSYCHIATRIC: Not anxious. No depression. No suicidal thoughts. No homicidal thoughts. SKIN: No rash. No lesions. No wounds. ENDOCRINE: No unexplained weight loss. No weight gain. HEMATOLOGIC/LYMPHATIC: No anemia. No purpura. No petechiae. No prolonged or excessive bleeding. No palpable lymph nodes. PHYSICAL EXAMINATION: GENERAL: The patient is awake, alert and oriented, lying in bed in no distress. VITAL SIGNS: Temperature 97.7 F, Pulse 62, Respiratory Rate 20, BP 136/76, Pulse Ox 98% HEENT: Head normocephalic, atraumatic. Eyes: Extraocular muscles are intact. Pupils are equal, round and reactive to light and accommodation. Ears: No lesions. Nose appeared normal. Throat: No exudate or erythema. NECK: Supple. No JVD, no carotid bruit. No lymphadenopathy or thyromegaly. LUNGS: Diminished breath sounds with bilateral wheeze. Percussion note normal. Chest symmetrical. HEART: S1, S2, no S3. No murmurs. No cyanosis or clubbing. No ascites. Pulses: Dorsalis pedis and posterior tibial pulses +1 to +2 both sides. ABDOMEN: Soft. Non-tender. Bowel sounds active. No CVA tenderness. No mass felt. EXTREMITIES: No edema. Full range of motion of all extremities, equal. NEUROLOGIC: No focal deficit. Cranial nerves II through XII are grossly intact. No headache, no double vision or headache. SKIN: Not dry. Intact. Turgor-normal. LYMPHATIC: No palpable lymph nodes/no lymphedema. MUSCULOSKELETAL: Normal joints with no swelling. Muscle tone is normal. LAB REVIEW: 05/02/18 05:05 05/02/18 05:05 05/02/18 05:05: Sodium 133.4 L, Potassium 4.22, Chloride 101.9, Carbon Dioxide 25.5, Anion Gap 10.22, BUN 26.0 H, Creatinine 1.03, Estimated GFR (MDRD) 72.00, BUN/Creatinine Ratio 25.24, Glucose 168.4 H D, Calcium 9.03, Total Bilirubin 0.19 L, AST 52.7, ALT 45.9, Alkaline Phosphatase 73.3, Total Protein 6.25 L, Albumin 3.16 L, Globulin 3.09, Albumin/Globulin Ratio 1.02 05/02/18 05:05: WBC 15.47 H D, RBC 3.97 L, Hgb 10.0 L, Hct 30.5 L, MCV 76.8 L, MCH 25.2 L, MCHC 32.8, RDW Coeff of Tobin 16.9 H, Plt Count 269, Immature Gran % ( Auto) 0.5, Neut % (Auto) 94.4, Lymph % (Auto) 2.3 L, [place] % (Auto) 2.7, Eos % ( Auto) 0.0, Baso % (Auto) 0.1, Immature Gran # (Auto) 0.1, Neut # (Auto) 14.6 H, Lymph # (Auto) 0.4 L, [place] # (Auto) 0.4, Eos # (Auto) 0.0, Baso # (Auto) 0.0 ASSESSMENT: 1. PLEURITIC PAIN 2. BRONCHITIS 3. CHRONIC LUNG DISEASE 4. CAD PLAN: 1. Three step for 2. Anticipate discharge home 3. Keflex 500 mg b.i.d. times 7 days 4. Prednisone 20 mg b.i.d. times 4 days then daily times 3 days 5. The patient has nebulizer at home; continue nebs 3 to 4 times daily 6. Smoking cessation advised Plan and coordination of the patient's care discussed in the presence of [employer] Driver and nurse. CONDITION: Stable SCRIBED BY: ROSI PLASENCIA Certified Histologic Technician scribed while in presence of service performed by Dr. Chung/Stefani Wood APRN on 05/02/18 ([id number])
--- NOTE | 2018-05-03 10:02 | PCM.PROG ---
Attending Provider: ATTENDING PROVIDER: Dr. ANAHI CHUNG This patient is seen with Stefani Wood, Nurse Practitioner. DATE OF SERVICE: 05/03/18 SUBJECTIVE: This 68 year old WHITE/ M was hospitalized 04/30/18. The patient is lying in bed, resting comfortably. He has been going outside to smoke. He failed 3-step 02 yesterday. He has been eating well. MRI of brain results pending. REVIEW OF SYSTEMS: CONSTITUTIONAL: No night sweats. No fatigue, malaise, lethargy. No fever or chills. HEENT: Eyes: No visual changes. No eye pain. No eye discharge. ENT: No runny nose. No epistaxis. No sinus pain. No odynophagia. No congestion. RESPIRATORY: Cough. No congestion. No hemoptysis. No shortness of breath. CARDIOVASCULAR: No angina symptoms. No CHF symptoms. No atypical chest pain for CAD. No palpitations. No orthopnea.. GASTROINTESTINAL: No abdominal pain. No nausea or vomiting. No diarrhea or constipation. No hematemesis. No hematochezia. GENITOURINARY: No urgency. No frequency. No dysuria. No hematuria. No obstructive symptoms. No discharge. No pain. No significant abnormal bleeding. MUSCULOSKELETAL: No musculoskeletal pain; no joint swelling. NEUROLOGICAL: Awake, alert, oriented to time, place and person. No headache. No neck pain. No syncope. No seizures. No dizziness. PSYCHIATRIC: Not anxious. No depression. No suicidal thoughts. No homicidal thoughts. SKIN: No rash. No lesions. No wounds. ENDOCRINE: No unexplained weight loss. No weight gain. HEMATOLOGIC/LYMPHATIC: No anemia. No purpura. No petechiae. No prolonged or excessive bleeding. No palpable lymph nodes. PHYSICAL EXAMINATION: GENERAL: The patient is awake, alert and oriented, lying in bed in no distress. VITAL SIGNS: Temperature 97.7 F, Pulse 78, Respiratory Rate 18, BP 154/84, Pulse Ox 98% HEENT: Head normocephalic, atraumatic. Eyes: Extraocular muscles are intact. Pupils are equal, round and reactive to light and accommodation. Ears: No lesions. Nose appeared normal. Throat: No exudate or erythema. NECK: Supple. No JVD, no carotid bruit. No lymphadenopathy or thyromegaly. LUNGS: Diminished breath sounds improving. Clear to auscultation. Percussion note normal. Chest symmetrical. HEART: S1, S2, no S3. No murmurs. No cyanosis or clubbing. No ascites. Pulses: Dorsalis pedis and posterior tibial pulses +1 to +2 both sides. ABDOMEN: Soft. Non-tender. Bowel sounds active. No CVA tenderness. No mass felt. EXTREMITIES: No edema. Full range of motion of all extremities, equal. NEUROLOGIC: No focal deficit. Cranial nerves II through XII are grossly intact. No headache, no double vision or headache. SKIN: Not dry. Intact. Turgor-normal. LYMPHATIC: No palpable lymph nodes/no lymphedema. MUSCULOSKELETAL: Normal joints with no swelling. Muscle tone is normal. LAB REVIEW: 05/03/18 06:30 05/03/18 06:30 05/03/18 06:30: Sodium 134.7 L, Potassium 4.65, Chloride 103.3, Carbon Dioxide 27.2, Anion Gap 8.85, BUN 30.4 H, Creatinine 1.14 H, Estimated GFR (MDRD) 64.00 , BUN/Creatinine Ratio 26.66, Glucose 160.6 H, Calcium 8.80, Total Bilirubin 0.12 L, AST 38.5, ALT 45.1, Alkaline Phosphatase 87.8, Total Protein 6.03 L, Albumin 2.86 L, Globulin 3.17, Albumin/Globulin Ratio 0.90 05/03/18 06:30: WBC 14.15 H, RBC 3.63 L, Hgb 9.3 L, Hct 28.2 L, MCV 77.7 L, MCH 25.6 L, MCHC 33.0, RDW Coeff of Tobin 17.0 H, Plt Count 286, Immature Gran % (Auto ) 0.7, Neut % (Auto) 94.1, Lymph % (Auto) 2.3 L, [place] % (Auto) 2.8, Eos % (Auto ) 0.0, Baso % (Auto) 0.1, Immature Gran # (Auto) 0.1, Neut # (Auto) 13.3 H, Lymph # (Auto) 0.3 L, [place] # (Auto) 0.4, Eos # (Auto) 0.0, Baso # (Auto) 0.0 ASSESSMENT: 1. PLEURITIC PAIN, resolved 2. BRONCHITIS, improving 3. CHRONIC LUNG DISEASE 4. CAD PLAN: 1. Repeat 3-step 02 today 2. Continue IV steroids until discharged 3. Will review MRI 4. Stop Morphine 5. The patient agrees to have oxygen at home if qualifies 6. Advised to quit smoking 7. Keflex 500 mg b.i.d. for 7 days 8. Prednisone 20 mg b.i.d. for four days, 20 mg daily for three days 9. The patient to use nebulizer machine three times a day Plan and coordination of the patient's care discussed in the presence of Rating Examiner and nurse. CONDITION: Stable SCRIBED BY: ROSI PLASENCIA Watch Commander scribed while in presence of service performed by Dr. Chung/Stefani Wood APRN on 05/03/18 ([id number])
--- NOTE | 2018-05-03 10:36 | MRI ---
EXAM: Brain MRI with and without contrast. HISTORY: Headache. COMPARISON: Head CT 01/25/2013. TECHNIQUE: Multiplanar, multisequence MR images were acquired of the brain before and after administ ration of intravenous contrast. FINDINGS: The midline structures are central and the craniocervical junction is unremarkable. The v entricles and sulci are prominent compatible with age related involutional changes. There are no abn ormal extra-axial fluid collections. The brain parenchyma has no diffusion restriction to suggest acute hypoperfusion or infarction. Ther e is a thin rim of periventricular T2 hyperintensity and small T2 hyperintensities are present in the left pericallosal, right frontal subcortical white matter and periventricular white matter compatibl e with minimal leukomalacia. There is no abnormal dark gradient echo signal to indicate intracranial hemorrhage. After administration of gadolinium, no enhancing lesions are identified. The corpus brady losum is normal. The pituitary gland is normal in size and has homogeneous contrast enhancement. Th e infundibulum is midline. There are no intraorbital masses. There has been previous lens surgery bilaterally. There is undula tion of the nasal septum. The maxillary sinuses are hypoplastic. Minor scattered mucosal thickening is present in the ethmoid air cells. There is minor mucosal thickening or trace of fluid in a few i nferior left mastoid air cells. No abnormal contrast enhancement is present in the internal auditory canals or labyrinthine structures. Flow voids are present in the major intracranial arteries and dural venous sinuses. IMPRESSION: 1. Age related involutional changes and minimal leukomalacia which is nonspecific. 2. No intracranial mass, hemorrhage or acute cerebral infarct.
--- NOTE | 2018-05-03 11:46 | HP ---
DATE OF SERVICE: 04/30/18 HISTORY OF PRESENT ILLNESS: This is a 68-year-old male who presented to the emergency room complaining of shortness of breath. He has a long history of heavy smoking and COPD. PAST MEDICAL HISTORY: Dyslipidemia Coronary artery disease Hypertension Atrial fibrillation COPD History of GI bleed Anxiety Depression Chronic back pain PAST SURGICAL HISTORY: Appendectomy Cholecystectomy Open heart surgery CABG times two Back surgery Shoulder surgery Hernia repair in the abdomen REVIEW OF SYSTEMS: CONSTITUTIONAL: Positive for malaise, weakness. No night sweats. No lethargy. No fever or chills. He is in no acute distress. HEENT: Eyes: No visual changes. No eye pain. No eye discharge. ENT: No runny nose. No epistaxis. No sinus pain. No sore throat. No odynophagia. No ear pain. No congestion. RESPIRATORY: Cough. No congestion. No hemoptysis. Shortness of breath. CARDIOVASCULAR: No angina symptoms. No CHF symptoms. No atypical chest pain for CAD. No palpitations. No PND. No orthopnea. GASTROINTESTINAL: No abdominal pain. No nausea or vomiting. No diarrhea or constipation. No hematemesis. No hematochezia. GENITOURINARY: No urgency. No frequency. No dysuria. No hematuria. No obstructive symptoms. No discharge. No pain. No significant abnormal bleeding. MUSCULOSKELETAL: No musculoskeletal pain. No joint swelling. No arthritis. NEUROLOGICAL: No headache. No neck pain. No syncope. No seizures. No dizziness. PSYCHIATRIC: Not anxious. No depression. No suicidal thoughts. No homicidal thoughts. SKIN: No rash. No lesions. No wounds. ENDOCRINE: No unexplained weight loss. No weight gain. HEMATOLOGIC/LYMPHATIC: No anemia. No purpura. No petechiae. No prolonged or excessive bleeding. No palpable lymph nodes. PERSONAL/FAMILY/SOCIAL HISTORY: The patient is a former smoker. He states he has not smoked in five months. No alcohol or ilicit drug use. MEDICATIONS: Lipitor 40 mg p.o. bedtime Imdur 30 mg p.o. daily Aspirin chewable 81 mg p.o. bedtime Plavix 75 mg p.o. daily Xanax 1 mg p.o. bedtime Cardizem 60 mg p.o. q.12hr Oxycodone/Acetaminophen one each p.o. q.i.d. p.r.n. Albuterol two puff IH q.6h p.r.n. Protonix 40 mg p.o. b.i.d. Ipratropium/Albuterol one spray Aero 20-100 mcg IH q.6hr p.r.n. Nitroglycerin 0.4 mg SL as directed p.r.n. Prednisone 10 mg p.o. as directed Metoprolol (Toprol XL) 50 mg p.o. daily Cymbalta 30 mg p.o. daily Tamsulosin (Flomax) 0.4 mg one cap p.o. daily ALLERGIES: BUSPIRONE (FROM BUSPAR), PROMETHAZINE (FROM PHENERGAN), MEPERIDINE ( FROM DEMEROL), TIOTROPIUM BROMIDE (FROM SPIRIVA HANDIHALER), LORAZEPAM (FROM ATIVAN), CODEINE PHYSICAL EXAMINATION: VITAL SIGNS: Temperature 98.1, heart rate 94, respiratory rate 28, BP 143/96, pulse ox 100. HEENT: Head normocephalic, atraumatic. Eyes: Extraocular muscles are intact. Pupils are equal, round and reactive to light and accommodation. Ears: No lesions. Nose appeared normal. Throat: No exudate or erythema. NECK: Supple. No JVD, no carotid bruit. No lymphadenopathy or thyromegaly. LUNGS: Clear to auscultation. Percussion note normal. Chest symmetrical. HEART: S1, S2, no S3. No murmurs. No cyanosis or clubbing. No ascites. Pulses: Dorsalis pedis and posterior tibial pulses +1 to +2 bilaterally. ABDOMEN: Soft. Nontender. Bowel sounds active. No CVA tenderness. No mass felt. EXTREMITIES: No edema. Full range of motion of all extremities, equal. NEUROLOGIC: No focal deficit. Cranial nerves II through XII are grossly intact. No headache, no double vision or headache. SKIN: Not dry. Intact. Turgor - normal. LYMPHATIC: No palpable lymph nodes/no lymphedema. MUSCULOSKELETAL: Normal joints with no swelling. Muscle tone is normal. Chest x-ray shows changes associated with acute COPD exacerbation, no pneumonia. White count 12.28, hemoglobin 11.5, hematocrit 34, platelets 257. Sodium 134, potassium 3.8, BUN 15, creatinine 0.89, glucose 149. Troponin is normal. AST 53, ALT 32. ABGs 02 sat 94 on room air, pH 7.5, pc02 31, p02 62, bicarb 24.9, c02 26. ASSESSMENT: 1. COPD EXACERBATION, HEAVY COPD, FORMER SMOKER 2. HYPERTENSION 3. CHRONIC BACK PAIN 4. ANXIETY 5. CORONARY ARTERY DISEASE PLAN: 1. Routine telemetry orders 2. CBC, CMP daily 3. Continue all home medications 4. Keflex 500 mg p.o. q.12hr 5. Start Duonebs q.6hr JONATAN 6. Solu-Medrol 40 mg q.6hr IV 7. IV fluids NS at 75 cc/hr 8. Oxygen at 1 to 2L as needed 9. Will follow closely TIME SPENT: More than 70 minutes. MTDD
--- NOTE | 2018-05-03 11:58 | CM.DICTOOL ---
ADMISSION: 04/30/18 14:40 DISCHARGE: 2017 DATE OF SERVICE: 05/03/18 FINAL DIAGNOSIS COPD EXACERBATION COPD HYPERTENSION CAD AR DYSLIPIDEMIA ANXIETY DEPRESSION FORMER SMOKER CABG; 2004 AND 2013 HERNIA REPAIR CHOLECYSTECTOMY APPENDECTOMY PFT : SEVERE COPD (2016) ECHOCARDIOGRAM: BORDERLINE LVH HYPOKINETIC SEPTUM WITH LVEF 47% (November,) LAST VITALS Temp Pulse Resp BP Pulse Ox 97.8 F 76 16 147/82 H 97 05/03/18 10:00 05/03/18 10:00 05/03/18 10:00 05/03/18 10:00 05/03/18 10:00 TAKE THESE MEDICATIONS AT HOME Albuterol/Ipratropium (Duoneb) 1 vial NEB RTQ8H [facility] Last Admin: 05/03/18 05:02 Dose: 1 vial Alprazolam (Xanax) 1 mg PO BEDTIME [facility] Last Admin: 05/02/18 20:48 Dose: 1 mg Aspirin (Aspirin Chewable) 81 mg PO BEDTIME [facility] Last Admin: 05/02/18 20:47 Dose: 81 mg Atorvastatin Calcium (Lipitor) 40 mg PO BEDTIME [facility] Last Admin: 05/02/18 20:48 Dose: 40 mg Cephalexin (Keflex) 500 mg PO Q12HR [facility] Stop: 05/06/18 08:59 Last Admin: 05/03/18 09:08 Dose: 500 mg Clopidogrel Bisulfate (Plavix) 75 mg PO DAILY [facility] Last Admin: 05/03/18 09:07 Dose: 75 mg Diltiazem HCl (Cardizem) 60 mg PO Q12HR [facility] Last Admin: 05/03/18 09:07 Dose: 60 mg Duloxetine HCl (Cymbalta) 30 mg PO DAILY [facility] Last Admin: 05/03/18 09:07 Dose: 30 mg Isosorbide Mononitrate (Imdur) 30 mg PO DAILY [facility] Last Admin: 05/03/18 09:08 Dose: 30 mg Metoprolol Succinate (Toprol Xl) 50 mg PO DAILY [facility] Last Admin: 05/03/18 09:08 Dose: 50 mg Nitroglycerin (Nitrostat) 0.4 mg SL Q5MIN X 3 DOSES PRN PRN Reason: Angina Oxycodone/Acetaminophen (Percocet 7.5-325) 1 tab PO QID PRN PRN Reason: Analgesia Last Admin: 05/03/18 09:11 Dose: 1 tab Pantoprazole Sodium (Protonix) 40 mg PO BIDAC JONATAN Last Admin: 05/03/18 05:29 Dose: 40 mg Tamsulosin HCl (Flomax) 0.4 mg PO DAILY JONATAN Last Admin: 05/03/18 09:07 Dose: 0.4 mg Prednisone 20 mg PO BID for 4 days, then Daily for 3 days ProAir Hfa 2 puffs IH Q 6 Hours PRN wheezing Last Admin: ALLERGIES buspirone HCl [From BuSpar] Adverse Reaction (Verified 04/30/18 11:28) codeine Adverse Reaction (Verified 04/30/18 11:28) lorazepam [From Ativan] Adverse Reaction (Verified 04/30/18 11:28) meperidine HCl [From Demerol] Adverse Reaction (Verified 04/30/18 11:28) promethazine HCl [From Phenergan] Adverse Reaction (Verified 04/30/18 11:28) tiotropium bromide [From Spiriva with HandiHaler] Adverse Reaction (Verified 06/07 11:28) Discontinued Medications None NEW PRESCRIPTIONS: Keflex 500 mg BID for 7 days Prednisone 20 mg BID for 4 days, then 20 mg daily for 3 days Take with food SMOKING: Advised to stop smoking DISEASE SPECIFIC EDUCATION: Oxygen use, continuous No Smoking Nebulizer use (at least 3 times daily) Prescriptions Steroid use and risk of GI irritation, bone demineralization Appointment LAB REVIEW: 05/03/18 06:30 05/03/18 06:30 05/03/18 06:30: Sodium 134.7 L, Potassium 4.65, Chloride 103.3, Carbon Dioxide 27.2, Anion Gap 8.85, BUN 30.4 H, Creatinine 1.14 H, Estimated GFR (MDRD) 64.00 , BUN/Creatinine Ratio 26.66, Glucose 160.6 H, Calcium 8.80, Total Bilirubin 0.12 L, AST 38.5, ALT 45.1, Alkaline Phosphatase 87.8, Total Protein 6.03 L, Albumin 2.86 L, Globulin 3.17, Albumin/Globulin Ratio 0.90 05/03/18 06:30: WBC 14.15 H, RBC 3.63 L, Hgb 9.3 L, Hct 28.2 L, MCV 77.7 L, MCH 25.6 L, MCHC 33.0, RDW Coeff of Tobin 17.0 H, Plt Count 286, Immature Gran % (Auto ) 0.7, Neut % (Auto) 94.1, Lymph % (Auto) 2.3 L, [place] % (Auto) 2.8, Eos % (Auto ) 0.0, Baso % (Auto) 0.1, Immature Gran # (Auto) 0.1, Neut # (Auto) 13.3 H, Lymph # (Auto) 0.3 L, [place] # (Auto) 0.4, Eos # (Auto) 0.0, Baso # (Auto) 0.0 PLAN: Discharge home Diet: Regular as tolerated, small frequent meals suggested Activity: Resume as tolerated. Use oxygen at 2 liters per cannula An appointment is scheduled with Dr. Toscano/Stefani Wood APRN on May 09 at 1:15 pm Continue medications as listed on nursing discharge information sheet Code Status: DNR per patient request Mr. Soler is alert and oriented x 3. He is independent with Activities of Daily Living. He is ambulatory in the hallways without use of an assistive device. Gait is steady with no loss of balance noted. Meal intakes have improved during his hospital stay and are noted at 75-100%. Mr. Soler has a nebulizer at home and he is encouraged to use nebulizer treatments regularly at least 3 times daily. He has qualified for home oxygen during his hospital stay with a room air saturation of 87% with exertion. He is agreeable to using the oxygen as recommended. [facility] at the request of the patient. Skin condition is good. No decubitus ulcers, rashes or irritation is noted. Joni Toscano MD Stefani Wood APRN
--- NOTE | 2018-05-03 13:10 | PN ---
DATE OF SERVICE: 05/03/18 SUBJECTIVE: The patient was seen and examined with the nurse practitioner. The patient is up and about. Pleuritic pain is under control. Bronchitis has resolved. Condition is stable. Prognosis is guarded. TIME SPENT: More than 30 minutes. Plan and coordination of the patient's care discussed in the presence of nurse. VERN
--- NOTE | 2018-05-03 13:12 | PN ---
CODING FOR BILLING 04/30/18 LEVEL 5 05/01/18 INTERMEDIATE 05/02/18 INTERMEDIATE 05/03/18 DISCHARGE MTDD
[2018-05-03 13:51] VITALS: BP 136/80; TEMP 97.6
--- NOTE | 2018-05-04 08:52 | DS ---
DATE OF SERVICE: 05/03/18 FINAL DIAGNOSIS: 1. COPD exacerbation 2. COPD 3. Hypertension 4. CAD 5. NM 6. Dyslipidemia 7. Anxiety 8. Depression 9. 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 DISCHARGE INSTRUCTIONS: Discharge home. An appointment is scheduled with Dr. Toscano/Stefani Wood APRN on May 09 at 1:15pm. Continue medications as listed on nursing discharge information sheet. Code status: DNR per patient request. MEDICATIONS AT DISCHARGE: DUONEBS 1 vial NEB RT Q 8 hours Xanax 1mg PO bedtime Aspirin 81mg PO bedtime Lipitor 40mg PO bedtime Keflex 500mg PO Q 12 hours Plavix 75mg PO daily Cardizem 60mg PO Q 12 hours Cymbalta 30mg PO daily Imdur 30mg PO daily Toprol XL 50mg PO daily Nitrostat 0.4mg SL Q 5 minute X3 doses PRN Percocet 7.5-325 one tablet PO four times a day PRN Protonix 40mg twice a day Flomax 0.4mg PO daily Prednisone 20mg Po twice a day for 4 days, then daily for 3 days. ProAir 2 puffs Q 6 hours PRN ALLERGIES: Buspirone Codeine Lorazepam Meperidine Promethazine Tiotropium NEW PRESCRIPTIONS: Keflex 500mg PO twice a day for 7 days Prednisone 20mg PO twice a day for 4 days, then 20mg for 3 days. Take with food. DIET INSTRUCTIONS: Regular as tolerated, small frequent meals suggested. ACTIVITY: Resume as tolerated. Use Oxygen at 2 liters at 2 liters per canula. SMOKING: Advised to stop smoking DISEASE SPECIFIC EDUCATION: Oxygen use, continuous No smoking Nebulizer use (at least three times daily) Prescriptions Steroid use and risk of GI irritation, bone demineralization Appointment HOSPITAL COURSE: This is a a 68 year old white male who presented to the emergency room complaining of cough and shortness of breath. He has a long history of COPD and is a heavy smoker. He was admitted and initially placed on Solu-Medrol 40mg IV Q 6 hours as well as DUO NEBS Q 6 hours scheduled. Chest x-ray was normal showing no pneumonia although showed changes associated with COPD. He was short of breath and was placed on oxygen at 1-2 liters. ABG were slightly abnormal on admission with low O2 sat of 90. The patient also has chronic pains including back, neck and head. He did report a severe headache which had been ongoing for the past 1-2 months. MRI of the brain was done yesterday which was normal showing microvascular changes likely due to smoke or hypertension, history of coronary artery disease, dyslipidemia. The patient had reported that he has quit smoking for the past five months although during his hospital stay he has been going out multiple times, up and about walking around and going outside to smoke. He has asked other patient's for cigarettes. His vital signs have remained stable while he was here. Yesterday he was still wheezing pretty significantly. I increased his steroids Solu-Medrol 100mg IV Q 8 hours. He was also complaining of pleuritic type pain associating with coughing which he received Morphine which we discontinued this morning. Again the MRI of the brain was normal. Yesterday he failed a three step O2 test, was down to 84% oxygen on room air with exertion. Today this was repeated prior to discharge and he does qualify for home oxygen. Information has been given to him regarding the necessity of wearing his oxygen at home as he tends to be noncompliant with both medications and followup and lifestyle. He previously had an echo in November of this past year which showed LVH and ejection fraction of 47%. His pain was noncardiac during this hospital stay. He has a nebulizer machine at home which I have instructed him to do nebulizer treatments at least three times daily for the next weeks. He will be sent home with Keflex 500mg twice a day for the next 7 days. I will put him on a tapering dose of Prednisone. This morning on examination He was not experiencing wheezing and sounds significantly improved from yesterday after increase in the steroids so he will receive one last dose of IV Solu-Medrol 100mg prior to discharge and then he will go home on Prednisone 20mg twice a day for 4 days and then daily for 3 days. He is instructed to take with food. All of his home medications have been continued. He did request an increase in pain medication at home. We stated that he needed to followup with Pain Management which he seen quite some time ago and we had been doing his pain medication but if it needs to be increased we have instructed him to followup with them. He is being set up with home oxygen and he is instructed to do this nebulizer. Vital signs have been normal pulse ox 97% on 2 liters today, blood pressure 140/80 and temperature 97.8 with heart rate 76 with respiratory rate 16. Again MRI was reviewed and was normal. He is to followup with us next week. TIME SPENT: More than 60 minutes. VERN
== END 2018-05-03 14:00 | disposition home or self-care (01) | DRG 204 ==
LOC: ED 11:24 → MEDSURG B 14:40
PROVIDERS: ADMIT Internal Medicine; ATTEND Internal Medicine
DX: R06.00 Dyspnea, unspecified (principal); I21.9 Acute myocardial infarction, unspecified; J44.1 Chronic obstructive pulmonary disease with (acute) exacerbation; J40 Bronchitis, not specified as acute or chronic; R53.1 Weakness; R07.81 Pleurodynia; R51 Headache; I10 Essential (primary) hypertension; I25.10 Atherosclerotic heart disease of native coronary artery without angina pectoris; M54.9 Dorsalgia, unspecified; F41.9 Anxiety disorder, unspecified; F41.8 Other specified anxiety disorders; E78.5 Hyperlipidemia, unspecified
CPT/HCPCS: 36415; 80053; 82550; 82803; 83605; 84145; 84484; 85025; 87040; 93005; 93010; 94640; 94761; 99284

== ENCOUNTER 2018-05-18 18:03 | Emergency (ER) ==
[2018-05-18 18:07] VITALS: BP 151/79; TEMP 97.3; BMI 19.4
--- NOTE | 2018-05-18 19:33 | CT ---
EXAM: CT scan abdomen pelvis without contrast HISTORY: Pain. COMPARISON: CT scan pelvis 12/14/2017 FINDINGS: Contiguous axial images were obtained through the abdomen and pelvis without contrast util izing 3-mm collimation. Sagittal and coronal reconstructions were imaged and reviewed.. Several tin y nodules at the right lung base in the 4 mm range. There has been prior cholecystectomy. The commo n bile duct measures 13 mm. Fatty infiltration is seen within the liver.. The pancreas spleen and ad renal glands have normal unenhanced CT appearance. Dense atherosclerotic changes are seen involving the aorta without aneurysm formation.. There is partial visualization of the appendix which appears normal. There is no free fluid or inflammatory changes.. Prostate gland normal in size. The bladder is unremarkable.. There is mild colonic fecal stasis IMPRESSION: ASVD without aneurysm. Prior cholecystectomy. Fatty infiltration within the liver Tiny right lower lobe pulmonary nodules which merit 4-month follow-up.
--- NOTE | 2018-05-31 10:29 | ED.PDOC ---
General ED Provider: Dr. UNRULY RIVERA Chief Complaint: Back Pain Stated Complaint: back pain/ flank pain Time Seen by Physician: 18:20 (the back pain is chronic issue . pt seen with his nurse at all times ) Mode of Arrival: Walk-In Information Source: Patient Exam Limitations: No limitations Primary Care Provider: ANAHI CHUNG Nursing and Triage Documentation Reviewed and Agree: Yes Does patient meet sepsis criteria?: No System Inflammatory Response Syndrome: Not Applicable Sepsis Protocol: For patient's 13 years and over: Temp is 96.8 and below OR 101 and greater Pulse >90 BPM Resp >20/minute Acutely Altered Mental Status Are patient's symptoms suggestive of a new infection, such as: -Pneumonia -Skin, Soft Tissue -Endocarditis -UTI -Bone, Joint Infection -Implantable Device -Acute Abdominal Infection -Wound Infection -Meningitis -Blood Stream Catheter Infection -Unknown Musculoskeletal Complaint Exam - Back Pain Complaint/Exam Mechanism of Injury: Reports: No known trauma Onset/Duration: chronic worse today Symptoms Are: Still present Timing: Intermittent Episodes Lasting: Days Initial Severity: Moderate Current Severity: Moderate Location: Reports: Discrete Character: Reports: Aching Aggravating: Reports: Movements, Lifting, Bending, Walking Alleviating: Reports: Rest, Position Associated Signs and Symptoms: Denies: Swelling, Redness, Bruising, Fever, Weakness, Numbness, Tingling, Abdominal pain, Flank pain, Bladder incontinence, Bowel incontinence, Weight loss, Pain with weight bearing Related History: Reports: Similar episode TAD Risk Factors: Reports: None AAA Risk Factors: Reports: Hypertension Cauda Equina Risk Factors: Reports: None Epidural Abcess Risk Factors: Reports: None Related Surgical History: Reports: None Focal Tenderness: No Paraspinal Muscle Tenderness: No Paraspinal Muscle Spasm: No Scoliosis: No Lordosis: No Kyphosis: No SLR Test: Right Negative, Left Negative Hip Motion Testing Pain: Right Negative, Left Negative Focal Weakness: Present: None Focal Sensory Loss: Present: None Gait: Present: Normal Differential Diagnoses: Renal Colic, Strain, Sprain Review of Systems - Review Of Systems Constitutional: Reports: No symptoms Eyes: Reports: No symptoms Ears, Nose, Mouth, Throat: Reports: No symptoms Respiratory: Reports: No symptoms Cardiac: Reports: No symptoms GI: Reports: Abdominal pain : Reports: No symptoms Musculoskeletal: Reports: Back pain Skin: Reports: No symptoms Neurological: Reports: No symptoms Endocrine: Reports: No symptoms Hematologic/Lymphatic: Reports: No symptoms All Other Systems: Reviewed and Negative Past Medical History - Past Medical History Previously Healthy: No Endocrine: Reports: None, Dyslipidemia Cardiovascular: Reports: CAD, Hypertension, A-Fib Respiratory: Reports: COPD Hematological: Reports: None Gastrointestinal: Reports: None, GI Bleed (DR Hou NOTES PATINET RECENTLY DISCHARGED FRO M JEHOVAH'S WITNESS POST SHRAVAN BARKER TEAR) Genitourinary: Reports: None Neuro/Psych: Reports: None, Anxiety, Depression Musculoskeletal: Reports: Back Pain Cancer: Reports: None, Other Other Pertinent Past Medical History: ABDOMEN SURGERY as an infant - Surgical History General Surgical History: Reports: Appendectomy, Cholecystectomy, CABG (TWICE), Orthopedic (CABG X 2, BACK SURGERY, SHOULDER, NECK DISC REPLACEMENT, ), Back Surgery ( SPINE SURGERY), Hernia Repair (WITH MESH- CURRENTLY HAS TENDER AREA LEFT EPIGASTRIUM WHICH INTERMITTENTLY HAS LARGE PAINFUL LUMP) - Family History Family History: Reports: Unknown - Social History Smoking Status: Former smoker Hx Substance Use: No Alcohol Screening: None - Immunizations Influenza Vaccine within 12 Months: No Pneumococcal Vaccine up to Date: No Physical Exam - Physical Exam Appearance: Well-appearing, No pain distress, Well-nourished Eyes: INDER, EOMI, Conjunctiva clear ENT: Ears normal, Nose normal, Oropharynx normal Respiratory: Airway patent, Breath sounds clear, Breath sounds equal, Respirations nonlabored Cardiovascular: RRR, Pulses normal, No rub, No murmur GI/: Soft, Nontender, No masses, Bowel sounds normal, No Organomegaly Musculoskeletal: Normal strength, ROM intact, No edema, No calf tenderness Skin: Warm, Dry, Normal color Neurological: Sensation intact, Motor intact, Reflexes intact, Cranial nerves intact, Alert, Oriented Psychiatric: Affect appropriate, Mood appropriate Interpretation - Radiology Interpretation Radiology Interpretation By: Radiologist Radiology Results: No acute changes Re-Evaluation - Re-Evaluation Time of Re-Evaluation: 19:00 Status: Improved Vital Signs Stable: Yes Pain Level: 3/10 Appearance: NAD Lungs: Clear Skin: Warm and Dry Neuro: Alert and Oriented X3 CV: RRR Critical Care Note - Critical Care Note Total Time (mins): 0 Course - Course Hematology/Chemistry: 05/18/18 18:33 05/18/18 18:33 Orders, Labs, Meds: Lab Review 0905/18/18 05/18/18 18:33 18:33 19:30 WBC 10.11 RBC 4.03 L Hgb 10.6 L Hct 30.9 L MCV 76.7 L MCH 26.3 L MCHC 34.3 RDW Coeff of Tobin 16.4 H Plt Count 190 Immature Gran % (Auto) 0.5 Neut % (Auto) 83.1 Lymph % (Auto) 6.4 L Parker % (Auto) 7.4 Eos % (Auto) 2.0 Baso % (Auto) 0.6 Immature Gran # (Auto) 0.1 Neut # (Auto) 8.4 H Lymph # (Auto) 0.7 Parker # (Auto) 0.8 Eos # (Auto) 0.2 Baso # (Auto) 0.1 Sodium 126.3 L Potassium 4.70 Chloride 92.4 L Carbon Dioxide 28.8 Anion Gap 9.80 BUN 18.7 Creatinine 1.22 H Estimated GFR (MDRD) 59.00 BUN/Creatinine Ratio 15.32 Glucose 84.3 Calcium 9.13 Total Bilirubin 0.69 AST 73.3 H ALT 37.4 Alkaline Phosphatase 78.8 Total Protein 6.43 Albumin 3.64 Globulin 2.79 Albumin/Globulin Ratio 1.30 Urine Color Yellow Urine Clarity Clear Urine pH 5.5 Ur Specific [place] 1.015 Urine Protein 3+ Urine Glucose (UA) Negative Urine Ketones Negative Urine Blood 1+ Urine Nitrite Negative Urine Bilirubin Negative Urine Urobilinogen 0.2 Ur Leukocyte Esterase Negative Urine Microscopic RBC 2-5 Urine Microscopic WBC 2-5 Ur Squamous Epith Cells 0-2 Urine Mucus 1+ Orders Category Date Time Status CBC W/ AUTO DIFF Stat LAB 05/18/18 18:33 Completed COMPREHENSIVE METABOLIC PANEL Stat LAB 05/18/18 18:33 Completed URINALYSIS C & S IF INDICATED Stat LAB 05/18/18 19:[address] ABD/PEL WO RENAL STONE PROT Stat RADS 05/18/18 18:24 Completed Vital Signs: Temp Pulse Resp BP Pulse Ox 05/18/18 18:04 97.3 F L 76 20 151/79 H 92 L Departure - Departure Time of Disposition: 19:00 (colonscopy/ anemia / discussed the need to make sure anemia and colonic problem i.e cancer is not an issue was discussed pt fully understands the D/C INSTRUCTION.) Disposition: HOME SELF-CARE Discharge Problem: Backache, Hyponatremia Low back pain Qualifiers: Chronicity: unspecified Back pain laterality: bilateral Sciatica presence: without sciatica Qualified Code(s): M54.5 - Low back pain Anemia Qualifiers: Anemia type: unspecified type Qualified Code(s): D64.9 - Anemia, unspecified Instructions: Back Pain (ED), Anemia (ED), Hyponatremia (ED) Condition: Good Pt referred to PMD for follow-up: Yes IPMP verified?: No Additional Instructions: Follow up with primary MD next week Allergies/Adverse Reactions: Allergies buspirone HCl [From BuSpar] Adverse Reaction (Verified 05/18/18 18:07) codeine Adverse Reaction (Verified 05/18/18 18:07) lorazepam [From Ativan] Adverse Reaction (Verified 05/18/18 18:07) meperidine HCl [From Demerol] Adverse Reaction (Verified 05/18/18 18:07) promethazine HCl [From Phenergan] Adverse Reaction (Verified 05/18/18 18:07) tiotropium bromide [From Spiriva with HandiHaler] Adverse Reaction (Verified 18:07) Home Medications: Ambulatory Orders Atorvastatin Calcium [Lipitor] 40 mg PO BEDTIME 01/20/13 Isosorbide Mononitrate [Imdur] 30 mg PO DAILY 01/20/13 Aspirin [Aspirin Chewable] 81 mg PO BEDTIME 01/28/13 Alprazolam [Xanax] 1 mg PO BEDTIME 09/22/14 Clopidogrel Bisulfate [Plavix] 75 mg PO DAILY 09/22/14 Diltiazem HCl [Cardizem] 60 mg PO Q12HR #60 tablet 09/23/14 Oxycodone HCl/Acetaminophen [Percocet 7.5-325 mg Tablet] 1 each PO QID PRN 30 Days tablet 03/18/15 Albuterol Sulfate [Proair Hfa] 2 puff IH Q6H PRN #1 inh 06/30/15 Pantoprazole Sodium [Protonix] 40 mg PO BID #60 tablet. 11/23/16 Nitroglycerin 0.4 mg SL DIRECTED PRN 11/29/17 Duloxetine HCl [Cymbalta] 30 mg PO DAILY 04/30/18 Metoprolol Succinate [Toprol Xl] 50 mg PO DAILY 04/30/18 Tamsulosin HCl [Flomax] 1 cap PO DAILY 04/30/18 Prednisone 20 mg PO DIRECTED #11 tablet 05/03/18
== END 2018-05-18 20:02 | disposition home or self-care (01) ==
LOC: ED 18:03
DX: M54.5 Low back pain (principal); G89.29 Other chronic pain; D64.9 Anemia, unspecified; E87.1 Hypo-osmolality and hyponatremia; I10 Essential (primary) hypertension; I25.810 Atherosclerosis of coronary artery bypass graft(s) without angina pectoris; E78.5 Hyperlipidemia, unspecified; Z79.899 Other long term (current) drug therapy; Z87.19 Personal history of other diseases of the digestive system
CPT/HCPCS: 36415; 74176; 80053; 81001; 85025; 99283

== ENCOUNTER 2018-08-15 18:23 | Emergency (ER) ==
[2018-08-15 18:35] VITALS: BP 179/87; TEMP 97.2; BMI 20.5
[2018-08-15] MEDS ORDERED: ASPIRIN CHEWABLE PO STA (18:53)
--- NOTE | 2018-08-15 18:56 | ED.PDOC ---
General ED Provider: Dr. UNRULY RIVERA Chief Complaint: Chest Pain Stated Complaint: chest pain onset about 4 hours ago at rest Time Seen by Physician: 18:30 (seen with georgiana at all times ) Mode of Arrival: Wheelchair Information Source: Patient Exam Limitations: No limitations Primary Care Provider: ANAHI CHUNG Nursing and Triage Documentation Reviewed and Agree: Yes Does patient meet sepsis criteria?: No System Inflammatory Response Syndrome: Not Applicable Sepsis Protocol: For patient's 13 years and over: Temp is 96.8 and below OR 101 and greater Pulse >90 BPM Resp >20/minute Acutely Altered Mental Status Are patient's symptoms suggestive of a new infection, such as: -Pneumonia -Skin, Soft Tissue -Endocarditis -UTI -Bone, Joint Infection -Implantable Device -Acute Abdominal Infection -Wound Infection -Meningitis -Blood Stream Catheter Infection -Unknown Cardiovascular Complaint Exam - Chest Pain Complaint/Exam Onset: Gradual Duration: today 3 hr ago Symptoms Are: Resolved Timing: Intermittent Length of Chest Pain Episodes: 2 hrs Initial Severity: Mild Current Severity: None Location: Reports: Midsternal Pain Radiates: Reports: None Character: Reports: Aching Aggravating: Reports: None Alleviating: Reports: Rest, Spontaneous resolution Associated Signs and Symptoms: Reports: Cough. Denies: Diaphoresis, Nausea, Vomiting, Fever, Palpitations, Hemoptysis, Back pain, Abdominal pain, Dizziness , Short of air, Calf pain, Calf swelling Related History: Reports: Similar episode Related Surgical History: Reports: None History of Healthcare-Acquired Pneumonia: Reports: No AMI/ACS Risk Factors: Reports: Hypertension, Dyslipidemia TAD Risk Factors: Reports: Hypertension Pulmonary Embolism Risk Factors: Reports: None Prior Care for this Complaint: Yes Recent Stress Test: No Recent Echo/LV Function: No JVD Present: No Subcutaneous Emphysema Present: No Diminshed Breath Sounds: No Reproducible Chest Wall Pain: No Bilateral Pulses Present: Yes Unequal Pulses Noted: No If Risk Factors for AMI/ACS Consider: EKG, Cardiac Enzymes Differential Diagnoses: Stable Angina, Unstable Angina, CHF, Pulmonary Edema, Chest Wall Pain, Lower Resp. Infection Quality Indicator For Non-Traumatic Chest Pain/Syncope: EKG Performed Review of Systems - Review Of Systems Constitutional: Reports: No symptoms Eyes: Reports: No symptoms Ears, Nose, Mouth, Throat: Reports: No symptoms Respiratory: Reports: No symptoms Cardiac: Reports: Chest pain GI: Reports: No symptoms : Reports: No symptoms Musculoskeletal: Reports: No symptoms Skin: Reports: No symptoms Neurological: Reports: No symptoms Endocrine: Reports: No symptoms Hematologic/Lymphatic: Reports: No symptoms All Other Systems: Reviewed and Negative Past Medical History - Past Medical History Previously Healthy: No Endocrine: Reports: None, Dyslipidemia Cardiovascular: Reports: CAD, Hypertension, A-Fib Respiratory: Reports: COPD Hematological: Reports: None Gastrointestinal: Reports: None, GI Bleed (DR Hou NOTES PATINET RECENTLY DISCHARGED FRO M JEW POST SHRAVAN BARKER TEAR) Genitourinary: Reports: None Neuro/Psych: Reports: None, Anxiety, Depression Musculoskeletal: Reports: Back Pain Cancer: Reports: None, Other Other Pertinent Past Medical History: ABDOMEN SURGERY as an - Surgical History General Surgical History: Reports: Appendectomy, Cholecystectomy, CABG (TWICE), Orthopedic (CABG X 2, BACK SURGERY, SHOULDER, NECK DISC REPLACEMENT, ), Back Surgery ( SPINE SURGERY), Hernia Repair (WITH MESH- CURRENTLY HAS TENDER AREA LEFT EPIGASTRIUM WHICH INTERMITTENTLY HAS LARGE PAINFUL LUMP) - Family History Family History: Reports: Unknown - Social History Smoking Status: Vaping Hx Substance Use: No Alcohol Screening: None - Immunizations Influenza Vaccine within 12 Months: No Pneumococcal Vaccine up to Date: No Physical Exam - Physical Exam Appearance: Well-appearing, No pain distress, Well-nourished Eyes: INDER, EOMI, Conjunctiva clear ENT: Ears normal, Nose normal, Oropharynx normal Respiratory: Airway patent, Breath sounds clear, Breath sounds equal, Respirations nonlabored Cardiovascular: RRR, Pulses normal, No rub, No murmur GI/: Soft, Nontender, No masses, Bowel sounds normal, No Organomegaly Musculoskeletal: Normal strength, ROM intact, No edema, No calf tenderness Skin: Warm, Dry, Normal color Neurological: Sensation intact, Motor intact, Reflexes intact, Cranial nerves intact, Alert, Oriented Psychiatric: Affect appropriate, Mood appropriate Interpretation - Bridal Gown Fitter Rate: Kentrell Rhythm: Sinus - EKG Interpretation Rate: Kentrell Rhythm: Sinus Physician Notification - Case Discussed Physician Notified: rotich Time of Notification: 19:00 Critical Care Note - Critical Care Note Total Time (mins): 0 Course - Course Hematology/Chemistry: 08/15/18 19:00 08/15/18 19:00 Orders, Labs, Meds: Lab Review 08/15/18 08/15/18 08/15/18 19:00 19:00 19:00 WBC 6.18 RBC 4.08 L Hgb 11.0 L Hct 34.0 L MCV 83.3 MCH 27.0 MCHC 32.4 RDW Coeff of Tobin 14.6 Plt Count 173 Immature Gran % (Auto) 0.3 Neut % (Auto) 60.2 Lymph % (Auto) 22.7 [place] % (Auto) 13.4 H Eos % (Auto) 2.4 Baso % (Auto) 1.0 Immature Gran # (Auto) 0.0 Neut # (Auto) 3.7 Lymph # (Auto) 1.4 [place] # (Auto) 0.8 Eos # (Auto) 0.2 Baso # (Auto) 0.1 PT 9.6 INR 0.96 APTT 25.6 Sodium 134.9 Potassium 3.59 Chloride 101.2 Carbon Dioxide 27.6 Anion Gap 9.69 BUN 12.9 Creatinine 1.15 H Estimated GFR (MDRD) 64.00 BUN/Creatinine Ratio 11.21 Glucose 93.2 Calcium 8.23 L Total Bilirubin 0.26 AST 39.3 ALT 20.7 Alkaline Phosphatase 61.0 Total Creatine Kinase 82.4 Troponin I < 0.012 Total Protein 6.78 Albumin 3.58 Globulin 3.20 Albumin/Globulin Ratio 1.11 Orders Category Date Time Status EKG-(ED ONLY) Stat CARDIO 08/15/18 18:50 Completed ED IV/MEDIPORT/POWERPORT .ONCE EMERGENCY 08/15/18 18:50 Active CBC W/ AUTO DIFF Stat LAB 08/15/18 19:00 Completed COMPREHENSIVE METABOLIC PANEL Stat LAB 08/15/18 19:00 Completed CREATINE KINASE Stat LAB 08/15/18 19:00 Completed PARTIAL THROMBOPLASTIN TIME Stat LAB 08/15/18 19:00 Completed PT WITH INR Stat LAB 08/15/18 19:00 Completed TROPONIN I Stat LAB 08/15/18 19:00 Completed 0.9 % Sodium Chloride [Saline Flush] MEDS 08/15/18 18:50 Discontinued 1 syr IVF PRN PRN Aspirin [Aspirin Chewable] MEDS 08/15/18 18:53 Discontinued 324 mg PO ONCE STA CHEST, 1V AP ONLY Stat RADS 08/15/18 18:50 Completed Medications Discontinued Medications Generic Name Dose Route Start Last Admin Trade Name Freq PRN Reason Stop Dose Admin Aspirin 324 mg 08/15/18 18:53 08/15/18 19:41 Aspirin Chewable PO 08/15/18 18:54 Not Given ONCE STA Sodium Chloride 1 syr 08/15/18 18:50 Saline Flush IVF PRN PRN To flush IV Vital Signs: Temp Pulse Resp BP Pulse Ox 08/15/18 18:24 97.2 F L 57 L 20 179/87 H 93 L JOSE Risk Score JOSE Risk Score: Risk Score Odds of by 30D 0 0.1 (0.1-0.2) 1 0.3 (0.2-0.3) 2 0.4 (0.3-0.5) 3 0.7 (0.6-0.9) 4 1.2 (1.0-1.5) 5 2.2 (1.9-2.6) 6 3.0 (2.5-3.6) 7 4.8 (3.8-6.1) Departure - Departure Time of Disposition: 19:00 Disposition: AMA Discharge Problem: Chest pain Condition: Good Pt referred to PMD for follow-up: No IPMP verified?: No Allergies/Adverse Reactions: Allergies buspirone HCl [From BuSpar] Adverse Reaction (Verified 08/15/18 18:36) codeine Adverse Reaction (Verified 08/15/18 18:36) lorazepam [From Ativan] Adverse Reaction (Verified 08/15/18 18:36) meperidine HCl [From Demerol] Adverse Reaction (Verified 08/15/18 18:36) promethazine HCl [From Phenergan] Adverse Reaction (Verified 08/15/18 18:36) tiotropium bromide [From Spiriva with HandiHaler] Adverse Reaction (Verified 18:36) Home Medications: Ambulatory Orders Atorvastatin Calcium [Lipitor] 40 mg PO BEDTIME 01/20/13 Isosorbide Mononitrate [Imdur] 30 mg PO DAILY 01/20/13 Aspirin [Aspirin Chewable] 81 mg PO BEDTIME 01/28/13 Alprazolam [Xanax] 1 mg PO BEDTIME 09/22/14 Clopidogrel Bisulfate [Plavix] 75 mg PO DAILY 09/22/14 Diltiazem HCl [Cardizem] 60 mg PO Q12HR #60 tablet 09/23/14 Oxycodone HCl/Acetaminophen [Percocet 7.5-325 mg Tablet] 1 each PO QID PRN 30 Days tablet 03/18/15 Pantoprazole Sodium [Protonix] 40 mg PO BID #60 tablet. 11/23/16 Nitroglycerin 0.4 mg SL DIRECTED PRN 11/29/17 Duloxetine HCl [Cymbalta] 30 mg PO DAILY 04/30/18 Metoprolol Succinate [Toprol Xl] 50 mg PO DAILY 04/30/18 Tamsulosin HCl [Flomax] 1 cap PO DAILY 04/30/18 Ipratropium/Albuterol Sulfate [Combivent Respimat Inhal [place]] 1 spray IH TID
--- NOTE | 2018-08-16 07:46 | DI ---
EXAM: Single view of the chest HISTORY: Pain. COMPARISON: Chest x-ray 04/30/[address] chest 04/30/2018 with multiple priors FINDINGS: Cardiomediastinal silhouette is unremarkable with intact sternotomy wires. Atherosclerotic disease of the aorta are normal. There is no pneumothorax or effusion. There is no consolidation, nodule or mass. The osseous structures are unremarkable. IMPRESSION: No acute cardiopulmonary process.
== END 2018-08-15 19:46 | disposition left against medical advice (07) ==
LOC: ED 18:23
DX: R07.9 Chest pain, unspecified (principal); R05 Cough; I10 Essential (primary) hypertension; E78.5 Hyperlipidemia, unspecified; I25.810 Atherosclerosis of coronary artery bypass graft(s) without angina pectoris; I48.91 Unspecified atrial fibrillation; Z79.899 Other long term (current) drug therapy; Z72.0 Tobacco use; Z87.19 Personal history of other diseases of the digestive system
CPT/HCPCS: 36415; 80053; 82550; 84484; 85025; 85610; 85730; 93005; 93010; 99284

== ENCOUNTER 2018-09-02 19:52 | Outpatient (CLI) ==
[2013-01-31 11:57] VITALS: TEMP 98.8
== END 2018-09-02 20:12 | disposition short-term general hospital (02) ==
LOC: AMBL 19:52
PROVIDERS: ATTEND Family Medicine
DX: R25.2 Cramp and spasm (principal); M54.2 Cervicalgia; M79.642 Pain in left hand; M79.641 Pain in right hand; M79.602 Pain in left arm; M79.601 Pain in right arm

== ENCOUNTER 2018-11-15 13:17 | Inpatient (IN) ==
--- NOTE | 2018-11-15 13:38 | ED.PDOC ---
General ED Provider: Dr. STEVE KHAN Chief Complaint: Shortness of Air Stated Complaint: Short of Air Time Seen by Physician: 13:38 Mode of Arrival: Wheelchair (Drove self to ER) Information Source: Patient Exam Limitations: No limitations Primary Care Provider: ANAHI TOSCANO Referred to ED by: PCP (2 days ago; told to go to ER if not better with steroid TX) Seen Within Last 72 Hours for Same Complaint By: PCP (2 Daus ago; placed on steroids) Nursing and Triage Documentation Reviewed and Agree: Yes Does patient meet sepsis criteria?: No System Inflammatory Response Syndrome: Not Applicable Sepsis Protocol: For patient's 13 years and over: Temp is 96.8 and below OR 101 and greater Pulse >90 BPM Resp >20/minute Acutely Altered Mental Status Are patient's symptoms suggestive of a new infection, such as: -Pneumonia -Skin, Soft Tissue -Endocarditis -UTI -Bone, Joint Infection -Implantable Device -Acute Abdominal Infection -Wound Infection -Meningitis -Blood Stream Catheter Infection -Unknown Respiratory Complaint Exam - Shortness of Air Complaint/Exam Onset/Duration: Several days ago; saw Dr. Toscano 2 days ago. Placed on steroids Initial Severity: Moderate Current Severity: Moderate Character: Reports: Dyspnea at rest (Is regularly on O2 at 2Liters) Review of Systems - Review Of Systems Constitutional: Reports: Malaise Respiratory: Reports: Cough, Orthopnea, Short of air, Wheezing Cardiac: Reports: Chest pain (with cough and shortness of breath) Skin: Reports: No symptoms All Other Systems: Reviewed and Negative Past Medical History - Past Medical History Previously Healthy: No Endocrine: Reports: None, Dyslipidemia Cardiovascular: Reports: CAD, Hypertension, A-Fib Respiratory: Reports: COPD Hematological: Reports: None Gastrointestinal: Reports: None, GI Bleed (DR Hou NOTES PATINET RECENTLY DISCHARGED FRO M MANDAEN POST SHRAVAN BARKER TEAR) Genitourinary: Reports: None Neuro/Psych: Reports: None, Anxiety, Depression Musculoskeletal: Reports: Back Pain Cancer: Reports: None, Other Other Pertinent Past Medical History: ABDOMEN SURGERY as an infant - Surgical History General Surgical History: Reports: Appendectomy, Cholecystectomy, CABG (TWICE), Orthopedic (CABG X 2, BACK SURGERY, SHOULDER, NECK DISC REPLACEMENT, ), Back Surgery ( SPINE SURGERY), Hernia Repair (WITH MESH- CURRENTLY HAS TENDER AREA LEFT EPIGASTRIUM WHICH INTERMITTENTLY HAS LARGE PAINFUL LUMP) - Family History Family History: Reports: Unknown - Social History Smoking Status: Former smoker Hx Substance Use: No Alcohol Screening: None - Immunizations Influenza Vaccine within 12 Months: No Pneumococcal Vaccine up to Date: No Physical Exam - Physical Exam Appearance: Ill-appearing Ill-appearing: Moderate Pain Distress: Moderate (With breathing and coughing) ENT: Ears normal, Nose normal, Oropharynx normal Neck: Supple Respiratory: Breath sounds diminished (poor movement of air), Wheezes Cardiovascular: RRR, Pulses normal GI/: Soft, Nontender Musculoskeletal: Normal strength, ROM intact Skin: Warm, Dry, Normal color Neurological: Sensation intact, Motor intact, Alert, Oriented Psychiatric: Affect appropriate, Mood appropriate Interpretation - Radiology Interpretation Radiology Interpretation By: Radiologist Radiology Results: No acute changes Exam Interpreted: Portable CXR - EKG Interpretation Time of EKG #1: 13:53 Rate: Kentrell Rhythm: Sinus (Kentrell) [place]: Left ST Segment: Normal Interpretation: An apparent acute changes Re-Evaluation - Re-Evaluation Time of Re-Evaluation: 16:45 Status: Improved (After second breathing treatment) Vital Signs Stable: Yes Physician Notification - Case Discussed Physician Notified: Dr. Toscano Time of Notification: 16:35 (Discussed full admission; copd acute exacerbation) Critical Care Note - Critical Care Note Total Time (mins): 45 Comments: Acute exacerbation COPD; review of EKG, Labs, ABGs, neb tratments, X Ray Course - Course Hematology/Chemistry: 11/16/18 05:00 11/16/18 05:00 Orders, Labs, Meds: Lab Review 11/15/18 11/15/18 11/15/18 13:54 13:58 13:58 WBC 12.67 H RBC 4.15 L Hgb 11.4 L Hct 34.1 L MCV 82.2 MCH 27.5 MCHC 33.4 RDW Coeff of Tobin 15.9 H Plt Count 169 Immature Gran % (Auto) 0.5 Neut % (Auto) 92.5 Lymph % (Auto) 2.8 L [place] % (Auto) 4.1 Eos % (Auto) 0.0 Baso % (Auto) 0.1 Immature Gran # (Auto) 0.1 Neut # (Auto) 11.7 H Lymph # (Auto) 0.4 L [place] # (Auto) 0.5 Eos # (Auto) 0.0 Baso # (Auto) 0.0 Puncture Site O2 Saturation ABG pH ABG pCO2 ABG pO2 ABG HCO3 ABG Total CO2 ABG Base Excess Dariel Test O2 Delivery Device Oxygen Liter Flow Sodium 135.6 Potassium 4.14 Chloride 99.5 Carbon Dioxide 30.0 Anion Gap 10.24 BUN 18.0 Creatinine 1.26 H Estimated GFR (MDRD) 57.00 BUN/Creatinine Ratio 14.28 Glucose 128.5 H Calcium 9.21 Total Bilirubin 0.66 AST 31.9 ALT 17.7 Alkaline Phosphatase 75.0 Troponin I < 0.012 Total Protein 6.68 Albumin 3.79 Globulin 2.89 Albumin/Globulin Ratio 1.31 Influ A Molecular Assay Negative by naat Influ B Molecular Assay Negative by naat 11/15/18 14:35 WBC RBC Hgb Hct MCV MCH MCHC RDW Coeff of Tobin Plt Count Immature Gran % (Auto) Neut % (Auto) Lymph % (Auto) [place] % (Auto) Eos % (Auto) Baso % (Auto) Immature Gran # (Auto) Neut # (Auto) Lymph # (Auto) [place] # (Auto) Eos # (Auto) Baso # (Auto) Puncture Site L rad O2 Saturation 97.0 ABG pH 7.411 ABG pCO2 47.0 H ABG pO2 86.0 ABG HCO3 39.9 H ABG Total CO2 31 H ABG Base Excess 5 H Dariel Test + O2 Delivery Device Nc Oxygen Liter Flow 2.00 Sodium Potassium Chloride Carbon Dioxide Anion Gap BUN Creatinine Estimated GFR (MDRD) BUN/Creatinine Ratio Glucose Calcium Total Bilirubin AST ALT Alkaline Phosphatase Troponin I Total Protein Albumin Globulin Albumin/Globulin Ratio Influ A Molecular Assay Influ B Molecular Assay Orders Category Date Time Status ABG DRAW REQUEST Routine CARDIO 11/15/18 13:45 Completed EKG-(ED ONLY) Stat CARDIO 11/15/18 13:43 Completed NEBULIZER TREATMENT Stat CARDIO 11/15/18 13:42 Completed NEBULIZER TREATMENT Stat CARDIO 11/15/18 15:40 Completed ABG Stat LAB 11/15/18 14:35 Completed CBC W/ AUTO DIFF Stat LAB 11/15/18 13:58 Completed COMPREHENSIVE METABOLIC PANEL Stat LAB 11/15/18 13:58 Completed FLU A/B MOLECULAR Stat LAB 11/15/18 13:54 Completed TROPONIN I Stat LAB 11/15/18 13:58 Completed Albuterol Sulfate 0.083% Neb [Albuterol 0.083% Neb] MEDS 11/15/18 15:40 Discontinued 1 vial NEB ONCE STA Ipratropium/Albuterol Neb [Duoneb] MEDS 11/15/18 13:41 Discontinued 1 vial NEB ONCE STA Methylprednisolone Sod Succ/Pf [Solu-Medrol 40 mg] MEDS 11/15/18 14:12 Discontinued 40 mg IVP ONCE STA Sodium Chloride 0.9% [Sodium Chloride] 1,000 ml MEDS 11/15/18 14:11 Active IV 30 mls/hr CHEST, 1V AP ONLY Stat RADS 11/15/18 13:43 Completed Medications Generic Name Dose Route Start Last Admin Trade Name Freq PRN Reason Stop Dose Admin Albuterol/Ipratropium 1 spray 11/15/18 21:00 11/15/18 21:55 Combivent Respimat Inhal [place] IH 1 spray TID JONATAN Administration Alprazolam 1 mg 11/15/18 21:00 11/15/18 21:06 Xanax PO 1 mg BEDTIME JONATAN Administration Aspirin 81 mg 11/15/18 21:00 11/15/18 21:06 Aspirin Chewable PO 81 mg BEDTIME JONATAN Administration Atorvastatin Calcium 40 mg 11/15/18 21:00 11/15/18 21:07 Lipitor PO 40 mg BEDTIME JONATAN Administration Clopidogrel Bisulfate 75 mg 11/16/18 09:00 Plavix PO DAILY JONATAN Diltiazem HCl 60 mg 11/15/18 21:00 11/15/18 21:07 Cardizem PO 60 mg Q12HR JONATAN Administration Duloxetine HCl 30 mg 11/16/18 09:00 Cymbalta PO DAILY JONATAN Hydromorphone HCl 0.5 mg 11/15/18 17:37 11/15/18 22:06 Dilaudid 0.5 Mg/0.5 Ml Syringe IVP 0.5 mg Q4HR PRN Administration Pain Sodium Chloride 1,000 mls @ 30 mls/hr 11/15/18 14:11 Sodium Chloride IV 11/16/18 23:30 .[id number] STA Isosorbide Mononitrate 30 mg 11/16/18 09:00 Imdur PO DAILY JONATAN Methylprednisolone Sodium Succinate 40 mg 11/15/18 21:00 11/16/18 05:56 Solu-Medrol 40 Mg IVP 40 mg Q8HR JONATAN Administration Metoprolol Succinate 50 mg 11/16/18 09:00 Toprol Xl PO DAILY JONATAN Nitroglycerin 0.4 mg 11/15/18 17:44 Nitrostat SL DIRECTED PRN Pain Non-Formulary Medication 1 each 11/16/18 09:00 Fluticasone/Umeclidin/Vilanter [Trelegy Ellipta 100-62.5-25] IH DAILY JONATAN Oxycodone/Acetaminophen 1 tab 11/16/18 00:39 11/16/18 05:55 Percocet 7.5-325 PO 1 tab QID PRN Administration Pain Pantoprazole Sodium 40 mg 11/15/18 21:00 11/15/18 21:07 Protonix PO 40 mg BID JONATAN Administration Tamsulosin HCl 0.4 mg 11/16/18 09:00 Flomax PO DAILY JONATAN Discontinued Medications Generic Name Dose Route Start Last Admin Trade Name Freq PRN Reason Stop Dose Admin Albuterol Sulfate 1 vial 11/15/18 15:40 11/15/18 15:49 Albuterol 0.083% [facility] 11/15/18 15:41 1 vial ONCE STA Administration Albuterol/Ipratropium 1 vial 11/15/18 13:41 11/15/18 13:58 Duoneb [facility] 11/15/18 13:42 1 vial ONCE STA Administration Hydromorphone HCl 0.5 mg 11/15/18 17:15 11/15/18 17:44 Dilaudid 0.5 Mg/0.5 Ml Syringe IVP 11/15/18 17:16 0.5 mg ONCE STA Administration Methylprednisolone Sodium Succinate 40 mg 11/15/18 14:12 11/15/18 14:46 Solu-Medrol 40 Mg IVP 11/15/18 14:13 40 mg ONCE STA Administration Oxycodone/Acetaminophen tab 11/15/18 18:35 Percocet 7.5-325 PO QID PRN Pain Oxycodone/Acetaminophen 7.5 tab 11/15/18 19:09 11/15/18 19:15 Percocet 7.5-325 PO 1 tab QID PRN Administration Pain Vital Signs: Temp Pulse Resp BP Pulse Ox 11/15/18 13:18 97.7 F 64 24 167/74 H 91 L Departure - Departure Time of Disposition: 17:50 Disposition: ADMITTED INPATIENT Discharge Problem: COPD exacerbation Condition: Stable Pt referred to PMD for follow-up: Yes (Follow up after discharge from hospital) IPMP verified?: No (Not applicable; currently on Percocet by PCP) Allergies/Adverse Reactions: Allergies buspirone HCl [From BuSpar] Adverse Reaction (Verified 11/15/18 13:27) codeine Adverse Reaction (Verified 11/15/18 13:27) lorazepam [From Ativan] Adverse Reaction (Verified 11/15/18 13:27) meperidine HCl [From Demerol] Adverse Reaction (Verified 11/15/18 13:27) promethazine HCl [From Phenergan] Adverse Reaction (Verified 11/15/18 13:27) tiotropium bromide [From Spiriva with HandiHaler] Adverse Reaction (Verified 13:27) Home Medications: Ambulatory Orders Atorvastatin Calcium [Lipitor] 40 mg PO BEDTIME 01/20/13 Isosorbide Mononitrate [Imdur] 30 mg PO DAILY 01/20/13 Aspirin [Aspirin Chewable] 81 mg PO BEDTIME 01/28/13 Alprazolam [Xanax] 1 mg PO BEDTIME 09/22/14 Clopidogrel Bisulfate [Plavix] 75 mg PO DAILY 09/22/14 Diltiazem HCl [Cardizem] 60 mg PO Q12HR #60 tablet 09/23/14 Oxycodone HCl/Acetaminophen [Percocet 7.5-325 mg Tablet] 1 each PO QID PRN 30 Days tablet 03/18/15 Pantoprazole Sodium [Protonix] 40 mg PO BID #60 tablet. 11/23/16 Nitroglycerin 0.4 mg SL DIRECTED PRN 11/29/17 Duloxetine HCl [Cymbalta] 30 mg PO DAILY 04/30/18 Metoprolol Succinate [Toprol Xl] 50 mg PO DAILY 04/30/18 Tamsulosin HCl [Flomax] 1 cap PO DAILY 04/30/18 Ipratropium/Albuterol Sulfate [Combivent Respimat Inhal [place]] 1 spray IH TID Fluticasone/Umeclidin/Vilanter [Trelegy Ellipta 100-62.5-25] 1 each IH DAILY
[2018-11-15] MEDS ORDERED: DUONEB NEB STA (13:41)
[2018-11-15] MEDS ORDERED: SODIUM CHLORIDE 1,000 ML IV STA (14:11)
[2018-11-15] MEDS ORDERED: SOLU-MEDROL 40 MG IVP STA (14:12)
--- NOTE | 2018-11-15 14:20 | DI ---
EXAM: Chest one view HISTORY: Short of air COMPARISON: 08/28/2018 TECHNIQUE: Single view of the chest was performed FINDINGS: Lungs are clear. Lungs are hyperinflated. There is no pleural effusion or pneumothorax. The heart is normal in size. The mediastinal contour is unchanged, noting atherosclerosis. Median sternotomy wires.. There are no acute abnormalities of the bones. IMPRESSION: 1. No acute cardiopulmonary process. 2. Chronic obstructive pulmonary disease.
[2018-11-15] MEDS ORDERED: ALBUTEROL 0.083% NEB NEB STA (15:40)
[2018-11-15] MEDS ORDERED: DILAUDID 0.5 MG/0.5 ML SYRINGE IVP STA (17:15)
[2018-11-15] MEDS ORDERED: DILAUDID 0.5 MG/0.5 ML SYRINGE IVP PRN (17:37)
[2018-11-15] MEDS ORDERED: NITROSTAT SL PRN (17:44)
[2018-11-15 18:18] VITALS: BMI 22.9
[2018-11-15] MEDS ORDERED: PERCOCET 7.5-325 PO PRN ×2 (18:35→19:09)
[2018-11-15] MEDS ORDERED: PERCOCET 7.5-325 ONE (19:12)
[2018-11-15] MEDS: ASPIRIN CHEWABLE PO SCH (21:06)
[2018-11-15] MEDS: XANAX PO SCH (21:06)
[2018-11-15] MEDS: LIPITOR PO SCH (21:07)
[2018-11-15] MEDS: CARDIZEM PO SCH (21:07)
[2018-11-15] MEDS: PROTONIX PO SCH (21:07)
[2018-11-15] MEDS: SOLU-MEDROL 40 MG IVP SCH (21:08)
[2018-11-15] MEDS: COMBIVENT RESPIMAT INHAL SPRAY IH SCH (21:55)
[2018-11-16] MEDS ORDERED: PERCOCET 7.5-325 ONE (00:27)
[2018-11-16] MEDS: PERCOCET 7.5-325 PO PRN ×3 (05:55→23:13)
[2018-11-16] MEDS: SOLU-MEDROL 40 MG IVP SCH ×3 (05:56→20:28)
[2018-11-16] MEDS ORDERED: XOPENEX 1.25 MG NEB SCH (09:00)
[2018-11-16] MEDS: COMBIVENT RESPIMAT INHAL SPRAY IH SCH ×3 (09:17→20:29)
--- NOTE | 2018-11-16 09:17 | PCM.PROG ---
Attending Provider: ATTENDING PROVIDER: Dr. ANAHI CHUNG DATE OF SERVICE: 11/16/18 SUBJECTIVE: This 68 year old WHITE/ M was hospitalized 11/15/18 with acute bronchitis and pleuritic type of pain. The patient seems be to doing a lot better. He is in no distress. He is coughing up pink colored sputum, no hemoptysis. REVIEW OF SYSTEMS: CONSTITUTIONAL: No night sweats. No fatigue, malaise, lethargy. No fever or chills. HEENT: Eyes: No visual changes. No eye pain. No eye discharge. ENT: No runny nose. No epistaxis. No sinus pain. No odynophagia. No congestion. RESPIRATORY: Coughing up yellowish phlegm, no congestion. No hemoptysis. No shortness of breath. CARDIOVASCULAR: No angina symptoms. No CHF symptoms. No atypical chest pain for CAD. No palpitations. No orthopnea.. GASTROINTESTINAL: No abdominal pain. No nausea or vomiting. No diarrhea or constipation. No hematemesis. No hematochezia. GENITOURINARY: No urgency. No frequency. No dysuria. No hematuria. No obstructive symptoms. No discharge. No pain. No significant abnormal bleeding. MUSCULOSKELETAL: No musculoskeletal pain; no joint swelling. NEUROLOGICAL: Awake, alert, oriented to time, place and person. No headache. No neck pain. No syncope. No seizures. No dizziness. PSYCHIATRIC: Not anxious. No depression. No suicidal thoughts. No homicidal thoughts. SKIN: No rash. No lesions. No wounds. ENDOCRINE: No unexplained weight loss. No weight gain. HEMATOLOGIC/LYMPHATIC: No anemia. No purpura. No petechiae. No prolonged or excessive bleeding. No palpable lymph nodes. PHYSICAL EXAMINATION: GENERAL: The patient is awake, alert and oriented, lying in bed in no distress. VITAL SIGNS: Temperature 97.9 F, Pulse 64, Respiratory Rate 20, BP 176/81, Pulse Ox 92% HEENT: Head normocephalic, atraumatic. Eyes: Extraocular muscles are intact. Pupils are equal, round and reactive to light and accommodation. Ears: No lesions. Nose appeared normal. Throat: No exudate or erythema. NECK: Supple. No JVD, no carotid bruit. No lymphadenopathy or thyromegaly. LUNGS: Mild expiratory wheezing with good air entry. Clear to auscultation. Percussion note normal. Chest symmetrical. HEART: S1, S2, no S3. No murmurs. No cyanosis or clubbing. No ascites. Pulses: Dorsalis pedis and posterior tibial pulses +1 to +2 both sides. ABDOMEN: Soft. Non-tender. Bowel sounds active. No CVA tenderness. No mass felt. EXTREMITIES: No edema. Full range of motion of all extremities, equal. NEUROLOGIC: No focal deficit. Cranial nerves II through XII are grossly intact. No headache, no double vision or headache. SKIN: Warm and dry. Intact. Turgor-normal. LYMPHATIC: No palpable lymph nodes/no lymphedema. MUSCULOSKELETAL: Normal joints with no swelling. Muscle tone is normal. LAB REVIEW: 11/16/18 05:00 11/16/18 05:00 11/16/18 05:00: Sodium 133.5 L, Potassium 4.15, Chloride 98.6, Carbon Dioxide 28.7, Anion Gap 10.35, BUN 21.2 H, Creatinine 1.15 H, Estimated GFR (MDRD) 64.00 , BUN/Creatinine Ratio 18.43, Glucose 122.1 H, Calcium 9.20, Total Bilirubin 0.41, AST 22.9, ALT 16.7, Alkaline Phosphatase 69.0, Total Protein 6.41, Albumin 3.62, Globulin 2.79, Albumin/Globulin Ratio 1.29 11/16/18 05:00: WBC 8.82, RBC 4.06 L, Hgb 11.2 L, Hct 33.3 L, MCV 82.0, MCH 27.6 , MCHC 33.6, RDW Coeff of Tobin 15.8 H, Plt Count 182, Immature Gran % (Auto) 0.7 , Neut % (Auto) 93.1, Lymph % (Auto) 4.6 L, [place] % (Auto) 1.6, Eos % (Auto) 0.0 , Baso % (Auto) 0.0, Immature Gran # (Auto) 0.1, Neut # (Auto) 8.2 H, Lymph # ( Auto) 0.4 L, [place] # (Auto) 0.1 L, Eos # (Auto) 0.0, Baso # (Auto) 0.0 11/15/18 14:35: Puncture Site L rad, O2 Saturation 97.0, ABG pH 7.411, ABG pCO2 47.0 H, ABG pO2 86.0, ABG HCO3 39.9 H, ABG Total CO2 31 H, ABG Base Excess 5 H, Dariel Test +, O2 Delivery Device Nc, Oxygen Liter Flow 2.00 11/15/18 13:58: Sodium 135.6, Potassium 4.14, Chloride 99.5, Carbon Dioxide 30.0 , Anion Gap 10.24, BUN 18.0, Creatinine 1.26 H, Estimated GFR (MDRD) 57.00, BUN/ Creatinine Ratio 14.28, Glucose 128.5 H, Calcium 9.21, Total Bilirubin 0.66, AST 31.9, ALT 17.7, Alkaline Phosphatase 75.0, Troponin I < 0.012, Total Protein 6.68, Albumin 3.79, Globulin 2.89, Albumin/Globulin Ratio 1.31 11/15/18 13:58: WBC 12.67 H, RBC 4.15 L, Hgb 11.4 L, Hct 34.1 L, MCV 82.2, MCH 27.5, MCHC 33.4, RDW Coeff of Tobin 15.9 H, Plt Count 169, Immature Gran % (Auto) 0.5, Neut % (Auto) 92.5, Lymph % (Auto) 2.8 L, [place] % (Auto) 4.1, Eos % (Auto) 0.0, Baso % (Auto) 0.1, Immature Gran # (Auto) 0.1, Neut # (Auto) 11.7 H, Lymph # (Auto) 0.4 L, [place] # (Auto) 0.5, Eos # (Auto) 0.0, Baso # (Auto) 0.0 11/15/18 13:54: Influ A Molecular Assay Negative by naat, Influ B Molecular Assay Negative by naat ASSESSMENT: Please see below. 1. Acute bronchitis/ pneumonitis 2. Pleuritic pain 3. Chronic lung disease 4. History of smoking 5. Severe DJD of the spine 6. Hypertension. PLAN: 1. Continue steroids. 2. IV fluids 3. Will add antibiotics 4. NEBS treatment 5. Cardiovascular status is stable. Plan and coordination of the patient's care discussed in the presence of Supervisor Inspection And Testing and nurse. SCRIBED BY: LEONARDO GUADARRAMA, Qm Consultant scribed while in presence of service performed by Dr. ANAHI CHUNG on 11/16/18 ([id number])
[2018-11-16] MEDS: IMDUR PO SCH (09:18)
[2018-11-16] MEDS: FLOMAX PO SCH (09:18)
[2018-11-16] MEDS: ROCEPHIN 1 GM in SODIUM CHLORIDE 50 ML IV SCH (09:18)
[2018-11-16] MEDS: PLAVIX PO SCH (09:19)
[2018-11-16] MEDS: PROTONIX PO SCH ×2 (09:19→20:27)
[2018-11-16] MEDS: CYMBALTA PO SCH (09:19)
[2018-11-16] MEDS: TOPROL XL PO SCH (09:19)
[2018-11-16] MEDS: CARDIZEM PO SCH ×2 (09:19→20:27)
[2018-11-16] MEDS: ZITHROMAX PO SCH (09:24)
[2018-11-16] MEDS: TORADOL IVP SCH ×3 (09:43→20:28)
[2018-11-16] MEDS: DILAUDID 0.5 MG/0.5 ML SYRINGE IVP PRN (09:44)
[2018-11-16] MEDS: XOPENEX 1.25 MG NEB SCH ×2 (14:05→20:00)
[2018-11-16] MEDS: NON-FORMULARY MEDICATION (Fluticasone/Umeclidin/Vilanter [Trelegy Ellipta 100-62.5-25] 1 E IH SCH (16:37)
[2018-11-16] MEDS: XANAX PO SCH (20:27)
[2018-11-16] MEDS: LIPITOR PO SCH (20:28)
[2018-11-16] MEDS: ASPIRIN CHEWABLE PO SCH (20:28)
[2018-11-17] MEDS: DILAUDID 0.5 MG/0.5 ML SYRINGE IVP PRN ×2 (02:04→12:06)
[2018-11-17] MEDS: XOPENEX 1.25 MG NEB SCH ×3 (04:45→20:10)
[2018-11-17] MEDS: SOLU-MEDROL 40 MG IVP SCH ×3 (05:23→21:00)
[2018-11-17] MEDS: TORADOL IVP SCH ×3 (05:23→21:00)
[2018-11-17] MEDS: ROCEPHIN 1 GM in SODIUM CHLORIDE 50 ML IV SCH (08:21)
[2018-11-17] MEDS: IMDUR PO SCH (08:21)
[2018-11-17] MEDS: COMBIVENT RESPIMAT INHAL SPRAY IH SCH ×3 (08:21→21:05)
[2018-11-17] MEDS: PERCOCET 7.5-325 PO PRN ×3 (08:22→21:01)
[2018-11-17] MEDS: FLOMAX PO SCH (08:22)
[2018-11-17] MEDS: PROTONIX PO SCH ×2 (08:22→21:02)
[2018-11-17] MEDS: CYMBALTA PO SCH (08:22)
[2018-11-17] MEDS: PLAVIX PO SCH (08:22)
[2018-11-17] MEDS: ZITHROMAX PO SCH (08:22)
[2018-11-17] MEDS: CARDIZEM PO SCH ×2 (08:22→21:01)
[2018-11-17] MEDS: TOPROL XL PO SCH (08:22)
[2018-11-17] MEDS: NON-FORMULARY MEDICATION (Fluticasone/Umeclidin/Vilanter [Trelegy Ellipta 100-62.5-25] 1 E IH SCH (08:23)
[2018-11-17] MEDS: LIPITOR PO SCH (21:01)
[2018-11-17] MEDS: ASPIRIN CHEWABLE PO SCH (21:01)
[2018-11-17] MEDS: XANAX PO SCH (21:01)
[2018-11-18] MEDS: PERCOCET 7.5-325 PO PRN ×4 (03:47→20:51)
[2018-11-18] MEDS: XOPENEX 1.25 MG NEB SCH ×3 (04:45→20:15)
[2018-11-18] MEDS: SOLU-MEDROL 40 MG IVP SCH ×3 (05:17→20:34)
[2018-11-18] MEDS: TORADOL IVP SCH ×3 (05:17→20:34)
[2018-11-18] MEDS: ROCEPHIN 1 GM in SODIUM CHLORIDE 50 ML IV SCH (08:15)
[2018-11-18] MEDS: COMBIVENT RESPIMAT INHAL SPRAY IH SCH ×3 (08:15→20:40)
[2018-11-18] MEDS: PLAVIX PO SCH (08:16)
[2018-11-18] MEDS: IMDUR PO SCH (08:16)
[2018-11-18] MEDS: CARDIZEM PO SCH ×2 (08:16→20:35)
[2018-11-18] MEDS: PROTONIX PO SCH ×2 (08:16→20:39)
[2018-11-18] MEDS: TOPROL XL PO SCH (08:16)
[2018-11-18] MEDS: ZITHROMAX PO SCH (08:16)
[2018-11-18] MEDS: FLOMAX PO SCH (08:16)
[2018-11-18] MEDS: CYMBALTA PO SCH (08:17)
[2018-11-18] MEDS: NON-FORMULARY MEDICATION (Fluticasone/Umeclidin/Vilanter [Trelegy Ellipta 100-62.5-25] 1 E IH SCH (08:38)
[2018-11-18] MEDS ORDERED: DILAUDID 0.5 MG/0.5 ML SYRINGE IVP STA (11:59)
[2018-11-18] MEDS ORDERED: DILAUDID 0.5 MG/0.5 ML SYRINGE IVP PRN (13:03)
[2018-11-18] MEDS: LIPITOR PO SCH (20:34)
[2018-11-18] MEDS: XANAX PO SCH (20:35)
[2018-11-18] MEDS: ASPIRIN CHEWABLE PO SCH (20:35)
[2018-11-19] MEDS: PERCOCET 7.5-325 PO PRN ×4 (04:15→20:36)
[2018-11-19] MEDS: SOLU-MEDROL 40 MG IVP SCH (04:24)
[2018-11-19] MEDS: TORADOL IVP SCH (04:24)
[2018-11-19] MEDS: XOPENEX 1.25 MG NEB SCH ×3 (05:06→19:25)
[2018-11-19] MEDS ORDERED: DILAUDID 0.5 MG/0.5 ML SYRINGE ONE (08:30)
[2018-11-19] MEDS ORDERED: DILAUDID 0.5 MG/0.5 ML SYRINGE IVP STA (08:41)
[2018-11-19] MEDS: COMBIVENT RESPIMAT INHAL SPRAY IH SCH ×3 (08:43→20:38)
[2018-11-19] MEDS: PROTONIX PO SCH ×2 (08:44→20:35)
[2018-11-19] MEDS: CYMBALTA PO SCH (08:44)
[2018-11-19] MEDS: PREDNISONE PO SCH (08:44)
[2018-11-19] MEDS: COZAAR PO SCH ×2 (08:44→20:35)
[2018-11-19] MEDS: PLAVIX PO SCH (08:44)
[2018-11-19] MEDS: TOPROL XL PO SCH (08:44)
[2018-11-19] MEDS: IMDUR PO SCH (08:44)
[2018-11-19] MEDS: OMNICEF PO SCH ×2 (08:44→20:36)
[2018-11-19] MEDS: FLOMAX PO SCH (08:44)
[2018-11-19] MEDS: CARDIZEM PO SCH ×2 (08:44→20:37)
[2018-11-19] MEDS: NON-FORMULARY MEDICATION (Fluticasone/Umeclidin/Vilanter [Trelegy Ellipta 100-62.5-25] 1 E IH SCH (09:12)
--- NOTE | 2018-11-19 09:32 | PCM.PROG ---
Attending Provider: ATTENDING PROVIDER: Dr. ANAHI CHUNG DATE OF SERVICE: 11/19/18 SUBJECTIVE: This 68 year old WHITE/ M was hospitalized 11/15/18 with acute bronchitis, COPD and pleuritic pain. The patient is on Dilaudid once a day now. She is on Percocet and Toradol. REVIEW OF SYSTEMS: CONSTITUTIONAL: No night sweats. No fatigue, malaise, lethargy. No fever or chills. HEENT: Eyes: No visual changes. No eye pain. No eye discharge. ENT: No runny nose. No epistaxis. No sinus pain. No odynophagia. No congestion. RESPIRATORY: No cough, no congestion. No hemoptysis. No shortness of breath. CARDIOVASCULAR: Positive for pleuritic type of chest pain. No angina symptoms. No CHF symptoms. No palpitations. No orthopnea. GASTROINTESTINAL: No abdominal pain. No nausea or vomiting. No diarrhea or constipation. No hematemesis. No hematochezia. GENITOURINARY: No urgency. No frequency. No dysuria. No hematuria. No obstructive symptoms. No discharge. No pain. No significant abnormal bleeding. MUSCULOSKELETAL: Back pain. NEUROLOGICAL: Awake, alert, oriented to time, place and person. No headache. No neck pain. No syncope. No seizures. No dizziness. PSYCHIATRIC: Not anxious. No depression. No suicidal thoughts. No homicidal thoughts. SKIN: No rash. No lesions. No wounds. ENDOCRINE: No unexplained weight loss. No weight gain. HEMATOLOGIC/LYMPHATIC: No anemia. No purpura. No petechiae. No prolonged or excessive bleeding. No palpable lymph nodes. PHYSICAL EXAMINATION: GENERAL: The patient is awake, alert and oriented, lying in bed in no distress. VITAL SIGNS: Temperature 98.8 F, Pulse 68, Respiratory Rate 18, BP 153/84, Pulse Ox 99% HEENT: Head normocephalic, atraumatic. Eyes: Extraocular muscles are intact. Pupils are equal, round and reactive to light and accommodation. Ears: No lesions. Nose appeared normal. Throat: No exudate or erythema. NECK: Supple. No JVD, no carotid bruit. No lymphadenopathy or thyromegaly. LUNGS: Decreased breath sounds. Clear to auscultation. No wheeze. Percussion note normal. Chest symmetrical. HEART: S1, S2, no S3. No murmurs. No cyanosis or clubbing. No ascites. Pulses: Dorsalis pedis and posterior tibial pulses +1 to +2 both sides. ABDOMEN: Soft. Non-tender. Bowel sounds active. No CVA tenderness. No mass felt. EXTREMITIES: No edema. Full range of motion of all extremities, equal. NEUROLOGIC: No focal deficit. Cranial nerves II through XII are grossly intact. No headache, no double vision or headache. SKIN: Warm and dry. Intact. Turgor-normal. LYMPHATIC: No palpable lymph nodes/no lymphedema. MUSCULOSKELETAL: Normal joints with no swelling. Muscle tone is normal. LAB REVIEW: 11/19/18 04:20 11/19/18 04:20 11/19/18 04:20: Sodium 135.0, Potassium 4.41, Chloride 100.2, Carbon Dioxide 30.4 H, Anion Gap 8.81, BUN 43.5 H, Creatinine 1.44 H, Estimated GFR (MDRD) 49.00, BUN/Creatinine Ratio 30.20, Glucose 124.0 H, Calcium 8.49, Total Bilirubin 0.40, AST 24.3, ALT 21.4, Alkaline Phosphatase 99.3, Total Protein 5.36 L, Albumin 3.01 L, Globulin 2.35, Albumin/Globulin Ratio 1.28 11/19/18 04:20: WBC 18.94 H, RBC 3.95 L, Hgb 10.8 L, Hct 32.1 L, MCV 81.3, MCH 27.3, MCHC 33.6, RDW Coeff of Tobin 15.6 H, Plt Count 220, Immature Gran % (Auto) 0.7, Neut % (Auto) 93.5, Lymph % (Auto) 1.7 L, [place] % (Auto) 4.0, Eos % (Auto) 0.0, Baso % (Auto) 0.1, Immature Gran # (Auto) 0.1, Neut # (Auto) 17.7 H, Lymph # (Auto) 0.3 L, [place] # (Auto) 0.8, Eos # (Auto) 0.0, Baso # (Auto) 0.0 ASSESSMENT: 1. Acute bronchitis with pleuritic pain which seems to be better. 2. Hypertension persists (systolic). Will add Cozaar. 3. Kidney function abnormal - will monitor. He has chronic kidney disease. 4. Chronic lung disease. 5. History of smoking. 6. Severe DJD of the spine. PLAN: 1. Referral to Dr. Benjamin for chronic sinusitis. 2. Cozaar 50 mg b.i.d. 3. D/C Toradol. 4. Prednisone 20 mg p.o. daily. 5. D/C IV steroids. 6. Advised not to take nonsteroidals. 7. Start Omnicef 300 mg b.i.d. daily. 8. Dilaudid IM once daily. Plan and coordination of the patient's care discussed in the presence of Seamer Operator and nurse. CONDITION: Stable SCRIBED BY: ROSI PLASENCIA Forest Technician scribed while in presence of service performed by Dr. ANAHI CHUNG on 11/19/18 ([id number])
--- NOTE | 2018-11-19 12:53 | HP ---
DATE OF SERVICE: 11/15/18 REASON FOR HOSPITALIZATION: Shortness of air. HISTORY OF PRESENT ILLNESS: 68-year-old white male was hospitalized through the emergency room; seen in the emergency room by Dr. Eastman. The patient was short of breath and wheezing bilaterally, had pleuritic type of pain. The patient has been treated by the primary physician two days prior to hospitalization, placed on steroids and antibiotics with not much improvement. The patient has history of chronic lung disease and coronary artery disease. He says that he has quit smoking but is sneaking around and smoking. PAST MEDICAL HISTORY: Chronic lung disease Coronary artery disease Coronary artery bypass surgery 2017, 2012 Dyslipidemia Depression Bladder cancer followed by Dr. Keller Hyperglycemia Colon polyps COPD Hypertension Dysphagia Cardiolite negative on 09/25/17 PAST SURGICAL HISTORY: Appendectomy Cholecystectomy Open heart surgery CABG times two Back surgery Shoulder surgery Hernia repair in the abdomen REVIEW OF SYSTEMS: CONSTITUTIONAL: No night sweats. No fatigue, malaise, lethargy. No fever or chills. HEENT: Eyes: No visual changes. No eye pain. No eye discharge. ENT: No runny nose. No epistaxis. No sinus pain. No sore throat. No odynophagia. No ear pain. No congestion. RESPIRATORY: No cough, no congestion. No hemoptysis. No shortness of breath. CARDIOVASCULAR: No angina symptoms. No CHF symptoms. No atypical chest pain for CAD. No palpitations. No PND. No orthopnea. GASTROINTESTINAL: No abdominal pain. No nausea or vomiting. No diarrhea or constipation. No hematemesis. No hematochezia. GENITOURINARY: No urgency. No frequency. No dysuria. No hematuria. No obstructive symptoms. No discharge. No pain. No significant abnormal bleeding. MUSCULOSKELETAL: No musculoskeletal pain. No joint swelling. No arthritis. NEUROLOGICAL: No headache. No neck pain. No syncope. No seizures. No dizziness. PSYCHIATRIC: Not anxious. No depression. No suicidal thoughts. No homicidal thoughts. SKIN: No rash. No lesions. No wounds. ENDOCRINE: No unexplained weight loss. No weight gain. HEMATOLOGIC/LYMPHATIC: No anemia. No purpura. No petechiae. No prolonged or excessive bleeding. No palpable lymph nodes. PERSONAL/FAMILY/SOCIAL HISTORY: The patient is , lives with the . Smokes here and there. No alcohol abuse. MEDICATIONS: (HOME) Atorvastatin Isosorbide Aspirin Xanax Clopidogrel Diltiazem Oxycodone Pantoprazole Nitroglycerin Cymbalta Metoprolol Tamsulosin Combivent Trelegy ALLERGIES: BUSPAR, CODEINE, ATIVAN, DEMEROL, PHENERGAN, SPIRIVA PHYSICAL EXAMINATION: VITAL SIGNS: Temperature 97.7, pulse 64, respiratory rate 24, BP 167/74, pulse ox 91% in the emergency room. HEENT: Head normocephalic, atraumatic. Eyes: Extraocular muscles are intact. Pupils are equal, round and reactive to light and accommodation. Ears: No lesions. Nose appeared normal. Throat: No exudate or erythema. NECK: Supple. No JVD, no carotid bruit. No lymphadenopathy or thyromegaly. LUNGS: Bilateral wheeze expiratory. Clear to auscultation. Percussion note normal. Chest symmetrical. HEART: S1, S2, no S3. No murmurs. No cyanosis or clubbing. No ascites. Pulses: Dorsalis pedis and posterior tibial pulses +1 bilaterally. ABDOMEN: Soft. Nontender. Bowel sounds active. No CVA tenderness. No mass felt. EXTREMITIES: No edema. Full range of motion of all extremities, equal. NEUROLOGIC: The patient is oriented to time, place and person. No focal deficit. Cranial nerves II through XII are grossly intact. No headache, no double vision or headache. SKIN: Not dry. Intact. Turgor - normal. LYMPHATIC: No palpable lymph nodes/no lymphedema. MUSCULOSKELETAL: Normal joints with no swelling. Muscle tone is normal. ASSESSMENT: 1. ACUTE BRONCHITIS/PNEUMONITIS WITH PLEURITIC PAIN, MORE PAIN ON DEEP INSPIRATION. 2. CHRONIC LUNG DISEASE WITH HISTORY OF SMOKING. 3. CORONARY ARTERY BYPASS SURGERY 2012. 4. DYSLIPIDEMIA. 5. DEPRESSION. 6. CA OF THE URINARY BLADDER. 7. HYPERGLYCEMIA. 8. COLON POLYPS. 9. HYPERTENSION. 10. DYSPHAGIA. PLAN: 1. Admit the patient. 2. IV Toradol q.8hr. 3. IV Solu-Cortef. 4. IV antibiotics. 5. Telemetry. 6. EKG. 7. Cardiac markers. 8. Continue the rest of the home medications. 9. IV fluids. 10. Dilaudid will be given 5 mg IV q.4hr. 11. Counseling for smoking done which the patient denied he has been smoking. 12. Exercise is discussed. CONDITION: Stable. TIME SPENT: More than 70 minutes. MTDD
[2018-11-19] MEDS ORDERED: DILAUDID 0.5 MG/0.5 ML SYRINGE IVP PRN (13:03)
--- NOTE | 2018-11-19 14:29 | PN ---
DATE OF SERVICE: 11/15/18 SUBJECTIVE: Mr. Soler was hospitalized through the emergency room as he came to the emergency room with wheezing and symptoms of acute bronchitis. The patient was treated as an outpatient through the office with antibiotics and steroids with much improvement. The patient's cardiovascular status seems to be stable. The patient is going to be hospitalized with IV antibiotics, steroids, nebs treatment, oxygen. The patient is sneaking around and smoking. He also complains of a lot of back pain, Dilaudid, could be given 1 mg p.r.n. every four hourly. TIME SPENT: More than 30 minutes. Plan and coordination of the patient's care discussed in the presence of nurse. VERN
--- NOTE | 2018-11-19 14:34 | PN ---
DATE OF SERVICE: 11/17/18 SUBJECTIVE: Mr. Soler was seen and examined this morning. He is feeling better, still coughing, bringing up mildly green-colored sputum. REVIEW OF SYSTEMS: CONSTITUTIONAL: No night sweats. No fatigue, malaise, lethargy. No fever or chills. HEENT: Eyes: No visual changes. No eye pain. No eye discharge. ENT: No runny nose. No epistaxis. No sinus pain. No sore throat. No odynophagia. No congestion. RESPIRATORY: No cough, no congestion. No hemoptysis. No shortness of breath. CARDIOVASCULAR: No angina symptoms. No CHF symptoms. No atypical chest pain for CAD. No palpitations. No PND. No orthopnea. GASTROINTESTINAL: No abdominal pain. No nausea or vomiting. No diarrhea or constipation. No hematemesis. No hematochezia. GENITOURINARY: No urgency. No frequency. No dysuria. No hematuria. No obstructive symptoms. No discharge. No pain. No significant abnormal bleeding. MUSCULOSKELETAL: No musculoskeletal pain; no joint swelling. NEUROLOGICAL: No headache. No neck pain. No syncope. No seizures. No dizziness. PSYCHIATRIC: Not anxious. No depression. No suicidal thoughts. No homicidal thoughts. SKIN: No rash. No lesions. No wounds. ENDOCRINE: No unexplained weight loss. No weight gain. HEMATOLOGIC/LYMPHATIC: No anemia. No purpura. No petechiae. No prolonged or excessive bleeding. No palpable lymph nodes. PHYSICAL EXAMINATION: GENERAL: The patient is oriented to time, place and person. HEENT: Head normocephalic, atraumatic. Eyes: Extraocular muscles are intact. Pupils are equal, round and reactive to light and accommodation. Ears: No lesions. Nose appeared normal. Throat: No exudate or erythema. NECK: Supple. No JVD, no carotid bruit. No lymphadenopathy or thyromegaly. LUNGS: Clear to auscultation with decreased breath sounds with mild wheeze. Good air entry. Percussion note normal. Chest symmetrical. HEART: S1, S2, no S3. No murmurs. No cyanosis or clubbing. No ascites. Pulses: Dorsalis pedis and posterior tibial pulses +1 to +2 bilaterally. ABDOMEN: Soft. Nontender. Bowel sounds active. No CVA tenderness. No mass felt. EXTREMITIES: No edema. Full range of motion of all extremities, equal. NEUROLOGIC: No focal deficit. Cranial nerves II through XII are grossly intact. No headache, no double vision or headache. SKIN: Not dry. Intact. Turgor - normal. LYMPHATIC: No palpable lymph nodes/no lymphedema. MUSCULOSKELETAL: Normal joints with no swelling. Muscle tone is normal. ASSESSMENT: 1. ACUTE BRONCHITIS/PNEUMONITIS SEEMS TO BE RESOLVING. 2. BACK PAIN WITH SEVERE BACK MUSCLE SPASM TREATED WITH NARCOTICS. INTERMITTENTLY DILAUDID IS GIVEN. 3. CARDIOVASCULAR STATUS IS STABLE. 4. RESPIRATORY STATUS IMPROVING WITH STEROIDS, ANTIBIOTICS AND NEBS. TIME SPENT: More than 30 minutes. Plan and coordination of the patient's care discussed in the presence of nurse. VERN
--- NOTE | 2018-11-19 14:41 | PN ---
DATE OF SERVICE: 11/18/18 SUBJECTIVE: The patient was seen and examined this morning. The patient is up and about feeling a lot better, still congested, much less. REVIEW OF SYSTEMS: CONSTITUTIONAL: No night sweats. No fatigue, malaise, lethargy. No fever or chills. HEENT: Eyes: No visual changes. No eye pain. No eye discharge. ENT: No runny nose. No epistaxis. No sinus pain. No sore throat. No odynophagia. No congestion. RESPIRATORY: Mild cough, less wheezing. No hemoptysis. No shortness of breath. CARDIOVASCULAR: Pleuritic pain is much less. No angina symptoms. No CHF symptoms. No palpitations. No PND. No orthopnea. GASTROINTESTINAL: Appetite has improved. No abdominal pain. No nausea or vomiting. No diarrhea or constipation. No hematemesis. No hematochezia. GENITOURINARY: No urgency. No frequency. No dysuria. No hematuria. No obstructive symptoms. No discharge. No pain. No significant abnormal bleeding. MUSCULOSKELETAL: No musculoskeletal pain; no joint swelling. NEUROLOGICAL: No headache. No neck pain. No syncope. No seizures. No dizziness. PSYCHIATRIC: Not anxious. No depression. No suicidal thoughts. No homicidal thoughts. SKIN: No rash. No lesions. No wounds. ENDOCRINE: No unexplained weight loss. No weight gain. HEMATOLOGIC/LYMPHATIC: No anemia. No purpura. No petechiae. No prolonged or excessive bleeding. No palpable lymph nodes. PHYSICAL EXAMINATION: VITAL SIGNS: TEMPERATURE 97.7, PULSE 69, RESPIRATORY RATE 24, BP 174/80, PULSE OX 100% ON ROOM AIR. GENERAL: The patient is oriented to time, place and person. HEENT: Head normocephalic, atraumatic. Eyes: Extraocular muscles are intact. Pupils are equal, round and reactive to light and accommodation. Ears: No lesions. Nose appeared normal. Throat: No exudate or erythema. NECK: Supple. No JVD, no carotid bruit. No lymphadenopathy or thyromegaly. LUNGS: Decreased breath sounds with mild wheeze. Good air entry. Percussion note normal. Chest symmetrical. HEART: S1, S2, no S3. No murmurs. No cyanosis or clubbing. No ascites. Pulses: Dorsalis pedis and posterior tibial pulses +1 to +2 bilaterally. ABDOMEN: Soft. Nontender. Bowel sounds active. No CVA tenderness. No mass felt. EXTREMITIES: No edema. Full range of motion of all extremities, equal. NEUROLOGIC: No focal deficit. Cranial nerves II through XII are grossly intact. No headache, no double vision or headache. SKIN: Not dry. Intact. Turgor - normal. LYMPHATIC: No palpable lymph nodes/no lymphedema. MUSCULOSKELETAL: Normal joints with no swelling. Muscle tone is normal. ASSESSMENT: 1. ACUTE BRONCHITIS/PNEUMONITIS SEEMS TO BE RESOLVING. 2. PLEURITIC PAIN IS UNDER CONTROL. PLAN: 1. Continue IV steroids, antibiotics, nebs. TIME SPENT: More than 30 minutes. Plan and coordination of the patient's care discussed in the presence of nurse. VERN
[2018-11-19] MEDS: ASPIRIN CHEWABLE PO SCH (20:35)
[2018-11-19] MEDS: LIPITOR PO SCH (20:36)
[2018-11-19] MEDS: XANAX PO SCH (20:36)
[2018-11-20] MEDS: XOPENEX 1.25 MG NEB SCH (04:30)
[2018-11-20 06:23] VITALS: BP 150/74; TEMP 97.7
[2018-11-20] MEDS ORDERED: DILAUDID 0.5 MG/0.5 ML SYRINGE IVP PRN (09:00)
[2018-11-20] MEDS: CARDIZEM PO SCH (09:07)
[2018-11-20] MEDS: OMNICEF PO SCH (09:07)
[2018-11-20] MEDS: PROTONIX PO SCH (09:07)
[2018-11-20] MEDS: TOPROL XL PO SCH (09:07)
[2018-11-20] MEDS: PLAVIX PO SCH (09:07)
[2018-11-20] MEDS: PREDNISONE PO SCH (09:07)
[2018-11-20] MEDS: COZAAR PO SCH (09:07)
[2018-11-20] MEDS: FLOMAX PO SCH (09:07)
[2018-11-20] MEDS: NON-FORMULARY MEDICATION (Fluticasone/Umeclidin/Vilanter [Trelegy Ellipta 100-62.5-25] 1 E IH SCH (09:08)
[2018-11-20] MEDS: IMDUR PO SCH (09:08)
[2018-11-20] MEDS: PERCOCET 7.5-325 PO PRN (09:08)
[2018-11-20] MEDS: CYMBALTA PO SCH (09:08)
[2018-11-20] MEDS: COMBIVENT RESPIMAT INHAL SPRAY IH SCH (09:09)
--- NOTE | 2018-11-20 09:31 | PCM.PROG ---
Attending Provider: ATTENDING PROVIDER: Dr. ANAHI CHUNG DATE OF SERVICE: 11/20/18 SUBJECTIVE: This 68 year old WHITE/ M was hospitalized 11/15/18 with acute bronchitis/pneumonitis, pleuritic type of pain. He required extra dose of Dilaudid. His cardiovascular status is stable. No evidence of CHF or pulmonary insufficiency. Bronchitis has improved. REVIEW OF SYSTEMS: CONSTITUTIONAL: No night sweats. No fatigue, malaise, lethargy. No fever or chills. HEENT: Eyes: No visual changes. No eye pain. No eye discharge. ENT: No runny nose. No epistaxis. No sinus pain. No odynophagia. No congestion. RESPIRATORY: No cough, no congestion. No hemoptysis. No shortness of breath. CARDIOVASCULAR: No angina symptoms. No CHF symptoms. No atypical chest pain for CAD. No palpitations. No orthopnea.. GASTROINTESTINAL: No abdominal pain. No nausea or vomiting. No diarrhea or constipation. No hematemesis. No hematochezia. GENITOURINARY: No urgency. No frequency. No dysuria. No hematuria. No obstructive symptoms. No discharge. No pain. No significant abnormal bleeding. MUSCULOSKELETAL: No musculoskeletal pain; no joint swelling. NEUROLOGICAL: Awake, alert, oriented to time, place and person. No headache. No neck pain. No syncope. No seizures. No dizziness. PSYCHIATRIC: Not anxious. No depression. No suicidal thoughts. No homicidal thoughts. SKIN: No rash. No lesions. No wounds. ENDOCRINE: No unexplained weight loss. No weight gain. HEMATOLOGIC/LYMPHATIC: No anemia. No purpura. No petechiae. No prolonged or excessive bleeding. No palpable lymph nodes. PHYSICAL EXAMINATION: GENERAL: The patient is awake, alert and oriented, lying/sitting in bed in no distress. VITAL SIGNS: Temperature 97.7 F, Pulse 64, Respiratory Rate 14, BP 150/74, Pulse Ox 98% HEENT: Head normocephalic, atraumatic. Eyes: Extraocular muscles are intact. Pupils are equal, round and reactive to light and accommodation. Ears: No lesions. Nose appeared normal. Throat: No exudate or erythema. NECK: Supple. No JVD, no carotid bruit. No lymphadenopathy or thyromegaly. LUNGS: More air entry. Clear to auscultation. Percussion note normal. Chest symmetrical. HEART: S1, S2, no S3. No murmurs. No cyanosis or clubbing. No ascites. Pulses: Dorsalis pedis and posterior tibial pulses +1 to +2 both sides. ABDOMEN: Soft. Non-tender. Bowel sounds active. No CVA tenderness. No mass felt. EXTREMITIES: No edema. Full range of motion of all extremities, equal. NEUROLOGIC: No focal deficit. Cranial nerves II through XII are grossly intact. No headache, no double vision or headache. SKIN: Warm and dry. Intact. Turgor-normal. LYMPHATIC: No palpable lymph nodes/no lymphedema. MUSCULOSKELETAL: Normal joints with no swelling. Muscle tone is normal. LAB REVIEW: 11/20/18 04:15 11/20/18 04:15 11/20/18 04:15: Sodium 137.6, Potassium 4.65, Chloride 101.4, Carbon Dioxide 33.4 H, Anion Gap 7.45, BUN 41.9 H, Creatinine 1.26 H, Estimated GFR (MDRD) 57.00, BUN/Creatinine Ratio 33.25, Glucose 106.1 H, Calcium 8.22 L, Total Bilirubin 0.28, AST 20.8, ALT 19.6, Alkaline Phosphatase 79.0, Total Protein 4.83 L, Albumin 2.66 L, Globulin 2.17, Albumin/Globulin Ratio 1.22 11/20/18 04:15: WBC 14.36 H, RBC 3.69 L, Hgb 10.1 L, Hct 30.0 L, MCV 81.3, MCH 27.4, MCHC 33.7, RDW Coeff of Tobin 15.6 H, Plt Count 224, Immature Gran % (Auto) 1.0, Neut % (Auto) 86.5, Lymph % (Auto) 4.0 L, [place] % (Auto) 8.4, Eos % (Auto) 0.0, Baso % (Auto) 0.1, Immature Gran # (Auto) 0.1, Neut # (Auto) 12.4 H, Lymph # (Auto) 0.6, [place] # (Auto) 1.2, Eos # (Auto) 0.0, Baso # (Auto) 0.0 ASSESSMENT: 1. ACUTE BRONCHITIS/PNEUMONITIS/PLEURITIC PAIN SUBSIDED. PLAN: 1. Will discharge home with Prednisone, antibiotics, nebs and oxygen. 2. The patient is advised not to smoke. 3. The patient is advised to rest for the next 3 to 4 days. 4. Will see back in the office next week. 5. Will have outpatient referral to Dr. Benjamin for sinusitis. Plan and coordination of the patient's care discussed in the presence of Hydraulic [employer] Servicer and nurse. CONDITION: IMPROVED. SCRIBED BY: ROSI PL[employer] Installer scribed while in presence of service performed by Dr. ANAHI CHUNG on 11/20/18 (1521)
--- NOTE | 2018-11-20 12:15 | CM.DICTOOL ---
ADMISSION: 11/15/18 17:06 DISCHARGE: NOVEMBER 20, 2018 DATE OF SERVICE: 11/20/18 FINAL DIAGNOSIS COPD EXACERBATION, ACUTE SEVERE COPD, PER PFT (2016) CAD HYPERTENSION CKD WITH ABNORMAL RENAL FUNCTION (11/19) DYSLIPIDEMIA ANXIETY DEPRESSION GI BLEED CHRONIC BACK PAIN PREVIOUS SMOKER ECHOCARDIOGRAM: LVH WITH LVEF 47% (NOVEMBER 2017) LAST VITALS Temp Pulse Resp BP Pulse Ox 97.7 F 64 14 150/74 H 97 11/20/18 06:00 11/20/18 06:00 11/20/18 06:00 11/20/18 06:00 11/20/18 10:00 TAKE THESE MEDICATIONS AT HOME Albuterol/Ipratropium (Combivent Respimat Inhal [place]) 1 spray IH TID [facility] Last Admin: 11/20/18 09:09 Dose: 1 spray Alprazolam (Xanax) 1 mg PO BEDTIME [facility] Last Admin: 11/19/18 20:36 Dose: 1 mg Aspirin (Aspirin Chewable) 81 mg PO BEDTIME [facility] Last Admin: 11/19/18 20:35 Dose: 81 mg Atorvastatin Calcium (Lipitor) 40 mg PO BEDTIME [facility] Last Admin: 11/19/18 20:36 Dose: 40 mg Cefdinir (Omnicef) 300 mg PO Q12HR [facility] FOR 5 DAYS Last Admin: 11/20/18 09:07 Dose: 300 mg (NEW) Clopidogrel Bisulfate (Plavix) 75 mg PO DAILY [facility] Last Admin: 11/20/18 09:07 Dose: 75 mg Diltiazem HCl (Cardizem) 60 mg PO Q12HR [facility] Last Admin: 11/20/18 09:07 Dose: 60 mg Duloxetine HCl (Cymbalta) 30 mg PO DAILY [facility] Last Admin: 11/20/18 09:08 Dose: 30 mg Isosorbide Mononitrate (Imdur) 30 mg PO DAILY [facility] Last Admin: 11/20/18 09:08 Dose: 30 mg Losartan Potassium (Cozaar) 50 mg PO BID [facility] Last Admin: 11/20/18 09:07 Dose: 50 mg (NEW) Metoprolol Succinate (Toprol Xl) 50 mg PO DAILY [facility] Last Admin: 11/20/18 09:07 Dose: 50 mg Nitroglycerin (Nitrostat) 0.4 mg SL Q5MIN X 3 DOSES PRN PRN Reason: Pain Non-Formulary Medication (Fluticasone/Umeclidin/Vilanter [Trelegy Ellipta 100- 62.5-25]) 1 each IH DAILY [facility] Last Admin: 11/20/18 09:08 Dose: Not Given Oxycodone/Acetaminophen (Percocet 7.5-325) 1 tab PO QID PRN PRN Reason: Pain Last Admin: 11/20/18 09:08 Dose: 1 tab Pantoprazole Sodium (Protonix) 40 mg PO BID [facility] Last Admin: 11/20/18 09:07 Dose: 40 mg Prednisone (Prednisone) 20 mg PO DAILYWM [facility] Last Admin: 11/20/18 09:07 Dose: 20 mg FOR 5 DAYS (NEW) TRELEGY ELLIPTA 100-62.5-25 ONE INHALATION DAILY LAST ADMIN: Tamsulosin HCl (Flomax) 0.4 mg PO DAILY [facility] Last Admin: 11/20/18 09:07 Dose: 0.4 mg ALLERGIES buspirone HCl [From BuSpar] Adverse Reaction (Verified 11/15/18 13:27) codeine Adverse Reaction (Verified 11/15/18 13:27) lorazepam [From Ativan] Adverse Reaction (Verified 11/15/18 13:27) meperidine HCl [From Demerol] Adverse Reaction (Verified 11/15/18 13:27) promethazine HCl [From Phenergan] Adverse Reaction (Verified 11/15/18 13:27) tiotropium bromide [From Spiriva with HandiHaler] Adverse Reaction (Verified 13:27) DISCONTINUED MEDICATIONS NONE NEW PRESCRIPTIONS: COZAAR 50 MG BID PREDNISONE 20 MG DAILY WITH MEALS FOR 5 DAYS OMNICEF 300 MG BID FOR 4 MORE DAYS SMOKING: PATIENT REPORTS HE HAS STOPPED SMOKING DISEASE SPECIFIC EDUCATION: APPOINTMENTS USE OF ORAL STEROIDS AND RISK OF GI UPSET, BONE DEMINERALIZATION MEDICATIONS ACTIVITY LAB REVIEW: 11/20/18 04:15 11/20/18 04:15 11/20/18 04:15: Sodium 137.6, Potassium 4.65, Chloride 101.4, Carbon Dioxide 33.4 H, Anion Gap 7.45, BUN 41.9 H, Creatinine 1.26 H, Estimated GFR (MDRD) 57.00, BUN/Creatinine Ratio 33.25, Glucose 106.1 H, Calcium 8.22 L, Total Bilirubin 0.28, AST 20.8, ALT 19.6, Alkaline Phosphatase 79.0, Total Protein 4.83 L, Albumin 2.66 L, Globulin 2.17, Albumin/Globulin Ratio 1.22 11/20/18 04:15: WBC 14.36 H, RBC 3.69 L, Hgb 10.1 L, Hct 30.0 L, MCV 81.3, MCH 27.4, MCHC 33.7, RDW Coeff of Tobin 15.6 H, Plt Count 224, Immature Gran % (Auto) 1.0, Neut % (Auto) 86.5, Lymph % (Auto) 4.0 L, [place] % (Auto) 8.4, Eos % (Auto) 0.0, Baso % (Auto) 0.1, Immature Gran # (Auto) 0.1, Neut # (Auto) 12.4 H, Lymph # (Auto) 0.6, [place] # (Auto) 1.2, Eos # (Auto) 0.0, Baso # (Auto) 0.0 PLAN: DISCHARGE HOME DIET: REGULAR TOLERATED ACTIVITY: GRADUALLY RESUME TOLERATED, BUT ADVISES TO REST FOR 3-4 DAYS BEFORE RESUMING ALL REGULAR ACTIVITIES CONTINUE USE OF HOME OXYGEN AND NEBULIZER TREATMENTS AN APPOINTMENT IS ARRANGED WITH DR. THERESA RICKS AT [facility] ON [address] ON November AT 1:30 PM AN APPOINTMENT IS SCHEDULED WITH DR. CHUNG/SHRAVAN CASSIDY APRN ON November AT 2:15 PM MR. ZAPATA IS A DNR PER HIS REQUEST MR. ZAPATA IS ALERT AND ORIENTED X 3. DISCHARGE PLANS HAVE BEEN DISCUSSED WITH MR. ZAPATA AND HE IS AGREEABLE. HE HAS OXYGEN AND A NEBULIZER FOR HIS USE AT HOME. HE IS INDEPENDENT WITH ALL ACTIVITIES OF DAILY LIVING. HE IS AMBULATORY IN THE ROOM AND HALLWAY WITHOUT USE OF ASSISTIVE DEVICE. HE USES OXYGEN WHEN IN THE BED AND ROOM, BUT AMBULATES OFTEN WITHOUT THE OXYGEN. MEAL INTAKES ARE GOOD AT 100%. HE IS CONTINENT OF BOWEL AND BLADDER. SKIN IS IN GOOD CONDITION , BUT AREAS OF ECCHYMOSIS ARE NOTED TO THE UPPER EXTREMITIES. SKIN IS INTACT AND FREE OF DECUBITUS ULCERS. ANAHI CHUNG MD
--- NOTE | 2018-11-21 09:50 | DS ---
DATE OF SERVICE: 11/20/18 FINAL DIAGNOSIS: COPD EXACERBATION, ACUTE SEVERE COPD, PER PFT (2016) CAD HYPERTENSION CKD WITH ABNORMAL RENAL FUNCTION (11/19) DYSLIPIDEMIA ANXIETY DEPRESSION GI BLEED CHRONIC BACK PAIN PREVIOUS SMOKER ECHOCARDIOGRAM: LVH WITH LVEF 47% (NOVEMBER 2017) LAST VITALS: Temp Pulse Resp BP Pulse Ox 97.7 F 64 14 150/74 H 97 11/20/18 06:00 11/20/18 06:00 11/20/18 06:00 11/20/18 06:00 11/20/18 10:00 DISCHARGE INSTRUCTIONS: DISCHARGE HOME. CONTINUE USE OF HOME OXYGEN AND NEBULIZER TREATMENTS. AN APPOINTMENT IS ARRANGED WITH DR. THERESA RICKS AT [facility] ON [address] ON November AT 1:30 PM. AN APPOINTMENT IS SCHEDULED WITH DR. CHUNG/ SHRAVAN CASSIDY APRN ON November AT 2:15 PM. MR. ZAPATA IS A DNR PER HIS REQUEST TAKE THESE MEDICATIONS AT HOME: Albuterol/Ipratropium (Combivent Respimat Inhal [place]) 1 spray IH TID [facility] Alprazolam (Xanax) 1 mg PO BEDTIME [facility] Aspirin (Aspirin Chewable) 81 mg PO BEDTIME [facility] Atorvastatin Calcium (Lipitor) 40 mg PO BEDTIME [facility] Cefdinir (Omnicef) 300 mg PO Q12HR [facility] FOR 5 DAYS Clopidogrel Bisulfate (Plavix) 75 mg PO DAILY [facility] Diltiazem HCl (Cardizem) 60 mg PO Q12HR [facility] Duloxetine HCl (Cymbalta) 30 mg PO DAILY [facility] Isosorbide Mononitrate (Imdur) 30 mg PO DAILY [facility] Losartan Potassium (Cozaar) 50 mg PO BID [facility] Metoprolol Succinate (Toprol Xl) 50 mg PO DAILY [facility] Nitroglycerin (Nitrostat) 0.4 mg SL Q5MIN X 3 DOSES PRN Non-Formulary Medication (Fluticasone/Umeclidin/Vilanter [Trelegy Ellipta 100- 62.5-25]) 1 each IH DAILY [facility] Oxycodone/Acetaminophen (Percocet 7.5-325) 1 tab PO QID PRN Pantoprazole Sodium (Protonix) 40 mg PO BID [facility] Prednisone (Prednisone) 20 mg PO DAILYWM [facility] TRELEGY ELLIPTA 100-62.5-25 ONE INHALATION DAILY Tamsulosin HCl (Flomax) 0.4 mg PO DAILY [facility] ALLERGIES: buspirone HCl [From BuSpar] Adverse Reaction (Verified 11/15/18 13:27) codeine Adverse Reaction (Verified 11/15/18 13:27) lorazepam [From Ativan] Adverse Reaction (Verified 11/15/18 13:27) meperidine HCl [From Demerol] Adverse Reaction (Verified 11/15/18 13:27) promethazine HCl [From Phenergan] Adverse Reaction (Verified 11/15/18 13:27) tiotropium bromide [From Spiriva with HandiHaler] Adverse Reaction (Verified 13:27) DISCONTINUED MEDICATIONS: NONE NEW PRESCRIPTIONS: COZAAR 50 MG BID PREDNISONE 20 MG DAILY WITH MEALS FOR 5 DAYS OMNICEF 300 MG BID FOR 4 MORE DAYS SMOKING: PATIENT REPORTS HE HAS STOPPED SMOKING DISEASE SPECIFIC EDUCATION: APPOINTMENTS USE OF ORAL STEROIDS AND RISK OF GI UPSET, BONE DEMINERALIZATION MEDICATIONS ACTIVITY DIET: REGULAR TOLERATED ACTIVITY: GRADUALLY RESUME TOLERATED, BUT ADVISES TO REST FOR 3-4 DAYS BEFORE RESUMING ALL REGULAR ACTIVITIES HOSPITAL COURSE: The patient was hospitalized with acute bronchitis/pleuritic pain. The patient' s condition has improved with Toradol IV, Dilaudid, steroids and NEBS treatments , Antibiotics IV. The patient was up and about at the time of discharge. His condition was stable and his pleuritic pain and bronchitis symptoms resolved. The patient is smoking. He is also sneaking around and drinking alcohol in access. He is advised to cut down on it. CONDITION: Stable. TIME SPENT: More than 60 minutes. MTDD
--- NOTE | 2018-11-21 09:51 | PN ---
11/15/18: Level 5 11/16/18: Intermediate 11/17/18: Intermediate 11/18/18: Intermediate 11/19/18: Intermediate 11/20/18: D as in discharge MTDD
== END 2018-11-20 12:35 | disposition home or self-care (01) | DRG 190 ==
LOC: ED 13:17 → MEDSURG B 17:06
PROVIDERS: ADMIT Internal Medicine; ATTEND Internal Medicine
DX: J44.1 Chronic obstructive pulmonary disease with (acute) exacerbation (principal); J18.9 Pneumonia, unspecified organism; K92.2 Gastrointestinal hemorrhage, unspecified; J20.9 Acute bronchitis, unspecified; I25.10 Atherosclerotic heart disease of native coronary artery without angina pectoris; I10 Essential (primary) hypertension; N18.9 Chronic kidney disease, unspecified; E78.5 Hyperlipidemia, unspecified; M54.9 Dorsalgia, unspecified; M47.9 Spondylosis, unspecified; F41.9 Anxiety disorder, unspecified; F32.9 Major depressive disorder, single episode, unspecified; R06.00 Dyspnea, unspecified; R53.81 Other malaise; R05 Cough; R06.2 Wheezing; R06.01 Orthopnea; R07.81 Pleurodynia; R73.9 Hyperglycemia, unspecified; R13.10 Dysphagia, unspecified
CPT/HCPCS: 36415; 80053; 82803; 84484; 85025; 87502; 93005; 93010; 94640; 96375; 99285

== ENCOUNTER 2018-12-12 12:49 | Emergency (ER) ==
[2018-12-12 12:53] VITALS: BP 151/73; TEMP 98.6; BMI 19.1
--- NOTE | 2018-12-12 13:04 | ED.PDOC ---
General ED Provider: Dr. UNRULY RIVERA Chief Complaint: Hand Laceration Stated Complaint: right and wound which was sustained on a monday by scraping his hand against a nail. Does not recall tetnus shot Time Seen by Physician: 12:55 (SEEN WITH THEO AT ALL TIMES PHOTOS SUBMITTED ) Mode of Arrival: Walk-In Information Source: Patient Exam Limitations: No limitations Primary Care Provider: ANAHI CHUNG Nursing and Triage Documentation Reviewed and Agree: Yes Does patient meet sepsis criteria?: No System Inflammatory Response Syndrome: Not Applicable Sepsis Protocol: For patient's 13 years and over: Temp is 96.8 and below OR 101 and greater Pulse >90 BPM Resp >20/minute Acutely Altered Mental Status Are patient's symptoms suggestive of a new infection, such as: -Pneumonia -Skin, Soft Tissue -Endocarditis -UTI -Bone, Joint Infection -Implantable Device -Acute Abdominal Infection -Wound Infection -Meningitis -Blood Stream Catheter Infection -Unknown Skin Complaint Exam - Lac/Torso/Upper Ext. Complaint/Exam Location of Injury: Right (HAND SEE PHOTOS) Mechanism of Injury: Laceration Onset/Duration: 3 DAYS Initial Severity: Mild Current Severity: Mild Aggravating: None Alleviating: None Associated Signs and Symptoms: Denies: Fever, Chills, Erythema, Numbness, Tingling Differential Diagnoses: Laceration Review of Systems - Review Of Systems Constitutional: Reports: No symptoms Eyes: Reports: No symptoms Ears, Nose, Mouth, Throat: Reports: No symptoms Respiratory: Reports: No symptoms Cardiac: Reports: No symptoms GI: Reports: No symptoms : Reports: No symptoms Musculoskeletal: Reports: No symptoms Skin: Reports: Other (LACERATION SEE PHOTOS) Neurological: Reports: No symptoms Endocrine: Reports: No symptoms Hematologic/Lymphatic: Reports: No symptoms All Other Systems: Reviewed and Negative Past Medical History - Past Medical History Previously Healthy: No Endocrine: Reports: None, Dyslipidemia Cardiovascular: Reports: CAD, Hypertension, A-Fib Respiratory: Reports: COPD Hematological: Reports: None Gastrointestinal: Reports: None, GI Bleed (DR Hou NOTES PATINET RECENTLY DISCHARGED FRO M HOLINESS POST SHRAVAN BARKER TEAR) Genitourinary: Reports: None Neuro/Psych: Reports: None, Anxiety, Depression Musculoskeletal: Reports: Back Pain Cancer: Reports: None, Other Other Pertinent Past Medical History: ABDOMEN SURGERY as an - Surgical History General Surgical History: Reports: Appendectomy, Cholecystectomy, CABG (TWICE), Orthopedic (CABG X 2, BACK SURGERY, SHOULDER, NECK DISC REPLACEMENT, ), Back Surgery ( SPINE SURGERY), Hernia Repair (WITH MESH- CURRENTLY HAS TENDER AREA LEFT EPIGASTRIUM WHICH INTERMITTENTLY HAS LARGE PAINFUL LUMP) - Family History Family History: Reports: Unknown - Social History Smoking Status: Former smoker Hx Substance Use: No Alcohol Screening: None - Immunizations Influenza Vaccine within 12 Months: No Pneumococcal Vaccine up to Date: No Physical Exam - Physical Exam Appearance: Well-appearing, No pain distress, Well-nourished Eyes: INDER, EOMI, Conjunctiva clear ENT: Ears normal, Nose normal, Oropharynx normal Respiratory: Airway patent, Breath sounds clear, Breath sounds equal, Respirations nonlabored Cardiovascular: RRR, Pulses normal, No rub, No murmur GI/: Soft, Nontender, No masses, Bowel sounds normal, No Organomegaly Musculoskeletal: Normal strength, ROM intact, No edema, No calf tenderness Skin: Warm, Dry (SKIN TEAR NOTED SEE PHOTOS) Neurological: Sensation intact, Motor intact, Reflexes intact, Cranial nerves intact, Alert, Oriented Psychiatric: Affect appropriate, Mood appropriate Procedures - Laceration/Wound Repair No standard instances Wound Description: Irregular Wound Length (cm): 1CM Wound Width: 1CM Wound Depth: 1MM Wound Explored: Clean Wound Irrigated: Yes Wound Prep: Saline, Hibiclens Undermining: Minimal (WOUND WAS DRESSED WITH SURGICIL) Critical Care Note - Critical Care Note Total Time (mins): 0 Course - Course Vital Signs: Temp Pulse Resp BP Pulse Ox 12/12/18 12:49 98.6 F 68 18 151/73 H 95 Departure - Departure Time of Disposition: 13:04 (PLACED ON ATIBIOTICS, AND UTD THE TETNUS) Disposition: HOME SELF-CARE Discharge Problem: Laceration of hand Instructions: Laceration (ED) Condition: Good Pt referred to PMD for follow-up: Yes IPMP verified?: No Additional Instructions: Please call your Family Physician as soon as possible to schedule a follow-up appointment. Prescriptions: Amoxicillin 500 mg PO Q8HR #21 tablet Allergies/Adverse Reactions: Allergies buspirone HCl [From BuSpar] Adverse Reaction (Verified 12/12/18 12:54) codeine Adverse Reaction (Verified 12/12/18 12:54) lorazepam [From Ativan] Adverse Reaction (Verified 12/12/18 12:54) meperidine HCl [From Demerol] Adverse Reaction (Verified 12/12/18 12:54) promethazine HCl [From Phenergan] Adverse Reaction (Verified 12/12/18 12:54) tiotropium bromide [From Spiriva with HandiHaler] Adverse Reaction (Verified 12:54) Home Medications: Ambulatory Orders Atorvastatin Calcium [Lipitor] 40 mg PO BEDTIME 01/20/13 Isosorbide Mononitrate [Imdur] 30 mg PO DAILY 01/20/13 Aspirin [Aspirin Chewable] 81 mg PO BEDTIME 01/28/13 Alprazolam [Xanax] 1 mg PO BEDTIME 09/22/14 Clopidogrel Bisulfate [Plavix] 75 mg PO DAILY 09/22/14 Diltiazem HCl [Cardizem] 60 mg PO Q12HR #60 tablet 09/23/14 Oxycodone HCl/Acetaminophen [Percocet 7.5-325 mg Tablet] 1 each PO QID PRN 30 Days tablet 03/18/15 Pantoprazole Sodium [Protonix] 40 mg PO BID #60 tablet. 11/23/16 Nitroglycerin 0.4 mg SL DIRECTED PRN 11/29/17 Duloxetine HCl [Cymbalta] 30 mg PO DAILY 04/30/18 Metoprolol Succinate [Toprol Xl] 50 mg PO DAILY 04/30/18 Tamsulosin HCl [Flomax] 1 cap PO DAILY 04/30/18 Ipratropium/Albuterol Sulfate [Combivent Respimat Inhal Baxter] 1 spray IH TID Fluticasone/Umeclidin/Vilanter [Trelegy Ellipta 100-62.5-25] 1 each IH DAILY Losartan Potassium [Cozaar] 50 mg PO BID #60 tablet 11/20/18 Chlordiazepoxide/Clidinium Br [Librax Capsule] 1 each PO TID 11/27/18 Diazepam 10 mg PO 2-3XD 11/27/18 Amoxicillin 500 mg PO Q8HR #21 tablet 12/12/18
[2018-12-12] MEDS ORDERED: TENIVAC IM ONE (13:07)
== END 2018-12-12 13:37 | disposition home or self-care (01) ==
LOC: ED 12:49
DX: S61.411A Laceration without foreign body of right hand, initial encounter (principal); W45.0XXA Nail entering through skin, initial encounter
CPT/HCPCS: 90471; 90714; 99283

== ENCOUNTER 2018-12-12 20:29 | Emergency (ER) ==
[2018-12-12 20:29] VITALS: BMI 19.1
[2018-12-12] MEDS ORDERED: PROTONIX IV IVP STA (20:37)
[2018-12-12] MEDS ORDERED: MORPHINE 2 MG/ML SYRINGE IVP STA (21:07)
--- NOTE | 2018-12-12 21:07 | CT ---
EXAM: CT of the chest without contrast History: Chest pain, cough. Comparison: Chest radiograph 11/15/2018, chest CT 04/30/2018 Technique: Multiplanar CT images through the thorax were obtained without the administration of IV c ontrast Findings: Heart size is normal. Coronary calcifications. Sternotomy wires. The no thoracic aortic aneurysm. No axillary lymphadenopathy. No pathologically enlarged mediastinal lymph nodes. Evaluat ion for hilar lymph nodes is limited due to the lack of contrast administration but there is no bulky adenopathy. Mild to moderate emphysema. There is diffuse bronchial wall thickening but no consolid ated pneumonia. No pleural fluid and no pneumothorax. No suspicious lung masses or lung nodules. T here is some debris or mucous secretions within the trachea and bilateral mainstem bronchi. Within the visualized upper abdomen, status post cholecystectomy. The interventricular septum of the heart is visible suggesting anemia. Prominent gastric folds. No acute osseous abnormalities. Impression: 1. Diffuse bronchial wall thickening but no consolidated pneumonia. 2. Emphysema. 3. Coronary artery disease. 4. Prominent gastric folds. Correlate for possible gastritis. 4. Debris and mucus secretions within the trachea and mainstem bronchi.
[2018-12-12] MEDS ORDERED: DUONEB NEB STA (21:21)
[2018-12-12] MEDS ORDERED: MORPHINE 2 MG/ML SYRINGE ONE ×2 (21:31→23:51)
[2018-12-12] MEDS: MORPHINE 2 MG/ML SYRINGE IVP PRN ×2 (21:38→23:52)
[2018-12-13] MEDS ORDERED: DILAUDID 1 MG/ML SYRINGE IVP STA (00:02)
[2018-12-13 01:02] VITALS: TEMP 97.8
--- NOTE | 2018-12-13 02:38 | ED.PDOC ---
General ED Provider: Dr. MADAY DONG-ER Chief Complaint: Chest Pain Stated Complaint: my left me---im under stress -- Time Seen by Physician: 20:30 Mode of Arrival: Walk-In Information Source: Patient Exam Limitations: No limitations Primary Care Provider: ANAHI BALLESTEROS Nursing and Triage Documentation Reviewed and Agree: Yes Does patient meet sepsis criteria?: No System Inflammatory Response Syndrome: Not Applicable Sepsis Protocol: For patient's 13 years and over: Temp is 96.8 and below OR 101 and greater Pulse >90 BPM Resp >20/minute Acutely Altered Mental Status Are patient's symptoms suggestive of a new infection, such as: -Pneumonia -Skin, Soft Tissue -Endocarditis -UTI -Bone, Joint Infection -Implantable Device -Acute Abdominal Infection -Wound Infection -Meningitis -Blood Stream Catheter Infection -Unknown Miscellaneous Complaint Exam - Complex/Multi-System Complaint/Exam Onset/Duration: today Symptoms Are: Still present Episodes Lasting: Minutes Initial Severity: Mild Current Severity: Mild Location of Pain: central chest Associated Signs and Symptoms: Reports: Chest pain Respiratory Distress: None JVD Present: No Tachypnea Present: No Stridor Present: No Abdominal Findings: Present: Normal findings Glascow Coma Scale (see protocol): 15 Meningeal Signs Positive: No Focal Weakness: Present: None Focal Sensory Loss: Present: None Gait: Normal Gag Reflex Present: No Babinski Sign: Negative Right, Negative Left Skin Findings: Present: Normal findings Joint Swelling Present: No In-Dwelling Device Present: No Differential Diagnosis: Other Quality Indicator For Non-Traumatic Chest Pain/Syncope: EKG Performed Review of Systems - Review Of Systems Constitutional: Reports: No symptoms Eyes: Reports: No symptoms Ears, Nose, Mouth, Throat: Reports: No symptoms Respiratory: Reports: Cough Cardiac: Reports: Chest pain GI: Reports: No symptoms : Reports: No symptoms Musculoskeletal: Reports: No symptoms Skin: Reports: No symptoms Neurological: Reports: Anxiety, Depressed, Emotional problems Endocrine: Reports: No symptoms Hematologic/Lymphatic: Reports: No symptoms All Other Systems: Reviewed and Negative Past Medical History - Past Medical History Previously Healthy: No Endocrine: Reports: None, Dyslipidemia Cardiovascular: Reports: CAD, Hypertension, A-Fib Respiratory: Reports: COPD Hematological: Reports: None Gastrointestinal: Reports: None, GI Bleed (DR Hou NOTES PATINET RECENTLY DISCHARGED FRO M CATHOLIC POST SHRAVAN BARKER TEAR) Genitourinary: Reports: None Neuro/Psych: Reports: None, Anxiety, Depression Musculoskeletal: Reports: Back Pain Cancer: Reports: None, Other Other Pertinent Past Medical History: ABDOMEN SURGERY as an - Surgical History General Surgical History: Reports: Appendectomy, Cholecystectomy, CABG (TWICE), Orthopedic (CABG X 2, BACK SURGERY, SHOULDER, NECK DISC REPLACEMENT, ), Back Surgery ( SPINE SURGERY), Hernia Repair (WITH MESH- CURRENTLY HAS TENDER AREA LEFT EPIGASTRIUM WHICH INTERMITTENTLY HAS LARGE PAINFUL LUMP) - Family History Family History: Reports: Unknown - Social History Smoking Status: Former smoker Hx Substance Use: No Alcohol Screening: Occasionally - Immunizations Tetanus Shot up to Date: Yes Influenza Vaccine within 12 Months: No Pneumococcal Vaccine up to Date: No Physical Exam - Physical Exam Appearance: Well-appearing, No pain distress, Well-nourished Pain Distress: Mild Eyes: INDER, EOMI, Conjunctiva clear ENT: Ears normal, Nose normal, Oropharynx normal Neck: Supple Respiratory: Airway patent Cardiovascular: RRR GI/: Soft, Nontender, No masses, Bowel sounds normal, No Organomegaly Musculoskeletal: Normal strength, ROM intact, No edema, No calf tenderness Skin: Warm, Dry, Normal color Neurological: Sensation intact, Motor intact, Reflexes intact, Cranial nerves intact, Alert, Oriented Psychiatric: Affect appropriate, Mood appropriate, Anxious, Depressed Interpretation - Radiology Interpretation Radiology Interpretation By: Radiologist Radiology Results: Negative Exam Interpreted: CT Scan - EKG Interpretation Time of EKG #1: 20:40 Rate: Kentrell Rhythm: Sinus Ectopy: None Ewing: NL ST Segment: Normal Interpretation: sinus kentrell EKG Comparison: No significant changes Time of EKG #2: 02:00 Rate: Kentrell Rhythm: Sinus Ectopy: None Ewing: NL ST Segment: Normal EKG Interpretation: sinus kentrell EKG Comparison: No significant changes Re-Evaluation - Re-Evaluation Time of Re-Evaluation: 02:39 Status: Improved Vital Signs Stable: Yes Pain Level: 0 Appearance: NAD Lungs: Clear Skin: Warm and Dry Neuro: Alert and Oriented X3 CV: RRR Physician Notification - Case Discussed Physician Notified: dr [email or web address] Time of Notification: 10:00 Critical Care Note - Critical Care Note Total Time (mins): 45 Course - Course Hematology/Chemistry: 12/12/18 20:50 12/12/18 20:50 Orders, Labs, Meds: Lab Review 12/12/18 12/12/18 12/12/18 20:50 20:50 21:20 WBC 5.08 RBC 3.57 L Hgb 10.1 L Hct 29.9 L MCV 83.8 MCH 28.3 MCHC 33.8 RDW Coeff of Tobin 15.7 H Plt Count 188 Immature Gran % (Auto) 0.2 Neut % (Auto) 56.6 Lymph % (Auto) 28.7 Dubois % (Auto) 10.2 H Eos % (Auto) 3.5 Baso % (Auto) 0.8 Immature Gran # (Auto) 0.0 Neut # (Auto) 2.9 Lymph # (Auto) 1.5 Dubois # (Auto) 0.5 Eos # (Auto) 0.2 Baso # (Auto) 0.0 Puncture Site Rb O2 Saturation 98.0 ABG pH 7.314 L ABG pCO2 49.6 H ABG pO2 120.0 H ABG HCO3 25.2 ABG Total CO2 27 ABG Base Excess -1 Dariel Test + O2 Delivery Device Bnc Oxygen Liter Flow 2.00 FiO2 % 28.0 Sodium 134.2 L Potassium 3.82 Chloride 97.6 L Carbon Dioxide 28.2 Anion Gap 12.22 BUN 13.2 Creatinine 1.34 H Estimated GFR (MDRD) 53.00 BUN/Creatinine Ratio 9.85 Glucose 123.5 H Calcium 8.22 L Total Bilirubin 0.24 AST 32.4 ALT 26.6 Alkaline Phosphatase 72.0 Total Creatine Kinase 41.4 L Troponin I < 0.012 Total Protein 5.68 L Albumin 3.43 L Globulin 2.25 Albumin/Globulin Ratio 1.52 Amylase 64.2 Lipase 69.6 Plasma/Serum Alcohol 147.3 H 12/13/18 02:00 WBC RBC Hgb Hct MCV MCH MCHC RDW Coeff of Tobin Plt Count Immature Gran % (Auto) Neut % (Auto) Lymph % (Auto) Dubois % (Auto) Eos % (Auto) Baso % (Auto) Immature Gran # (Auto) Neut # (Auto) Lymph # (Auto) Dubois # (Auto) Eos # (Auto) Baso # (Auto) Puncture Site O2 Saturation ABG pH ABG pCO2 ABG pO2 ABG HCO3 ABG Total CO2 ABG Base Excess Dariel Test O2 Delivery Device Oxygen Liter Flow FiO2 % Sodium Potassium Chloride Carbon Dioxide Anion Gap BUN Creatinine Estimated GFR (MDRD) BUN/Creatinine Ratio Glucose Calcium Total Bilirubin AST ALT Alkaline Phosphatase Total Creatine Kinase 46.1 L Troponin I 0.015 Total Protein Albumin Globulin Albumin/Globulin Ratio Amylase Lipase Plasma/Serum Alcohol Orders Category Date Time Status ABG DRAW REQUEST Stat CARDIO 12/12/18 21:20 Completed EKG-(ED ONLY) Stat CARDIO 12/12/18 20:36 Completed EKG-(ED ONLY) Timed CARDIO 12/13/18 02:00 Completed NEBULIZER TREATMENT Stat CARDIO 12/12/18 21:21 Completed ED GENERATION TECHNOLOGIST APPLIED .ONCE EMERGENCY 12/12/18 20:36 Active ED IV/MEDIPORT/POWERPORT .ONCE EMERGENCY 12/12/18 20:36 Active OXYGEN [ED APPLY O2] .ONCE EMERGENCY 12/12/18 21:20 Active ABG Stat LAB 12/12/18 21:20 Completed AMYLASE Stat LAB 12/12/18 20:50 Completed CBC W/ AUTO DIFF Stat LAB 12/12/18 20:50 Completed CK [CREATINE KINASE] Timed LAB 12/13/18 02:00 Completed COMPREHENSIVE METABOLIC PANEL Stat LAB 12/12/18 20:50 Completed CREATINE KINASE Stat LAB 12/12/18 20:50 Completed ETOH LEVEL [BLOOD ALCOHOL] Stat LAB 12/12/18 20:50 Completed LIPASE Stat LAB 12/12/18 20:50 Completed TROPONIN I Stat LAB 12/12/18 20:50 Completed TROPONIN I Timed LAB 12/13/18 02:00 Completed 0.9 % Sodium Chloride [Saline Flush] MEDS 12/12/18 20:36 Ordered 1 syr IVF PRN PRN Hydromorphone HCl [Dilaudid 1 mg/ml Syringe] MEDS 12/13/18 00:02 Discontinued 1 mg IVP ONCE STA Ipratropium/Albuterol Neb [Duoneb] MEDS 12/12/18 21:21 Discontinued 1 vial NEB ONCE STA Morphine Sulfate [Morphine 2 mg/ml Syringe] MEDS 12/12/18 21:07 Discontinued 2 mg IVP ONCE STA Morphine Sulfate [Morphine 2 mg/ml Syringe] MEDS 12/12/18 21:25 Ordered 2 mg IVP Q2HR PRN Pantoprazole Sodium [Protonix IV] MEDS 12/12/18 20:37 Discontinued [address] ONCE ST[address] CHEST W/O CONTRAST Stat RADS 12/12/18 20:37 Completed Medications Generic Name Dose Route Start Last Admin Trade Name Joseq PRN Reason Stop Dose Admin Morphine Sulfate 2 mg 12/12/18 21:25 12/12/18 23:52 Morphine 2 Mg/Ml Syringe IVP 2 mg Q2HR PRN Administration Chest Pain Sodium Chloride 1 syr 12/12/18 20:36 12/12/18 21:14 Saline Flush IVF 1 syr PRN PRN Administration To flush IV Discontinued Medications Generic Name Dose Route Start Last Admin Trade Name Joseq PRN Reason Stop Dose Admin Albuterol/Ipratropium 1 vial 12/12/18 21:21 12/12/18 21:45 Duoneb NEB 12/12/18 21:22 1 vial ONCE STA Administration Hydromorphone HCl 1 mg 12/13/18 00:02 12/13/18 00:08 Dilaudid 1 Mg/Ml Syringe IVP 12/13/18 00:03 1 mg ONCE STA Administration Morphine Sulfate 2 mg 12/12/18 21:07 12/12/18 21:14 Morphine 2 Mg/Ml Syringe IVP 12/12/18 21:08 2 mg ONCE STA Administration Pantoprazole Sodium 40 mg 12/12/18 20:37 12/12/18 20:53 Protonix Iv IVP 12/12/18 20:38 40 mg ONCE STA Administration Vital Signs: Temp Pulse Resp BP Pulse Ox 12/13/18 01:00 97.8 F 53 L 18 162/74 H 98 12/12/18 22:58 68 19 173/88 H 96 12/12/18 20:29 96.5 F L 49 L 20 147/67 H 93 L Departure - Departure Time of Disposition: 02:40 Disposition: HOME SELF-CARE Discharge Problem: Chest pain Instructions: Chest Pain (ED), Anxiety (ED) Condition: Fair Pt referred to PMD for follow-up: Yes IPMP verified?: No Additional Instructions: f/u with dr ballesteros Allergies/Adverse Reactions: Allergies buspirone HCl [From BuSpar] Adverse Reaction (Verified 12/12/18 20:32) codeine Adverse Reaction (Verified 12/12/18 20:32) lorazepam [From Ativan] Adverse Reaction (Verified 12/12/18 20:32) meperidine HCl [From Demerol] Adverse Reaction (Verified 12/12/18 20:32) promethazine HCl [From Phenergan] Adverse Reaction (Verified 12/12/18 20:32) tiotropium bromide [From Spiriva with HandiHaler] Adverse Reaction (Verified 20:32) Home Medications: Ambulatory Orders Atorvastatin Calcium [Lipitor] 40 mg PO BEDTIME 01/20/13 Isosorbide Mononitrate [Imdur] 30 mg PO DAILY 01/20/13 Aspirin [Aspirin Chewable] 81 mg PO BEDTIME 01/28/13 Alprazolam [Xanax] 1 mg PO BEDTIME 09/22/14 Clopidogrel Bisulfate [Plavix] 75 mg PO DAILY 09/22/14 Diltiazem HCl [Cardizem] 60 mg PO Q12HR #60 tablet 09/23/14 Oxycodone HCl/Acetaminophen [Percocet 7.5-325 mg Tablet] 1 each PO QID PRN 30 Days tablet 03/18/15 Pantoprazole Sodium [Protonix] 40 mg PO BID #60 tablet. 11/23/16 Nitroglycerin 0.4 mg SL DIRECTED PRN 11/29/17 Duloxetine HCl [Cymbalta] 30 mg PO DAILY 04/30/18 Metoprolol Succinate [Toprol Xl] 50 mg PO DAILY 04/30/18 Tamsulosin HCl [Flomax] 1 cap PO DAILY 04/30/18 Ipratropium/Albuterol Sulfate [Combivent Respimat Inhal Pitcher] 1 spray IH TID Fluticasone/Umeclidin/Vilanter [Trelegy Ellipta 100-62.5-25] 1 each IH DAILY Losartan Potassium [Cozaar] 50 mg PO BID #60 tablet 11/20/18 Chlordiazepoxide/Clidinium Br [Librax Capsule] 1 each PO TID 11/27/18 Diazepam 10 mg PO 2-3XD 11/27/18 Amoxicillin 500 mg PO Q8HR #21 tablet 12/12/18 Disposition Discussed With: Patient
[2018-12-13 03:25] VITALS: BP 146/78
== END 2018-12-13 02:41 | disposition home or self-care (01) ==
LOC: ED 20:29
DX: R07.9 Chest pain, unspecified (principal); F41.9 Anxiety disorder, unspecified; E78.5 Hyperlipidemia, unspecified; I10 Essential (primary) hypertension; I25.10 Atherosclerotic heart disease of native coronary artery without angina pectoris; J44.9 Chronic obstructive pulmonary disease, unspecified; Z79.899 Other long term (current) drug therapy; S61.411A Laceration without foreign body of right hand, initial encounter; W45.0XXA Nail entering through skin, initial encounter
CPT/HCPCS: 36415; 80053; 80307; 82150; 82550; 82803; 83690; 84484; 85025; 90471; 90714; 93005; 93010; 94640; 96374; 96375; 99283; 99284